=== PATIENT | female | born 2000 | race Caucasian/White ===

== ENCOUNTER 2022-12-12 04:23 | Emergency (ER) | payer OTHER, SELFPAY ==
[2022-12-12] VITALS (8 sets, daily range): BP systolic 111–114; BP diastolic 66–76; PULSE 74–77; RESP 16; TEMP 36.8; O2SAT 98–100
--- NOTE | ~2022-12-12 | CT_ITS ---
EXAMINATION: CT abdomen pelvis w con DATE: 12/12/2022 05:55 INDICATION: Epigastric pain, nausea and vomiting TECHNIQUE: Computed tomography (CT) of the abdomen and pelvis was performed with 100 mL Omnipaque-350 intravenous contrast. Automated exposure control and iterative reconstruction technique were employe d. The dose-length product was 624.41 mGy-cm. COMPARISON: None FINDINGS: Minimal dependent atelectasis in the lower lungs. Heart size is normal. No pericardial or pleural eff usion. Small sliding-type hiatal hernia versus mild wall thickening in the distal esophagus. Liver, g allbladder, spleen, pancreas, bilateral adrenal glands and kidneys are normal. Indistinct peripheral margin to the otherwise normal-appearing bladder which could be seen with cystitis. Anteverted uterus and right adnexa are normal. 2.0 cm left ovarian cyst/follicle. Small amount of either physiologic o r reactive free fluid in the cul-de-sac. Bowels including the appendix are normal. No pathologically enlarged abdominal or pelvic lymphadenopathy. Schmorl's node along the superior endplate of L5. IMPRESSION: 1. Possible cystitis. Correlate with urinalysis. 2. Small sliding-type hiatal hernia versus mild wall thickening at the distal esophagus, the latter w hich could be seen with reflux. Reviewed, dictated and finalized at location A. IMPRESSION: 1. Possible cystitis. Correlate with urinalysis. 2. Small sliding-type hiatal hernia versus mild wall thickening at the distal e sophagus, the latter which could be seen with reflux.
[2022-12-12] MEDS: FAMOTIDINE 20 MG/2 ML VIAL IV PUSH (05:11)
[2022-12-12] MEDS: METOCLOPRAMIDE HCL INJ 10 MG/2 ML VIAL IV PUSH (05:12)
[2022-12-12] MEDS: MORPHINE SULFATE (*CRX) 4 MG/ML INJ IV PUSH (05:12)
[2022-12-12] MEDS: PANTOPRAZOLE SODIUM IV 40 MG VIAL IV PUSH (05:12)
[2022-12-12] MEDS: SODIUM CHLORIDE 0.9% IV 1,000 ML 999 ML IV CONT (05:13)
[2022-12-12 05:14] LABS: Basophils Absolute Auto 0.1 K/mm3 (0.0-0.1); Basophils Percent Auto 0.7 % (0.2-1.2); Hematocrit 40.9 % (37.0-47.0); Hemoglobin 13.6 g/dL (12.0-15.0); Immature Granulocyte Absolute 0.02 K/mm3 (0.00-0.031); Immature Granulocyte Percent A 0.2 % (0-0.5); Lymphocytes Absolute Auto 1.62 K/mm3 (0.9-3.2); Lymphocytes Percent Auto 17.7 % (18.3-44.2); Mean Corpuscular HGB Conc 33.3 g/dl (32-36); Mean Corpuscular Hemoglobin 29.6 pg (26-34); Mean Corpuscular Volume 89.1 fl (80-100); Mean Platelet Volume 11.4 fl (7.4-10.4); Monocytes Absolute Auto 0.7 K/mm3 (0.1-0.6); Monocytes Percent Auto 7.3 % (2.6-8.5); Neutrophils Absolute Auto 6.8 K/mm3 (1.3-6.7); Neutrophils Percent Auto 74.1 % (45.5-73.1); Platelet Count Result 257 k/mm3 (150-375); Red Blood Count 4.59 M/mm3 (4.2-5.4); Red Cell Distribution Width 13.4 % (11.5-14.5); White Blood Count 9.2 K/mm3 (4.5-10.0)
--- NOTE | 2022-12-12 05:19 | ED.GENADULT ---
HPI - General Adult General Chief complaint: Abdominal Pain Stated complaint: n/v, abd pain Time Seen by Provider: 12/12/22 04:50 History of Present Illness HPI narrative: Patient with 2-year-old female who presents the emergency department with chief complaint of abdominal pain. Patient reports that she has been seen at [facility] several times for abdominal pain epigastric pain and nausea and vomiting. Patient reports that she continues to have symptoms and decided to come to our emergency department for further evaluation. Patient reports that the symptoms are worsened with eating and drinking and reports that she has pain in the epigastric region. Related Data Allergies Allergy/AdvReac Type Severity Reaction Status Date / Time Penicillins Allergy Itching Verified 12/12/22 05:31 Review of Systems Review of Systems: A 10 system review of systems was completed on the patient and is negative except for what is stated in the HPI. Nursing and ancillary documentation was reviewed. [facility] Family History Family History Father Family history of diabetes mellitus in first degree relative Mother Family history of diabetes mellitus in first degree relative Social History Social History Smoking status: Never smoker Second hand tobacco smoke exposure: No Alcohol intake: never Exam Narrative: GENERAL: Well-appearing, well-nourished, and in no acute distress. HEAD: Normocephalic, atraumatic. EYES: PERRLA and EOMI. ENT: Nares clear, no rhinorrhea or epistaxis. Mucous membranes moist. NECK: Supple. CHEST: Clear to auscultation. No respiratory distress. HEART: Regular rate and rhythm. No murmur heard. Normal peripheral pulses. ABDOMEN: Soft, tenderness to palpation in the epigastric region, nondistended, normal active bowel sounds. EXTREMITIES: Normal range of motion. No edema. SKIN: Warm, dry, no rash. NEURO: No focal deficits. Alert and oriented x3. PSYCH: Normal mood and affect. Course Vital Signs Vital signs: Vital Signs Temperature 36.8 C 12/12/22 04:25 Pulse Rate 77 12/12/22 04:25 Respiratory Rate 16 12/12/22 04:25 Blood Pressure 114/66 12/12/22 04:25 Pulse Oximetry 98 12/12/22 04:25 Oxygen Delivery Room Air 12/12/22 04:25 Temperature 36.8 C 12/12/22 04:25 Pulse Rate 74 12/12/22 05:24 Respiratory Rate 16 12/12/22 05:24 Blood Pressure 111/68 12/12/22 05:31 Pulse Oximetry 100 12/12/22 06:15 Oxygen Delivery Room Air 12/12/22 04:25 Medical Decision Making MDM Narrative Medical decision making narrative: Differential diagnosis includes small bowel obstruction, gastritis, gastroparesis, UTI, pyelonephritis Laboratory studies were obtained which showed a white count of 9.2 hemoglobin was 13.6 electrolytes showed a BUN of 10 creatinine is 0.5 glucose was 94 liver enzymes are within normal limits lipase was [address] scan was ordered of the abdomen pelvis as well as the patient receiving IV fluids antiemetics and pain control. CT scan showed evidence of a sliding hiatal hernia, gastritis and probable cystitis. Patient is currently on Keflex for UTI that was started at [facility]. The patient will be started on an antiemetic Zofran and also started on Protonix Vital Signs Vital Signs: Vital Signs Temperature 36.8 C 12/12/22 04:25 Pulse Rate 77 12/12/22 04:25 Respiratory Rate 16 12/12/22 04:25 Blood Pressure 114/66 12/12/22 04:25 Pulse Oximetry 98 12/12/22 04:25 Oxygen Delivery Room Air 12/12/22 04:25 Temperature 36.8 C 12/12/22 04:25 Pulse Rate 74 12/12/22 05:24 Respiratory Rate 16 12/12/22 05:24 Blood Pressure 111/68 12/12/22 05:31 Pulse Oximetry 100 12/12/22 06:15 Oxygen Delivery Room Air 12/12/22 04:25 Lab Data 12/12/22 05:10 12/12/22 05:10 Labs: Lab Results 04
[2022-12-12 05:26] LABS: Alanine Aminotransferase 18 U/L (6-35); Albumin Level 4.2 g/dL (3.5-5.1); Alkaline Phosphatase 77 U/L (38-126); Anion Gap 7 mmol/L (8-16); Aspartate Amino Transferase 23 U/L (14-36); Bilirubin,Total 0.6 mg/dL (0.2-1.3); Blood Urea Nitrogen 10 mg/dL (7-17); Calcium 8.7 mg/dL (8.4-10.2); Carbon Dioxide 30 mmol/L (22-30); Chloride 99 mmol/L (98-107); Estimated CRCL calculation 131 ml/min; Estimated Glomerular Filt Rate > 60; Glucose 94 mg/dL (65-110); Lipase 20 U/L (23-300); Magnesium 2.1 mg/dL (1.6-2.3); Potassium 3.6 mmol/L (3.4-5.0); Sodium 136 mmol/L (137-145)
[2022-12-12 06:06] LABS: Appearance Urine Turbid (Clear); Bacteria Urine None Seen /hpf; Bilirubin Urine 2+ (Negative); Blood Urine Negative (Negative); Color Urine Dark Yellow (Yellow); Glucose Urine UA Negative (Negative); Ketones Urine 4+ mg/dL (Negative); Leukocyte Esterase Ur Negative LEU/UL (Negative); Mucus Urine Present /lpf; Nitrate Urine Negative (Negative); Non Pathogenic Casts 0-2; Protein Urine 1+ mg/dL (Negative); RBC Urine 0-2 /hpf (0-2); Squamous Epithelial Cell Urine Few /hpf (Few)
[2022-12-12 06:07] LABS: Specific Grav Ur 1.042 (1.001-1.035)
[2022-12-12 06:08] LABS: Add Urine Microscopic? YES
== END 2022-12-12 06:55 | disposition home or self-care (01) ==
PROVIDERS: Emergency Provider Emergency Medicine
DX: K29.70 Gastritis, unspecified, without bleeding (principal); K44.9 Diaphragmatic hernia without obstruction or gangrene; N39.0 Urinary tract infection, site not specified; E11.9 Type 2 diabetes mellitus without complications
CPT/HCPCS: 36415; 74177; 80053; 81001; 81025; 83690; 83735; 85025; 87086; 87636; 96361; 96374; 96375; 99284; A9270; C9113; J2270; J2405; J2765; J7030; J7120; Q9967

== ENCOUNTER 2022-12-12 21:15 | Emergency (ER) | payer OTHER, SELFPAY ==
[2022-12-12 21:38] VITALS: BP 149/77; PULSE 83; RESP 18; TEMP 36.9; O2SAT 100
[2022-12-13] VITALS (9 sets, daily range): BP systolic 126–163; BP diastolic 82–99; PULSE 70–79; RESP 15–16; TEMP 37.2; O2SAT 100
[2022-12-13] MEDS: LACTATED RINGERS 1,000 ML 999 ML IV CONT (07:34)
[2022-12-13] MEDS: PANTOPRAZOLE SODIUM IV 40 MG VIAL IV PUSH (07:34)
[2022-12-13] MEDS: ONDANSETRON INJ 4 MG/2 ML VIAL IV PUSH (07:34)
[2022-12-13 07:39] LABS: Basophils Absolute Auto 0.1 K/mm3 (0.0-0.1); Basophils Percent Auto 0.7 % (0.2-1.2); Eosinophils Percent Auto 0.4 % (0-4.4); Hematocrit 39.8 % (37.0-47.0); Hemoglobin 12.9 g/dL (12.0-15.0); Immature Granulocyte Absolute 0.02 K/mm3 (0.00-0.031); Immature Granulocyte Percent A 0.3 % (0-0.5); Lymphocytes Absolute Auto 2.93 K/mm3 (0.9-3.2); Lymphocytes Percent Auto 38.6 % (18.3-44.2); Mean Corpuscular HGB Conc 32.4 g/dl (32-36); Mean Corpuscular Hemoglobin 29.3 pg (26-34); Mean Corpuscular Volume 90.2 fl (80-100); Monocytes Absolute Auto 0.8 K/mm3 (0.1-0.6); Monocytes Percent Auto 10.4 % (2.6-8.5); Neutrophils Absolute Auto 3.8 K/mm3 (1.3-6.7); Neutrophils Percent Auto 49.6 % (45.5-73.1); Platelet Count Result 247 k/mm3 (150-375); Red Blood Count 4.41 M/mm3 (4.2-5.4); Red Cell Distribution Width 13.2 % (11.5-14.5); White Blood Count 7.6 K/mm3 (4.5-10.0)
[2022-12-13 07:48] LABS: Potassium 3.3 mmol/L (3.4-5.0)
[2022-12-13 07:50] LABS: Alanine Aminotransferase 18 U/L (6-35); Albumin Level 4.1 g/dL (3.5-5.1); Alkaline Phosphatase 72 U/L (38-126); Anion Gap 8 mmol/L (8-16); Aspartate Amino Transferase 26 U/L (14-36); Bilirubin,Total 0.6 mg/dL (0.2-1.3); Blood Urea Nitrogen 8 mg/dL (7-17); Calcium 8.6 mg/dL (8.4-10.2); Carbon Dioxide 29 mmol/L (22-30); Chloride 100 mmol/L (98-107); Estimated CRCL calculation 155 ml/min; Estimated Glomerular Filt Rate > 60; Glucose 75 mg/dL (65-110); Lipase 30 U/L (23-300); Sodium 137 mmol/L (137-145)
[2022-12-13 08:21] LABS: Influenza A QL RT-PCR Negative (Negative); Influenza B QL RT-PCR Negative (Negative); SARS-CoV-2 RNA PCR Negative
[2022-12-13] MEDS: BELLADONNA ALK/PHENOB ELIX 10 ML, MAG HYDROX/ALUMINUM HYD/SIMETH 30 ML, LIDOCAINE HCL 2... PO (08:41)
--- NOTE | 2022-12-13 09:09 | PC.NURSE ---
Ambulated to bathroom without assistance. States she feels better, just weak
--- NOTE | 2022-12-13 09:38 | ED.ABDPAIN ---
HPI - Abdominal Pain General Chief Complaint: Abdominal Pain Stated Complaint: abd pain, N/V Time Seen by Provider: 12/13/22 07:01 Source: patient and RN notes reviewed Mode of arrival: ambulatory Limitations: no limitations History of Present Illness HPI narrative: This is a 22 year old female who presents for evaluation of nausea and vomiting. SHe reports having nausea and vomiting with epigastric pain for 4 days. She has been evaluated at [facility] and she was evaluated yesterday at [facility]. She had labs and CT abdomen and pelvis yesterday. Her CT showed hiatal hernia, and she was discharged on zofran and hiatal hernia. She reports when she got home she has worsening epigastric pain and nausea and vomiting. She denies fever, chills or diarrhea. She reports taking her zofran without relief. She does smoke marijuana daily. Related Data Allergies Allergy/AdvReac Type Severity Reaction Status Date / Time Penicillins Allergy Itching Verified 12/12/22 05:31 Review of Systems Constitutional: Constitutional: Denies weakness Cardiovascular: Cardiovascular: Denies syncope, Denies rapid heart rate, Denies irregular heart rhythm, Denies leg edema and Denies dyspnea Respiratory: Respiratory: Denies chest congestion, Denies hemoptysis, Denies excessive phlegm production and Denies dyspnea Gastrointestinal: Gastrointestinal: Reports abdominal pain, Denies hematochezia, Reports nausea and Reports vomiting Genitourinary: Genitourinary: Denies hematuria and Denies dysuria Musculoskeletal: Musculoskeletal: Denies joint swelling, Denies loss of height and Denies muscle weakness Neurologic: Denies syncope, Denies focal weakness and Denies weakness [facility] Family History Family History Father Family history of diabetes mellitus in first degree relative Mother Family history of diabetes mellitus in first degree relative Social History Social History (Updated 12/13/22 @ 10:21 by Ariadna Jones MD) Smoking status: Never smoker Second hand tobacco smoke exposure: No Alcohol intake: never Substance use: current Substance use type: marijuana Exam Narrative: GENERAL: Well-appearing, well-nourished, and in no acute distress. HEAD: Normocephalic, atraumatic EYES: PERRLA and EOMI, conjunctiva clear without discharge THROAT:Mucous membranes moist, Oropharynx normal without erythema, exudate, peritonsillar swelling or fluctuance NECK: Supple, without lymphadenopathy or mass RESPIRATORY: No respiratory distress, Airway patent, Respirations non-labored, Clear to auscultation without rales, rhonchi or wheeze HEART: Regular rate and rhythm. No murmur heard. Normal peripheral pulses. ABDOMEN: Soft, nontender, nondistended, normal active bowel sounds. No masses. No rebound or guarding, No organomegaly. EXTREMITIES: No edema, normal strength with full range of motion. SKIN: Warm, dry, normal color without rash NEURO: Alert and oriented x3. CN 2-12 grossly intact. No focal deficits. PSYCH: Normal mood and affect. Const: General: alert Neuro: Speech: No Abnormal speech present Course Reevaluation(s) Reevaluation #1: I reviewed CT and labs from yesterday. Labs unremarkable. CT shows normal appendix. Today labs are normal as well. No elevated wbc. Patient states she feels better and she is ready for discharge. Date: 12/13/22 Time: 10:16 Vital Signs Vital signs: Vital Signs Temperature 98.4 F 12/12/22 21:38 Pulse Rate 83 12/12/22 21:38 Respiratory Rate 18 12/12/22 21:38 Blood Pressure 149/77 H 12/12/22 21:38 Pulse Oximetry 100 12/12/22 21:38 Oxygen Delivery Room Air 12/12/22 21:38 Temperature 99 F 12/13/22 06:05 Pulse Rate 70 12/13/22 10:27 Respiratory Rate 16 12/13/22 10:27 Blood Pressure 126/83 12/13/22 10:27 Pulse Oximetry 100 12/13/22 09:01 Oxygen Delivery Room Air 12/12/22 21:38 MDM - Abdominal
== END 2022-12-13 10:27 | disposition home or self-care (01) ==
PROVIDERS: Emergency Provider General Practice
DX: R11.2 Nausea with vomiting, unspecified (principal); K21.9 Gastro-esophageal reflux disease without esophagitis
CPT/HCPCS: 36415; 80053; 83690; 85025; 87636; 96361; 96374; 96375; 99284; A9270; C9113; J2405; J7120

== ENCOUNTER 2023-01-25 22:25 | Emergency (ER) | payer OTHER, SELFPAY ==
--- NOTE | ~2023-01-25 | CT_ITS ---
CT of the Abdomen and Pelvis: Indication: Abdominal pain Technique: 2.5 mm axial scans were obtained through the abdomen and pelvis following intravenous adm inistration of 100 cc of Omnipaque 350. Dose reduction technique was used on this scan by utilizing a utomated exposure control and iterative reconstruction technique. The dose-length product (DLP) was 3 86.36 mGy-cm. COMPARISON: 12/12/2022 Findings: Scans through the lung bases are unremarkable. The liver, spleen, pancreas, gallbladder, adrenals and kidneys are within normal limits. No evidence of aortic aneurysm. No lymphadenopathy. No bowel obstruction or bowel wall thickening. There is no evidence to suggest acute appendicitis. Images through the pelvis were performed. Urinary bladder unremarkable. No adnexal mass seen. No asci iván. Impression: No significant abnormalities seen. Reviewed, dictated and finalized at [facility]. Impression: No significant abnormalities seen.
--- NOTE | ~2023-01-25 | XR_ITS ---
Portable chest x-ray Comparison: None Clinical History: Epigastric pain Findings: Lungs are clear, without focal consolidation or pleural effusion. Cardiomediastinal silho uette is unremarkable. Bones and soft tissues are unremarkable. Impression: Normal chest. Reviewed, dictated and finalized at location . Impression: Normal chest.
[2023-01-25 22:27] VITALS: BP 142/83; PULSE 100; RESP 14; TEMP 36.8; O2SAT 100
--- NOTE | 2023-01-25 22:46 | PC.NURSE ---
Patient states she tool 16mg Zofran roughly at 2215.
[2023-01-25 23:02] VITALS: BP 111/73; PULSE 89; RESP 20; TEMP 36.6; O2SAT 100
--- NOTE | 2023-01-25 23:02 | ECG_ITS ---
Measurements Intervals [place] Rate: 81 P: 40 NE: 104 QRS: 81 QRSD: 79 T: 58 QT: 394 QTc: 459 Interpretive Statements SINUS RHYTHM WITH SHORT NE INTERVAL RSR' IN V1 OR V2, PROBABLY NORMAL VARIANT BORDERLINE ECG NO PREVIOUS ECG AVAILABLE FOR COMPARISON Electronically Signed On 01-26-2023 6:23:19 CDT by Rafita Jarvis D.O.
--- NOTE | 2023-01-25 23:08 | ED.NAVMDI ---
HPI - Nausea/Vomiting/Diarrhea General Chief complaint: Nausea/Vomiting/Diarrhea <NÉSTOR Jenkins Last Filed: 01/26/23 03:21> Stated complaint: vomiting x24 hours <NÉSTOR Jenkins Last Filed: 01/26/23 03:21> Time Seen by Provider: 01/25/23 22:32 <NÉSTOR Jenkins Last Filed: 01/26/23 03:21> History of Present Illness HPI Narrative: 22-year-old female with a history of GERD reports for evaluation of epigastric pain, nausea and vomiting x24 hours. Patient reports she was taking Protonix that was prescribed at her ED visit on 12/13, however stopped taking it 2 weeks ago because she was feeling better . She states the abdominal pain is dull constantly with intermittent episodes of sharp pain that occur after she drinks water. She denies chest pain, shortness of breath, fever, bodyaches, chills, changes in bowel habit, hematemesis or melena, urinary complaints. Of note, patient is currently being treated outpatient by her PCP for a cat scratch/bite. Reports she was scratched or bitten by her cat to her right fourth digit 4 days ago and was started on 2 antibiotics but she does not know the name. States she went to her PCP today for evaluation of the abdominal pain, nausea, and vomiting. States her PCP told her that it may be due to the antibiotics, therefore switched her antibiotics to Levaquin. She was also sent home with Zofran. Patient reports improvement her cat scratch since starting the antibiotics. Denies difficulty with range of motion of her finger, finger edema. She does report having intermittent purulent drainage from the site. She has a follow up appointment with her PCP tomorrow. The triage note mentions that the patient has SI, but denies plan. She is denying SI and HI to me, and denies plan. She reports her PCP is aware of her depression as well as her therapist. <Petra Angulo PA-C - Last Filed: 01/26/23 03:21> Related Data Allergies/Adverse reactions: Allergies Allergy/AdvReac Type Severity Reaction Status Date / Time Penicillins Allergy Itching Verified 12/12/22 05:31 <NÉSTOR Jenkins Filed: 01/26/23 03:21> Review of Systems Review of Systems: CONSTITUTIONAL: Denies fever, chills EYES: Denies visual changes, redness, or discharge. ENT: Denies rhinorrhea, congestion, sore throat, or otalgia. CARDIOVASCULAR: Denies chest pain, palpitations, or edema. RESPIRATORY: Denies cough or dyspnea. GASTROINTESTINAL: See HPI GENITOURINARY: Denies dysuria or hematuria. SKIN: Denies rash or itching. MUSCULOSKELETAL: Denies back pain, joint pain, or myalgia. NEUROLOGIC: Denies headache, numbness, dizziness, or weakness. PSYCHIATRIC: Denies anxiety or depression. <Petra Angulo PA-C - Last Filed: 01/26/23 03:21> [facility] Family History Family History: Family History Father Family history of diabetes mellitus in first degree relative Mother Family history of diabetes mellitus in first degree relative <Petra Angulo PA-C - Last Filed: 01/26/23 03:21> Social History Social History: Social History Smoking status: Never smoker Second hand tobacco smoke exposure: No Alcohol intake: never Substance use: current Substance use type: marijuana <Petra Angulo PA-C - Last Filed: 01/26/23 03:21> Exam Narrative: GENERAL: Well-appearing, in no acute distress. HEAD: Normocephalic EYES: PERRLA ENT: Nares clear. Mucous membranes moist. Oropharynx without tonsillar hypertrophy exudate or other lesions. NECK: Supple. CHEST: No respiratory distress. Clear to auscultation, no adventitious breath sounds. HEART: Regular rate and rhythm. No murmur heard. Normal peripheral pulses. ABDOMEN: Soft normal active bowel sounds. Generalized abdominal tenderness, worse over the epigastrium. No rebound, guarding or rig
[2023-01-25 23:13] LABS: Basophils Percent Auto 0.2 % (0.2-1.2); Hematocrit 38.9 % (37.0-47.0); Hemoglobin 12.8 g/dL (12.0-15.0); Immature Granulocyte Absolute 0.07 K/mm3 (0.00-0.031); Immature Granulocyte Percent A 0.5 % (0-0.5); Lymphocytes Percent Auto 9.3 % (18.3-44.2); Mean Corpuscular HGB Conc 32.9 g/dl (32-36); Mean Corpuscular Hemoglobin 29.4 pg (26-34); Mean Corpuscular Volume 89.4 fl (80-100); Mean Platelet Volume 11.8 fl (7.4-10.4); Monocytes Absolute Auto 1.3 K/mm3 (0.1-0.6); Monocytes Percent Auto 8.7 % (2.6-8.5); Neutrophils Absolute Auto 12.2 K/mm3 (1.3-6.7); Neutrophils Percent Auto 81.3 % (45.5-73.1); Platelet Count Result 302 k/mm3 (150-375); Red Blood Count 4.35 M/mm3 (4.2-5.4); Red Cell Distribution Width 13.7 % (11.5-14.5)
[2023-01-25] MEDS: METOCLOPRAMIDE HCL INJ 10 MG/2 ML VIAL IV PUSH (23:23)
[2023-01-25] MEDS: SODIUM CHLORIDE 0.9% IV 1,000 ML 999 ML IV CONT (23:23)
[2023-01-25] MEDS: FAMOTIDINE 20 MG/2 ML VIAL IV PUSH (23:23)
[2023-01-25 23:24] LABS: Appearance Urine Cloudy (Clear); Bacteria Urine None Seen /hpf; Bilirubin Urine Negative (Negative); Blood Urine Negative (Negative); Color Urine Yellow (Yellow); Glucose Urine UA Trace mg/dL (Negative); Ketones Urine 4+ mg/dL (Negative); Leukocyte Esterase Ur Negative LEU/UL (Negative); Nitrate Urine Negative (Negative); Protein Urine 1+ mg/dL (Negative); Specific Grav Ur 1.026 (1.001-1.035); Squamous Epithelial Cell Urine Occasional /hpf (Few); WBC Urine 0-5 /hpf; pH Urine 5.5 (5.0-9.0)
[2023-01-25 23:28] LABS: Add Urine Microscopic? YES
[2023-01-25 23:43] VITALS: BP 121/72; PULSE 80
[2023-01-25 23:46] VITALS: BP 129/73; PULSE 92
[2023-01-25 23:48] VITALS: BP 120/65; PULSE 99
[2023-01-26] VITALS (9 sets, daily range): BP systolic 97–134; BP diastolic 43–107; PULSE 75–99; RESP 14–16; TEMP 37; O2SAT 98–100
[2023-01-26 00:33] LABS: Lactic Acid Reflex 1.1 mmol/L (0.7-2.0)
[2023-01-26 00:44] LABS: Troponin I < 0.012 ng/mL (0.000-0.034)
[2023-01-26] MEDS: ACETAMINOPHEN 500 MG TABLET 1000 MG PO (01:09)
[2023-01-26] MEDS: MORPHINE SULFATE (*CRX) 4 MG/ML INJ IV PUSH (01:10)
[2023-01-26 01:26] LABS: Anion Gap 22 mmol/L (8-16); Carbon Dioxide 10 mmol/L (22-30); Chloride 107 mmol/L (98-107); Potassium 4.4 mmol/L (3.4-5.0); Sodium 139 mmol/L (137-145)
[2023-01-26 01:27] LABS: Alanine Aminotransferase 25 U/L (6-35); Aspartate Amino Transferase 60 U/L (14-36); Bilirubin,Total 0.8 mg/dL (0.2-1.3); Blood Urea Nitrogen 10 mg/dL (7-17); Calcium 9.2 mg/dL (8.4-10.2); Estimated CRCL calculation 113 ml/min; Estimated Glomerular Filt Rate > 60; Glucose 137 mg/dL (65-110); Total Protein 7.9 g/dL (6.3-8.2)
[2023-01-26 01:28] LABS: Albumin Level 4.9 g/dL (3.5-5.1); Alkaline Phosphatase 92 U/L (38-126); Lipase 26 U/L (23-300)
--- NOTE | 2023-01-26 01:52 | PC.NURSE ---
Patient's blood pressure dropped to 90/63. Notified Petra GTZ
[2023-01-26] MEDS: SODIUM CHLORIDE 0.9% IV 1,000 ML 999 ML IV CONT (01:58)
[2023-01-26] MEDS: SODIUM CHLORIDE 0.9% IV 1,000 ML 500 ML IV CONT (03:05)
--- NOTE | 2023-01-26 03:17 | PC.NURSE ---
Patients blood pressure was down to 84/49. Notified Petra EDPA. Per Petra EDPA increase rate of fluids to go over one hour. Patient's blood pressure cuff was also readjusted. A repeat blood pressure was obtained of 101/52.
[2023-01-26 05:52] LABS: Anion Gap 11 mmol/L (8-16); Blood Urea Nitrogen 8 mg/dL (7-17); Calcium 8.2 mg/dL (8.4-10.2); Carbon Dioxide 15 mmol/L (22-30); Chloride 111 mmol/L (98-107); Estimated CRCL calculation 113 ml/min; Estimated Glomerular Filt Rate > 60; Glucose 143 mg/dL (65-110); Potassium 4.5 mmol/L (3.4-5.0); Sodium 137 mmol/L (137-145)
== END 2023-01-26 06:25 | disposition home or self-care (01) ==
PROVIDERS: Emergency Medicine; Emergency Provider Physician Assistant
DX: R10.13 Epigastric pain (principal); E86.0 Dehydration; L03.011 Cellulitis of right finger; R11.2 Nausea with vomiting, unspecified
CPT/HCPCS: 36415; 71045; 74177; 80048; 80053; 81001; 81025; 83605; 83690; 84484; 85025; 93005; 96361; 96374; 96375; 99284; A9270; J2270; J2765; J7030; Q9967

== ENCOUNTER 2023-01-26 12:44 | Inpatient (IN) | payer OTHER, SELFPAY ==
[2023-01-26 12:46] VITALS: BP 144/76; PULSE 87; RESP 18; TEMP 36.7; O2SAT 100
--- NOTE | 2023-01-26 13:49 | ED.GENADULT ---
HPI - General Adult General Chief complaint: Wound/Laceration Stated complaint: right ring finger wound Time Seen by Provider: 01/26/23 12:52 History of Present Illness HPI narrative: Patient is a 22-year-old female type I diabetic presenting with nausea and vomiting. Patient states that she has been unable to keep anything down for the last couple of days. States that her PCP is currently treating her for a finger infection related to a cat scratch. Patient was here last night and had labs and was able to go home. Patient then went to see her doctor this morning and told them that she was still vomiting so they sent her in for evaluation. Patient states that she was never able to fill her Zofran prescription because she was planning on going after her doctor's appointment. Her nausea has remained unchanged. The wound on her finger has not worsened. Denies further complaints or other systemic symptoms. Related Data Home Medications Medication Instructions Recorded Confirmed blood-glucose sensor (Dexcom G6 01/26/23 01/26/23 Sensor device) cyanocobalamin (vitamin B-12) 1,000 mcg PO DAILY 01/26/23 01/26/23 1,000 mcg tablet ergocalciferol (vitamin D2) 1,250 1,250 mcg PO WEEKLY 01/26/23 01/26/23 mcg (50,000 unit) capsule fluoxetine 20 mg capsule 20 mg PO DAILY 01/26/23 01/26/23 insulin glargine 100 unit/mL (3 22 unit subcut HS 01/27/23 01/27/23 mL) subcutaneous pen (Basaglar KwikPen U-100 Insulin) insulin lispro 100 unit/mL 25 unit subcut TID 01/27/23 01/27/23 subcutaneous pen Allergies Allergy/AdvReac Type Severity Reaction Status Date / Time Penicillins Allergy Itching Verified 02/03/23 14:19 Review of Systems Review of Systems: All systems reviewed & are unremarkable except as noted in HPI and below PMFSH Past Medical History Medical History (Updated 02/05/23 @ 19:10 by Karen Fowler MD) Cyclic vomiting syndrome Depression Family History Family History (Updated 01/28/23 @ 17:25 by Regla Martinez RN) Father Family history of diabetes mellitus in first degree relative Mother Family history of diabetes mellitus in first degree relative Grandparent Crohn disease Celiac disease Social History Social History Smoking status: Current every day smoker Tobacco type: e-cigarettes/vaping Second hand tobacco smoke exposure: No Alcohol intake: never Substance use: current Substance use type: marijuana Lack of Transportation: No Lack of Food: Sometimes True Current Housing: I Have Housing Concerned About Future Housing: No Difficulty Paying Gas/Electric Bills: No Difficulty Paying for Meds: No Currently Unemployed: No Education: High School Diploma/GED Difficulty w/ Childcare or Family Care: No Spiritual care concerns: No Exam Narrative: GENERAL: nontoxic, laying in bed in no acute distress, pleasant and cooperative HEAD: Normocephalic, atraumatic. EYES: PERRLA and EOMI. ENT: Nares clear, no rhinorrhea or epistaxis. Mucous membranes moist. NECK: Supple. CHEST: Clear to auscultation. No respiratory distress. HEART: Regular rate and rhythm. No murmur heard. Normal peripheral pulses. ABDOMEN: Soft, nontender, nondistended EXTREMITIES: Normal range of motion. No edema. R ring finger with erythema and two small scabs, no induration or fluctuance, ROM intact, no edema, no tenderness of flexor tendon, brisk cap refill than 2, sensation intact. Radial pulse 2+. SKIN: Warm, dry, see above NEURO: No focal deficits. Alert and oriented x3. PSYCH: Normal mood and affect. Course Vital Signs Vital signs: Vital Signs Temperature 98.1 F 01/26/23 12:46 Pulse Rate 87 01/26/23 12:46 Respiratory Rate 18 01/26/23 12:46 Blood Pressure 144/76 H 01/26/23 12:46 Pulse Oximetry 100 01/26/23 12:46 Oxygen Delivery Room Air 01/26/23 12:46 Temperature 98.3 F 01/31/23 14:00 Pu
[2023-01-26] MEDS: ONDANSETRON HCL ODT 4 MG TABLET 8 MG PO (14:16)
[2023-01-26 14:30] VITALS: BP 110/68; PULSE 80; RESP 16; O2SAT 98
[2023-01-26] MEDS: SODIUM CHLORIDE 0.9% IV 1,000 ML 999 ML IV CONT (17:09)
[2023-01-26] MEDS: METOCLOPRAMIDE HCL INJ 10 MG/2 ML VIAL IV PUSH (17:14)
[2023-01-26] MEDS: PANTOPRAZOLE SODIUM IV 40 MG VIAL IV PUSH (17:16)
[2023-01-26] MEDS: metroNIDAZOLE 500 MG/ISO 100ML 500 MG/100 ML BAG 100 MG IVPB (17:20)
[2023-01-26 18:20] VITALS: BP 99/57; PULSE 94; RESP 16; O2SAT 97
[2023-01-26] MEDS: MORPHINE SULFATE (*CRX) 4 MG/ML INJ IV PUSH (18:20)
--- NOTE | 2023-01-26 19:57 | ECG_ITS ---
Measurements Intervals [place] Rate: 88 P: 19 CA: 100 QRS: 70 QRSD: 82 T: 28 QT: 378 QTc: 458 Interpretive Statements SINUS RHYTHM WITH SHORT CA INTERVAL BORDERLINE ECG COMPARED TO ECG 01/25/2023 23:41:35 NO SIGNIFICANT CHANGES Electronically Signed On 01-26-2023 21:32:50 CDT by Rafita Jarvis D.O.
[2023-01-26] MEDS: MORPHINE SULFATE (*CRX) 2 MG/ML INJ IV PUSH (20:02)
[2023-01-26] MEDS: METOCLOPRAMIDE HCL INJ 10 MG/2 ML VIAL 5 MG IV PUSH (20:02)
[2023-01-26 20:08] VITALS: BP 124/95; PULSE 101; RESP 14; O2SAT 100
[2023-01-26 20:10] LABS: Glucose Point of Care 114 mg/dl (65-105)
--- NOTE | 2023-01-26 20:33 | PM.IMHP ---
H&P: HPI History of Present Illness Date/Time: 01/26/23 20:33 Chief Complaint: nausea vomiting Narrative: 22-year-old female with past medical history significant for type 1 diabetes mellitus, on insulin pump, presents to the emergency room due to intractable nausea and vomiting x2 days after restarting antibiotic treatment for cat bite her own. patient has been unable to keep anything down for the last couple of days came to the emergency room the day prior and was able to go home however it is today after has been unable to keep anything down. Patient denies any fevers, rigors, chills. Has tenderness and swelling and redness of the 4th of right finger. A CT of abdomen and pelvis was reported as: CT of the Abdomen and Pelvis: Indication: Abdominal pain Technique:? 2.5 mm axial scans were obtained through the abdomen and pelvis following intravenous administration of 100 cc of Omnipaque 350. Dose reduction technique was used on this scan by utilizing automated exposure control and iterative reconstruction technique. The dose-length product (DLP) was 386.36 mGy-cm. COMPARISON: 12/12/2022 Findings:? Scans through the lung bases are unremarkable. The liver, spleen, pancreas, gallbladder, adrenals and kidneys are within normal limits.? No evidence of aortic aneurysm.? No lymphadenopathy. No bowel obstruction or bowel wall thickening. There is no evidence to suggest acute appendicitis. Images through the pelvis were performed. Urinary bladder unremarkable. No adnexal mass seen. No ascites. Impression: No significant abnormalities seen. a chest x-ray was reported as: Portable chest x-ray Comparison: None Clinical History: Epigastric pain Findings:? Lungs are clear, without focal consolidation or pleural effusion.? Cardiomediastinal silhouette is unremarkable. Bones and soft tissues are unremarkable. ? Impression: ? Normal chest. Review of Systems Review of Systems: nausea, vomiting, right 4th finger pain, swelling, tenderness, redness, cap by Constitutional: Constitutional: Denies chills, Denies fever(s), Denies malaise, Denies night sweats and Denies poor appetite Eyes: Eyes: Denies change in vision ENT: Denies dysphagia and Denies odynophagia Cardiovascular: Cardiovascular: Denies chest pain, Denies leg edema, Denies radiating jaw, neck or arm pain and Denies palpitations Respiratory: Respiratory: Denies chest congestion, Denies cough, Denies excessive phlegm production and Denies dyspnea Gastrointestinal: Gastrointestinal: Reports abdominal pain, Denies dyspepsia, Denies heartburn, Denies diarrhea, Reports nausea and Reports vomiting Genitourinary: Genitourinary: Denies dysuria and Denies flank pain Musculoskeletal: Musculoskeletal: Denies back pain and Denies myalgias Integumentary/Breasts: Skin/Breast: Reports erythema, Denies rash, Reports skin swelling and Reports wounds ( left 4th finger cat bite) Neurologic: Denies focal weakness and Denies Sensory deficit (Neuro) Psychiatric: Psychiatric: Reports no additional psychiatric complaints and Reports as per HPI Endocrine: Endocrine: Denies cold intolerance, Denies fatigue, Denies flushing, Denies heat intolerance, Denies polyphagia, Denies polydipsia and Denies palpitations Hematologic/Lymphatic: Hematologic/Lymphatic: Reports no additional hematologic/lymphatic complaints and Reports as per HPI Allergic/Immunologic: Allergic/Immunologic: Reports no additional allergic/immunologic complaints and Reports as per HPI PMFSH Family History Family History Father Family history of diabetes mellitus in first degree relative Mother Family history of diabetes mellitus in first degree relative Social History Social History Smoking status: Current every day smoker Tobacco type: e-cigarettes/vaping Second hand tobacco smoke exposure
[2023-01-26 22:00] VITALS: BP 128/69; PULSE 102; RESP 20; TEMP 36.6; O2SAT 100; BMI 28.0
--- NOTE | 2023-01-26 22:26 | PC.NURSE ---
Patient arrived on 3 Med-Surg at 21:12
[2023-01-26 22:30] VITALS: BMI 28.4
[2023-01-26 23:17] LABS: Glucose Point of Care 94 mg/dl (65-105)
[2023-01-27] MEDS: ONDANSETRON INJ 4 MG/2 ML VIAL IV PUSH ×2 (02:59→08:26)
[2023-01-27] MEDS: DOXYCYCLINE 100 MG/NS 100 ML 100 MG/100 ML BAG IVPB ×2 (04:03→15:14)
[2023-01-27] MEDS: HYDROmorphone HCL INJ (*CRX) 1 MG/ML SYR IV PUSH (04:03)
[2023-01-27 06:00] VITALS: BP 106/54; PULSE 94; RESP 20; TEMP 36.4; O2SAT 99
[2023-01-27 06:37] LABS: Hematocrit 32.3 % (37.0-47.0); Hemoglobin 10.5 g/dL (12.0-15.0); Mean Corpuscular HGB Conc 32.5 g/dl (32-36); Mean Corpuscular Hemoglobin 29.7 pg (26-34); Mean Corpuscular Volume 91.5 fl (80-100); Mean Platelet Volume 11.2 fl (7.4-10.4); Platelet Count Result 251 k/mm3 (150-375); Red Blood Count 3.53 M/mm3 (4.2-5.4); Red Cell Distribution Width 14.3 % (11.5-14.5); White Blood Count 10.2 K/mm3 (4.5-10.0)
[2023-01-27 06:48] LABS: Anion Gap 11 mmol/L (8-16); Blood Urea Nitrogen 5 mg/dL (7-17); Calcium 8.6 mg/dL (8.4-10.2); Carbon Dioxide 18 mmol/L (22-30); Chloride 110 mmol/L (98-107); Estimated CRCL calculation 156 ml/min; Estimated Glomerular Filt Rate > 60; Glucose 135 mg/dL (65-110); Potassium 3.7 mmol/L (3.4-5.0); Sodium 139 mmol/L (137-145)
--- NOTE | 2023-01-27 07:51 | PM.IMPN ---
Progress Note: A&P Assessment and Plan (1) Cat bite of finger: Code(s): S61.259A - Open bite of unspecified finger without damage to nail, initial encounter; W55.01XA - Bitten by cat, initial encounter Status: Acute Assessment and Plan: started on doxycycline 01/26 for pasteurella coverage, flagyl added 01/27 for anaerobic coverage continue to monitor, leuk improving supportive care (2) Insulin dependent diabetes mellitus: Status: Acute Assessment and Plan: continue insulin pump NPO except for ice chips (3) Intractable nausea and vomiting: Code(s): R11.2 - Nausea with vomiting, unspecified Status: Acute Assessment and Plan: NPO except for ice chips advanced diet as tolerated CT abdomen and pelvis reviewed, no acute abnormalities supportive care, continue to monitor suspect cyclic vomiting syndrome Plan Depression: cont prozac Allergic rhinitus: cont flonase Vit D def: cont ergocalciferol, f/u outpatient DVT prophylaxis with SCDs GI prophylaxis not indicated, started on PPI Code status full code Subjective Date/time seen: 01/27/23 07:51 Interval history: No overnight events noted. No chest pain or shortness of breath. No diarrhea. No fevers or chills. Patient c/o severe abdominal pain. She admits to getting frequent bouts of nausea and emesis every few months. worsened with stress. Review of Systems Review of Systems: 12 point review of systems was assessed and was negative except as noted in the HPI Exam Narrative: General: No acute distress, alert and oriented per baseline HEENT: Atraumatic, normocephalic, mucous membranes moist CV: Regular rate and rhythm, S1, S2 Lungs: Clear to auscultation bilaterally, no rales or crackles noted, no wheezes, good air entry Abdomen: Soft, nontender, nondistended Extremities: Normal to inspection Skin: No rashes noted, no lesions or wounds seen Psych: Euthymic, normal affect Objective Data Vital Signs Vital Signs: Vital Signs - 24 hr 01/26/23 12:46 01/26/23 18:20 01/26/23 14:30 Temperature 98.1 F Pulse Rate 87 94 80 Respiratory Rate 18 16 16 Blood Pressure 144/76 H 99/57 L 110/68 Pulse Oximetry 100 97 98 Oxygen Delivery Room Air 01/26/23 20:08 01/26/23 22:00 01/27/23 01:46 Temperature 97.8 F Pulse Rate 101 H 102 H Respiratory Rate 14 20 Blood Pressure 124/95 H 128/69 Pulse Oximetry 100 100 Oxygen Delivery Room Air 01/27/23 06:00 Temperature 97.6 F Pulse Rate 94 Respiratory Rate 20 Blood Pressure 106/54 L Pulse Oximetry 99 Oxygen Delivery Intake/Output Intake/Output: Intake & Output 01/24/23 01/25/23 01/26/23 01/27/23 23:59 23:59 23:59 23:59 Intake Total 1150 25 Balance 1150 25 Meds/Results Medications: Active Medications Generic Name Dose Route Start Last Admin Trade Name Freq PRN Reason Stop Dose Admin Acetaminophen 1,000 mg 01/27/23 02:30 Acetaminophen 500 Mg Tablet PO Q6H PRN Mild Pain (1-3) or Fever Cyanocobalamin 1,000 mcg 01/27/23 09:00 Cyanocobalamin 1,000 Mcg Tablet PO DAILY [facility] Enoxaparin Sodium 40 mg 01/27/23 09:00 Enoxaparin 40 Mg/0.4 Ml Syringe SUB-Q DAILY [facility] Ergocalciferol 50,000 units 01/30/23 09:00 Ergocalciferol 50,000 Units Capsule PO Mo@0900 [facility] Fluoxetine HCl 20 mg 01/27/23 09:00 Fluoxetine Hcl 20 Mg Capsule PO DAILY [facility] Doxycycline Hyclate 100 mg in 100 mls @ 100 mls/hr 01/27/23 03:00 01/27/23 04:03 Vibramycin 100 Mg/Ns 100 Ml IVPB 100 mls/hr Q12H [facility] Administration Acetaminophen 1,000 mg in 100 mls @ 400 mls/hr 01/27/23 03:14 01/27/23 03:23 Ofirmev 1,000 Mg Ivpb IVPB 01/28/23 03:13 400 mls/hr Q6H PRN Administration Pain Rated 4-6 Insulin Aspart 25 units 01/27/23 08:00 Insulin Aspart (*Bkc) 100 Units/Ml SUB-Q TIDWM [facility] Insulin Glargine 22 units 01/27/23 21:00 Insulin Glargine (*Bkc)
[2023-01-27 08:00] VITALS: PULSE 94; RESP 20; O2SAT 99
[2023-01-27] MEDS: CYANOCOBALAMIN 1,000 MCG TABLET 1000 MCG PO (08:24)
[2023-01-27] MEDS: FLUoxetine HCL 20 MG CAPSULE PO (08:24)
[2023-01-27] MEDS: PANTOPRAZOLE 40 MG TABLET PO (08:24)
[2023-01-27] MEDS: KETOROLAC 30 MG/ML VIAL (*BKC) IV PUSH (08:25)
[2023-01-27 09:48] VITALS: BMI 28.4
[2023-01-27] MEDS: PROMETHAZINE HCL 25 MG/ML AMPUL 12.5 MG IV PUSH ×2 (12:16→20:37)
[2023-01-27 14:00] VITALS: BP 110/68; PULSE 88; RESP 18; TEMP 36.9; O2SAT 100
[2023-01-27 14:58] VITALS: BMI 28.4
[2023-01-27] MEDS: metroNIDAZOLE 500 MG/ISO 100ML 500 MG/100 ML BAG 100 MG IVPB ×2 (15:14→20:57)
[2023-01-27] MEDS: BELLADONNA ALK/PHENOB ELIX 10 ML, MAG HYDROX/ALUMINUM HYD/SIMETH 30 ML, LIDOCAINE HCL 2... PO (17:27)
[2023-01-27 22:00] VITALS: BP 140/80; PULSE 108; RESP 20; TEMP 36.6; O2SAT 100
[2023-01-27] MEDS: DICYCLOMINE HCL INJ 20 MG/2 ML VIAL IM (22:21)
[2023-01-28] MEDS: PROMETHAZINE HCL 25 MG/ML AMPUL 12.5 MG IV PUSH ×4 (03:30→20:09)
[2023-01-28] MEDS: LORazepam INJ (*CRX) 2 MG/ML VIAL 0.5 MG IV PUSH ×3 (03:31→20:09)
[2023-01-28] MEDS: DOXYCYCLINE 100 MG/NS 100 ML 100 MG/100 ML BAG IVPB ×2 (03:33→15:34)
[2023-01-28 06:00] VITALS: BP 137/75; PULSE 88; RESP 20; TEMP 36.6; O2SAT 100
[2023-01-28] MEDS: metroNIDAZOLE 500 MG/ISO 100ML 500 MG/100 ML BAG 100 MG IVPB ×3 (06:00→20:13)
--- NOTE | 2023-01-28 08:15 | PM.IMPN ---
Progress Note: A&P Assessment and Plan (1) Cat bite of finger: Code(s): S61.259A - Open bite of unspecified finger without damage to nail, initial encounter; W55.01XA - Bitten by cat, initial encounter Status: Acute Assessment and Plan: started on doxycycline 01/26 for pasteurella coverage, flagyl added 01/27 for anaerobic coverage continue to monitor, leuk improving supportive care (2) Insulin dependent diabetes mellitus: Status: Acute Assessment and Plan: continue insulin pump NPO except for ice chips (3) Intractable nausea and vomiting: Code(s): R11.2 - Nausea with vomiting, unspecified Status: Acute Assessment and Plan: NPO except for ice chips advanced diet as tolerated CT abdomen and pelvis reviewed, no acute abnormalities supportive care, continue to monitor suspect cyclic vomiting syndrome, trial bentyl + ativan Plan Depression: cont prozac Allergic rhinitus: cont flonase Vit D def: cont ergocalciferol, f/u outpatient DVT prophylaxis with SCDs GI prophylaxis not indicated, started on PPI Code status full code Subjective Date/time seen: 01/28/23 08:15 Interval history: 22-year-old female with history of type 1 diabetes on insulin pump as well as multiple episodes of nausea and vomiting is presenting with another episode of nausea and vomiting, concerning for cyclic vomiting syndrome as well as an incidental finding of a cat bite on her 4th right finger that is being treated with antibiotics. No overnight events noted. No chest pain or shortness of breath. No fevers or chills. Still with intractable nausea and emesis. Review of Systems Review of Systems: 12 point review of systems was assessed and was negative except as noted in the HPI Exam Narrative: General: No acute distress, alert and oriented per baseline HEENT: Atraumatic, normocephalic, mucous membranes moist CV: Regular rate and rhythm, S1, S2 Lungs: Clear to auscultation bilaterally, no rales or crackles noted, no wheezes, good air entry Abdomen: Soft, nontender, nondistended Extremities: Normal to inspection Skin: No rashes noted, no lesions or wounds seen Psych: Euthymic, flattened affect Objective Data Vital Signs Vital Signs: Vital Signs - 24 hr 01/27/23 14:00 01/27/23 22:00 01/27/23 20:00 Temperature 98.4 F 97.9 F Pulse Rate 88 108 H Respiratory Rate 18 20 Blood Pressure 110/68 140/80 Pulse Oximetry 100 100 Oxygen Delivery Room Air 01/28/23 06:00 Temperature 98 F Pulse Rate 88 Respiratory Rate 20 Blood Pressure 137/75 Pulse Oximetry 100 Oxygen Delivery Intake/Output Intake/Output: Intake & Output 01/25/23 01/26/23 01/27/23 01/28/23 23:59 23:59 23:59 23:59 Intake Total 1150 425 0 Balance 1150 425 0 Meds/Results Medications: Active Medications Generic Name Dose Route Start Last Admin Trade Name Freq PRN Reason Stop Dose Admin Cyanocobalamin 1,000 mcg 01/27/23 09:00 01/27/23 08:24 Cyanocobalamin 1,000 Mcg Tablet PO 1,000 mcg DAILY [facility] Administration Dextrose 12.5 gm 01/27/23 11:15 Dextrose 50% 25 Gm/50 Ml Syringe IV PUSH PRN PRN Hypoglycemia Protocol Dicyclomine HCl 20 mg 01/27/23 16:20 01/27/23 22:21 Dicyclomine Hcl Inj 20 Mg/2 Ml Vial IM 20 mg QID PRN Administration Cramping Diphenhydramine HCl 50 mg 01/27/23 16:18 Diphenhydramine Hcl Inj 50 Mg/Ml Vial IV PUSH Q4H PRN Itching Ergocalciferol 50,000 units 01/30/23 09:00 Ergocalciferol 50,000 Units Capsule PO Mo@0900 [facility] Fentanyl Citrate 25 mcg 01/27/23 16:19 Fentanyl Citrate Inj (*Crx) 100 Mcg/2 Ml Vial IV PUSH Q4H PRN Pain Rated 7-10 Fluoxetine HCl 20 mg 01/27/23 09:00 01/27/23 08:24 Fluoxetine Hcl 20 Mg Capsule PO 20 mg DAILY [facility] Administration Glucagon 1 mg 01/27/23 11:15 Glucagon For Inj 1 Mg Vial IM PRN PRN Hypoglyce
[2023-01-28 09:54] LABS: Basophils Percent Auto 0.3 % (0.2-1.2); Hematocrit 37.1 % (37.0-47.0); Hemoglobin 11.9 g/dL (12.0-15.0); Immature Granulocyte Absolute 0.04 K/mm3 (0.00-0.031); Immature Granulocyte Percent A 0.5 % (0-0.5); Immature Platelet Fraction Pct 11.3 % (0.9-11.2); Lymphocytes Absolute Auto 1.26 K/mm3 (0.9-3.2); Lymphocytes Percent Auto 14.5 % (18.3-44.2); Mean Corpuscular HGB Conc 32.1 g/dl (32-36); Mean Corpuscular Hemoglobin 29.6 pg (26-34); Mean Corpuscular Volume 92.3 fl (80-100); Mean Platelet Volume 12.4 fl (7.4-10.4); Monocytes Absolute Auto 0.7 K/mm3 (0.1-0.6); Monocytes Percent Auto 8.2 % (2.6-8.5); Neutrophils Absolute Auto 6.6 K/mm3 (1.3-6.7); Neutrophils Percent Auto 76.5 % (45.5-73.1); Platelet Count Result 187 k/mm3 (150-375); Red Blood Count 4.02 M/mm3 (4.2-5.4); Red Cell Distribution Width 14.3 % (11.5-14.5); White Blood Count 8.7 K/mm3 (4.5-10.0)
[2023-01-28 09:59] LABS: Alanine Aminotransferase 31 U/L (6-35); Albumin Level 4.6 g/dL (3.5-5.1); Alkaline Phosphatase 76 U/L (38-126); Anion Gap 20 mmol/L (8-16); Aspartate Amino Transferase 54 U/L (14-36); Bilirubin,Total 0.8 mg/dL (0.2-1.3); Blood Urea Nitrogen 6 mg/dL (7-17); Calcium 9.1 mg/dL (8.4-10.2); Carbon Dioxide 12 mmol/L (22-30); Chloride 108 mmol/L (98-107); Estimated CRCL calculation 156 ml/min; Estimated Glomerular Filt Rate > 60; Glucose 130 mg/dL (65-110); Potassium 3.4 mmol/L (3.4-5.0); Sodium 140 mmol/L (137-145)
[2023-01-28] MEDS: diphenhydrAMINE HCl INJ 50 MG/ML VIAL IV PUSH (12:05)
[2023-01-28 12:57] LABS: Glucose Point of Care 146 mg/dl (65-105)
[2023-01-28 14:00] VITALS: BP 144/73; PULSE 89; RESP 10; TEMP 36.7; O2SAT 99
[2023-01-28 16:24] LABS: Glucose Point of Care 129 mg/dl (65-105)
[2023-01-28] MEDS: DICYCLOMINE HCL INJ 20 MG/2 ML VIAL IM (20:12)
[2023-01-28 22:00] VITALS: BP 137/80; PULSE 94; RESP 20; TEMP 36.4; O2SAT 100
[2023-01-29] MEDS: fentaNYL CITRATE INJ (*CRX) 100 MCG/2 ML VIAL 25 MCG IV PUSH (00:53)
[2023-01-29] MEDS: diphenhydrAMINE HCl INJ 50 MG/ML VIAL IV PUSH ×2 (03:24→13:28)
[2023-01-29] MEDS: PROMETHAZINE HCL 25 MG/ML AMPUL 12.5 MG IV PUSH ×3 (03:24→20:41)
[2023-01-29] MEDS: DOXYCYCLINE 100 MG/NS 100 ML 100 MG/100 ML BAG IVPB ×2 (03:26→14:42)
[2023-01-29] MEDS: metroNIDAZOLE 500 MG/ISO 100ML 500 MG/100 ML BAG 100 MG IVPB ×3 (05:44→20:37)
[2023-01-29] MEDS: DICYCLOMINE HCL INJ 20 MG/2 ML VIAL IM (05:57)
[2023-01-29 06:00] VITALS: BP 152/85; PULSE 83; RESP 20; TEMP 36.8; O2SAT 100
[2023-01-29 06:14] LABS: Basophils Percent Auto 0.3 % (0.2-1.2); Hematocrit 39.2 % (37.0-47.0); Hemoglobin 13.4 g/dL (12.0-15.0); Immature Granulocyte Absolute 0.05 K/mm3 (0.00-0.031); Immature Granulocyte Percent A 0.4 % (0-0.5); Lymphocytes Absolute Auto 1.26 K/mm3 (0.9-3.2); Lymphocytes Percent Auto 10.3 % (18.3-44.2); Mean Corpuscular HGB Conc 34.2 g/dl (32-36); Mean Corpuscular Volume 87.9 fl (80-100); Mean Platelet Volume 11.4 fl (7.4-10.4); Monocytes Absolute Auto 0.9 K/mm3 (0.1-0.6); Monocytes Percent Auto 6.9 % (2.6-8.5); Neutrophils Absolute Auto 10.1 K/mm3 (1.3-6.7); Neutrophils Percent Auto 82.1 % (45.5-73.1); Platelet Count Result 316 k/mm3 (150-375); Red Blood Count 4.46 M/mm3 (4.2-5.4); Red Cell Distribution Width 13.9 % (11.5-14.5); White Blood Count 12.3 K/mm3 (4.5-10.0)
[2023-01-29 06:31] LABS: Alanine Aminotransferase 30 U/L (6-35); Albumin Level 4.6 g/dL (3.5-5.1); Alkaline Phosphatase 67 U/L (38-126); Anion Gap 14 mmol/L (8-16); Aspartate Amino Transferase 46 U/L (14-36); Bilirubin,Total 0.8 mg/dL (0.2-1.3); Blood Urea Nitrogen 8 mg/dL (7-17); Calcium 9.1 mg/dL (8.4-10.2); Carbon Dioxide 24 mmol/L (22-30); Chloride 105 mmol/L (98-107); Estimated CRCL calculation 156 ml/min; Estimated Glomerular Filt Rate > 60; Glucose 111 mg/dL (65-110); Potassium 3.3 mmol/L (3.4-5.0); Sodium 143 mmol/L (137-145)
[2023-01-29 07:26] LABS: Glucose Point of Care 124 mg/dl (65-105)
[2023-01-29 10:01] VITALS: O2SAT 100
[2023-01-29 11:19] LABS: Glucose Point of Care 125 mg/dl (65-105)
[2023-01-29 14:00] VITALS: BP 150/86; PULSE 97; RESP 14; TEMP 37.1; O2SAT 100
[2023-01-29] MEDS: LORazepam INJ (*CRX) 2 MG/ML VIAL 0.5 MG IV PUSH (14:51)
--- NOTE | 2023-01-29 15:31 | PM.IMPN ---
Progress Note: A&P Assessment and Plan (1) Cat bite of finger: Code(s): S61.259A - Open bite of unspecified finger without damage to nail, initial encounter; W55.01XA - Bitten by cat, initial encounter Status: Acute Assessment and Plan: started on doxycycline 01/26 for pasteurella coverage, flagyl added 01/27 for anaerobic coverage continue to monitor, sx improving, leuk inc 01/29, suspect reactive, recheck tomorrow (2) Insulin dependent diabetes mellitus: Status: Acute Assessment and Plan: continue insulin pump ADAT (3) Intractable nausea and vomiting: Code(s): R11.2 - Nausea with vomiting, unspecified Status: Acute Assessment and Plan: advanced diet as tolerated, improving CT abdomen and pelvis reviewed, no acute abnormalities supportive care, continue to monitor suspect cyclic vomiting syndrome, trial bentyl + ativan (4) Hypokalemia: Code(s): E87.6 - Hypokalemia Status: Acute Assessment and Plan: replete and recheck (5) Depression: Code(s): F32.A - Depression, unspecified Status: Acute Assessment and Plan: cont prozac, f/u outpatient Plan Allergic rhinitus: cont flonase Vit D def: cont ergocalciferol, f/u outpatient DVT prophylaxis with SCDs GI prophylaxis not indicated, started on PPI Code status full code Subjective Date/time seen: 01/29/23 15:31 Interval history: 22-year-old female with history of type 1 diabetes on insulin pump as well as multiple episodes of nausea and vomiting is presenting with another episode of nausea and vomiting, concerning for cyclic vomiting syndrome as well as an incidental finding of a cat bite on her 4th right finger that is being treated with antibiotics. No overnight events noted. No chest pain or shortness of breath. No fevers or chills. Less nausea and emesis today. Review of Systems Review of Systems: 12 point review of systems was assessed and was negative except as noted in the HPI Exam Narrative: General: No acute distress, alert and oriented per baseline HEENT: Atraumatic, normocephalic, mucous membranes moist CV: Regular rate and rhythm, S1, S2 Lungs: Clear to auscultation bilaterally, no rales or crackles noted, no wheezes, good air entry Abdomen: Soft, nontender, nondistended Extremities: Normal to inspection Skin: No rashes noted, no lesions or wounds seen Psych: Euthymic, flattened affect Objective Data Vital Signs Vital Signs: Vital Signs - 24 hr 01/28/23 22:00 01/28/23 20:00 01/29/23 06:00 Temperature 97.6 F 98.2 F Pulse Rate 94 83 Respiratory Rate 20 20 Blood Pressure 137/80 152/85 H Pulse Oximetry 100 100 Oxygen Delivery Room Air 01/29/23 10:01 01/29/23 07:40 Temperature Pulse Rate Respiratory Rate Blood Pressure Pulse Oximetry 100 Oxygen Delivery Room Air Room Air Intake/Output Intake/Output: Intake & Output 01/26/23 01/27/23 01/28/23 01/29/23 23:59 23:59 23:59 23:59 Intake Total 1150 425 500 275 Balance 1150 425 500 275 Meds/Results Medications: Active Medications Generic Name Dose Route Start Last Admin Trade Name Freq PRN Reason Stop Dose Admin Cyanocobalamin 1,000 mcg 01/27/23 09:00 01/29/23 11:12 Cyanocobalamin 1,000 Mcg Tablet PO Not Given DAILY [facility] Dextrose 12.5 gm 01/27/23 11:15 Dextrose 50% 25 Gm/50 Ml Syringe IV PUSH PRN PRN Hypoglycemia Protocol Dicyclomine HCl 20 mg 01/27/23 16:20 01/29/23 05:57 Dicyclomine Hcl Inj 20 Mg/2 Ml Vial IM 20 mg QID PRN Administration Cramping Diphenhydramine HCl 50 mg 01/27/23 16:18 01/29/23 13:28 Diphenhydramine Hcl Inj 50 Mg/Ml Vial IV PUSH 50 mg Q4H PRN Administration Itching Ergocalciferol 50,000 units 01/30/23 09:00 Ergocalciferol 50,000 Units Capsule PO Mo@0900 [facility] Fentanyl Citrate 25 mcg 01/27/23 16:19 01/29/23 00:53 F
[2023-01-29] MEDS: POTASSIUM CHLORIDE INJ 40 MEQ in SODIUM CHLORIDE 0.9% IV 500 ML 130 MEQ IVPB (16:01)
[2023-01-29 16:30] LABS: Glucose Point of Care 117 mg/dl (65-105)
[2023-01-29 17:47] LABS: CRP 0.7 mg/dL (<1.0)
[2023-01-29 18:00] LABS: Procalcitonin < 0.0 ng/mL
[2023-01-29 20:00] VITALS: PULSE 97; RESP 14; O2SAT 100
[2023-01-29 20:39] LABS: Glucose Point of Care 106 mg/dl (65-105)
[2023-01-29 21:37] VITALS: BP 137/77; PULSE 89; RESP 14; TEMP 36.6; O2SAT 100
[2023-01-30] MEDS: DICYCLOMINE HCL INJ 20 MG/2 ML VIAL IM (00:28)
[2023-01-30] MEDS: DOXYCYCLINE 100 MG/NS 100 ML 100 MG/100 ML BAG IVPB ×2 (02:28→15:08)
[2023-01-30 06:00] VITALS: BP 138/77; PULSE 88; RESP 16; TEMP 36.3; O2SAT 100
[2023-01-30 06:23] LABS: Basophils Percent Auto 0.4 % (0.2-1.2); Eosinophils Percent Auto 0.2 % (0-4.4); Hematocrit 37.3 % (37.0-47.0); Hemoglobin 12.7 g/dL (12.0-15.0); Immature Granulocyte Absolute 0.06 K/mm3 (0.00-0.031); Immature Granulocyte Percent A 0.6 % (0-0.5); Lymphocytes Percent Auto 14.7 % (18.3-44.2); Mean Corpuscular Hemoglobin 29.6 pg (26-34); Mean Corpuscular Volume 86.9 fl (80-100); Mean Platelet Volume 11.3 fl (7.4-10.4); Neutrophils Absolute Auto 8.2 K/mm3 (1.3-6.7); Neutrophils Percent Auto 75.1 % (45.5-73.1); Platelet Count Result 303 k/mm3 (150-375); Red Blood Count 4.29 M/mm3 (4.2-5.4); Red Cell Distribution Width 13.4 % (11.5-14.5); White Blood Count 10.9 K/mm3 (4.5-10.0)
[2023-01-30] MEDS: metroNIDAZOLE 500 MG/ISO 100ML 500 MG/100 ML BAG 100 MG IVPB ×3 (06:26→20:39)
[2023-01-30] MEDS: PROMETHAZINE HCL 25 MG/ML AMPUL 12.5 MG IV PUSH (06:34)
[2023-01-30 06:43] LABS: Alanine Aminotransferase 26 U/L (6-35); Albumin Level 3.9 g/dL (3.5-5.1); Alkaline Phosphatase 74 U/L (38-126); Anion Gap 10 mmol/L (8-16); Aspartate Amino Transferase 34 U/L (14-36); Bilirubin,Total 0.7 mg/dL (0.2-1.3); Blood Urea Nitrogen 7 mg/dL (7-17); Carbon Dioxide 27 mmol/L (22-30); Chloride 99 mmol/L (98-107); Estimated CRCL calculation 156 ml/min; Estimated Glomerular Filt Rate > 60; Glucose 130 mg/dL (65-110); Potassium 3.1 mmol/L (3.4-5.0); Sodium 136 mmol/L (137-145)
[2023-01-30 07:57] LABS: Glucose Point of Care 142 mg/dl (65-105)
--- NOTE | 2023-01-30 08:43 | PM.IMPN ---
Progress Note: A&P Assessment and Plan (1) Cat bite of finger: Code(s): S61.259A - Open bite of unspecified finger without damage to nail, initial encounter; W55.01XA - Bitten by cat, initial encounter Status: Acute Assessment and Plan: started on doxycycline 01/26 for pasteurella coverage, flagyl added 01/27 for anaerobic coverage continue to monitor, sx improving, leuk inc 01/29, suspect reactive, recheck tomorrow 01/30: leuk down to 10 (2) Insulin dependent diabetes mellitus: Status: Acute Assessment and Plan: continue insulin pump ADAT (3) Intractable nausea and vomiting: Code(s): R11.2 - Nausea with vomiting, unspecified Status: Acute Assessment and Plan: advanced diet as tolerated, improving CT abdomen and pelvis reviewed, no acute abnormalities supportive care, continue to monitor suspect cyclic vomiting syndrome, trial bentyl + ativan, benadryl prn, zofran ODT (4) Hypokalemia: Code(s): E87.6 - Hypokalemia Status: Acute Assessment and Plan: replete and recheck (5) Depression: Code(s): F32.A - Depression, unspecified Status: Acute Assessment and Plan: cont prozac, f/u outpatient Plan Allergic rhinitus: cont flonase Vit D def: cont ergocalciferol, f/u outpatient DVT prophylaxis with SCDs GI prophylaxis not indicated, started on PPI Code status full code Subjective Date/time seen: 01/30/23 08:43 Interval history: 22-year-old female with history of type 1 diabetes on insulin pump as well as multiple episodes of nausea and vomiting is presenting with another episode of nausea and vomiting, concerning for cyclic vomiting syndrome as well as an incidental finding of a cat bite on her 4th right finger that is being treated with antibiotics. No overnight events noted. No chest pain or shortness of breath. No fevers or chills. Feels even better today, still nauseated. Review of Systems Review of Systems: 12 point review of systems was assessed and was negative except as noted in the HPI Exam Narrative: General: No acute distress, alert and oriented per baseline HEENT: Atraumatic, normocephalic, mucous membranes moist CV: Regular rate and rhythm, S1, S2 Lungs: Clear to auscultation bilaterally, no rales or crackles noted, no wheezes, good air entry Abdomen: Soft, nontender, nondistended Extremities: Normal to inspection Skin: No rashes noted, no lesions or wounds seen Psych: Euthymic, appropriate affect Objective Data Vital Signs Vital Signs: Vital Signs - 24 hr 01/29/23 10:01 01/29/23 14:00 01/29/23 20:00 Temperature 98.8 F Pulse Rate 97 97 Respiratory Rate 14 14 Blood Pressure 150/86 H Pulse Oximetry 100 100 100 Oxygen Delivery Room Air Room Air 01/29/23 21:37 01/30/23 06:00 Temperature 98 F 97.4 F L Pulse Rate 89 88 Respiratory Rate 14 16 Blood Pressure 137/77 138/77 Pulse Oximetry 100 100 Oxygen Delivery Intake/Output Intake/Output: Intake & Output 01/27/23 01/28/23 01/29/23 01/30/23 23:59 23:59 23:59 23:59 Intake Total 546 674 4848 Balance 648 102 3989 Meds/Results Medications: Active Medications Generic Name Dose Route Start Last Admin Trade Name Freq PRN Reason Stop Dose Admin Cyanocobalamin 1,000 mcg 01/27/23 09:00 01/29/23 11:12 Cyanocobalamin 1,000 Mcg Tablet PO Not Given DAILY [facility] Dextrose 12.5 gm 01/27/23 11:15 Dextrose 50% 25 Gm/50 Ml Syringe IV PUSH PRN PRN Hypoglycemia Protocol Dicyclomine HCl 20 mg 01/27/23 16:20 01/30/23 00:28 Dicyclomine Hcl Inj 20 Mg/2 Ml Vial IM 20 mg QID PRN Administration Cramping Diphenhydramine HCl 50 mg 01/27/23 16:18 01/29/23 13:28 Diphenhydramine Hcl Inj 50 Mg/Ml Vial IV PUSH 50 mg Q4H PRN Administration Itching Ergocalciferol 50,000 units 01/30/23 09:00 Ergocalciferol 50,000 Units Capsule PO
--- NOTE | 2023-01-30 09:07 | PCNFU ---
Nutrition Follow-Up Complete: Inadequate oral intake related to nausea and vomiting 3 days, as evidenced by patient report, NPO status Adequate PO intake after diet advancement Goal: Pt current nutrition is Clear liquids. Just advanced, no intakes yet. Nutrition recommendation: Continue with clear liquids diet, including Ensure Clear until diet is advanced. Last recorded weight is 80 kg. Bowel Motility: +1 BM 01/28/23 Labs Reviewed: Na 136, K+ 3.1, Cre 0.5, Glu 130 Meds Noted:doxycyline, flagyl, protonix, bentyl Skin: WNL, cat bite to finger Additional Notes: Nausea improving today. Diet was advanced today. Monitoring for diet advancement, PO intake, labs, plan of care Follow up in 3 days
[2023-01-30] MEDS: PANTOPRAZOLE 40 MG TABLET PO (09:18)
[2023-01-30] MEDS: ERGOCALCIFEROL 50,000 UNITS CAPSULE 50000 UNITS PO (09:18)
[2023-01-30] MEDS: CYANOCOBALAMIN 1,000 MCG TABLET 1000 MCG PO (09:18)
[2023-01-30] MEDS: FLUoxetine HCL 20 MG CAPSULE PO (09:18)
[2023-01-30] MEDS: POTASSIUM CHLORIDE INJ 40 MEQ in SODIUM CHLORIDE 0.9% IV 500 ML 130 MEQ IVPB (09:29)
[2023-01-30 11:31] LABS: Glucose Point of Care 117 mg/dl (65-105)
[2023-01-30] MEDS: diphenhydrAMINE HCl INJ 50 MG/ML VIAL IV PUSH ×2 (11:50→20:43)
[2023-01-30] MEDS: DICYCLOMINE HCL 10 MG CAPSULE 20 MG PO (14:28)
[2023-01-30 14:35] VITALS: BP 135/82; PULSE 88; RESP 20; TEMP 36.6; O2SAT 100
[2023-01-30] MEDS: LORazepam INJ (*CRX) 2 MG/ML VIAL 0.5 MG IV PUSH ×2 (14:56→20:42)
[2023-01-30 17:06] LABS: Glucose Point of Care 94 mg/dl (65-105)
[2023-01-30 21:39] VITALS: BP 132/82; PULSE 90; RESP 16; TEMP 36.3; O2SAT 100
[2023-01-30 22:11] LABS: Glucose Point of Care 140 mg/dl (65-105)
[2023-01-31] MEDS: DOXYCYCLINE 100 MG/NS 100 ML 100 MG/100 ML BAG IVPB ×2 (02:56→15:56)
[2023-01-31] MEDS: LORazepam INJ (*CRX) 2 MG/ML VIAL 0.5 MG IV PUSH (03:06)
[2023-01-31] MEDS: metroNIDAZOLE 500 MG/ISO 100ML 500 MG/100 ML BAG 100 MG IVPB ×2 (05:30→14:37)
[2023-01-31 05:54] VITALS: BP 141/90; PULSE 91; RESP 14; TEMP 36.1; O2SAT 100
[2023-01-31 06:30] LABS: Basophils Absolute Auto 0.1 K/mm3 (0.0-0.1); Basophils Percent Auto 0.4 % (0.2-1.2); Eosinophils Absolute Auto 0.1 K/mm3 (0-0.3); Eosinophils Percent Auto 0.9 % (0-4.4); Hematocrit 39.5 % (37.0-47.0); Hemoglobin 13.3 g/dL (12.0-15.0); Immature Granulocyte Absolute 0.06 K/mm3 (0.00-0.031); Immature Granulocyte Percent A 0.5 % (0-0.5); Lymphocytes Absolute Auto 1.37 K/mm3 (0.9-3.2); Lymphocytes Percent Auto 11.6 % (18.3-44.2); Mean Corpuscular HGB Conc 33.7 g/dl (32-36); Mean Corpuscular Hemoglobin 29.4 pg (26-34); Mean Corpuscular Volume 87.4 fl (80-100); Mean Platelet Volume 11.2 fl (7.4-10.4); Monocytes Absolute Auto 0.9 K/mm3 (0.1-0.6); Monocytes Percent Auto 7.6 % (2.6-8.5); Neutrophils Absolute Auto 9.3 K/mm3 (1.3-6.7); Platelet Count Result 309 k/mm3 (150-375); Red Blood Count 4.52 M/mm3 (4.2-5.4); Red Cell Distribution Width 13.5 % (11.5-14.5); White Blood Count 11.8 K/mm3 (4.5-10.0)
[2023-01-31 06:44] LABS: Alanine Aminotransferase 25 U/L (6-35); Albumin Level 3.9 g/dL (3.5-5.1); Alkaline Phosphatase 73 U/L (38-126); Anion Gap 10 mmol/L (8-16); Aspartate Amino Transferase 29 U/L (14-36); Bilirubin,Total 0.7 mg/dL (0.2-1.3); Blood Urea Nitrogen 7 mg/dL (7-17); Calcium 8.4 mg/dL (8.4-10.2); Carbon Dioxide 28 mmol/L (22-30); Chloride 97 mmol/L (98-107); Estimated CRCL calculation 156 ml/min; Estimated Glomerular Filt Rate > 60; Glucose 137 mg/dL (65-110); Potassium 3.1 mmol/L (3.4-5.0); Sodium 135 mmol/L (137-145)
[2023-01-31 07:36] LABS: Glucose Point of Care 126 mg/dl (65-105)
[2023-01-31] MEDS: ONDANSETRON HCL ODT 4 MG TABLET PO ×2 (09:17→13:05)
[2023-01-31] MEDS: CYANOCOBALAMIN 1,000 MCG TABLET 1000 MCG PO (09:17)
[2023-01-31] MEDS: PANTOPRAZOLE 40 MG TABLET PO (09:17)
[2023-01-31] MEDS: FLUoxetine HCL 20 MG CAPSULE PO (09:17)
[2023-01-31 11:24] LABS: Glucose Point of Care 173 mg/dl (65-105)
[2023-01-31] MEDS: POTASSIUM CHLORIDE INJ 40 MEQ in SODIUM CHLORIDE 0.9% IV 500 ML 130 MEQ IVPB (11:41)
[2023-01-31 14:00] VITALS: BP 127/92; PULSE 97; RESP 18; TEMP 36.8; O2SAT 100
[2023-01-31 14:24] VITALS: O2SAT 99
[2023-01-31 16:36] LABS: Glucose Point of Care 110 mg/dl (65-105)
--- NOTE | 2023-02-08 08:48 | PM.DS ---
DS: Admitting Diagnosis Discharge Date 01/31/23 Admitting Diagnosis Nausea with vomiting DS: Discharge Diagnosis Discharge Diagnosis (1) Cat bite of finger: Code(s): S61.259A - Open bite of unspecified finger without damage to nail, initial encounter; W55.01XA - Bitten by cat, initial encounter Status: Acute Assessment and Plan: started on doxycycline 01/26 for pasteurella coverage, flagyl added 01/27 for anaerobic coverage continue to monitor, sx improving, leuk inc 01/29, suspect reactive, recheck tomorrow 01/30: leuk down to 10 (2) Insulin dependent diabetes mellitus: Status: Acute Assessment and Plan: continue insulin pump ADAT (3) Intractable nausea and vomiting: Code(s): R11.2 - Nausea with vomiting, unspecified Status: Acute Assessment and Plan: advanced diet as tolerated, improving CT abdomen and pelvis reviewed, no acute abnormalities supportive care, continue to monitor suspect cyclic vomiting syndrome, trial bentyl + ativan, benadryl prn, zofran ODT (4) Hypokalemia: Code(s): E87.6 - Hypokalemia Status: Acute Assessment and Plan: replete and recheck (5) Depression: Code(s): F32.A - Depression, unspecified Status: Acute Assessment and Plan: cont prozac, f/u outpatient Plan Allergic rhinitus: cont flonase Vit D def: cont ergocalciferol, f/u outpatient DVT prophylaxis with SCDs GI prophylaxis not indicated, started on PPI Code status full code DS: Summary Hospital Course Hospital Course: 22-year-old female with history of type 1 diabetes on insulin pump as well as depression with anxiety is presenting with intractable nausea and vomiting. She was also noted to have a cat bite on her finger and started on IV antibiotics for this. Patient reports a long history of intermittent nausea and vomiting episodes the last about 5-7 days and seemed to be correlated with stress. She was thought to have adequate vomiting syndrome and treated with IV fluids, advancing diet as tolerated starting with clear liquids, antiemetics and anxiolytics. All symptoms resolved. Cellulitis on finger significantly improved and she was discharged antibiotics. Please see above and med rec for details. Time Spent with Patient Time attestation: Total time spent providing and/or coordinating discharge services: Exam Narrative: General: No acute distress, alert and oriented per baseline HEENT: Atraumatic, normocephalic, mucous membranes moist CV: Regular rate and rhythm, S1, S2 Lungs: Clear to auscultation bilaterally, no rales or crackles noted, no wheezes, good air entry Abdomen: Soft, nontender, nondistended Extremities: Normal to inspection Skin: No rashes noted, no lesions or wounds seen Psych: Euthymic, appropriate affect Discharge Plan Discharge Attending physician on discharge: Irene Lindsay Consulting providers: Rafita Jarvis Discharging Clinician: Irene Lindsay Patient Disposition: Home, Self-Care Activity: as tolerated Diet: as tolerated Discharge Instructions: Take a hot bath for your nausea/vomiting and discuss your concerns with your psychiatrist and family doctor. Take the ativan only as needed and wean off over the next few days. If you get any pain or worsening of swelling or redness to your finger, immediately come back to the ER. Take your antibiotics as prescribed. Patient Instructions: Antibiotic Form, How to Stop Smoking (DC), Electronic Cigarettes and Your Health (ED), Electronic Cigarettes and Your Health (GEN), Suicide Prevention (DC) Stand Alone Forms: General Discharge Information Follow-up/Referrals: Sophie,Cyn Bain MD [Primary Care Provider] - Discharge Medications: New lorazepam [Ativan] 0.5 mg tablet 0.5 mg PO BID PRN (Reason: nausea and vomiting) Qty: 10 0RF doxycycline monohydrate 100 mg capsule 100 mg PO BID 7
== END 2023-01-31 18:00 | disposition home or self-care (01) | DRG 384 ==
LOC: ANHED 14:00 → ANH3MEDSUR 20:51
PROVIDERS: Admitting Provider Internal Medicine; Emergency Provider Emergency Medicine; PCP Emergency Medicine; Visit Provider Student in an Organized Health Care Education/Training Program
DX: S61.254A Open bite of right ring finger without damage to nail, initial encounter (principal); E10.9 Type 1 diabetes mellitus without complications; W55.01XA Bitten by cat, initial encounter; R11.15 Cyclical vomiting syndrome unrelated to migraine; F17.290 Nicotine dependence, other tobacco product, uncomplicated; E87.6 Hypokalemia; J30.9 Allergic rhinitis, unspecified; E55.9 Vitamin D deficiency, unspecified; F41.8 Other specified anxiety disorders
CPT/HCPCS: 36415; 71045; 74177; 80048; 80053; 81001; 81025; 82948; 83605; 83690; 84145; 84484; 85025; 85027; 85055; 86140; 87040; 93005; 96365; 96366; 96367; 96375; 96376; 99285; A9270; C9113; G0378; G0379; J0131; J0500; J0696; J1170; J1200; J1885; J2060; J2270; J2405; J2550; J2765; J3010; J3480; J7030; J7040; Q9967

== ENCOUNTER 2023-02-03 13:11 | Emergency (ER) | payer OTHER, SELFPAY ==
[2023-02-03 13:22] VITALS: BP 126/73; PULSE 88; RESP 18; TEMP 36.4; O2SAT 100
[2023-02-03 14:24] LABS: Basophils Absolute Auto 0.1 K/mm3 (0.0-0.1); Basophils Percent Auto 0.9 % (0.2-1.2); Eosinophils Absolute Auto 0.1 K/mm3 (0-0.3); Eosinophils Percent Auto 0.7 % (0-4.4); Hematocrit 41.4 % (37.0-47.0); Hemoglobin 13.8 g/dL (12.0-15.0); Immature Granulocyte Absolute 0.05 K/mm3 (0.00-0.031); Immature Granulocyte Percent A 0.7 % (0-0.5); Lymphocytes Absolute Auto 1.01 K/mm3 (0.9-3.2); Lymphocytes Percent Auto 14.6 % (18.3-44.2); Mean Corpuscular HGB Conc 33.3 g/dl (32-36); Mean Corpuscular Hemoglobin 29.5 pg (26-34); Mean Corpuscular Volume 88.5 fl (80-100); Mean Platelet Volume 12.1 fl (7.4-10.4); Monocytes Absolute Auto 0.5 K/mm3 (0.1-0.6); Monocytes Percent Auto 7.2 % (2.6-8.5); Neutrophils Absolute Auto 5.3 K/mm3 (1.3-6.7); Neutrophils Percent Auto 75.9 % (45.5-73.1); Platelet Count Result 367 k/mm3 (150-375); Red Blood Count 4.68 M/mm3 (4.2-5.4); Red Cell Distribution Width 13.9 % (11.5-14.5); White Blood Count 6.9 K/mm3 (4.5-10.0)
[2023-02-03 14:43] LABS: Appearance Urine Clear (Clear); Bacteria Urine None Seen /hpf; Bilirubin Urine Negative (Negative); Color Urine Dark Yellow (Yellow); Glucose Urine UA Negative (Negative); Ketones Urine 4+ mg/dL (Negative); Leukocyte Esterase Ur Trace LEU/UL (Negative); Mucus Urine Present /lpf; Nitrate Urine Negative (Negative); Protein Urine 1+ mg/dL (Negative); Specific Grav Ur 1.018 (1.001-1.035); Squamous Epithelial Cell Urine Few /hpf (Few)
[2023-02-03 14:51] LABS: Add Urine Microscopic? YES
[2023-02-03 14:52] LABS: Barbiturate Screen Urine Positive (Negative); Benzodiazepines Screen Urine Negative (Negative)
[2023-02-03 15:39] LABS: Alanine Aminotransferase 31 U/L (6-35); Albumin Level 4.6 g/dL (3.5-5.1); Alkaline Phosphatase 88 U/L (38-126); Anion Gap 12 mmol/L (8-16); Aspartate Amino Transferase 37 U/L (14-36); Bilirubin,Total 0.6 mg/dL (0.2-1.3); Blood Urea Nitrogen 4 mg/dL (7-17); Calcium 9.3 mg/dL (8.4-10.2); Carbon Dioxide 27 mmol/L (22-30); Chloride 99 mmol/L (98-107); Estimated Glomerular Filt Rate > 60; Glucose 134 mg/dL (65-110); Potassium 3.3 mmol/L (3.4-5.0); Sodium 138 mmol/L (137-145)
[2023-02-03 15:41] LABS: Amphetamine Screen Urine Negative (Negative); Cocaine Screen Urine Negative (Negative); Methadone Screen Urine Negative (Negative); Opiate Screen Urine Negative (Negative); Phencyclidine Screen Urine Negative (Negative)
[2023-02-03] MEDS: SODIUM CHLORIDE 0.9% IV 1,000 ML 999 ML IV CONT (15:45)
[2023-02-03 15:46] VITALS: BP 140/75; PULSE 83; RESP 18; O2SAT 100
[2023-02-03] MEDS: METOCLOPRAMIDE HCL INJ 10 MG/2 ML VIAL IV PUSH (15:46)
[2023-02-03 15:55] LABS: Cannabinoid Screen Urine Positive (Negative)
--- NOTE | 2023-02-03 17:24 | ED.GENADULT ---
HPI - General Adult General Chief complaint: Nausea/Vomiting/Diarrhea Stated complaint: vomiting Time Seen by Provider: 02/03/23 13:36 History of Present Illness HPI narrative: 22-year-old female with history of cyclic vomiting and THC use presents to the emergency department for the evaluation of cyclic vomiting. Patient did have a recent hospital admission for cyclic vomiting. Patient states that she had been doing well but then had Ramen noodles last night. Related Data Home Medications Medication Instructions Recorded Confirmed blood-glucose sensor (Dexcom G6 01/26/23 01/26/23 Sensor device) cyanocobalamin (vitamin B-12) 1,000 mcg PO DAILY 01/26/23 01/26/23 1,000 mcg tablet ergocalciferol (vitamin D2) 1,250 1,250 mcg PO WEEKLY 01/26/23 01/26/23 mcg (50,000 unit) capsule fluoxetine 20 mg capsule 20 mg PO DAILY 01/26/23 01/26/23 insulin glargine 100 unit/mL (3 22 unit subcut HS 01/27/23 01/27/23 mL) subcutaneous pen (Basaglar KwikPen U-100 Insulin) insulin lispro 100 unit/mL 25 unit subcut TID 01/27/23 01/27/23 subcutaneous pen Allergies Allergy/AdvReac Type Severity Reaction Status Date / Time Penicillins Allergy Itching Verified 02/03/23 14:19 Review of Systems Review of Systems: All systems reviewed & are unremarkable except as noted in HPI and below PMFSH Past Medical History Medical History (Updated 02/03/23 @ 17:27 by Bc Cerda MD) Cyclic vomiting syndrome Depression Family History Family History (Updated 01/28/23 @ 17:25 by Regla Martinez RN) Father Family history of diabetes mellitus in first degree relative Mother Family history of diabetes mellitus in first degree relative Grandparent Crohn disease Celiac disease Social History Social History Smoking status: Current every day smoker Tobacco type: e-cigarettes/vaping Second hand tobacco smoke exposure: No Alcohol intake: never Substance use: current Substance use type: marijuana Lack of Transportation: No Lack of Food: Sometimes True Current Housing: I Have Housing Concerned About Future Housing: No Difficulty Paying Gas/Electric Bills: No Difficulty Paying for Meds: No Currently Unemployed: No Education: High School Diploma/GED Difficulty w/ Childcare or Family Care: No Spiritual care concerns: No Exam Narrative: APPEARANCE: Well appearing, no pain, no distress, well-nourished. HEAD: normocephalic, atraumatic. EYES: PERRLA/EOMI, conjunctivae clear. NOSE: Normal no drainage NECK: Supple. No adenopathy, no masses. RESPIRATORY: Airway patent, respirations nonlabored. Clear to auscultation bilaterally, no rales, rhonchi, wheezing. CARDIOVASCULAR: Regular rate and rhythm without murmurs rubs or gallops. ABDOMINAL: Soft, nontender, nondistended, normal bowel sounds MUSCULOSKELETAL: Moves all extremities. Strength/ROM intact, No edema, No calf tenderness. NEURO: Alert. Cranial nerves II through XII intact. Intact SKIN: Warm, dry. Normal Color Course Course Emergency Course: 22-year-old female presenting to the ED for evaluation of recurrence of her cyclic vomiting. Patient was treated with IV fluids and IV Reglan. Patient did feel improved with treatment. Patient was afebrile with no leukocytosis patient's hemoglobin is stable. Patient had no significant electrolyte abnormalities. UA did have some leukoesterase some reds and whites but patient has no complaints of a urinary tract infection. Patient did test positive for cannabinoids. Patient was educated on cannabinoid hyperemesis syndrome. Patient family were comfortable with the plan for discharge and close follow-up. Patient was also encouraged close follow-up with a GI physician Vital Signs Vital signs: Vital Signs Temperature 97.5 F L 02/03/23 13:22 Pulse Rate 88 02/03/23 13:22 Respiratory Rate 18 02/03/23 13:22 Blood Pressure 126/73
[2023-02-03] MEDS: BELLADONNA ALK/PHENOB ELIX 10 ML, MAG HYDROX/ALUMINUM HYD/SIMETH 30 ML, LIDOCAINE HCL 2... PO (17:27)
[2023-02-03 17:42] VITALS: BP 130/77; PULSE 88; RESP 16; O2SAT 100
== END 2023-02-03 17:38 | disposition home or self-care (01) ==
PROVIDERS: Emergency Provider Emergency Medicine; PCP Emergency Medicine
DX: R11.15 Cyclical vomiting syndrome unrelated to migraine (principal); F12.90 Cannabis use, unspecified, uncomplicated; E10.8 Type 1 diabetes mellitus with unspecified complications; F32.A Depression, unspecified; F17.290 Nicotine dependence, other tobacco product, uncomplicated; Z96.41 Presence of insulin pump (external) (internal); Z79.4 Long term (current) use of insulin
CPT/HCPCS: 36415; 80053; 80307; 81001; 81025; 85025; 87086; 96361; 96374; 99284; A9270; J2765; J7030

== ENCOUNTER 2023-03-13 01:30 | Day surgery (SDC) | payer OTHER, SELFPAY ==
[2023-02-23 10:21] VITALS: BMI 26.6
[2023-03-13 09:14] VITALS: BP 105/68; PULSE 80; RESP 18; TEMP 36.4; O2SAT 99
--- NOTE | 2023-03-13 09:19 | SUR.PREOP ---
blood glucose 198 via dexcom.
--- NOTE | 2023-03-13 09:27 | WPDANESEPPF ---
Anes - Initial Pre Proc Eval Procedure: Operation Date: 03/13/23 10:15 Proposed Procedures p Esophagogastroduodenoscopy - Richard Cortes MD Date/Time: 03/13/23 09:27 Surgeon: Richard Cortes MD Pre Op Diagnosis: nausea, vomiting Patient Data Age: 22 Gender: F Height: 1.68 m Weight: 76.8 kg Last Vital Signs Temp 97.5 F L 03/13/23 09:14 Pulse 80 03/13/23 09:14 Resp 18 03/13/23 09:14 BP 105/68 03/13/23 09:14 Pulse Ox 99 03/13/23 09:14 O2 Del Method Room Air 03/13/23 09:14 Allergies Allergy/AdvReac Type Severity Reaction Status Date / Time Penicillins Allergy Itching Verified 03/13/23 09:13 Home Medications Medication Instructions Recorded Confirmed Type blood-glucose sensor (Dexcom G6 01/26/23 01/26/23 History Sensor device) cyanocobalamin (vitamin B-12) 1,000 mcg PO DAILY 01/26/23 02/23/23 History 1,000 mcg tablet ergocalciferol (vitamin D2) 1,250 1,250 mcg PO WEEKLY 01/26/23 03/13/23 History mcg (50,000 unit) capsule fluoxetine 20 mg capsule 20 mg PO DAILY 01/26/23 02/23/23 History pantoprazole 40 mg tablet,delayed 40 mg PO DAILY #30 tabs 01/26/23 02/23/23 Rx release (Protonix) insulin glargine 100 unit/mL (3 22 unit subcut DIRECTED 01/27/23 02/23/23 History mL) subcutaneous pen (Basaglar KwikPen U-100 Insulin) insulin lispro 100 unit/mL 25 unit subcut DIRECTED 01/27/23 02/23/23 History subcutaneous pen lorazepam 0.5 mg tablet (Ativan) 0.5 mg PO BID PRN nausea and 01/31/23 02/23/23 Rx vomiting #10 tabs ondansetron 4 mg disintegrating 4 mg PO Q6H PRN nausea and 01/31/23 02/23/23 Rx tablet vomiting #10 tabs metoclopramide HCl 10 mg tablet 10 mg PO Q6H PRN nausea and 02/03/23 02/23/23 Rx (Reglan) vomiting #14 tabs Patient hx anesthesia problems: none Family hx anesthesia problems: none Results Review: All pre-operative results and documents have been reviewed as part of the pre-operative evaluation. [facility] Past Medical History Medical History Cyclic vomiting syndrome Depression Family History Family History (Updated 01/28/23 @ 17:25 by Regla Martinez RN) Father Family history of diabetes mellitus in first degree relative Mother Family history of diabetes mellitus in first degree relative Grandparent Crohn disease Celiac disease Social History Social History Smoking status: Current every day smoker Tobacco type: e-cigarettes/vaping Second hand tobacco smoke exposure: No Alcohol intake: never Substance use: former Substance use type: marijuana Lack of Transportation: No Lack of Food: Sometimes True Current Housing: I Have Housing Concerned About Future Housing: No Difficulty Paying Gas/Electric Bills: No Difficulty Paying for Meds: No Currently Unemployed: No Education: High School Diploma/GED Difficulty w/ Childcare or Family Care: No Living arrangements: with family Spiritual care concerns: No Anes - Eval Final PreProcedure Day of Procedure 03/13/23 09:27 Patient weight: normal Heart: regular rate and rhythm Lungs: clear to auscultation Airway: Mallampati scale class II Neurological: alert and oriented Last oral intake: >/= 8 hours ASA classification: II Emergent: no Anesthetic plan: proceed Anesthesia type and monitoring: general GIVS and standard monitoring Results Review: All pre-operative results and documents have been reviewed as part of the pre-operative evaluation. Informed Consent: The patient's anesthetic plan and its attendant risks and benefits were discussed with the patient/family/POA. Questions were solicited and answers provided to the satisfaction of the patient/family/POA.
[2023-03-13] MEDS: LACTATED RINGERS 1,000 ML 150 ML IV CONT (09:29)
--- NOTE | 2023-03-13 09:42 | WPDHPUPDATE1 ---
History and Physical Update Update Date/Time: 03/13/23 09:42 History and Physical has been reviewed, including an updated exam of the patient. There are NO changes in the patient's condition. Risks, benefits, and alternatives have been discussed and questions answered. Patient agrees to proceed with procedure.
[2023-03-13 09:51] VITALS: BP 90/50; PULSE 67; RESP 20; O2SAT 98
[2023-03-13 10:01] VITALS: BP 88/47; PULSE 63; RESP 20; O2SAT 98
[2023-03-13 10:11] VITALS: BP 98/65; PULSE 69; RESP 20; O2SAT 100
[2023-03-13 10:19] LABS: Glucose Point of Care 105 mg/dl (65-105)
== END 2023-03-13 10:37 | disposition home or self-care (01) ==
PROVIDERS: PCP Emergency Medicine; Visit Provider Internal Medicine Gastroenterology
PROC: 0DJ08ZZ Inspection of Upper Intestinal Tract, Via Natural or Artificial Opening Endoscopic (ICD-10-PCS; CPT 43235; principal; 2023-03-13 10:15)
DX: K31.84 Gastroparesis (principal); K29.50 Unspecified chronic gastritis without bleeding; Z79.4 Long term (current) use of insulin; F32.A Depression, unspecified; F17.290 Nicotine dependence, other tobacco product, uncomplicated
CPT/HCPCS: 43239; 82948; 88305; J2704; J7120

== ENCOUNTER 2023-03-29 08:10 | Outpatient (CLI) | payer OTHER, SELFPAY ==
--- NOTE | ~2023-03-29 | NM_ITS ---
EXAM: NM gastric emptying study DATE: 03/29/2023 15:53 INDICATION: Nausea and vomiting, unspecified. TECHNIQUE: A gastric emptying study was performed using the methodology of Torsten DONAHUE, et al. J Nucl Med 2007; 48:568-572. The patient was given a meal consisting of 2 scrambled eggs labeled with 0.923 mCi Tc-99m sulfur colloid, 2 slices of toast, two packages of jam, and approximately 120 mL of water . Simultaneous anterior and posterior 1-min images of the abdomen were obtained with the patient supi ne at multiple time points over a total period of 4 hours. The geometric mean of anterior and posteri or views was determined, and the percentage retention was calculated for each time point. COMPARISON: CT abdomen and pelvis 01/25/2023 FINDINGS: Gastric retention of the radiotracer-labeled meal was 67%, 58%, and 27% at the 1-hour, 2-h our, and 4-hour time points, respectively. With this technique, apparent rapid gastric emptying is love ggested by <30% gastric retention at 1 hour. Delayed gastric emptying is defined by gastric retention of >90% at 1 hour, >60% retention at 2 hours, or >10% retention at 4 hours. IMPRESSION: 1. Delayed gastric emptying. Reviewed, dictated and finalized at location A.
== END 2023-03-29 08:11 | disposition home or self-care (01) ==
PROVIDERS: PCP Emergency Medicine; Visit Provider Internal Medicine Gastroenterology
DX: R11.2 Nausea with vomiting, unspecified (principal); K30 Functional dyspepsia
CPT/HCPCS: 78264; A9541

== ENCOUNTER 2023-05-14 07:24 | Emergency (ER) | payer OTHER, SELFPAY ==
[2023-05-14] VITALS (7 sets, daily range): BP systolic 106–143; BP diastolic 58–83; PULSE 75–93; RESP 16; TEMP 36.7–36.8; O2SAT 98–100
[2023-05-14 07:48] LABS: Appearance Urine Clear (Clear); Bilirubin Urine Negative (Negative); Blood Urine Negative (Negative); Color Urine Yellow (Yellow); Glucose Urine UA 3+ mg/dL (Negative); Ketones Urine 3+ mg/dL (Negative); Leukocyte Esterase Ur Negative LEU/UL (Negative); Nitrate Urine Negative (Negative); Protein Urine Negative (Negative); Specific Grav Ur 1.029 (1.001-1.035)
[2023-05-14] MEDS: ONDANSETRON INJ 4 MG/2 ML VIAL (07:50)
--- NOTE | 2023-05-14 07:50 | PC.NURSE ---
pt actively vomiting. V.O/R.B zofran 4mg IVP once,Dr. Jaramillo
[2023-05-14 07:53] LABS: Add Urine Microscopic? NO
[2023-05-14 08:03] LABS: Basophils Percent Auto 0.4 % (0.2-1.2); Hematocrit 37.5 % (37.0-47.0); Hemoglobin 12.5 g/dL (12.0-15.0); Immature Granulocyte Absolute 0.03 K/mm3 (0.00-0.031); Immature Granulocyte Percent A 0.3 % (0-0.5); Lymphocytes Absolute Auto 0.64 K/mm3 (0.9-3.2); Mean Corpuscular HGB Conc 33.3 g/dl (32-36); Mean Corpuscular Hemoglobin 29.6 pg (26-34); Mean Corpuscular Volume 88.7 fl (80-100); Mean Platelet Volume 11.7 fl (7.4-10.4); Monocytes Absolute Auto 0.3 K/mm3 (0.1-0.6); Neutrophils Absolute Auto 8.1 K/mm3 (1.3-6.7); Neutrophils Percent Auto 89.3 % (45.5-73.1); Platelet Count Result 275 k/mm3 (150-375); Red Blood Count 4.23 M/mm3 (4.2-5.4); Red Cell Distribution Width 13.1 % (11.5-14.5); White Blood Count 9.1 K/mm3 (4.5-10.0)
[2023-05-14 08:14] LABS: Alanine Aminotransferase 22 U/L (6-35); Albumin Level 4.7 g/dL (3.5-5.1); Alkaline Phosphatase 82 U/L (38-126); Anion Gap 19 mmol/L (8-16); Aspartate Amino Transferase 29 U/L (14-36); Bilirubin,Total 0.8 mg/dL (0.2-1.3); Blood Urea Nitrogen 10 mg/dL (7-17); Calcium 9.3 mg/dL (8.4-10.2); Carbon Dioxide 19 mmol/L (22-30); Chloride 100 mmol/L (98-107); Estimated CRCL calculation 155 ml/min; Estimated Glomerular Filt Rate > 60; Glucose 317 mg/dL (65-110); Lipase 27 U/L (23-300); Sodium 138 mmol/L (137-145)
--- NOTE | 2023-05-14 08:36 | ED.GENADULT ---
HPI - General Adult General Chief complaint: Nausea/Vomiting/Diarrhea Stated complaint: Can't stop puking Time Seen by Provider: 05/14/23 07:45 History of Present Illness HPI narrative: Patient is a 22-year-old female who presents ER with nausea and vomiting. Patient reports she went out last night to celebrate friend's birthday and had many alcoholic beverages. She then went to her friend's house and started vomiting. Patient also reports that she has history of cyclic vomiting as well as diabetes. She reports she did smoke marijuana and took a hit off of a marijuana pen. She has no antiemetics at this time. No chest pain or chest pressure. He has mild discomfort from vomiting in her abdomen. Related Data Home Medications Medication Instructions Recorded Confirmed blood-glucose sensor (Dexcom G6 01/26/23 01/26/23 Sensor device) cyanocobalamin (vitamin B-12) 1,000 mcg PO DAILY 01/26/23 02/23/23 1,000 mcg tablet ergocalciferol (vitamin D2) 1,250 1,250 mcg PO WEEKLY 01/26/23 03/13/23 mcg (50,000 unit) capsule fluoxetine 20 mg capsule 20 mg PO DAILY 01/26/23 02/23/23 insulin glargine 100 unit/mL (3 22 unit subcut DIRECTED 01/27/23 02/23/23 mL) subcutaneous pen (Basaglar KwikPen U-100 Insulin) insulin lispro 100 unit/mL 25 unit subcut DIRECTED 01/27/23 02/23/23 subcutaneous pen Allergies Allergy/AdvReac Type Severity Reaction Status Date / Time Penicillins Allergy Itching Verified 03/13/23 09:13 Review of Systems Review of Systems: All systems reviewed & are unremarkable except as noted in HPI and below Constitutional: Constitutional: Denies chills, Reports fatigue and Denies fever(s) ENT: Denies nasal congestion and Denies sore throat Cardiovascular: Cardiovascular: Reports no additional cardiovascular complaints Respiratory: Respiratory: Reports no additional respiratory complaints Gastrointestinal: Gastrointestinal: Reports abdominal pain, Denies diarrhea, Reports nausea and Reports vomiting Genitourinary: Genitourinary: Reports no additional female genitourinary complaints [facility] Past Medical History Medical History (Updated 05/14/23 @ 13:20 by Houston Jaramillo MD) Cyclic vomiting syndrome Depression Insulin dependent diabetes mellitus Surgical History Surgical History (Updated 05/14/23 @ 08:38 by Houston Jaramillo MD) No pertinent past surgical history Family History Family History (Updated 01/28/23 @ 17:25 by Regla Martinez RN) Father Family history of diabetes mellitus in first degree relative Mother Family history of diabetes mellitus in first degree relative Grandparent Crohn disease Celiac disease Social History Social History Smoking status: Current every day smoker Tobacco type: e-cigarettes/vaping Second hand tobacco smoke exposure: No Alcohol intake: never Substance use: former Substance use type: marijuana Lack of Transportation: No Lack of Food: Sometimes True Current Housing: I Have Housing Concerned About Future Housing: No Difficulty Paying Gas/Electric Bills: No Difficulty Paying for Meds: No Currently Unemployed: No Education: High School Diploma/GED Difficulty w/ Childcare or Family Care: No Living arrangements: with family Spiritual care concerns: No Exam Narrative: GENERAL: Fatigued-appearing, well-nourished, and in no acute distress. HEAD: Normocephalic, atraumatic. EYES: PERRL and EOMI. ENT: Mucous membranes moist. NECK: Supple. CHEST: Clear to auscultation. No respiratory distress. HEART: Regular rate and rhythm. Normal peripheral pulses. ABDOMEN: Soft, mild diffuse discomfort without guarding or rebound, nondistended. EXTREMITIES: Normal range of motion. No edema. SKIN: Warm, dry, no rash. NEURO: Alert and oriented x3. PSYCH: Normal mood and affect. Course Vital Signs Vital signs: Vital Signs Temperature 98.
[2023-05-14] MEDS: PROMETHAZINE HCL 25 MG/ML AMPUL 12.5 MG IV PUSH (10:36)
[2023-05-14] MEDS: SODIUM CHLORIDE 0.9% IV 50 ML 150 ML (10:37)
--- NOTE | 2023-05-14 10:38 | PC.NURSE ---
phenergan diluted in 50ml bag and infused over 15minutes
[2023-05-14] MEDS: PANTOPRAZOLE SODIUM IV 40 MG VIAL IV PUSH (12:01)
[2023-05-14] MEDS: ONDANSETRON INJ 4 MG/2 ML VIAL IV PUSH (12:01)
--- NOTE | 2023-05-14 12:01 | PC.NURSE ---
in room to assess pt and she began to vomit again. ERP notified, new meds ordered and given
--- NOTE | 2023-05-14 13:22 | PC.NURSE ---
glucose checked at this time, it was 301
[2023-05-14 13:25] LABS: Glucose Point of Care 301 mg/dl (65-105)
[2023-05-14 13:43] LABS: Alveolar/Arterial O2 Gradient 14.7 mmHg; Base Excess ABG -1.5 mEq/l (+/-2.0); Carboxyhemoglobin 0.6 % THb (0-2.0); Fractional Inspired Oxygen 21 %; HCO3 ABG 22.1 mEq/l (22.0-26.0); Oxygen Content ABG 16.7 %vol (16.0-22.0); Oxygen Saturation ABG 97.5 % (95.0-100.0); Oxyhemoglobin 95.9 % THb (90.0-100.0); PCO2 ABG 33.8 mmHg (35.0-45.0); PO2 ABG 94.6 mmHg (80.0-100.0); Reduced Hemoglobin 3.5 %THb (0-5.0); Total Hemoglobin 12.3 g/dL (12.0-18.0); pH ABG 7.434 (7.350-7.450)
[2023-05-14 13:45] LABS: Device ROOM AIR; Modified Allen's Test Pass; Site Drawn RIGHT RADIAL
--- NOTE | 2023-05-14 13:51 | PC.NURSE ---
Everytime pt wakes she vomits. ERP woke pt to inform her of DC plan and she began to vomit again. ABGs ordered
== END 2023-05-14 14:05 | disposition home or self-care (01) ==
PROVIDERS: Emergency Provider Emergency Medicine; PCP Emergency Medicine
DX: R11.2 Nausea with vomiting, unspecified (principal); E11.9 Type 2 diabetes mellitus without complications; Z79.4 Long term (current) use of insulin; F17.290 Nicotine dependence, other tobacco product, uncomplicated
CPT/HCPCS: 36415; 36600; 80053; 81003; 81025; 82375; 82805; 82948; 83050; 83690; 85025; 96361; 96374; 96375; 96376; 99284; C9113; J2405; J2550

== ENCOUNTER 2023-05-15 06:26 | Inpatient (IN) | payer OTHER, SELFPAY ==
[2023-05-15] VITALS (10 sets, daily range): BP systolic 106–157; BP diastolic 62–81; PULSE 64–102; RESP 15–28; TEMP 36.1–36.3; O2SAT 98–100; BMI 28.2
--- NOTE | ~2023-05-15 | XR_ITS ---
EXAM: XR abdomen/kub 1V DATE: 05/17/2023 14:05 HISTORY: n/v . COMPARISON: None available. FINDINGS: Clear lung bases. Normal bowel gas pattern. No organomegaly. No abnormal abdominal calcifi cation. Regional bones and soft tissues normal for age. IMPRESSION: Normal abdominal radiograph findings. Reviewed, dictated and finalized at location K.
--- NOTE | ~2023-05-15 | CT_ITS ---
EXAMINATION: CT abdomen pelvis w con INDICATION: Vomiting TECHNIQUE: Computed tomographic images of the abdomen and pelvis were obtained after the administrati on of 100 cc of Omnipaque 350 intravenous contrast. The dose-length product (DLP) was 413.76 mGy-cm. Automated exposure control and iterative reconstruction technique were employed. COMPARISON: 01/25/2023 FINDINGS: The lung bases are clear. The heart size is normal. The liver, spleen, pancreas, gallbladde r, and adrenal glands are normal. The right kidney is unremarkable. There is a 2 mm cyst of the left kidney. No pathologically enlarged abdominal or pelvic lymph nodes are identified. No free intraperit ferrera gas or evidence of bowel obstruction. The appendix is normal. There is moderate distention of t he urinary bladder. IMPRESSION: 1. No CT correlate for the patient's symptoms. 2. Distended urinary bladder. Reviewed, dictated and finalized at location A.
[2023-05-15] MEDS: SODIUM CHLORIDE 0.9% IV 1,000 ML 999 ML IV CONT (09:30)
[2023-05-15] MEDS: PROMETHAZINE HCL 25 MG/ML AMPUL 12.5 MG IV PUSH (09:32)
[2023-05-15 09:38] LABS: Basophils Percent Auto 0.3 % (0.2-1.2); Hematocrit 39.7 % (37.0-47.0); Hemoglobin 12.9 g/dL (12.0-15.0); Immature Granulocyte Absolute 0.07 K/mm3 (0.00-0.031); Immature Granulocyte Percent A 0.5 % (0-0.5); Lymphocytes Absolute Auto 0.87 K/mm3 (0.9-3.2); Lymphocytes Percent Auto 6.7 % (18.3-44.2); Mean Corpuscular HGB Conc 32.5 g/dl (32-36); Mean Corpuscular Hemoglobin 29.4 pg (26-34); Mean Corpuscular Volume 90.4 fl (80-100); Mean Platelet Volume 11.5 fl (7.4-10.4); Monocytes Absolute Auto 0.6 K/mm3 (0.1-0.6); Monocytes Percent Auto 4.4 % (2.6-8.5); Neutrophils Absolute Auto 11.5 K/mm3 (1.3-6.7); Neutrophils Percent Auto 88.1 % (45.5-73.1); Platelet Count Result 275 k/mm3 (150-375); Red Blood Count 4.39 M/mm3 (4.2-5.4); Red Cell Distribution Width 13.5 % (11.5-14.5)
--- NOTE | 2023-05-15 09:51 | ED.GENADULT ---
HPI - General Adult General Chief complaint: Nausea/Vomiting/Diarrhea Stated complaint: n/v Time Seen by Provider: 05/15/23 08:57 History of Present Illness HPI narrative: Patient is a 22-year-old female who presents ER with nausea and vomiting. Patient has history of cyclic vomiting. She had been seen in the ER yesterday. Discharged home. Last night around 1130 she began vomiting again. No diarrhea. No abdominal discomfort. She tried some Zofran at home without improvement. Denies fevers or chills or sweats. She has not used any additional marijuana or drink any additional alcohol. Reports her blood sugars continue to run low but higher at home. Related Data Home Medications Medication Instructions Recorded Confirmed blood-glucose sensor (Dexcom G6 01/26/23 01/26/23 Sensor device) cyanocobalamin (vitamin B-12) 1,000 mcg PO DAILY 01/26/23 02/23/23 1,000 mcg tablet ergocalciferol (vitamin D2) 1,250 1,250 mcg PO WEEKLY 01/26/23 03/13/23 mcg (50,000 unit) capsule fluoxetine 20 mg capsule 20 mg PO DAILY 01/26/23 02/23/23 insulin glargine 100 unit/mL (3 22 unit subcut DIRECTED 01/27/23 02/23/23 mL) subcutaneous pen (Basaglar KwikPen U-100 Insulin) insulin lispro 100 unit/mL 25 unit subcut DIRECTED 01/27/23 02/23/23 subcutaneous pen Allergies Allergy/AdvReac Type Severity Reaction Status Date / Time Penicillins Allergy Itching Verified 05/15/23 09:07 Review of Systems Review of Systems: All systems reviewed & are unremarkable except as noted in HPI and below Constitutional: Constitutional: Denies chills, Denies fatigue and Denies fever(s) ENT: Denies nasal congestion and Denies sore throat Cardiovascular: Cardiovascular: Denies chest pain, Denies rapid heart rate and Denies radiating jaw, neck or arm pain Respiratory: Respiratory: Denies cough and Denies dyspnea Gastrointestinal: Gastrointestinal: Denies abdominal pain, Denies diarrhea, Reports nausea and Reports vomiting Musculoskeletal: Musculoskeletal: Reports no additional musculoskeletal complaints PMFSH Past Medical History Medical History (Updated 05/15/23 @ 14:38 by Houston Jaramillo MD) Cyclic vomiting syndrome Depression Insulin dependent diabetes mellitus Surgical History Surgical History (Updated 05/14/23 @ 08:38 by Houston Jaramillo MD) No pertinent past surgical history Family History Family History (Updated 01/28/23 @ 17:25 by Regla Martinez RN) Father Family history of diabetes mellitus in first degree relative Mother Family history of diabetes mellitus in first degree relative Grandparent Crohn disease Celiac disease Social History Social History Smoking status: Current every day smoker Tobacco type: e-cigarettes/vaping Second hand tobacco smoke exposure: No Alcohol intake: never Substance use: former Substance use type: marijuana Lack of Transportation: No Lack of Food: Sometimes True Current Housing: I Have Housing Concerned About Future Housing: No Difficulty Paying Gas/Electric Bills: No Difficulty Paying for Meds: No Currently Unemployed: No Education: High School Diploma/GED Difficulty w/ Childcare or Family Care: No Living arrangements: with family Spiritual care concerns: No Exam Narrative: GENERAL: Well-appearing, well-nourished, and in no acute distress. HEAD: Normocephalic, atraumatic. ENT: Mucous membranes moist. CHEST: Clear to auscultation. No respiratory distress. HEART: Regular rate and rhythm. Normal peripheral pulses. ABDOMEN: Soft, nontender, nondistended. EXTREMITIES: Normal range of motion. No edema. SKIN: Warm, dry, no rash. NEURO: Alert and oriented x3. PSYCH: Normal mood and affect. Course Course Emergency Course: Patient still having vomiting. Given representation to the ER elevated white count patient be admitted for observation. Vital Signs Linda
[2023-05-15 09:55] LABS: Alanine Aminotransferase 19 U/L (6-35); Albumin Level 4.1 g/dL (3.5-5.1); Alkaline Phosphatase 73 U/L (38-126); Anion Gap 8 mmol/L (8-16); Aspartate Amino Transferase 26 U/L (14-36); Bilirubin,Total 0.7 mg/dL (0.2-1.3); Blood Urea Nitrogen 16 mg/dL (7-17); Calcium 8.7 mg/dL (8.4-10.2); Carbon Dioxide 27 mmol/L (22-30); Chloride 103 mmol/L (98-107); Estimated CRCL calculation 132 ml/min; Estimated Glomerular Filt Rate > 60; Glucose 172 mg/dL (65-110); Potassium 3.7 mmol/L (3.4-5.0); Sodium 138 mmol/L (137-145)
[2023-05-15] MEDS: DICYCLOMINE HCL INJ 20 MG/2 ML VIAL IM (12:19)
[2023-05-15] MEDS: ONDANSETRON INJ 4 MG/2 ML VIAL IV PUSH (13:42)
--- NOTE | 2023-05-15 15:18 | PM.IMHP ---
H&P: HPI History of Present Illness Date/Time: 05/15/23 14:45 Chief Complaint: Nausea, vomiting, abdominal pain. Narrative: This is a 22-year-old female with type 1 diabetes mellitus on an insulin pump and history of cyclic vomiting who presented to the emergency department via private vehicle from home for evaluation of nausea, vomiting, and abdominal pain. She does vape and smokes marijuana. The patient provides the following history. Nights ago she when out to celebrate her friend's birthday and had too much to drink. The following day she felt rough with intractable nausea and vomiting and she was seen emergency department yesterday morning. She was hydrated and treated with antiemetics and PPI with improvement in her symptoms and she was discharged home. Unfortunately it did not last long and her nausea and vomiting returned. She now complains of diffuse abdominal pain which she thinks is due to the retching. She has not been able to hold anything down, and reports that she has only been able to hold water down for a few seconds before comes back up. She denies fever, chills, sweats, diarrhea, and dysuria. Reports prior history of gastritis, no known history of peptic ulcers or pancreatitis. She was afebrile on arrival to the emergency department with stable vital signs. Labs were really unremarkable aside from a WBC count of 13.0. Glucose was 172; she reports that his it has been running a bit higher than usual the last couple of days. CT of the abdomen pelvis showed a distended urinary bladder but no other findings. Despite receiving fluids and antiemetics in the ED, her symptoms have persisted and she is being admitted in this setting. Review of Systems Review of Systems: Twelve systems were reviewed and are negative except for as per HPI. [facility] Past Medical History Medical History (Updated 05/15/23 @ 20:04 by Trista Alexander PA-C) Cyclic vomiting syndrome Depression Type 1 diabetes mellitus Surgical History Surgical History No pertinent past surgical history Family History Family History Father Family history of diabetes mellitus in first degree relative Mother Family history of diabetes mellitus in first degree relative Grandparent Crohn disease Celiac disease Social History Social History (Updated 05/15/23 @ 15:27 by Trista Alexander PA-C) Social History: Surrogate medical decision maker: Iliana Villeda, mother. Code status: Full code. Smoking status: Current every day smoker Tobacco type: e-cigarettes/vaping Second hand tobacco smoke exposure: No Alcohol intake: never Substance use: current Substance use type: marijuana Lack of Transportation: No Lack of Food: Sometimes True Current Housing: I Have Housing Concerned About Future Housing: No Difficulty Paying Gas/Electric Bills: No Difficulty Paying for Meds: No Currently Unemployed: No Education: High School Diploma/GED Difficulty w/ Childcare or Family Care: No Living arrangements: with family Occupation/Education: occupation Additional occupation/education comments: [employer]. Spiritual care concerns: No Meds Home Medications and Allergies Home Medications Medication Instructions Recorded Confirmed Type blood-glucose sensor (Dexcom G6 01/26/23 05/15/23 History Sensor device) cyanocobalamin (vitamin B-12) 1,000 mcg PO DAILY 01/26/23 05/15/23 History 1,000 mcg tablet ergocalciferol (vitamin D2) 1,250 See Rx Instructions .Route .COMPLEX 01/26/23 05/15/23 History mcg (50,000 unit) capsule fluoxetine 20 mg capsule 20 mg PO DAILY 01/26/23 05/15/23 History insulin glargine 100 unit/mL (3 See Rx Instructions .Route .COMPLEX 01/27/23 05/15/23 History mL) subcutaneous pen (Basaglar KwikPen U-100 Insulin) insulin lispro 100 unit/mL 25 unit subcut DIRECTED 01/09
--- NOTE | 2023-05-15 15:53 | PC.NURSE ---
This patient, Ekta Rivero, was admitted to Medical Room 341-01. Patient/family oriented to hospital policies and general routines including ID bracelet, bed and alarms, visiting hours, pain management, procedures, bathroom and other care routines, personal items, smoking policy, room service/diet, and visiting hours. Information on how to activate the Rapid Response Team has been discussed. Patient/Family are encouraged to report perceived risks to care and to ask questions if they do not understand what they are told or what they should do.
[2023-05-15] MEDS: SODIUM CHLORIDE 0.9% IV 1,000 ML 125 ML IV CONT ×2 (15:56→22:24)
[2023-05-15 16:07] LABS: Appearance Urine Clear (Clear); Bilirubin Urine Negative (Negative); Blood Urine Negative (Negative); Color Urine Yellow (Yellow); Glucose Urine UA 1+ mg/dL (Negative); Ketones Urine 2+ mg/dL (Negative); Leukocyte Esterase Ur Negative LEU/UL (Negative); Nitrate Urine Negative (Negative); Protein Urine Negative (Negative); Specific Grav Ur 1.035 (1.001-1.035); pH Urine 7.5 (5.0-9.0)
[2023-05-15 16:12] LABS: Add Urine Microscopic? NO
--- NOTE | 2023-05-15 16:14 | PC.NURSE ---
Plumber Helper called [employer] and left voicemail in regards to consult.
[2023-05-15 17:02] LABS: Glucose Point of Care 175 mg/dl (65-105)
[2023-05-15] MEDS: METOCLOPRAMIDE HCL INJ 10 MG/2 ML VIAL 5 MG IV PUSH ×2 (17:16→23:22)
[2023-05-15 18:40] LABS: Hemoglobin A1C 6.9 % (<5.7)
[2023-05-15 20:47] LABS: Glucose Point of Care 150 mg/dl (65-105)
[2023-05-15] MEDS: MORPHINE SULFATE (*CRX) 2 MG/ML INJ IV PUSH (22:23)
[2023-05-16] MEDS: METOCLOPRAMIDE HCL INJ 10 MG/2 ML VIAL 5 MG IV PUSH ×4 (05:20→23:06)
[2023-05-16 05:43] LABS: Hematocrit 34.5 % (37.0-47.0); Hemoglobin 11.1 g/dL (12.0-15.0); Mean Corpuscular HGB Conc 32.2 g/dl (32-36); Mean Corpuscular Hemoglobin 29.8 pg (26-34); Mean Corpuscular Volume 92.5 fl (80-100); Mean Platelet Volume 11.5 fl (7.4-10.4); Platelet Count Result 225 k/mm3 (150-375); Red Blood Count 3.73 M/mm3 (4.2-5.4); Red Cell Distribution Width 13.5 % (11.5-14.5); White Blood Count 9.1 K/mm3 (4.5-10.0)
[2023-05-16 05:48] VITALS: BP 146/79; PULSE 89; RESP 18; TEMP 36; O2SAT 100
[2023-05-16 05:58] LABS: Alanine Aminotransferase 17 U/L (6-35); Albumin Level 3.5 g/dL (3.5-5.1); Alkaline Phosphatase 60 U/L (38-126); Anion Gap 8 mmol/L (8-16); Aspartate Amino Transferase 25 U/L (14-36); Bilirubin,Total 0.5 mg/dL (0.2-1.3); Blood Urea Nitrogen 10 mg/dL (7-17); Calcium 7.9 mg/dL (8.4-10.2); Carbon Dioxide 24 mmol/L (22-30); Chloride 106 mmol/L (98-107); Estimated CRCL calculation 154 ml/min; Estimated Glomerular Filt Rate > 60; Glucose 125 mg/dL (65-110); Magnesium 2.2 mg/dL (1.6-2.3); Potassium 3.2 mmol/L (3.4-5.0); Sodium 138 mmol/L (137-145)
[2023-05-16] MEDS: SODIUM CHLORIDE 0.9% IV 1,000 ML 125 ML IV CONT ×2 (07:02→18:09)
[2023-05-16 08:27] LABS: Glucose Point of Care 154 mg/dl (65-105)
[2023-05-16] MEDS: POTASSIUM CHLORIDE INJ 40 MEQ in SODIUM CHLORIDE 0.9% IV 500 ML 130 MEQ IVPB (08:47)
[2023-05-16] MEDS: PANTOPRAZOLE SODIUM IV 40 MG VIAL IV PUSH (08:47)
[2023-05-16] MEDS: KETOROLAC 30 MG/ML VIAL (*BKC) IV PUSH (08:48)
[2023-05-16 09:50] VITALS: BMI 27.8
[2023-05-16 11:12] VITALS: BMI 27.8
--- NOTE | 2023-05-16 11:28 | PM.IMPN ---
Progress Note: A&P Assessment and Plan (1) Intractable cyclical vomiting: Code(s): R11.15 - Cyclical vomiting syndrome unrelated to migraine Status: Acute Assessment and Plan: The patient presented to the emergency department for evaluation of ongoing nausea, vomiting, and abdominal discomfort IV fluid rehydration. Antiemetics and analgesics P.r.n. CT abdomen pelvis with no acute findings explain the patient's symptoms Likely due to patient's alcohol use and marijuana smoking. Patient also has history of diabetic gastroparesis that could be contributing to her symptoms. test ordered (2) Mild dehydration: Code(s): E86.0 - Dehydration Status: Acute Assessment and Plan: Receiving IV fluid hydration. (3) Distended bladder: Code(s): N32.89 - Other specified disorders of bladder Status: Acute Assessment and Plan: patient was straight cathed and urine with no evidence of infection. (4) Marijuana smoker: Code(s): F12.90 - Cannabis use, unspecified, uncomplicated Status: Acute Assessment and Plan: Advised smoking cessation. Likely cause of pt's symptoms. (5) Type 1 diabetes mellitus: Code(s): E10.9 - Type 1 diabetes mellitus without complications Status: Acute Assessment and Plan: Continue home insulin pump Accu-checks qAc and HS Initiate hypoglycemic precautions Subjective Date/time seen: 05/16/23 11:28 Interval history: Patient continues to have nausea vomiting. No fevers, body aches or chills present. She has no urinary symptoms at this time. According to the nurse patient has not vomited but is only dry heaving. Will continue fluid hydration. Patient could likely discharge tomorrow. Exam Narrative: GENERAL: Comfortable, no acute distress HENMT: moist mucous membranes EYES: EOM intact b/l NECK: no lymphadenopathy RESPIRATORY: clear to auscultation CARDIO: RRR GI: soft, Tenderness palpation, bowel sounds present SKIN: no rashes EXTREMITIES: no edema, redness or tenderness Objective Data Vital Signs Vital Signs: Vital Signs - 24 hr 05/15/23 12:01 05/15/23 12:45 05/15/23 15:32 Temperature Pulse Rate 102 H 94 64 Respiratory Rate 28 H 18 16 Blood Pressure 143/81 H 135/77 119/70 Pulse Oximetry 100 100 100 Oxygen Delivery 05/15/23 14:31 05/15/23 15:01 05/15/23 15:54 Temperature 97.3 F L Pulse Rate 70 67 85 Respiratory Rate 15 19 18 Blood Pressure 115/64 111/62 157/81 H Pulse Oximetry 100 98 100 Oxygen Delivery 05/15/23 22:00 05/16/23 05:48 05/16/23 08:47 Temperature 96.9 F L 96.8 F L Pulse Rate 86 89 Respiratory Rate 18 18 Blood Pressure 114/62 146/79 H Pulse Oximetry 99 100 Oxygen Delivery Room Air Intake/Output Intake/Output: Intake & Output 05/13/23 05/14/23 05/15/23 05/16/23 23:59 23:59 23:59 23:59 Intake Total 1999 1250 Balance 1999 1250 Meds/Results Medications: Active Medications Generic Name Dose Route Start Last Admin Trade Name Freq PRN Reason Stop Dose Admin Dextrose 12.5 gm 05/15/23 15:45 Dextrose 50% 25 Gm/50 Ml Syringe IV PUSH PRN PRN Hypoglycemia Protocol Glucagon 1 mg 05/15/23 15:45 Glucagon For Inj 1 Mg Vial IM PRN PRN Hypoglycemia Protocol Glucose 15 gm 05/15/23 15:45 Glucose Oral Gel 15 Gm Of Glucse In 37.5 Gm Tube PO PRN PRN Hypoglycemia Protocol Sodium Chloride 1,000 mls @ 125 mls/hr 05/15/23 13:50 05/16/23 07:02 Normal Saline Iv IV CONT 125 mls/hr .Q8H SANDRITA Administration Dextrose 1,000 mls @ 100 mls/hr 05/15/23 15:45 Dextrose 5% 1,000 Ml IVPB PRN PRN Hypoglycemia Protocol Lorazepam 0.5 mg 05/16/23 06:31 Lorazepam (*Crx) 0.5 Mg Tablet PO BID PRN nausea and vomiting Metoclopramide HCl 5 mg 05/15/23 18:00 05/16/23 05:20 Metoclopramide Hcl Inj 10
[2023-05-16] MEDS: ACETAMINOPHEN 325 MG TABLET 650 MG PO (12:17)
[2023-05-16 12:19] LABS: Glucose Point of Care 129 mg/dl (65-105)
[2023-05-16 13:16] LABS: Beta HCG Quantitative < 2.39 mIU/ML
[2023-05-16 14:00] VITALS: BP 138/67; PULSE 66; RESP 18; TEMP 36.4; O2SAT 99
[2023-05-16] MEDS: KETOROLAC 15 MG/ML VIAL (*BKC) IV PUSH (16:16)
[2023-05-16 18:07] LABS: Glucose Point of Care 178 mg/dl (65-105)
[2023-05-16 20:00] VITALS: PULSE 85; RESP 16; O2SAT 100
--- NOTE | 2023-05-16 20:00 | PC.NURSE ---
PM glucose 119 per patient's continuous glucose monitor. Bedside sheet filled out.
[2023-05-16 21:31] VITALS: BP 132/69; PULSE 85; RESP 16; TEMP 35.9; O2SAT 100
[2023-05-17] MEDS: SODIUM CHLORIDE 0.9% IV 1,000 ML 125 ML IV CONT (02:13)
[2023-05-17] MEDS: METOCLOPRAMIDE HCL INJ 10 MG/2 ML VIAL 5 MG IV PUSH ×4 (05:33→23:50)
[2023-05-17 05:43] LABS: Hemoglobin 10.7 g/dL (12.0-15.0); Mean Corpuscular HGB Conc 32.4 g/dl (32-36); Mean Corpuscular Hemoglobin 29.9 pg (26-34); Mean Corpuscular Volume 92.2 fl (80-100); Mean Platelet Volume 11.4 fl (7.4-10.4); Platelet Count Result 215 k/mm3 (150-375); Red Blood Count 3.58 M/mm3 (4.2-5.4); Red Cell Distribution Width 13.3 % (11.5-14.5); White Blood Count 9.3 K/mm3 (4.5-10.0)
[2023-05-17 05:46] VITALS: BP 120/67; PULSE 78; RESP 18; TEMP 35.8; O2SAT 99
[2023-05-17] MEDS: KETOROLAC 15 MG/ML VIAL (*BKC) IV PUSH (05:51)
[2023-05-17 06:08] LABS: Alanine Aminotransferase 17 U/L (6-35); Albumin Level 3.2 g/dL (3.5-5.1); Alkaline Phosphatase 56 U/L (38-126); Anion Gap 10 mmol/L (8-16); Aspartate Amino Transferase 22 U/L (14-36); Bilirubin,Total 0.7 mg/dL (0.2-1.3); Blood Urea Nitrogen 5 mg/dL (7-17); Calcium 7.6 mg/dL (8.4-10.2); Carbon Dioxide 21 mmol/L (22-30); Chloride 107 mmol/L (98-107); Estimated CRCL calculation 157 ml/min; Estimated Glomerular Filt Rate > 60; Glucose 108 mg/dL (65-110); Potassium 3.1 mmol/L (3.4-5.0); Sodium 138 mmol/L (137-145)
[2023-05-17] MEDS: LORazepam INJ (*CRX) 2 MG/ML VIAL 0.5 MG IV PUSH ×3 (07:55→22:08)
[2023-05-17] MEDS: PANTOPRAZOLE SODIUM IV 40 MG VIAL IV PUSH (08:00)
--- NOTE | 2023-05-17 08:49 | PM.IMPN ---
Progress Note: A&P Assessment and Plan (1) Intractable cyclical vomiting: Code(s): R11.15 - Cyclical vomiting syndrome unrelated to migraine Status: Acute Assessment and Plan: The patient presented to the emergency department for evaluation of ongoing nausea, vomiting, and abdominal discomfort IV fluid rehydration. Antiemetics and analgesics P.r.n. CT abdomen pelvis with no acute findings explain the patient's symptoms Likely due to patient's alcohol use and marijuana smoking. Patient also has history of diabetic gastroparesis that could be contributing to her symptoms. test ordered KUB negative for concerns of bowel obstruction (2) Mild dehydration: Code(s): E86.0 - Dehydration Status: Acute Assessment and Plan: Receiving IV fluid hydration. (3) Distended bladder: Code(s): N32.89 - Other specified disorders of bladder Status: Acute Assessment and Plan: patient was straight cathed and urine with no evidence of infection. Voiding without difficult (4) Marijuana smoker: Code(s): F12.90 - Cannabis use, unspecified, uncomplicated Status: Acute Assessment and Plan: Advised smoking cessation. Likely cause of pt's symptoms. (5) Type 1 diabetes mellitus: Code(s): E10.9 - Type 1 diabetes mellitus without complications Status: Acute Assessment and Plan: Continue home insulin pump Accu-checks qAc and HS Initiate hypoglycemic precautions Plan NPO, continue with IV fluids, and p.r.n. antiemetics. Subjective Date/time seen: 05/17/23 08:49 Interval history: HPI obtained from chart, This is a 22-year-old female with type 1 diabetes mellitus on an insulin pump and history of cyclic vomiting who presented to the emergency department via private vehicle from home for evaluation of nausea, vomiting, and abdominal pain. She does vape and smokes marijuana. The patient provides the following history. Nights ago she when out to celebrate her friend's birthday and had too much to drink. The following day she felt rough with intractable nausea and vomiting and she was seen emergency department yesterday morning. She was hydrated and treated with antiemetics and PPI with improvement in her symptoms and she was discharged home. Unfortunately it did not last long and her nausea and vomiting returned. She now complains of diffuse abdominal pain which she thinks is due to the retching. She has not been able to hold anything down, and reports that she has only been able to hold water down for a few seconds before comes back up. She denies fever, chills, sweats, diarrhea, and dysuria. Reports prior history of gastritis, no known history of peptic ulcers or pancreatitis. She was afebrile on arrival to the emergency department with stable vital signs. Labs were really unremarkable aside from a WBC count of 13.0.? Glucose was 172; she reports that his it has been running a bit higher than usual the last couple of days. CT of the abdomen pelvis showed a distended urinary bladder but no other findings. Despite receiving fluids and antiemetics in the ED, her symptoms have persisted and she is being admitted in this setting. 05/17: Patient is seen today resting in bed. She does not appear to be feeling well. She says that yesterday she was doing better and it started to tolerate a diet but this morning and overnight she was having increased nausea and vomiting. She also has continued abdominal pain. She does not think she is passing flatness in her bowel sounds are hypoactive. KUB was ordered and no concern for bowel obstruction at this time. I adjusted her antiemetics and will continue with IV fluids for hydration as well as make her NPO. Her diet can be advanced when she is feeling less nauseous. Besides her nausea, vomiting, and abdominal pain she has no other complaints at this time. Review of Systems Review of Sy
[2023-05-17] MEDS: POTASSIUM CHLORIDE INJ 40 MEQ in SODIUM CHLORIDE 0.9% IV 500 ML 130 MEQ IVPB (09:37)
[2023-05-17] MEDS: DEXTROSE 5%/0.9% SOD CHL 1,000 ML 125 ML IV CONT (09:37)
[2023-05-17 10:15] VITALS: BMI 29.0
[2023-05-17 11:02] VITALS: O2SAT 99
[2023-05-17 12:10] LABS: Glucose Point of Care 129 mg/dl (65-105)
[2023-05-17] MEDS: diphenhydrAMINE HCl INJ 50 MG/ML VIAL 25 MG IV PUSH ×2 (13:14→20:56)
[2023-05-17 14:00] VITALS: BP 157/77; PULSE 74; RESP 16; TEMP 36.7; O2SAT 100
[2023-05-17 17:11] LABS: Glucose Point of Care 118 mg/dl (65-105)
[2023-05-17 19:38] LABS: Lipase 35 U/L (23-300)
[2023-05-17 20:00] VITALS: PULSE 74; RESP 16; O2SAT 100
[2023-05-17 20:23] LABS: Glucose Point of Care 144 mg/dl (65-105)
[2023-05-17 21:33] VITALS: BP 142/88; PULSE 86; RESP 16; TEMP 37.4; O2SAT 99
[2023-05-17 23:51] LABS: Glucose Point of Care 159 mg/dl (65-105)
[2023-05-18] MEDS: diphenhydrAMINE HCl INJ 50 MG/ML VIAL 25 MG IV PUSH ×4 (02:33→23:51)
[2023-05-18] MEDS: DEXTROSE 5%/0.9% SOD CHL 1,000 ML 125 ML IV CONT ×3 (02:34→20:00)
[2023-05-18 03:49] LABS: Glucose Point of Care 181 mg/dl (65-105)
[2023-05-18] MEDS: METOCLOPRAMIDE HCL INJ 10 MG/2 ML VIAL 5 MG IV PUSH ×2 (05:22→11:18)
[2023-05-18 05:25] LABS: Basophils Absolute Auto 0.1 K/mm3 (0.0-0.1); Basophils Percent Auto 0.6 % (0.2-1.2); Eosinophils Percent Auto 0.2 % (0-4.4); Hematocrit 36.1 % (37.0-47.0); Hemoglobin 11.3 g/dL (12.0-15.0); Immature Granulocyte Absolute 0.03 K/mm3 (0.00-0.031); Immature Granulocyte Percent A 0.4 % (0-0.5); Lymphocytes Percent Auto 14.9 % (18.3-44.2); Mean Corpuscular HGB Conc 31.3 g/dl (32-36); Mean Corpuscular Hemoglobin 29.8 pg (26-34); Mean Corpuscular Volume 95.3 fl (80-100); Mean Platelet Volume 11.5 fl (7.4-10.4); Monocytes Absolute Auto 0.7 K/mm3 (0.1-0.6); Monocytes Percent Auto 9.1 % (2.6-8.5); Neutrophils Percent Auto 74.8 % (45.5-73.1); Platelet Count Result 213 k/mm3 (150-375); Red Blood Count 3.79 M/mm3 (4.2-5.4); Red Cell Distribution Width 13.1 % (11.5-14.5); White Blood Count 8.1 K/mm3 (4.5-10.0)
[2023-05-18 05:33] VITALS: BP 142/82; PULSE 75; RESP 17; TEMP 37.5; O2SAT 98
[2023-05-18 05:51] LABS: Alanine Aminotransferase 18 U/L (6-35); Albumin Level 3.5 g/dL (3.5-5.1); Alkaline Phosphatase 63 U/L (38-126); Anion Gap 6 mmol/L (8-16); Aspartate Amino Transferase 24 U/L (14-36); Bilirubin,Total 0.7 mg/dL (0.2-1.3); Blood Urea Nitrogen 4 mg/dL (7-17); Calcium 8.2 mg/dL (8.4-10.2); Carbon Dioxide 24 mmol/L (22-30); Chloride 102 mmol/L (98-107); Estimated CRCL calculation 188 ml/min; Estimated Glomerular Filt Rate > 60; Glucose 148 mg/dL (65-110); Magnesium 1.7 mg/dL (1.6-2.3); Potassium 3.2 mmol/L (3.4-5.0); Sodium 132 mmol/L (137-145)
--- NOTE | 2023-05-18 06:24 | PC.NURSE ---
Per patient, basal rate for insulin pump is 0.9 from 4am-8pm and and 0.85 from 8pm-4am
[2023-05-18 08:15] LABS: Glucose Point of Care 177 mg/dl (65-105)
[2023-05-18 08:48] VITALS: O2SAT 98
--- NOTE | 2023-05-18 09:52 | PM.IMPN ---
Progress Note: A&P Assessment and Plan (1) Intractable cyclical vomiting: Code(s): R11.15 - Cyclical vomiting syndrome unrelated to migraine Status: Acute Assessment and Plan: The patient presented to the emergency department for evaluation of ongoing nausea, vomiting, and abdominal discomfort IV fluid rehydration. Lipase was normal on admission Antiemetics and analgesics P.r.n. Increased Reglan dose 05/18 CT abdomen pelvis with no acute findings explain the patient's symptoms Likely due to patient's alcohol use and marijuana smoking. Patient also has history of diabetic gastroparesis that could be contributing to her symptoms. test ordered KUB negative for concerns of bowel obstruction (2) Mild dehydration: Code(s): E86.0 - Dehydration Status: Acute Assessment and Plan: Receiving IV fluid hydration. (3) Distended bladder: Code(s): N32.89 - Other specified disorders of bladder Status: Acute Assessment and Plan: patient was straight cathed and urine with no evidence of infection. Voiding without difficult (4) Marijuana smoker: Code(s): F12.90 - Cannabis use, unspecified, uncomplicated Status: Acute Assessment and Plan: Advised smoking cessation. Likely cause of pt's symptoms. (5) Type 1 diabetes mellitus: Code(s): E10.9 - Type 1 diabetes mellitus without complications Status: Acute Assessment and Plan: Continue home insulin pump Accu-checks qAc and HS Initiate hypoglycemic precautions Plan NPO, continue with IV fluids, and p.r.n. antiemetics. Increase reglan dose Subjective Date/time seen: 05/18/23 09:52 Interval history: HPI obtained from chart, This is a 22-year-old female with type 1 diabetes mellitus on an insulin pump and history of cyclic vomiting who presented to the emergency department via private vehicle from home for evaluation of nausea, vomiting, and abdominal pain. She does vape and smokes marijuana. The patient provides the following history. Nights ago she when out to celebrate her friend's birthday and had too much to drink. The following day she felt rough with intractable nausea and vomiting and she was seen emergency department yesterday morning. She was hydrated and treated with antiemetics and PPI with improvement in her symptoms and she was discharged home. Unfortunately it did not last long and her nausea and vomiting returned. She now complains of diffuse abdominal pain which she thinks is due to the retching. She has not been able to hold anything down, and reports that she has only been able to hold water down for a few seconds before comes back up. She denies fever, chills, sweats, diarrhea, and dysuria. Reports prior history of gastritis, no known history of peptic ulcers or pancreatitis. She was afebrile on arrival to the emergency department with stable vital signs. Labs were really unremarkable aside from a WBC count of 13.0.? Glucose was 172; she reports that his it has been running a bit higher than usual the last couple of days. CT of the abdomen pelvis showed a distended urinary bladder but no other findings. Despite receiving fluids and antiemetics in the ED, her symptoms have persisted and she is being admitted in this setting. 05/17: Patient is seen today resting in bed. She does not appear to be feeling well. She says that yesterday she was doing better and it started to tolerate a diet but this morning and overnight she was having increased nausea and vomiting. She also has continued abdominal pain. She does not think she is passing flatness in her bowel sounds are hypoactive. KUB was ordered and no concern for bowel obstruction at this time. I adjusted her antiemetics and will continue with IV fluids for hydration as well as make her NPO. Her diet can be advanced when she is feeling less nauseous. Besides her nausea, vomiting, and abdomi
[2023-05-18] MEDS: PANTOPRAZOLE SODIUM IV 40 MG VIAL IV PUSH (10:59)
[2023-05-18 12:22] LABS: Glucose Point of Care 125 mg/dl (65-105)
[2023-05-18] MEDS: LORazepam INJ (*CRX) 2 MG/ML VIAL 0.5 MG IV PUSH ×2 (12:31→20:00)
[2023-05-18 14:00] VITALS: BP 139/74; PULSE 83; RESP 18; TEMP 37.1; O2SAT 100
[2023-05-18 17:19] LABS: Glucose Point of Care 153 mg/dl (65-105)
[2023-05-18] MEDS: METOCLOPRAMIDE HCL INJ 10 MG/2 ML VIAL IV PUSH ×2 (17:27→23:51)
[2023-05-18 19:33] VITALS: BP 162/90; PULSE 74; RESP 18; TEMP 37.5; O2SAT 100
[2023-05-18 20:00] VITALS: PULSE 74; RESP 18; O2SAT 100
[2023-05-18 21:22] VITALS: O2SAT 100
[2023-05-18 21:37] LABS: Glucose Point of Care 169 mg/dl (65-105)
[2023-05-18 23:55] LABS: Glucose Point of Care 167 mg/dl (65-105)
[2023-05-19] VITALS (7 sets, daily range): BP systolic 118–143; BP diastolic 73–82; PULSE 68–82; RESP 14–20; TEMP 36.8–37.4; O2SAT 98–100
[2023-05-19 05:03] LABS: Glucose Point of Care 134 mg/dl (65-105)
[2023-05-19] MEDS: DEXTROSE 5%/0.9% SOD CHL 1,000 ML 125 ML IV CONT (05:40)
[2023-05-19 05:46] LABS: Basophils Percent Auto 0.6 % (0.2-1.2); Eosinophils Absolute Auto 0.1 K/mm3 (0-0.3); Eosinophils Percent Auto 1.5 % (0-4.4); Hematocrit 35.1 % (37.0-47.0); Hemoglobin 11.7 g/dL (12.0-15.0); Immature Granulocyte Absolute 0.02 K/mm3 (0.00-0.031); Immature Granulocyte Percent A 0.3 % (0-0.5); Lymphocytes Absolute Auto 2.37 K/mm3 (0.9-3.2); Lymphocytes Percent Auto 33.2 % (18.3-44.2); Mean Corpuscular HGB Conc 33.3 g/dl (32-36); Mean Corpuscular Hemoglobin 29.4 pg (26-34); Mean Corpuscular Volume 88.2 fl (80-100); Mean Platelet Volume 11.7 fl (7.4-10.4); Monocytes Absolute Auto 0.6 K/mm3 (0.1-0.6); Neutrophils Percent Auto 55.4 % (45.5-73.1); Platelet Count Result 251 k/mm3 (150-375); Red Blood Count 3.98 M/mm3 (4.2-5.4); Red Cell Distribution Width 12.5 % (11.5-14.5); White Blood Count 7.1 K/mm3 (4.5-10.0)
[2023-05-19 06:08] LABS: Anion Gap 8 mmol/L (8-16); Blood Urea Nitrogen 2 mg/dL (7-17); Calcium 7.8 mg/dL (8.4-10.2); Carbon Dioxide 27 mmol/L (22-30); Chloride 103 mmol/L (98-107); Estimated CRCL calculation 155 ml/min; Estimated Glomerular Filt Rate > 60; Glucose 150 mg/dL (65-110); Magnesium 1.9 mg/dL (1.6-2.3); Potassium 2.5 mmol/L (3.4-5.0); Sodium 138 mmol/L (137-145)
[2023-05-19] MEDS: TRIMETHOBENZAMIDE HCL 200 MG/2 ML VIAL IM (06:44)
[2023-05-19] MEDS: POTASSIUM CHLORIDE INJ 40 MEQ in SODIUM CHLORIDE 0.9% IV 500 ML 130 MEQ IVPB (07:19)
--- NOTE | 2023-05-19 07:27 | PM.IMPN ---
Progress Note: A&P Assessment and Plan (1) Intractable cyclical vomiting: Code(s): R11.15 - Cyclical vomiting syndrome unrelated to migraine Status: Acute Assessment and Plan: The patient presented to the emergency department for evaluation of ongoing nausea, vomiting, and abdominal discomfort IV fluid rehydration. Lipase was normal on admission and repeat on 05/17 was also WNL Antiemetics and analgesics P.r.n. Increased Reglan dose 05/18 CT abdomen pelvis with no acute findings explain the patient's symptoms Likely due to patient's alcohol use and marijuana smoking. Patient also has history of diabetic gastroparesis that could be contributing to her symptoms. test ordered KUB negative for concerns of bowel obstruction (2) Mild dehydration: Code(s): E86.0 - Dehydration Status: Acute Assessment and Plan: Receiving IV fluid hydration. Replace electrolytes as needed. K+ 2.5 today. IV K+ 40 meq x 2 doses (3) Distended bladder: Code(s): N32.89 - Other specified disorders of bladder Status: Acute Assessment and Plan: patient was straight cathed and urine with no evidence of infection. Voiding without difficult (4) Marijuana smoker: Code(s): F12.90 - Cannabis use, unspecified, uncomplicated Status: Acute Assessment and Plan: Advised smoking cessation. Likely cause of pt's symptoms. (5) Type 1 diabetes mellitus: Code(s): E10.9 - Type 1 diabetes mellitus without complications Status: Acute Assessment and Plan: Continue home insulin pump Accu-checks qAc and HS Initiate hypoglycemic precautions Plan NPO, continue with IV fluids, and p.r.n. antiemetics. Increase reglan dose consult nutrition for possible PPN consult GI for further assistance in care, rec's appreciated Subjective Date/time seen: 05/19/23 07:27 Interval history: HPI obtained from chart, This is a 22-year-old female with type 1 diabetes mellitus on an insulin pump and history of cyclic vomiting who presented to the emergency department via private vehicle from home for evaluation of nausea, vomiting, and abdominal pain. She does vape and smokes marijuana. The patient provides the following history. Nights ago she when out to celebrate her friend's birthday and had too much to drink. The following day she felt rough with intractable nausea and vomiting and she was seen emergency department yesterday morning. She was hydrated and treated with antiemetics and PPI with improvement in her symptoms and she was discharged home. Unfortunately it did not last long and her nausea and vomiting returned. She now complains of diffuse abdominal pain which she thinks is due to the retching. She has not been able to hold anything down, and reports that she has only been able to hold water down for a few seconds before comes back up. She denies fever, chills, sweats, diarrhea, and dysuria. Reports prior history of gastritis, no known history of peptic ulcers or pancreatitis. She was afebrile on arrival to the emergency department with stable vital signs. Labs were really unremarkable aside from a WBC count of 13.0.? Glucose was 172; she reports that his it has been running a bit higher than usual the last couple of days. CT of the abdomen pelvis showed a distended urinary bladder but no other findings. Despite receiving fluids and antiemetics in the ED, her symptoms have persisted and she is being admitted in this setting. 05/17: Patient is seen today resting in bed. She does not appear to be feeling well. She says that yesterday she was doing better and it started to tolerate a diet but this morning and overnight she was having increased nausea and vomiting. She also has continued abdominal pain. She does not think she is passing flatness in her bowel sounds are hypoactive. KUB was ordered and no concern for bowel obstruction at this time. I
[2023-05-19 07:58] LABS: Glucose Point of Care 148 mg/dl (65-105)
[2023-05-19] MEDS: diphenhydrAMINE HCl INJ 50 MG/ML VIAL 25 MG IV PUSH ×2 (08:09→20:30)
[2023-05-19] MEDS: METOCLOPRAMIDE HCL INJ 10 MG/2 ML VIAL IV PUSH ×3 (08:09→17:33)
[2023-05-19] MEDS: PANTOPRAZOLE SODIUM IV 40 MG VIAL IV PUSH (08:15)
[2023-05-19] MEDS: BISACODYL 10 MG SUPPOSITORY RECTAL (08:45)
[2023-05-19] MEDS: LORazepam INJ (*CRX) 2 MG/ML VIAL 0.5 MG IV PUSH ×2 (10:49→20:30)
--- NOTE | 2023-05-19 10:58 | PCNFU ---
Nutrition Follow-Up Complete: RD consult for PPN. Patient with Mg trending down, low K+. Potassium being replaced today. Patient a refeeding risk. Will add recommendations for PPN 2/2 cyclic vomiting, prolonged NPO order with no intake x [address] of abdomen and pelvic showed no acute findings. Dextrose/NaCl not given today. Cyclic vomiting likely due to marijuana and alcohol use per latest progress note. Per patient she is not feeling well this a.m. She states she just had a small BM s/p suppository and emesis. C/o nausea. Patient reports her last intake was on 05/13/23. Pt current nutrition is NPO. Last recorded weight is 79 kg. Weight stable x 4 days. Bowel Motility: GI: abdomen is soft with hypoactive bowel sounds. Continuous nausea noted per nursing. BM: 05/19 (per patient) Labs Reviewed: K+ 2.5, Mg 1.7, glucose 150 Meds Noted: Protonix, Reglan, Ativan, Toradol, Dextrose, IV K+ 40 meq x 2 doses Skin: no open areas documented per EHR Additional Notes: Right hand peripheral line noted. Nutrition focused physical exam: Patient appears well nourished with no signs of muscle or fat wasting. Nutrition diagnosis: Inadequate oral intake related to cyclic vomiting (nausea) as evidenced by inadequate intake x 6 days. (Continue) Nutrition recommendation: 1. Before initiating PPN, recommend to check a baseline potassium, Mg and Phos level. Replace if low. With replacement of electrolytes, recommend initiating PPN with Clinimix E 4.25/5 and 250mL 20% lipids at 40 mL/hr (1/2 goal rate) due to refeeding risk. 2. Recommend thiamine 100mg x 10 days due to refeeding risk. 3. Check triglyceride level every 3 days. 4. Monitor BMP, Mg and Phos daily x 7 days. 5. Monitor blood glucose levels every 4-6 hours. Adjust insulin as needed. PPN Prescription: Clinimix 4.25/5 and 250mL of 20% lipids provides 826 kcal/day (meeting 50% of estimated kcal needs), 41g protein (meeting 71% of estimated protein needs), 48g CHO and 500 kcal of lipid daily. Goals: 1. PPN to be initiated and tolerated upon follow-up. Goals (05/16/23): Adequate intake at least 75% of meals/supplements (Not met, discontinue) RD will monitor weight, refeeding, labs, skin status. Follow-up day 3: 05/22
[2023-05-19] MEDS: MAGNESIUM SULF 2 GM/WATER 50ML 2 GM/50 ML BAG IVPB (12:46)
[2023-05-19] MEDS: AMINO ACIDS 4.25%/D5W/LYTES/CA 2,000 ML 40 ML IV CONT (14:09)
[2023-05-19 14:32] LABS: Glucose Point of Care 143 mg/dl (65-105)
[2023-05-19] MEDS: FAT EMULSIONS IV 20% 250 ML 20.83 ML IVPB (16:08)
--- NOTE | 2023-05-19 17:24 | WPDGICN ---
Assessment and Plan Assessment and plan (1) Intractable cyclical vomiting: Code(s): R11.15 - Cyclical vomiting syndrome unrelated to migraine Status: Acute Assessment and Plan: Patient has cyclical vomiting with recurrent episodes of nausea vomiting likely related to marijuana use. Patient currently receiving IV hydration. Has not yet been able to tolerate regular diet. Plan for supportive care in the interim. She patient voices a commitment to discontinue marijuana use. I would agree with this. It is also possible a portion of this may be related to her underlying diabetes mellitus. Gastric emptying scan suggested delayed gastric emptying as did her EGD. Supportive care with IV rehydration as well as a trial of IV Reglan will be given. (2) Type 1 diabetes mellitus: Code(s): E10.9 - Type 1 diabetes mellitus without complications Status: Acute Assessment and Plan: Delayed gastric emptying on gastric emptying scan suggest she may have a component of gastroparesis related to her diabetes will give her a trial of IV Reglan. If symptoms persist follow-up with GI office electively is suggested. (3) Marijuana smoker: Code(s): F12.90 - Cannabis use, unspecified, uncomplicated Status: Acute Assessment and Plan: Long discussion with patient's how marijuana is associated with cyclical vomiting. Patient voices an understanding wishes to discontinue marijuana use. GI Consult Note Consult date/time: 05/19/23 17:24 Reason for consult: Cyclical vomiting. HPI: Ekta Rivero is a 22 year old female I am asked to see because of patient's history of cyclical vomiting and diabetes. Patient currently followed by Dr. Richard Cortes and Marianela Thompson in GI clinic. Patient has frequent admissions the hospital with apparent cyclical vomiting. She has continued to smoke marijuana which is known to be associated with this. Patient also has an underlying history of diabetes mellitus. As an outpatient she had gastric emptying scan on what appeared to be a good day and it did show delayed gastric emptying. Patient had an EGD that showed retained gastric contents. Patient currently being IV rehydrated. She has been unable to tolerate too much over last several days of admission. She states her intention to discontinue marijuana use. I am somewhat uncertain whether Reglan has been utilized yet. Family history is noncontributory. Review of Systems Review of Systems: Review of systems noncontributory. [facility] Past Medical History Medical History (Updated 05/15/23 @ 20:04 by Trista Alexander PA-C) Cyclic vomiting syndrome Depression Type 1 diabetes mellitus Surgical History Surgical History No pertinent past surgical history Family History Family History Father Family history of diabetes mellitus in first degree relative Mother Family history of diabetes mellitus in first degree relative Grandparent Crohn disease Celiac disease Social History Social History (Updated 05/15/23 @ 15:27 by Trista Alexander PA-C) Social History: Surrogate medical decision maker: Iliana Villeda, mother. Code status: Full code. Smoking status: Current every day smoker Second hand tobacco smoke exposure: No Alcohol intake: never Substance use: current Substance use type: marijuana Lack of Transportation: No Lack of Food: Sometimes True Current Housing: I Have Housing Concerned About Future Housing: No Difficulty Paying Gas/Electric Bills: No Difficulty Paying for Meds: No Currently Unemployed: No Education: High School Diploma/GED Difficulty w/ Childcare or Family Care: No Living arrangements: with family Occupation/Education: occupation Additional occupation/education comments: [employer]. Spiritual care concerns:
[2023-05-19 18:06] LABS: Glucose Point of Care 125 mg/dl (65-105)
[2023-05-19 19:22] LABS: Alanine Aminotransferase 17 U/L (6-35); Albumin Level 3.4 g/dL (3.5-5.1); Alkaline Phosphatase 63 U/L (38-126); Anion Gap 11 mmol/L (8-16); Aspartate Amino Transferase 27 U/L (14-36); Bilirubin,Total 0.6 mg/dL (0.2-1.3); Calcium 7.9 mg/dL (8.4-10.2); Carbon Dioxide 22 mmol/L (22-30); Chloride 102 mmol/L (98-107); Estimated CRCL calculation 131 ml/min; Estimated Glomerular Filt Rate > 60; Glucose 123 mg/dL (65-110); Magnesium 2.8 mg/dL (1.6-2.3); Sodium 135 mmol/L (137-145)
[2023-05-19 20:26] LABS: Blood Urea Nitrogen < 2 mg/dL (7-17)
[2023-05-19 22:29] LABS: Basophils Percent Auto 0.4 % (0.2-1.2); Eosinophils Absolute Auto 0.1 K/mm3 (0-0.3); Eosinophils Percent Auto 1.3 % (0-4.4); Hematocrit 37.2 % (37.0-47.0); Hemoglobin 12.6 g/dL (12.0-15.0); Immature Granulocyte Absolute 0.03 K/mm3 (0.00-0.031); Immature Granulocyte Percent A 0.4 % (0-0.5); Lymphocytes Percent Auto 38.1 % (18.3-44.2); Mean Corpuscular HGB Conc 33.9 g/dl (32-36); Mean Corpuscular Hemoglobin 29.4 pg (26-34); Mean Corpuscular Volume 86.9 fl (80-100); Mean Platelet Volume 11.4 fl (7.4-10.4); Monocytes Absolute Auto 0.6 K/mm3 (0.1-0.6); Monocytes Percent Auto 8.4 % (2.6-8.5); Neutrophils Absolute Auto 3.9 K/mm3 (1.3-6.7); Neutrophils Percent Auto 51.4 % (45.5-73.1); Platelet Count Result 274 k/mm3 (150-375); Red Blood Count 4.28 M/mm3 (4.2-5.4); White Blood Count 7.6 K/mm3 (4.5-10.0)
[2023-05-19 22:46] LABS: Partial Thromboplastin Time 24.6 SECONDS (22.3-36.8)
[2023-05-20] VITALS (8 sets, daily range): BP systolic 134–137; BP diastolic 72–78; PULSE 62–86; RESP 16–19; TEMP 36.6–36.8; O2SAT 99–100
[2023-05-20] MEDS: METOCLOPRAMIDE HCL INJ 10 MG/2 ML VIAL IV PUSH ×4 (00:53→17:42)
[2023-05-20 00:55] LABS: Glucose Point of Care 157 mg/dl (65-105)
[2023-05-20] MEDS: diphenhydrAMINE HCl INJ 50 MG/ML VIAL 25 MG IV PUSH ×2 (04:11→20:16)
[2023-05-20 05:07] LABS: Glucose Point of Care 190 mg/dl (65-105)
[2023-05-20 05:50] LABS: Partial Thromboplastin Time 24.7 SECONDS (22.3-36.8)
[2023-05-20 07:44] LABS: Magnesium 2.1 mg/dL (1.6-2.3); Phosphorus 4.3 mg/dL (2.5-4.5)
[2023-05-20 07:51] LABS: Transferrin 174 mg/dL (206-381)
[2023-05-20] MEDS: PANTOPRAZOLE SODIUM IV 40 MG VIAL IV PUSH (08:55)
[2023-05-20] MEDS: THIAMINE HCL 200 MG/2 ML VIAL 100 MG IV PUSH (08:55)
--- NOTE | 2023-05-20 09:18 | PM.IMPN ---
Progress Note: A&P Assessment and Plan (1) Intractable cyclical vomiting: Code(s): R11.15 - Cyclical vomiting syndrome unrelated to migraine Status: Acute Assessment and Plan: The patient presented to the emergency department for evaluation of ongoing nausea, vomiting, and abdominal discomfort IV fluid rehydration and + PPN with lipids on 05/19 Lipase was normal on admission and repeat on 05/17 was also WNL Antiemetics and analgesics P.r.n. Increased Reglan dose 05/18 CT abdomen pelvis with no acute findings explain the patient's symptoms Likely due to patient's alcohol use and marijuana smoking. Patient also has history of diabetic gastroparesis that could be contributing to her symptoms. test ordered KUB negative for concerns of bowel obstruction GI consult appreciated. Continue with supportive care. Continue with IV Reglan. Surgical Oncologist on discontinuing marijuana use. Advance diet from clears to regular as tolerated. Can stop IV hydration once tolerating diet. (2) Mild dehydration: Code(s): E86.0 - Dehydration Status: Acute Assessment and Plan: Receiving IV fluid hydration. Replace electrolytes as needed. K+ 2.5 today. IV K+ 40 meq x 2 doses (3) Distended bladder: Code(s): N32.89 - Other specified disorders of bladder Status: Acute Assessment and Plan: patient was straight cathed and urine with no evidence of infection. Voiding without difficult (4) Marijuana smoker: Code(s): F12.90 - Cannabis use, unspecified, uncomplicated Status: Acute Assessment and Plan: Advised smoking cessation. Likely cause of pt's symptoms. (5) Type 1 diabetes mellitus: Code(s): E10.9 - Type 1 diabetes mellitus without complications Status: Acute Assessment and Plan: Continue home insulin pump Accu-checks qAc and HS Initiate hypoglycemic precautions Plan NPO, continue with IV fluids, and p.r.n. antiemetics. Increase reglan dose consult nutrition for possible PPN consult GI for further assistance in care, rec's appreciated Feeding: NPO x 6 days. PPN with lipids. Advance as tolerated Analgesia: Thromboembolic prophylaxis: SCD Ulcer prophylaxis: PPI Glycemic control: Using insulin pump Bowel regimen: Suppository 05/19. Lines: PIV x 2 Antibiotics:N/A Subjective Date/time seen: 05/20/23 09:18 Interval history: HPI obtained from chart, This is a 22-year-old female with type 1 diabetes mellitus on an insulin pump and history of cyclic vomiting who presented to the emergency department via private vehicle from home for evaluation of nausea, vomiting, and abdominal pain. She does vape and smokes marijuana. The patient provides the following history. Nights ago she when out to celebrate her friend's birthday and had too much to drink. The following day she felt rough with intractable nausea and vomiting and she was seen emergency department yesterday morning. She was hydrated and treated with antiemetics and PPI with improvement in her symptoms and she was discharged home. Unfortunately it did not last long and her nausea and vomiting returned. She now complains of diffuse abdominal pain which she thinks is due to the retching. She has not been able to hold anything down, and reports that she has only been able to hold water down for a few seconds before comes back up. She denies fever, chills, sweats, diarrhea, and dysuria. Reports prior history of gastritis, no known history of peptic ulcers or pancreatitis. She was afebrile on arrival to the emergency department with stable vital signs. Labs were really unremarkable aside from a WBC count of 13.0.? Glucose was 172; she reports that his it has been running a bit higher than usual the last couple of days. CT of the abdomen pelvis showed a distended urinary bladder but no other findings. Despite receiving fluids and antiemetics in the ED, her symptoms have pe
[2023-05-20] MEDS: POTASSIUM CHLORIDE INJ 40 MEQ in SODIUM CHLORIDE 0.9% IV 500 ML 130 MEQ IVPB (09:45)
--- NOTE | 2023-05-20 09:50 | WPDGIPROGNO ---
Progress Note: A&P Assessment and Plan (1) Cyclic vomiting syndrome: Code(s): R11.15 - Cyclical vomiting syndrome unrelated to migraine Status: Acute Assessment and Plan: Patient with recurrent episodes of nausea vomiting. Typically they last for 4-5 days. Plan to continue IV hydration. Advance diet. Given patient has concomitant diabetes. She had an outpatient gastric emptying scan with delayed emptying she may have a component of gastroparesis. Plan for IV Reglan. May change to oral medicines if diet tolerated. Continue IV PPI therapy such as Protonix for now. Continue supportive care. IV rehydration may be discontinued when diet tolerated. Patient has been followed in the GI office and anticipate she will continue to follow up there after discharge. (2) Type 1 diabetes mellitus: Code(s): E10.9 - Type 1 diabetes mellitus without complications Status: Acute Assessment and Plan: Concern for underlying diabetic gastroparesis. Continue supportive care she is currently trial of Reglan. (3) Marijuana smoker: Code(s): F12.90 - Cannabis use, unspecified, uncomplicated Status: Acute Assessment and Plan: Marijuana use strongly associated with recurrent cyclical vomiting. Patient voices a desire to discontinue marijuana use. I would advise she stop smoking marijuana. Subjective Date/time seen: 05/20/23 09:50 Interval history: Patient alert comfortable this morning. Denies any specific complaints. No recent emesis. Denies abdominal pain. Willing to start trying a diet again. Currently remains on PPI therapy as well as IV Reglan. Review of Systems Review of Systems: Review of systems noncontributory. Exam Narrative: Physical exam reveals patient to be alert. Vital signs stable. HEENT exam is unremarkable. Patient anicteric. Lungs are clear to auscultation. Heart without murmur. Abdomen soft flat bowel sounds present nontender no organomegaly. Objective Data Vital Signs Vital Signs: Vital Signs - 24 hr 05/19/23 14:10 05/19/23 12:00 05/19/23 16:00 Temperature 99.3 F Pulse Rate 75 72 69 Respiratory Rate 20 Blood Pressure 118/73 Pulse Oximetry 98 Oxygen Delivery 05/19/23 20:26 05/19/23 20:00 05/19/23 20:00 Temperature 98.7 F Pulse Rate 80 82 70 Respiratory Rate 18 19 Blood Pressure 123/73 Pulse Oximetry 100 99 Oxygen Delivery Room Air 05/20/23 04:37 05/20/23 00:00 05/20/23 04:00 Temperature 98.2 F Pulse Rate 86 71 68 Respiratory Rate 16 Blood Pressure 137/78 Pulse Oximetry 100 Oxygen Delivery Intake/Output Intake/Output: Intake & Output 05/17/23 05/18/23 05/19/23 05/20/23 23:59 23:59 23:59 23:59 Intake Total 4060 2000 2120 Output Total 50 1000 Balance 4060 1950 1120 Meds/Results Medications: Active Medications Generic Name Dose Route Start Last Admin Trade Name Freq PRN Reason Stop Dose Admin Acetaminophen 650 mg 05/16/23 11:34 05/16/23 12:17 Acetaminophen 325 Mg Tablet PO 650 mg Q4H PRN Administration Mild Pain (1-3) or Fever Dextrose 12.5 gm 05/15/23 15:45 Dextrose 50% 25 Gm/50 Ml Syringe IV PUSH PRN PRN Hypoglycemia Protocol Diphenhydramine HCl 25 mg 05/17/23 09:02 05/20/23 04:11 Diphenhydramine Hcl Inj 50 Mg/Ml Vial IV PUSH 25 mg Q6HR PRN Administration Nausea And Vomiting Glucagon 1 mg 05/15/23 15:45 Glucagon For Inj 1 Mg Vial IM PRN PRN Hypoglycemia Protocol Glucose 15 gm 05/15/23 15:45 Glucose Oral Gel 15 Gm Of Glucse In 37.5 Gm Tube PO PRN PRN Hypoglycemia Protocol Dextrose 1,000 mls @ 100 mls/hr 05/15/23 15:45 Dextrose 5% 1,000 Ml IVPB PRN PRN Hypoglycemia Protocol Dextrose 1,000 mls @ 50 mls/hr 05/19/23 12:24 Dextrose 10% IV CONT .Q20H PRN if PN is interrupted Amino Acids/Electrolytes/Dextrose 2,000 mls @ 40 ml
[2023-05-20 11:06] LABS: Triglycerides 61 mg/dL (<150)
[2023-05-20 11:07] LABS: Alanine Aminotransferase 19 U/L (6-35); Albumin Level 3.5 g/dL (3.5-5.1); Alkaline Phosphatase 58 U/L (38-126); Anion Gap 8 mmol/L (8-16); Aspartate Amino Transferase 26 U/L (14-36); Bilirubin,Total 0.4 mg/dL (0.2-1.3); Blood Urea Nitrogen 5 mg/dL (7-17); Calcium 8.3 mg/dL (8.4-10.2); Carbon Dioxide 27 mmol/L (22-30); Chloride 101 mmol/L (98-107); Estimated CRCL calculation 154 ml/min; Estimated Glomerular Filt Rate > 60; Glucose 151 mg/dL (65-110); Magnesium 2.2 mg/dL (1.6-2.3); Potassium 3.2 mmol/L (3.4-5.0); Sodium 136 mmol/L (137-145)
[2023-05-20 11:09] LABS: Basophils Percent Auto 0.7 % (0.2-1.2); Eosinophils Absolute Auto 0.1 K/mm3 (0-0.3); Eosinophils Percent Auto 2.1 % (0-4.4); Hematocrit 36.9 % (37.0-47.0); Hemoglobin 12.3 g/dL (12.0-15.0); Immature Granulocyte Absolute 0.02 K/mm3 (0.00-0.031); Immature Granulocyte Percent A 0.3 % (0-0.5); Lymphocytes Absolute Auto 1.76 K/mm3 (0.9-3.2); Lymphocytes Percent Auto 28.9 % (18.3-44.2); Mean Corpuscular HGB Conc 33.3 g/dl (32-36); Mean Corpuscular Hemoglobin 29.4 pg (26-34); Mean Corpuscular Volume 88.3 fl (80-100); Mean Platelet Volume 12.3 fl (7.4-10.4); Monocytes Absolute Auto 0.5 K/mm3 (0.1-0.6); Monocytes Percent Auto 8.5 % (2.6-8.5); Neutrophils Absolute Auto 3.6 K/mm3 (1.3-6.7); Neutrophils Percent Auto 59.5 % (45.5-73.1); Platelet Count Result 246 k/mm3 (150-375); Red Blood Count 4.18 M/mm3 (4.2-5.4); Red Cell Distribution Width 13.1 % (11.5-14.5); White Blood Count 6.1 K/mm3 (4.5-10.0)
[2023-05-20 12:17] LABS: Glucose Point of Care 138 mg/dl (65-105)
--- NOTE | 2023-05-20 16:32 | PC.NURSE ---
Patient is ambulating in hallway once an hour and does not want to wear SCDs.
[2023-05-20 17:50] LABS: Glucose Point of Care 100 mg/dl (65-105)
[2023-05-20] MEDS: LORazepam INJ (*CRX) 2 MG/ML VIAL 0.5 MG IV PUSH (20:17)
[2023-05-20 21:13] LABS: Glucose Point of Care 138 mg/dl (65-105)
[2023-05-21] VITALS: PULSE 62
[2023-05-21 04:00] VITALS: PULSE 62
[2023-05-21 05:32] LABS: Phosphorus 4.5 mg/dL (2.5-4.5)
[2023-05-21 05:38] VITALS: BP 137/79; PULSE 88; RESP 16; TEMP 36.6; O2SAT 100
[2023-05-21 09:00] LABS: Glucose Point of Care 192 mg/dl (65-105)
[2023-05-21] MEDS: THIAMINE HCL 200 MG/2 ML VIAL 100 MG IV PUSH (09:04)
[2023-05-21] MEDS: PANTOPRAZOLE SODIUM IV 40 MG VIAL IV PUSH (09:04)
[2023-05-21 09:28] LABS: Alanine Aminotransferase 17 U/L (6-35); Albumin Level 3.4 g/dL (3.5-5.1); Alkaline Phosphatase 50 U/L (38-126); Anion Gap 10 mmol/L (8-16); Aspartate Amino Transferase 36 U/L (14-36); Bilirubin,Total 0.6 mg/dL (0.2-1.3); Blood Urea Nitrogen 6 mg/dL (7-17); Calcium 8.4 mg/dL (8.4-10.2); Carbon Dioxide 23 mmol/L (22-30); Chloride 102 mmol/L (98-107); Estimated CRCL calculation 132 ml/min; Estimated Glomerular Filt Rate > 60; Glucose 151 mg/dL (65-110); Magnesium 2.3 mg/dL (1.6-2.3); Potassium 3.8 mmol/L (3.4-5.0); Sodium 135 mmol/L (137-145)
--- NOTE | 2023-05-21 10:09 | WPDGIPROGNO ---
Progress Note: A&P Assessment and Plan (1) Cyclic vomiting syndrome: Code(s): R11.15 - Cyclical vomiting syndrome unrelated to migraine Status: Acute Assessment and Plan: Patient with cyclical vomiting syndrome. Vomiting appears to have abated. Plan to continue regular diet. Discharge home with PPI acid suppression and also a 1 month trial of Reglan before meals. Patient may have a component of gastroparesis secondary to her diabetes. Recent gastric emptying scan was showing delayed gastric emptying. Patient followed by nurse practitioner , And Dr. Cho,in GI office she can follow up with our office in addition to primary care if symptoms persist. (2) Marijuana smoker: Code(s): F12.90 - Cannabis use, unspecified, uncomplicated Status: Acute Assessment and Plan: avoiding marijuana will help her symptoms she is advised of this plans to stop. (3) Type 1 diabetes mellitus: Code(s): E10.9 - Type 1 diabetes mellitus without complications Status: Acute Assessment and Plan: Strict control of blood sugar will help her symptoms. Subjective Date/time seen: 05/21/23 10:09 Interval history: Patient alert comfortable this morning. Tolerated diet yesterday. Denies ongoing abdominal pain. No fevers. No bleeding. Review of Systems Review of Systems: Review of systems noncontributory. Exam Narrative: Physical exam reveals patient to be alert. Vital signs stable. HEENT exam reveals no icterus. Lungs are clear. Heart without murmur. Abdomen is soft nontender with no organomegaly. Objective Data Vital Signs Vital Signs: Vital Signs - 24 hr 05/20/23 12:00 05/20/23 16:00 05/20/23 20:23 Temperature 97.8 F Pulse Rate 72 62 77 Respiratory Rate 18 Blood Pressure 134/72 Pulse Oximetry 100 Oxygen Delivery 05/20/23 20:00 05/20/23 20:00 05/21/23 00:00 Temperature Pulse Rate 73 71 62 Respiratory Rate 19 Blood Pressure Pulse Oximetry 99 Oxygen Delivery Room Air 05/21/23 04:00 05/21/23 05:38 Temperature 97.8 F Pulse Rate 62 88 Respiratory Rate 16 Blood Pressure 137/79 Pulse Oximetry 100 Oxygen Delivery Intake/Output Intake/Output: Intake & Output 05/18/23 05/19/23 05/20/23 05/21/23 23:59 23:59 23:59 23:59 Intake Total 2000 2120 480 350 Output Total 50 1000 Balance 1950 1120 480 350 Meds/Results Medications: Active Medications Generic Name Dose Route Start Last Admin Trade Name Freq PRN Reason Stop Dose Admin Acetaminophen 650 mg 05/16/23 11:34 05/16/23 12:17 Acetaminophen 325 Mg Tablet PO 650 mg Q4H PRN Administration Mild Pain (1-3) or Fever Dextrose 12.5 gm 05/15/23 15:45 Dextrose 50% 25 Gm/50 Ml Syringe IV PUSH PRN PRN Hypoglycemia Protocol Diphenhydramine HCl 25 mg 05/17/23 09:02 05/20/23 20:16 Diphenhydramine Hcl Inj 50 Mg/Ml Vial IV PUSH 25 mg Q6HR PRN Administration Nausea And Vomiting Glucagon 1 mg 05/15/23 15:45 Glucagon For Inj 1 Mg Vial IM PRN PRN Hypoglycemia Protocol Glucose 15 gm 05/15/23 15:45 Glucose Oral Gel 15 Gm Of Glucse In 37.5 Gm Tube PO PRN PRN Hypoglycemia Protocol Dextrose 1,000 mls @ 100 mls/hr 05/15/23 15:45 Dextrose 5% 1,000 Ml IVPB PRN PRN Hypoglycemia Protocol Dextrose 1,000 mls @ 50 mls/hr 05/19/23 12:24 Dextrose 10% IV CONT .Q20H PRN if PN is interrupted Amino Acids/Electrolytes/Dextrose 2,000 mls @ 40 mls/hr 05/19/23 14:00 05/20/23 15:20 Clinimix E 4.25%/5% Solution IV CONT Not Given .Q24H SANDRITA Protocol Fat Emulsion Intravenous 250 mls @ 20.833 mls/hr 05/19/23 14:00 05/20/23 15:20 Lipids 20% IVPB Not Given Q24H SANDRITA Ketorolac Tromethamine 15 mg 05/16/23 12:34 05/17/23 05:51 Ketorolac 15 Mg/Ml Vial (*Bkc) IV PUSH 15 mg Q6H PRN Administration Pain Rated 4-6 Lorazepa
[2023-05-21 10:20] LABS: Basophils Absolute Auto 0.1 K/mm3 (0.0-0.1); Basophils Percent Auto 0.7 % (0.2-1.2); Eosinophils Absolute Auto 0.2 K/mm3 (0-0.3); Eosinophils Percent Auto 2.8 % (0-4.4); Hematocrit 41.1 % (37.0-47.0); Hemoglobin 13.5 g/dL (12.0-15.0); Immature Granulocyte Absolute 0.03 K/mm3 (0.00-0.031); Immature Granulocyte Percent A 0.4 % (0-0.5); Lymphocytes Absolute Auto 1.74 K/mm3 (0.9-3.2); Lymphocytes Percent Auto 24.2 % (18.3-44.2); Mean Corpuscular HGB Conc 32.8 g/dl (32-36); Mean Corpuscular Hemoglobin 29.3 pg (26-34); Mean Corpuscular Volume 89.3 fl (80-100); Mean Platelet Volume 11.6 fl (7.4-10.4); Monocytes Absolute Auto 0.6 K/mm3 (0.1-0.6); Monocytes Percent Auto 7.6 % (2.6-8.5); Neutrophils Absolute Auto 4.6 K/mm3 (1.3-6.7); Neutrophils Percent Auto 64.3 % (45.5-73.1); Platelet Count Result 281 k/mm3 (150-375); Red Cell Distribution Width 13.3 % (11.5-14.5); White Blood Count 7.2 K/mm3 (4.5-10.0)
[2023-05-21 10:33] LABS: Partial Thromboplastin Time 24.4 SECONDS (22.3-36.8); Prothrombin Time 13.5 Seconds (11.1-14.7)
--- NOTE | 2023-05-21 12:47 | PM.DS ---
DS: Admitting Diagnosis Discharge Date MondayMay 21 Admitting Diagnosis Nausea, vomiting, abdominal pain. Suspected cyclic vomiting syndrome. DS: Discharge Diagnosis Discharge Diagnosis (1) Intractable cyclical vomiting: Code(s): R11.15 - Cyclical vomiting syndrome unrelated to migraine Status: Acute Assessment and Plan: The patient presented to the emergency department for evaluation of ongoing nausea, vomiting, and abdominal discomfort IV fluid rehydration and + PPN with lipids on 05/19 Lipase was normal on admission and repeat on 05/17 was also WNL Antiemetics and analgesics P.r.n. Increased Reglan dose 05/18 CT abdomen pelvis with no acute findings explain the patient's symptoms Likely due to patient's alcohol use and marijuana smoking. Patient also has history of diabetic gastroparesis that could be contributing to her symptoms. test ordered KUB negative for concerns of bowel obstruction GI consult appreciated. Continue with supportive care. Continue with IV Reglan. Neuropsychology Director on discontinuing marijuana use. Advance diet from clears to regular as tolerated. Can stop IV hydration once tolerating diet. (2) Mild dehydration: Code(s): E86.0 - Dehydration Status: Acute Assessment and Plan: Receiving IV fluid hydration. Replace electrolytes as needed. K+ 2.5 today. IV K+ 40 meq x 2 doses (3) Distended bladder: Code(s): N32.89 - Other specified disorders of bladder Status: Acute Assessment and Plan: patient was straight cathed and urine with no evidence of infection. Voiding without difficult (4) Marijuana smoker: Code(s): F12.90 - Cannabis use, unspecified, uncomplicated Status: Acute Assessment and Plan: Advised smoking cessation. Likely cause of pt's symptoms. (5) Type 1 diabetes mellitus: Code(s): E10.9 - Type 1 diabetes mellitus without complications Status: Acute Assessment and Plan: Continue home insulin pump Accu-checks qAc and HS Initiate hypoglycemic precautions Plan NPO, continue with IV fluids, and p.r.n. antiemetics. Increase reglan dose consult nutrition for possible PPN consult GI for further assistance in care, rec's appreciated Feeding: NPO x 6 days. PPN with lipids. Advance as tolerated Analgesia: Thromboembolic prophylaxis: SCD Ulcer prophylaxis: PPI Glycemic control: Using insulin pump Bowel regimen: Suppository 05/19. Lines: PIV x 2 Antibiotics:N/A DS: Summary Hospital Course Hospital Course: HPI obtained from chart, This is a 22-year-old female with type 1 diabetes mellitus on an insulin pump and history of cyclic vomiting who presented to the emergency department via private vehicle from home for evaluation of nausea, vomiting, and abdominal pain. She does vape and smokes marijuana. The patient provides the following history. Nights ago she when out to celebrate her friend's birthday and had too much to drink. The following day she felt rough with intractable nausea and vomiting and she was seen emergency department yesterday morning. She was hydrated and treated with antiemetics and PPI with improvement in her symptoms and she was discharged home. Unfortunately it did not last long and her nausea and vomiting returned. She now complains of diffuse abdominal pain which she thinks is due to the retching. She has not been able to hold anything down, and reports that she has only been able to hold water down for a few seconds before comes back up. She denies fever, chills, sweats, diarrhea, and dysuria. Reports prior history of gastritis, no known history of peptic ulcers or pancreatitis. She was afebrile on arrival to the emergency department with stable vital signs. Labs were really unremarkable aside from a WBC count of 13.0.? Glucose was 172; she reports that his it has been running a bit higher than usual the last couple of days. CT of the abdo
== END 2023-05-21 13:15 | disposition home or self-care (01) | DRG 249 ==
LOC: ANHED 14:38 → ANH3MEDSUR 14:55 → ANH3MED 15:49
PROVIDERS: Internal Medicine Critical Care Medicine; Physician Assistant; Admitting Provider Hospitalist; Emergency Provider Emergency Medicine; PCP Emergency Medicine; Visit Provider Nurse Practitioner Acute Care
DX: R11.15 Cyclical vomiting syndrome unrelated to migraine (principal); E10.43 Type 1 diabetes mellitus with diabetic autonomic (poly)neuropathy; K31.84 Gastroparesis; E86.0 Dehydration; F12.90 Cannabis use, unspecified, uncomplicated; F32.A Depression, unspecified; F17.290 Nicotine dependence, other tobacco product, uncomplicated; Z96.41 Presence of insulin pump (external) (internal); Z79.4 Long term (current) use of insulin
CPT/HCPCS: 36415; 74018; 74177; 80048; 80053; 81003; 82948; 83036; 83690; 83735; 84100; 84466; 84478; 84702; 85025; 85027; 85610; 85730; 96361; 96365; 96366; 96372; 96374; 96375; 99285; A9270; C9113; G0378; G0379; J0500; J1200; J1885; J2060; J2270; J2405; J2550; J2765; J3250; J3411; J3475; J3480; J7030; J7040; J7042; Q9967

== ENCOUNTER 2023-11-01 09:30 | Observation (INO) | payer OTHER, SELFPAY ==
[2023-11-01] VITALS (12 sets, daily range): BP systolic 124–151; BP diastolic 63–85; PULSE 76–96; RESP 12–20; TEMP 36.4–38.1; O2SAT 97–100; BMI 26.1
--- NOTE | ~2023-11-01 | XR_ITS ---
EXAMINATION: XR chest 2V DATE: 11/02/2023 10:36 INDICATION: Fever TECHNIQUE: PA and lateral views of the chest are obtained. COMPARISON: 01/26/2023 FINDINGS: The lungs are free of acute opacities. No pleural effusion or pneumothorax. The cardiomedia stinal silhouette is normal. The visualized bones and soft tissues are unremarkable. IMPRESSION: 1. No acute cardiopulmonary abnormality. Reviewed, dictated and finalized at location L. T[facility] MOUNTER
--- NOTE | ~2023-11-01 | CT_ITS ---
EXAMINATION: CT abdomen pelvis w con INDICATION: Cyclic vomiting syndrome, abdominal pain TECHNIQUE: Computed tomographic images of the abdomen and pelvis were obtained after the administrati on of 100 cc of Omnipaque 350 intravenous contrast. The dose-length product (DLP) was 353.66 mGy-cm. Automated exposure control and iterative reconstruction technique were employed. COMPARISON: 05/15/2023 FINDINGS: The lung bases are clear. The heart size is normal. The liver, spleen, pancreas, gallbladde r, and adrenal glands are normal. The right kidney is unremarkable. A 2 mm hypoattenuating lesion of the left kidney is too small to characterize but likely represents a cyst. No pathologically enlarged abdominal or pelvic lymph nodes are identified. No free intraperitoneal gas or evidence of bowel obs truction. There is a small volume of pelvic ascites. There is mild edema of the small bowel mesentery of unclear significance. The appendix is normal. IMPRESSION: 1. Small volume of ascites and mild edema of the small bowel mesentery of unclear etiology or signifi cance. Reviewed, dictated and finalized at location B. ER CREELER IMPRESSION: 1. Small volume of ascites and mild edema of the small bowel mesentery of uncle ar etiology or significance.
--- NOTE | 2023-11-01 11:11 | ED.NAVMDI ---
HPI - Nausea/Vomiting/Diarrhea General Chief complaint: Nausea/Vomiting/Diarrhea <Divya Clemente PA-C - Last Filed: 11/01/23 17:02> Stated complaint: N/V <Divya Clemente PA-C - Last Filed: 11/01/23 17:02> Time Seen by Provider: 11/01/23 11:11 <Divya Clemente PA-C - Last Filed: 11/01/23 17:02> Focused HPI: This is a 22-year-old female that presents to the emergency department for nausea and vomiting. Ongoing since yesterday. Reports history of cyclic vomiting. She has been taking her Reglan and Zofran with little relief. She follows with our gastroenterologists at [place]. She has not been able to keep anything down. Reports history of DM and gastroparesis. GENERAL: Well-appearing, well-nourished, and in no acute distress. HEAD: Normocephalic, atraumatic. CHEST: Clear to auscultation. ?No respiratory distress. HEART: Regular rate and rhythm.? GASTROINTESTINAL: Tender to palpation in the epigastrium, without guarding NEURO: ?Alert and oriented x3. Patient screened in triage and initial orders placed.? ?Additional care and disposition to be based upon?diagnostic testing and treatment. <Divya Clemente PA-C - Last Filed: 11/01/23 17:02> Related Data Home medications: Home Medications Medication Instructions Recorded Confirmed blood-glucose sensor (Dexcom G6 01/26/23 06/01/23 Sensor device) cyanocobalamin (vitamin B-12) 1,000 mcg PO DAILY 01/26/23 11/01/23 1,000 mcg tablet ergocalciferol (vitamin D2) 1,250 See Rx Instructions .Route .COMPLEX 01/26/23 11/01/23 mcg (50,000 unit) capsule fluoxetine 20 mg capsule 20 mg PO DAILY 01/26/23 11/01/23 insulin glargine 100 unit/mL (3 See Rx Instructions .Route .COMPLEX 01/27/23 11/01/23 mL) subcutaneous pen (Basaglar KwikPen U-100 Insulin) insulin lispro 100 unit/mL 25 unit subcut DIRECTED 01/27/23 11/01/23 subcutaneous pen metoclopramide HCl 10 mg tablet 10 mg PO Q6H PRN Nausea 06/01/23 11/01/23 (Reglan) <Divya Clemente PA-C - Last Filed: 11/01/23 17:02> Allergies/Adverse reactions: Allergies Allergy/AdvReac Type Severity Reaction Status Date / Time Penicillins Allergy Itching Verified 06/01/23 14:27 <Divya Clemente PA-C - Last Filed: 11/01/23 17:02> Review of Systems Review of Systems: CONSTITUTIONAL: Denies fever GASTROINTESTINAL: Reports abdominal pain, nausea, vomiting <Divya Clemente PA-C - Last Filed: 11/01/23 17:02> All systems reviewed & are unremarkable except as noted in HPI and below <Divya Clemente PA-C - Last Filed: 11/01/23 17:02> [facility], [facility] Past Medical History Medical History: Medical History Cyclic vomiting syndrome Depression Gastroparesis Type 1 diabetes mellitus <Divya Clemente PA-C - Last Filed: 11/01/23 17:02> Surgical History Surgical History: Surgical History No pertinent past surgical history <Divya Clemente PA-C - Last Filed: 11/01/23 17:02> Family History Family History: Family History Father Family history of diabetes mellitus in first degree relative Mother Family history of diabetes mellitus in first degree relative Grandparent Crohn disease Celiac disease <Divya Clemente PA-C - Last Filed: 11/01/23 17:02> Social History Social History: Social History Social History: Surrogate medical decision maker: Iliana Villeda, mother. Code status: Full code. Smoking status: Current every day smoker Tobacco type: e-cigarettes/vaping Second hand tobacco smoke exposure: No Alcohol intake: current Drinks per week: 1 Substance use: current Substance use type: marijuana Do You Feel Safe in your Home?: Yes Lack of Transportation: YES Lack of Food: Never True Current Housing: I Have Hous
[2023-11-01 11:26] LABS: Basophils Absolute Auto 0.1 K/mm3 (0.0-0.1); Basophils Percent Auto 0.4 % (0.2-1.2); Eosinophils Percent Auto 0.2 % (0-4.4); Hematocrit 40.3 % (37.0-47.0); Hemoglobin 12.9 g/dL (12.0-15.0); Immature Granulocyte Absolute 0.03 K/mm3 (0.00-0.031); Immature Granulocyte Percent A 0.2 % (0-0.5); Lymphocytes Absolute Auto 1.04 K/mm3 (0.9-3.2); Lymphocytes Percent Auto 8.4 % (18.3-44.2); Mean Corpuscular Hemoglobin 29.1 pg (26-34); Mean Platelet Volume 11.4 fl (7.4-10.4); Monocytes Absolute Auto 0.5 K/mm3 (0.1-0.6); Monocytes Percent Auto 4.4 % (2.6-8.5); Neutrophils Absolute Auto 10.7 K/mm3 (1.3-6.7); Neutrophils Percent Auto 86.4 % (45.5-73.1); Platelet Count Result 268 k/mm3 (150-375); Red Blood Count 4.43 M/mm3 (4.2-5.4); Red Cell Distribution Width 14.5 % (11.5-14.5); White Blood Count 12.4 K/mm3 (4.5-10.0)
[2023-11-01 11:27] LABS: Appearance Urine Clear (Clear); Bilirubin Urine Negative (Negative); Blood Urine Negative (Negative); Color Urine Yellow (Yellow); Glucose Urine UA Negative (Negative); Ketones Urine 3+ mg/dL (Negative); Leukocyte Esterase Ur Negative LEU/UL (Negative); Nitrate Urine Negative (Negative); Protein Urine Negative (Negative); Specific Grav Ur 1.017 (1.001-1.035); pH Urine 5.5 (5.0-9.0)
[2023-11-01 11:29] LABS: Add Urine Microscopic? NO
[2023-11-01 11:35] LABS: Alanine Aminotransferase 23 U/L (6-35); Albumin Level 4.7 g/dL (3.5-5.1); Alkaline Phosphatase 110 U/L (38-126); Anion Gap 14 mmol/L (8-16); Aspartate Amino Transferase 37 U/L (14-36); Blood Urea Nitrogen 10 mg/dL (7-17); Calcium 9.5 mg/dL (8.4-10.2); Carbon Dioxide 22 mmol/L (22-30); Chloride 102 mmol/L (98-107); Estimated CRCL calculation 116 ml/min; Estimated Glomerular Filt Rate > 60; Glucose 263 mg/dL (65-110); Lipase 49 U/L (23-300); Potassium 3.4 mmol/L (3.4-5.0); Sodium 138 mmol/L (137-145)
[2023-11-01] MEDS: METOCLOPRAMIDE HCL INJ 10 MG/2 ML VIAL IV PUSH ×2 (12:30→22:05)
[2023-11-01] MEDS: SODIUM CHLORIDE 0.9% IV 1,000 ML 999 ML IV CONT ×2 (12:31→14:22)
[2023-11-01] MEDS: diphenhydrAMINE HCl INJ 50 MG/ML VIAL 25 MG IV PUSH (12:31)
[2023-11-01] MEDS: ONDANSETRON INJ 4 MG/2 ML VIAL IV PUSH (14:22)
[2023-11-01] MEDS: PANTOPRAZOLE SODIUM IV 40 MG VIAL IV PUSH (14:22)
[2023-11-01] MEDS: MORPHINE SULFATE (*CRX) 4 MG/ML INJ IV PUSH (14:23)
--- NOTE | 2023-11-01 15:37 | PC.NURSE ---
Pt threw up water during PO challenge. STEPHANIE Stokes, notified.
[2023-11-01] MEDS: LORazepam INJ (*CRX) 2 MG/ML VIAL 1 MG IV PUSH (15:58)
--- NOTE | 2023-11-01 16:46 | PM.IMHP ---
H&P: HPI History of Present Illness Date/Time: 11/01/23 18:45 Chief Complaint: Nausea and vomiting. Narrative: This is a 22-year-old female with type 1 diabetes mellitus on an insulin pump, gastroparesis, and cyclic vomiting who presented to the emergency department via private vehicle from home for evaluation of nausea and vomiting. The patient provides the following history. She has not been feeling well for nearly 2 days with intractable nausea and vomiting as well as generalized abdominal pain which she has difficulties describing. She cannot really localize the pain. It does not radiate and she has not noticed any significant alleviating factors. She has been taking Reglan and Zofran at home which has not helped. She denies fever, sweats, hematemesis, melena, hematochezia, diarrhea, and dysuria. She also denies sick contacts. No recent stressors. Glucose has been stable. In the ED: She was afebrile on arrival. Blood pressures have been stable. Labs were significant for WBC count of 12.4, sodium 138, potassium 3.4, chloride 102, carbon dioxide 22, anion gap 14, BUN 10, creatinine 0.60, glucose 263, AST 37, ALT 23, alkaline phosphatase 110, lipase 49. Urine was positive for 3+ ketones. CT scan showed small volume ascites and mild edema of the small bowel mesentery of unclear etiology or significance. She received IV fluids, Zofran, morphine, Reglan, and others in the emergency department without much benefit she is being admitted in this setting for further treatment and evaluation. Review of Systems Review of Systems: Twelve systems were reviewed and are negative except for as per HPI. [facility] Past Medical History Medical History Cyclic vomiting syndrome Depression Gastroparesis Type 1 diabetes mellitus Surgical History Surgical History No pertinent past surgical history Family History Family History Father Family history of diabetes mellitus in first degree relative Mother Family history of diabetes mellitus in first degree relative Grandparent Crohn disease Celiac disease Social History Social History Social History: Surrogate medical decision maker: Iliana Villeda, mother. Code status: Full code. Smoking status: Current every day smoker Tobacco type: e-cigarettes/vaping Second hand tobacco smoke exposure: No Alcohol intake: current Drinks per week: 1 Substance use: current Substance use type: marijuana Do You Feel Safe in your Home?: Yes Lack of Transportation: YES Lack of Food: Never True Current Housing: I Have Housing Concerned About Future Housing: No Difficulty Paying Gas/Electric Bills: No Difficulty Paying for Meds: No Currently Unemployed: No Education: High School Diploma/GED Difficulty w/ Childcare or Family Care: No Living arrangements: with family Occupation/Education: occupation Additional occupation/education comments: [employer]. Spiritual care concerns: No Meds Home Medications and Allergies Home Medications Medication Instructions Recorded Confirmed Type blood-glucose sensor (Dexcom G6 01/26/23 06/01/23 History Sensor device) cyanocobalamin (vitamin B-12) 1,000 mcg PO DAILY 01/26/23 11/01/23 History 1,000 mcg tablet ergocalciferol (vitamin D2) 1,250 See Rx Instructions .Route .COMPLEX 01/26/23 11/01/23 History mcg (50,000 unit) capsule fluoxetine 20 mg capsule 20 mg PO DAILY 01/26/23 11/01/23 History insulin glargine 100 unit/mL (3 See Rx Instructions .Route .COMPLEX 01/27/23 11/01/23 History mL) subcutaneous pen (Basaglar KwikPen U-100 Insulin) insulin lispro 100 unit/mL 25 unit subcut DIRECTED 01/27/23 11/01/23 History subcutaneous pen lorazepam 0.5 mg tablet (Ativan) 0.5 mg
--- NOTE | 2023-11-01 16:56 | PC.NURSE ---
Pts capillary glucose 248. Her insulin pump delivered her a bolus of 4.9 units insulin.
[2023-11-01 16:58] LABS: Glucose Point of Care 248 mg/dl (65-105)
--- NOTE | 2023-11-01 17:15 | ADMGEN ---
This patient, Ekta Rivero, was admitted to Virtual Bed 3rd Floor-2. Patient/family oriented to hospital policies and general routines including ID bracelet, bed and alarms, visiting hours, pain management, procedures, bathroom and other care routines, personal items, smoking policy, room service/diet, and visiting hours. Information on how to activate the Rapid Response Team has been discussed. Patient/Family are encouraged to report perceived risks to care and to ask questions if they do not understand what they are told or what they should do.
[2023-11-01] MEDS: SODIUM CHLORIDE 0.9% IV 1,000 ML 125 ML IV CONT (17:51)
[2023-11-01 21:21] LABS: Glucose Point of Care 196 mg/dl (65-105)
[2023-11-01] MEDS: MORPHINE SULFATE (*CRX) 2 MG/ML INJ IV PUSH (22:05)
[2023-11-01 23:08] LABS: Influenza A QL RT-PCR Negative (Negative); Influenza B QL RT-PCR Negative (Negative); RSV RNA, RT-PCR Negative (Negative); SARS-CoV-2 RNA PCR Negative (Negative)
[2023-11-02] MEDS: SODIUM CHLORIDE 0.9% IV 1,000 ML 125 ML IV CONT ×3 (01:10→16:57)
[2023-11-02] MEDS: MORPHINE SULFATE (*CRX) 2 MG/ML INJ IV PUSH ×4 (01:11→12:21)
[2023-11-02] MEDS: ONDANSETRON INJ 4 MG/2 ML VIAL IV PUSH ×6 (01:15→21:20)
[2023-11-02 04:55] VITALS: BP 127/84; PULSE 91; RESP 18; TEMP 36.3; O2SAT 100
[2023-11-02 06:04] LABS: Hematocrit 37.4 % (37.0-47.0); Mean Corpuscular HGB Conc 32.1 g/dl (32-36); Mean Corpuscular Hemoglobin 29.1 pg (26-34); Mean Corpuscular Volume 90.8 fl (80-100); Mean Platelet Volume 11.6 fl (7.4-10.4); Platelet Count Result 279 k/mm3 (150-375); Red Blood Count 4.12 M/mm3 (4.2-5.4); Red Cell Distribution Width 14.7 % (11.5-14.5); White Blood Count 13.4 K/mm3 (4.5-10.0)
[2023-11-02 06:16] LABS: Alanine Aminotransferase 21 U/L (6-35); Albumin Level 4.1 g/dL (3.5-5.1); Alkaline Phosphatase 103 U/L (38-126); Anion Gap 13 mmol/L (8-16); Aspartate Amino Transferase 32 U/L (14-36); Bilirubin,Total 0.7 mg/dL (0.2-1.3); Blood Urea Nitrogen 8 mg/dL (7-17); Calcium 8.6 mg/dL (8.4-10.2); Carbon Dioxide 21 mmol/L (22-30); Chloride 103 mmol/L (98-107); Estimated CRCL calculation 116 ml/min; Estimated Glomerular Filt Rate > 60; Glucose 209 mg/dL (65-110); Magnesium 1.9 mg/dL (1.6-2.3); Potassium 3.6 mmol/L (3.4-5.0); Sodium 137 mmol/L (137-145)
[2023-11-02] MEDS: PANTOPRAZOLE SODIUM IV 40 MG VIAL IV PUSH ×2 (07:50→21:20)
[2023-11-02 07:59] LABS: Glucose Point of Care 231 mg/dl (65-105)
[2023-11-02 08:00] VITALS: O2SAT 100
--- NOTE | 2023-11-02 08:45 | PM.IMPN ---
Progress Note: A&P Assessment and Plan (1) Intractable nausea and vomiting: Code(s): R11.2 - Nausea with vomiting, unspecified Status: Acute (2) Dehydration: Code(s): E86.0 - Dehydration Status: Acute (3) Abnormal abdominal CT scan: Code(s): R93.5 - Abnormal findings on diagnostic imaging of other abdominal regions, including retroperitoneum Status: Acute (4) Type 1 diabetes mellitus: Code(s): E10.9 - Type 1 diabetes mellitus without complications Status: Acute (5) Gastroparesis: Code(s): K31.84 - Gastroparesis Status: Acute (6) Cyclic vomiting syndrome: Code(s): R11.15 - Cyclical vomiting syndrome unrelated to migraine Status: Acute Plan Intractable nausea vomiting abdomen pain The patient presented to the emergency department for evaluation of intractable nausea, vomiting, and abdominal pain as detailed in HPI. Labs, imaging, EKG, and all reports were personally reviewed. Differential diagnosis includes gastroenteritis, gastritis, possible peptic ulcer, cyclic vomiting, gastroparesis, versus other. She looks dry on labs and by exam and will be hydrated overnight. Analgesics and antiemetics are available as needed. Continue Protonix [address] for now CT scan of the abdomen and pelvis shows a small volume of ascites and mild edema of the small bowel mesentery of unclear etiology or significance. Consult GI consultation. She is aware that her daily marijuana use can sometimes cause flares of cyclic vomiting. sepsis vs sirs Patient had a fever 100.5 over the night, also has tachycardia, tachypnea, leukocytosis 13,400 Urine yesterday did not show pyuria Follow-up chest x-ray Blood culture, lactic acid level Continue fluid resuscitation Type 1 diabetes She has 3+ ketones in her urine however anion gap is normal and this is likely due to her dehydration as there are no other findings to suggest DKA though she will need to be monitored closely. Continue basal insulin rate per insulin pump which she may use while hospitalized. Initiate sliding scale insulin, Accu-Cheks, and hypoglycemic protocol. Subjective Date/time seen: 11/02/23 08:45 Interval history: I saw exam patient today, patient feels pain is tolerable, still has diffuse abdomen pain, patient denies diarrhea. Patient has a cough with scant phlegm denies shortness breath, chest pain. Patient still feeling nauseous, denies vomiting. Patient has a fever over the night, Labs reviewed, patient's leukocytosis 13,400. Exam Narrative: GENERAL: Pleasant, in no acute distress. Well-nourished. - EYES: EOMI. Anicteric. - HENT: Moist mucous membranes. - LUNGS: Clear to auscultation bilaterally, no wheezing, rhonchi, or rales. - CARDIOVASCULAR: Regular rate and rhythm. No murmur. No JVD. - ABDOMEN: Soft, mild diffuse tender and non-distended. No palpable masses. - EXTREMITIES: No edema. Peripheral pulses 2+. Non-tender. - NEUROLOGIC: No focal neurological deficits. CN II-XII grossly intact. - PSYCHIATRIC: Awake, Alert and oriented x 3. Appropriate mood and affect. - SKIN: No rashes or lesions. Warm. - LYMPH: No cervical lymphadenopathy. Objective Data Vital Signs Vital Signs: Vital Signs - 24 hr 11/01/23 09:31 11/01/23 12:52 11/01/23 14:01 Temperature 98.4 F 97.5 F L Pulse Rate 80 93 80 Respiratory Rate 20 12 15 Blood Pressure 151/75 H 124/70 148/85 H Pulse Oximetry 99 100 99 Oxygen Delivery 11/01/23 14:16 11/01/23 14:31 11/01/23 14:46 Temperature Pulse Rate 91 87 88 Respiratory Rate 14 16 19 Blood Pressure 138/75 128/63 124/73 Pulse Oximetry 100 97 Oxygen Delivery 11/01/23 15:16 11/01/23 16:01 11/01/23 17:01 Temperature Pulse Rate 86 80 90 Respiratory Rate 19 15 19 Blood Pressure 141/76 H 148/85 H 134/80 Pulse Oximetry 100 100 100 Oxygen Delivery 11/01/23 17:48 11/01/23 18:31 11/01/23 20:30 Temperature 99.5 F 100.5 F H Pul
[2023-11-02] MEDS: diphenhydrAMINE HCl INJ 50 MG/ML VIAL 25 MG IV PUSH ×3 (09:20→21:20)
[2023-11-02 09:43] LABS: Lactic Acid Reflex 0.8 mmol/L (0.7-2.0)
[2023-11-02 09:46] LABS: CRP < 0.5 mg/dL (<1.0)
[2023-11-02] MEDS: METOCLOPRAMIDE HCL INJ 10 MG/2 ML VIAL IV PUSH ×2 (12:03→17:26)
[2023-11-02 12:10] LABS: Glucose Point of Care 236 mg/dl (65-105)
[2023-11-02 14:00] VITALS: BP 118/66; PULSE 76; RESP 18; TEMP 36.3; O2SAT 98
[2023-11-02 16:20] LABS: Glucose Point of Care 199 mg/dl (65-105)
[2023-11-02] MEDS: MORPHINE SULFATE (*CRX) 4 MG/ML INJ IV PUSH ×2 (16:56→21:21)
--- NOTE | 2023-11-02 17:27 | WPDGICN ---
Assessment and Plan Assessment and plan (1) Cyclic vomiting syndrome: Code(s): R11.15 - Cyclical vomiting syndrome unrelated to migraine Status: Acute Assessment and Plan: this is 1 of several admissions over the past year to for this issue. She was hospitalized in May for couple of days. IV fluids generally seem to help. After the last hospitalization she was seen in our office by Marianela. She reported than that she thought her May it episode had been triggered by using alcohol celebrating a birthday. (2) Gastroparesis: Code(s): K31.84 - Gastroparesis Status: Acute Assessment and Plan: Gastric emptying scan showed gastric retention with residual of 67% 58% and 27% at the 1 2 and 4 hour time points. (3) Type 1 diabetes mellitus: Code(s): E10.9 - Type 1 diabetes mellitus without complications Status: Acute Assessment and Plan: she has been insulin dependent for about 12 years. She is aware that this is probably a factor in her gastroparesis. (4) Marijuana smoker: Code(s): F12.90 - Cannabis use, unspecified, uncomplicated Status: Acute Assessment and Plan: I discussed this with her and she has had this discussion in the past that cyclic vomiting is very frequently associated with cannabis use. Patients with typical diabetic gastroparesis do not have these acute episodes that she has. She states that she is going to try to stop using marijuana. Plan She has a clear liquid diet ordered. She states that she tried some at lunch and vomited almost immediately she is not interested in trying liquids again tonight. I told her that she will let us know when she is ready have her diet advanced. For now continue IV fluids and symptomatic relief GI Consult Note Consult date/time: 11/02/23 17:27 HPI: Ekta Rivero is a 22 year old female who suffers from cyclic vomiting and also is known to have gastroparesis admitted now with a recurrence of persistent vomiting. This began on Monday. She can always feel it coming on and generally takes a dose of Reglan to try to castrejon it off. This time it did not help. likewise Zofran had no effect. She has had previous gastric emptying scans do show gastroparesis. She is known to use marijuana and admits that she is trying to stop using it having been told in the past that it is probably a factor in her cyclic vomiting. Review of Systems Review of Systems: All systems reviewed & are unremarkable except as noted in HPI and below PMFSH Past Medical History Medical History Cyclic vomiting syndrome Depression Gastroparesis Type 1 diabetes mellitus Surgical History Surgical History No pertinent past surgical history Family History Family History Father Family history of diabetes mellitus in first degree relative Mother Family history of diabetes mellitus in first degree relative Grandparent Crohn disease Celiac disease Social History Social History Social History: Surrogate medical decision maker: Iliana Villeda, mother. Code status: Full code. Smoking status: Current every day smoker Tobacco type: e-cigarettes/vaping Second hand tobacco smoke exposure: No Alcohol intake: current Drinks per week: 1 Substance use: current Substance use type: marijuana Do You Feel Safe in your Home?: Yes Lack of Transportation: YES Lack of Food: Never True Current Housing: I Have Housing Concerned About Future Housing: No Difficulty Paying Gas/Electric Bills: No Difficulty Paying for Meds: No Currently Unemployed: No Education: High School Diploma/GED Difficulty w/ Childcare or Family Care: No Living arrangements: with family Occupation/Education: oc
[2023-11-02 20:55] VITALS: BP 127/75; PULSE 83; RESP 16; TEMP 36; O2SAT 100
[2023-11-03] MEDS: SODIUM CHLORIDE 0.9% IV 1,000 ML 125 ML IV CONT ×2 (00:32→08:13)
[2023-11-03] MEDS: METOCLOPRAMIDE HCL INJ 10 MG/2 ML VIAL IV PUSH ×3 (00:32→11:05)
[2023-11-03] MEDS: MORPHINE SULFATE (*CRX) 4 MG/ML INJ IV PUSH ×2 (01:51→08:17)
[2023-11-03 01:52] LABS: Glucose Point of Care 84 mg/dl (65-105)
[2023-11-03] MEDS: DEXTROSE 50% 25 GM/50 ML SYRINGE IV PUSH (01:58)
[2023-11-03 05:30] VITALS: BP 138/81; PULSE 80; RESP 18; TEMP 36.4; O2SAT 98
[2023-11-03 07:19] LABS: Glucose Point of Care 130 mg/dl (65-105)
[2023-11-03] MEDS: PANTOPRAZOLE SODIUM IV 40 MG VIAL IV PUSH (08:13)
--- NOTE | 2023-11-03 08:33 | PM.IMPN ---
Progress Note: A&P Assessment and Plan (1) Intractable nausea and vomiting: Code(s): R11.2 - Nausea with vomiting, unspecified Status: Acute (2) Dehydration: Code(s): E86.0 - Dehydration Status: Acute (3) Abnormal abdominal CT scan: Code(s): R93.5 - Abnormal findings on diagnostic imaging of other abdominal regions, including retroperitoneum Status: Acute (4) Type 1 diabetes mellitus: Code(s): E10.9 - Type 1 diabetes mellitus without complications Status: Acute (5) Gastroparesis: Code(s): K31.84 - Gastroparesis Status: Acute (6) Cyclic vomiting syndrome: Code(s): R11.15 - Cyclical vomiting syndrome unrelated to migraine Status: Acute Plan Intractable nausea vomiting abdomen pain The patient presented to the emergency department for evaluation of intractable nausea, vomiting, and abdominal pain as detailed in HPI. Labs, imaging, EKG, and all reports were personally reviewed. Differential diagnosis includes gastroenteritis, gastritis, possible peptic ulcer, cyclic vomiting, gastroparesis, versus other. She looks dry on labs and by exam and will be hydrated overnight. Analgesics and antiemetics are available as needed. Continue Protonix [address] now CT scan of the abdomen and pelvis shows a small volume of ascites and mild edema of the small bowel mesentery of unclear etiology or significance. Consult GI consultation. She is aware that her daily marijuana use can sometimes cause flares of cyclic vomiting. Appreciate GI consultation, patient has diabetic gastroparesis, cyclic vomiting related to marijuana use, advised patient to stop marijuana use now patient tolerated regular diet well, denies abdomen pain, nausea vomiting diarrhea sepsis vs sirs Patient had a fever 100.5 over the night, also has tachycardia, tachypnea, leukocytosis 13,400 Urine yesterday did not show pyuria Follow-up chest x-ray 11/03 Blood culture pending, lactic acid level 0.8, CRP <0.5, procalcitonin 0. No need of antibiotics, likely SIRS due to cyclic vomiting and marijuana abuse Type 1 diabetes She has 3+ ketones in her urine however anion gap is normal and this is likely due to her dehydration as there are no other findings to suggest DKA though she will need to be monitored closely. Continue basal insulin rate per insulin pump Initiate sliding scale insulin, Accu-Cheks, and hypoglycemic protocol. Glucose is controlled in the target Subjective Date/time seen: 11/03/23 08:33 Interval history: I saw exam patient today, patient tolerated regular diet. Denies abdomen pain, nausea vomiting. Patient is afebrile over the night blood pressure stable, blood culture negative Exam Narrative: GENERAL: Pleasant, in no acute distress. Well-nourished. - EYES: EOMI. Anicteric. - HENT: Moist mucous membranes. - LUNGS: Clear to auscultation bilaterally, no wheezing, rhonchi, or rales. - CARDIOVASCULAR: Regular rate and rhythm. No murmur. No JVD. - ABDOMEN: Soft, non-tender and non-distended. No palpable masses. - EXTREMITIES: No edema. Peripheral pulses 2+. Non-tender. - NEUROLOGIC: No focal neurological deficits. CN II-XII grossly intact. - PSYCHIATRIC: Awake, Alert and oriented x 3. Appropriate mood and affect. - SKIN: No rashes or lesions. Warm. - LYMPH: No cervical lymphadenopathy. Objective Data Vital Signs Vital Signs: Vital Signs - 24 hr 11/02/23 14:00 11/02/23 20:55 11/03/23 05:30 Temperature 97.4 F L 96.8 F L 97.5 F L Pulse Rate 76 83 80 Respiratory Rate 18 16 18 Blood Pressure 118/66 127/75 138/81 Pulse Oximetry 98 100 98 Intake/Output Intake/Output: Intake & Output 10/31/23 11/01/23 11/02/23 11/03/23 23:59 23:59 23:59 23:59 Intake Total 1999 3300 2436 Balance 1999 3300 2436 Meds/Results Medications: Active Medications Generic Name Dose Route Start Last Admin Trade Name Freq PRN Reason Stop Dose Admin Dextrose 12.
[2023-11-03 10:10] LABS: Basophils Percent Auto 0.5 % (0.2-1.2); Eosinophils Percent Auto 0.5 % (0-4.4); Hemoglobin 10.7 g/dL (12.0-15.0); Immature Granulocyte Absolute 0.02 K/mm3 (0.00-0.031); Immature Granulocyte Percent A 0.3 % (0-0.5); Lymphocytes Absolute Auto 2.74 K/mm3 (0.9-3.2); Lymphocytes Percent Auto 37.3 % (18.3-44.2); Mean Corpuscular HGB Conc 32.4 g/dl (32-36); Mean Corpuscular Volume 89.4 fl (80-100); Mean Platelet Volume 10.9 fl (7.4-10.4); Monocytes Absolute Auto 0.7 K/mm3 (0.1-0.6); Monocytes Percent Auto 8.8 % (2.6-8.5); Neutrophils Absolute Auto 3.9 K/mm3 (1.3-6.7); Neutrophils Percent Auto 52.6 % (45.5-73.1); Platelet Count Result 206 k/mm3 (150-375); Red Blood Count 3.69 M/mm3 (4.2-5.4); Red Cell Distribution Width 14.3 % (11.5-14.5); White Blood Count 7.4 K/mm3 (4.5-10.0)
[2023-11-03 10:21] LABS: Alanine Aminotransferase 18 U/L (6-35); Alkaline Phosphatase 67 U/L (38-126); Anion Gap 1 mmol/L (8-16); Aspartate Amino Transferase 22 U/L (14-36); Bilirubin,Total 0.4 mg/dL (0.2-1.3); Blood Urea Nitrogen 4 mg/dL (7-17); Calcium 7.9 mg/dL (8.4-10.2); Carbon Dioxide 29 mmol/L (22-30); Chloride 105 mmol/L (98-107); Estimated CRCL calculation 130 ml/min; Estimated Glomerular Filt Rate > 60; Glucose 111 mg/dL (65-110); Sodium 135 mmol/L (137-145)
[2023-11-03 11:13] LABS: Glucose Point of Care 110 mg/dl (65-105)
[2023-11-03 13:15] VITALS: BMI 27.6
[2023-11-03 13:34] VITALS: BP 133/98; PULSE 78; RESP 18; TEMP 36.6; O2SAT 100
--- NOTE | 2023-11-03 14:28 | PM.DS ---
DS: Admitting Diagnosis Discharge Date November 03 Admitting Diagnosis (1) Intractable nausea and vomiting: ?Code(s): R11.2 - Nausea with vomiting, unspecified ?Status:?Acute (2) Dehydration: ?Code(s): E86.0 - Dehydration ?Status:?Acute (3) Abnormal abdominal CT scan: ?Code(s): R93.5 - Abnormal findings on diagnostic imaging of other abdominal regions, including retroperitoneum ?Status:?Acute (4) Type 1 diabetes mellitus: ?Code(s): E10.9 - Type 1 diabetes mellitus without complications ?Status:?Acute (5) Gastroparesis: ?Code(s): K31.84 - Gastroparesis ?Status:?Acute (6) Cyclic vomiting syndrome: ?Code(s): R11.15 - Cyclical vomiting syndrome unrelated to migraine ?Status:?Acute DS: Discharge Diagnosis Discharge Diagnosis (1) Intractable nausea and vomiting: Code(s): R11.2 - Nausea with vomiting, unspecified Status: Acute (2) Dehydration: Code(s): E86.0 - Dehydration Status: Acute (3) Abnormal abdominal CT scan: Code(s): R93.5 - Abnormal findings on diagnostic imaging of other abdominal regions, including retroperitoneum Status: Acute (4) Type 1 diabetes mellitus: Code(s): E10.9 - Type 1 diabetes mellitus without complications Status: Acute (5) Gastroparesis: Code(s): K31.84 - Gastroparesis Status: Acute (6) Cyclic vomiting syndrome: Code(s): R11.15 - Cyclical vomiting syndrome unrelated to migraine Status: Acute DS: Summary Hospital Course Hospital Course: Per H&P, this is a 22-year-old female with type 1 diabetes mellitus on an insulin pump, gastroparesis, and cyclic vomiting who presented to the emergency department via private vehicle from home for evaluation of nausea and vomiting. The patient provides the following history. She has not been feeling well for nearly 2 days with intractable nausea and vomiting as well as generalized abdominal pain which she has difficulties describing. She cannot really localize the pain. It does not radiate and she has not noticed any significant alleviating factors. She has been taking Reglan and Zofran at home which has not helped. She denies fever, sweats, hematemesis, melena, hematochezia, diarrhea, and dysuria. She also denies sick contacts. No recent stressors. Glucose has been stable. In the ED: She was afebrile on arrival. Blood pressures have been stable. Labs were significant for WBC count of 12.4, sodium 138, potassium 3.4, chloride 102, carbon dioxide 22, anion gap 14, BUN 10, creatinine 0.60, glucose 263, AST 37, ALT 23, alkaline phosphatase 110, lipase 49. Urine was positive for 3+ ketones. CT scan showed small volume ascites and mild edema of the small bowel mesentery of unclear etiology or significance. She received IV fluids, Zofran, morphine, Reglan, and others in the emergency department without much benefit she is being admitted in this setting for further treatment and evaluation. The following med issues have been addressed during hospitalization Intractable nausea vomiting abdomen pain The patient presented to the emergency department for evaluation of intractable nausea, vomiting, and abdominal pain as detailed in HPI. Labs, imaging, EKG, and all reports were personally reviewed. Differential diagnosis includes gastroenteritis, gastritis, possible peptic ulcer, cyclic vomiting, gastroparesis, versus other. She looks dry on labs and by exam and will be hydrated overnight. Analgesics and antiemetics are available as needed. Continue Protonix [address] for now CT scan of the abdomen and pelvis shows a small volume of ascites and mild edema of the small bowel mesentery of unclear etiology or significance. Consult GI consultation. She is aware that her daily marijuana use can sometimes cause flares of cyclic vomiting. Appreciate GI consultation, patient has diabetic gastroparesis, cyclic vomiting related to marijuana use, advised pat
--- NOTE | 2023-11-03 15:40 | PCCCNOTE ---
On 11/03/23, the student, [Keila De La Torre], provided care and completed [facility] documentation on this patient. I have reviewed the student's documentation and agree with the findings.
== END 2023-11-03 16:15 | disposition home or self-care (01) ==
LOC: ANHED 12:14 → ANH3MEDSUR 17:02
PROVIDERS: Physician Assistant; Admitting Provider General Practice; Emergency Provider Physician Assistant; PCP Emergency Medicine; Visit Provider Hospitalist
DX: R11.15 Cyclical vomiting syndrome unrelated to migraine (principal); E86.0 Dehydration; E10.43 Type 1 diabetes mellitus with diabetic autonomic (poly)neuropathy; K31.84 Gastroparesis; R93.5 Abnormal findings on diagnostic imaging of other abdominal regions, including retroperitoneum; Z96.41 Presence of insulin pump (external) (internal); F32.A Depression, unspecified; Z20.822 Contact with and (suspected) exposure to COVID-19; F17.290 Nicotine dependence, other tobacco product, uncomplicated; F12.90 Cannabis use, unspecified, uncomplicated; Z79.4 Long term (current) use of insulin; Z79.899 Other long term (current) drug therapy; Z83.3 Family history of diabetes mellitus
CPT/HCPCS: 36415; 71046; 74177; 80053; 81003; 81025; 82948; 83605; 83690; 83735; 85025; 85027; 86140; 87040; 87637; 96361; 96374; 96375; 96376; 99285; C9113; G0378; G0379; J1200; J2060; J2270; J2405; J2765; J7030; Q9967

== ENCOUNTER 2023-11-04 21:08 | Emergency (ER) | payer OTHER, SELFPAY ==
[2023-11-04 21:28] VITALS: BP 137/81; PULSE 84; RESP 16; TEMP 37.1; O2SAT 100
[2023-11-04 22:36] LABS: Basophils Percent Auto 0.5 % (0.2-1.2); Eosinophils Percent Auto 0.1 % (0-4.4); Hematocrit 33.8 % (37.0-47.0); Hemoglobin 11.3 g/dL (12.0-15.0); Immature Granulocyte Absolute 0.02 K/mm3 (0.00-0.031); Immature Granulocyte Percent A 0.2 % (0-0.5); Lymphocytes Absolute Auto 1.12 K/mm3 (0.9-3.2); Lymphocytes Percent Auto 12.9 % (18.3-44.2); Mean Corpuscular HGB Conc 33.4 g/dl (32-36); Mean Corpuscular Hemoglobin 29.4 pg (26-34); Monocytes Absolute Auto 0.7 K/mm3 (0.1-0.6); Monocytes Percent Auto 8.4 % (2.6-8.5); Neutrophils Absolute Auto 6.7 K/mm3 (1.3-6.7); Neutrophils Percent Auto 77.9 % (45.5-73.1); Platelet Count Result 214 k/mm3 (150-375); Red Blood Count 3.84 M/mm3 (4.2-5.4); Red Cell Distribution Width 14.2 % (11.5-14.5); White Blood Count 8.7 K/mm3 (4.5-10.0)
[2023-11-04 22:52] LABS: Appearance Urine Clear (Clear); Bacteria Urine None Seen /hpf; Bilirubin Urine Negative (Negative); Blood Urine Negative (Negative); Color Urine Yellow (Yellow); Glucose Urine UA Negative (Negative); Ketones Urine 3+ mg/dL (Negative); Leukocyte Esterase Ur Negative LEU/UL (Negative); Mucus Urine Present /lpf; Need Manual Microscopic Reviewed; Nitrate Urine Negative (Negative); Protein Urine Trace mg/dL (Negative); RBC Urine 0-2 /hpf (0-2); Specific Grav Ur 1.013 (1.001-1.035); Squamous Epithelial Cell Urine Occasional /hpf (Few); pH Urine 7.5 (5.0-9.0)
[2023-11-04 22:54] LABS: Add Urine Microscopic? YES
[2023-11-04 23:04] LABS: Alanine Aminotransferase 19 U/L (6-35); Albumin Level 3.6 g/dL (3.5-5.1); Alkaline Phosphatase 51 U/L (38-126); Anion Gap 7 mmol/L (8-16); Aspartate Amino Transferase 31 U/L (14-36); Bilirubin,Total 0.9 mg/dL (0.2-1.3); Blood Urea Nitrogen 3 mg/dL (7-17); Calcium 8.3 mg/dL (8.4-10.2); Carbon Dioxide 28 mmol/L (22-30); Chloride 97 mmol/L (98-107); Estimated CRCL calculation 137 ml/min; Estimated Glomerular Filt Rate > 60; Glucose 168 mg/dL (65-110); Lipase 35 U/L (23-300); Potassium 3.6 mmol/L (3.4-5.0); Sodium 132 mmol/L (137-145)
[2023-11-05] VITALS (7 sets, daily range): BP systolic 97–121; BP diastolic 54–76; PULSE 68–75; RESP 14–16; O2SAT 96–100
--- NOTE | 2023-11-05 01:11 | ED.GENADULT ---
HPI - General Adult General Chief complaint: Nausea/Vomiting/Diarrhea Stated complaint: VOMITING Time Seen by Provider: 11/05/23 00:35 History of Present Illness HPI narrative: 22-year-old female history of cyclic vomiting presenting with nausea vomiting. This started yesterday. Patient is still using marijuana. Denies fever chills chest pain difficulty breathing abdominal pain or urinary symptoms. Patient was recently admitted for similar symptoms. Related Data Home Medications Medication Instructions Recorded Confirmed blood-glucose sensor (Dexcom G6 01/26/23 11/02/23 Sensor device) cyanocobalamin (vitamin B-12) 1,000 mcg PO DAILY 01/26/23 11/01/23 1,000 mcg tablet ergocalciferol (vitamin D2) 1,250 See Rx Instructions .Route .COMPLEX 01/26/23 11/01/23 mcg (50,000 unit) capsule fluoxetine 20 mg capsule 20 mg PO DAILY 01/26/23 11/01/23 insulin glargine 100 unit/mL (3 See Rx Instructions .Route .COMPLEX 01/27/23 11/01/23 mL) subcutaneous pen (Basaglar KwikPen U-100 Insulin) insulin lispro 100 unit/mL 25 unit subcut DIRECTED 01/27/23 11/01/23 subcutaneous pen Allergies Allergy/AdvReac Type Severity Reaction Status Date / Time Penicillins Allergy Itching Verified 06/01/23 14:27 [facility] Past Medical History Medical History Cyclic vomiting syndrome Depression Gastroparesis Type 1 diabetes mellitus Surgical History Surgical History No pertinent past surgical history Family History Family History Father Family history of diabetes mellitus in first degree relative Mother Family history of diabetes mellitus in first degree relative Grandparent Crohn disease Celiac disease Social History Social History Social History: Surrogate medical decision maker: Iliana Villeda, mother. Code status: Full code. Smoking status: Current every day smoker Tobacco type: e-cigarettes/vaping Second hand tobacco smoke exposure: No Alcohol intake: current Drinks per week: 1 Substance use: current Substance use type: marijuana Do You Feel Safe in your Home?: Yes Lack of Transportation: YES Lack of Food: Never True Current Housing: I Have Housing Concerned About Future Housing: No Difficulty Paying Gas/Electric Bills: No Difficulty Paying for Meds: No Currently Unemployed: No Education: High School Diploma/GED Difficulty w/ Childcare or Family Care: No Living arrangements: with family Occupation/Education: occupation 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 Spiritual care concerns: No Exam Narrative: APPEARANCE: No apparent distress. Head: atraumatic. EYES: EOMI, NOSE: Atraumatic NECK: Trachea midline RESPIRATORY: No increased rate of breathing CARDIOVASCULAR: RRR, ABDOMINAL: Non-distended Soft nontender no guarding or rebound MUSCULOSKELETAl: No obvious deformities NEURO: Alert. Moving 4/4 extremities SKIN:: Warm, dry. Normal color PSYCHIATRIC: Normal affect Course Vital Signs Vital signs: Vital Signs Temperature 98.7 F 11/04/23 21:28 Pulse Rate 84 11/04/23 21:28 Respiratory Rate 16 11/04/23 21:28 Blood Pressure 137/81 11/04/23 21:28 Pulse Oximetry 100 11/04/23 21:28 Oxygen Delivery Room Air 11/04/23 21:28 Temperature 98.7 F 11/04/23 21:28 Pulse Rate 84 11/04/23 21:28 Respiratory Rate 16 11/04/23 21:28 Blood Pressure 137/81 11/04/23 21:28 Pulse Oximetry 100 11/04/23 21:28 Oxygen Delivery Room Air 11/04/23 21:28 Procedures EJ/Peripheral Line Arm R: EJ/Peripheral Line Date: 11/05/23 Time Out Performed: Yes Skin Cleansed in Sterile Fashion: Yes Ultrasound Guided: Yes Size (gauge): 20 IV Secured and Dressing Applie
[2023-11-05] MEDS: SODIUM CHLORIDE 0.9% IV 2,000 ML 999 ML IV CONT (01:22)
[2023-11-05] MEDS: FAMOTIDINE 20 MG/2 ML VIAL IV PUSH (01:24)
[2023-11-05] MEDS: ONDANSETRON INJ 4 MG/2 ML VIAL IV PUSH (01:24)
[2023-11-05] MEDS: HALOPERIDOL LACTATE 5 MG/ML VIAL IM (01:26)
[2023-11-05 02:03] LABS: Amphetamine Screen Urine Negative (Negative); Barbiturate Screen Urine Negative (Negative); Benzodiazepines Screen Urine Negative (Negative); Cannabinoid Screen Urine Positive (Negative); Cocaine Screen Urine Negative (Negative); Methadone Screen Urine Negative (Negative); Opiate Screen Urine Positive (Negative); Phencyclidine Screen Urine Negative (Negative)
== END 2023-11-05 03:29 | disposition home or self-care (01) ==
PROVIDERS: Emergency Provider Emergency Medicine; PCP Emergency Medicine
DX: R11.10 Vomiting, unspecified (principal); F12.90 Cannabis use, unspecified, uncomplicated; E10.43 Type 1 diabetes mellitus with diabetic autonomic (poly)neuropathy; K31.84 Gastroparesis; Z79.4 Long term (current) use of insulin; F32.A Depression, unspecified; F17.290 Nicotine dependence, other tobacco product, uncomplicated
CPT/HCPCS: 36415; 80053; 80307; 81001; 81025; 83690; 85025; 87086; 96361; 96372; 96374; 96375; 99284; J1630; J2405; J7030

== ENCOUNTER 2023-11-05 18:26 | Observation (INO) | payer OTHER, SELFPAY ==
[2023-11-05] VITALS (7 sets, daily range): BP systolic 117–154; BP diastolic 68–83; PULSE 68–92; RESP 14–16; TEMP 36.8; O2SAT 98–100
--- NOTE | 2023-11-05 21:28 | ED.GENADULT ---
HPI - General Adult General Chief complaint: Abdominal Pain Stated complaint: n/v, cyclic vomiting Time Seen by Provider: 11/05/23 22:04 History of Present Illness HPI narrative: This is a 22-year-old female history of type 1 diabetes and cyclic vomiting presenting for nausea vomiting. She has been seen multiple times over the last 3 4 days at this hospital and a [place]. He was seen last night by myself and was treated for cyclic vomiting with improvement. She was tolerating p.o. discharge then went home and has been laying in bed all day and unable to drink water. Patient denies fever chills chest pain difficulty breathing. She notes diffuse abdominal pain. no other symptoms. Related Data Home Medications Medication Instructions Recorded Confirmed blood-glucose sensor (Dexcom G6 01/26/23 11/02/23 Sensor device) cyanocobalamin (vitamin B-12) 1,000 mcg PO DAILY 01/26/23 11/01/23 1,000 mcg tablet ergocalciferol (vitamin D2) 1,250 See Rx Instructions .Route .COMPLEX 01/26/23 11/01/23 mcg (50,000 unit) capsule fluoxetine 20 mg capsule 20 mg PO DAILY 01/26/23 11/01/23 insulin glargine 100 unit/mL (3 See Rx Instructions .Route .COMPLEX 01/27/23 11/01/23 mL) subcutaneous pen (Basaglar KwikPen U-100 Insulin) insulin lispro 100 unit/mL 25 unit subcut DIRECTED 01/27/23 11/01/23 subcutaneous pen Allergies Allergy/AdvReac Type Severity Reaction Status Date / Time Penicillins Allergy Itching Verified 06/01/23 14:27 [facility] Past Medical History Medical History Cyclic vomiting syndrome Depression Gastroparesis Type 1 diabetes mellitus Surgical History Surgical History No pertinent past surgical history Family History Family History Father Family history of diabetes mellitus in first degree relative Mother Family history of diabetes mellitus in first degree relative Grandparent Crohn disease Celiac disease Social History Social History Social History: Surrogate medical decision maker: Iliana Villeda, mother. Code status: Full code. Smoking status: Current every day smoker Tobacco type: e-cigarettes/vaping Second hand tobacco smoke exposure: No Alcohol intake: current Drinks per week: 1 Substance use: current Substance use type: marijuana Do You Feel Safe in your Home?: Yes Lack of Transportation: YES Lack of Food: Never True Current Housing: I Have Housing Concerned About Future Housing: No Difficulty Paying Gas/Electric Bills: No Difficulty Paying for Meds: No Currently Unemployed: No Education: High School Diploma/GED Difficulty w/ Childcare or Family Care: No Living arrangements: with family Occupation/Education: occupation 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 Spiritual care concerns: No Exam Narrative: APPEARANCE: No apparent distress. Well-appearing Head: atraumatic. EYES: EOMI, NOSE: Atraumatic NECK: Trachea midline RESPIRATORY: No increased rate of breathing CTAB CARDIOVASCULAR: RRR, ABDOMINAL: Soft, nontender no guarding or rebound MUSCULOSKELETAl: No obvious deformities NEURO: Alert. Moving 4/4 extremities SKIN:: Warm, dry. Normal color PSYCHIATRIC: Normal affect Course Vital Signs Vital signs: Vital Signs Temperature 98.2 F 11/05/23 18:28 Pulse Rate 92 11/05/23 18:28 Respiratory Rate 16 11/05/23 18:28 Blood Pressure 154/83 H 11/05/23 18:28 Pulse Oximetry 100 11/05/23 18:28 Temperature 98.2 F 11/05/23 18:28 Pulse Rate 77 11/05/23 23:46 Respiratory Rate 15 11/05/23 23:46 Blood Pressure 117/69 11/05/23 23:46 Pulse Oximetry 98 11/05/23 23:46 Medical Decision Making [facility] Narrative Medical decision making narrative: -Course: 22-year-o
[2023-11-05 21:45] LABS: Basophils Absolute Auto 0.1 K/mm3 (0.0-0.1); Basophils Percent Auto 0.7 % (0.2-1.2); Eosinophils Percent Auto 0.3 % (0-4.4); Hematocrit 38.3 % (37.0-47.0); Hemoglobin 12.6 g/dL (12.0-15.0); Immature Granulocyte Absolute 0.02 K/mm3 (0.00-0.031); Immature Granulocyte Percent A 0.3 % (0-0.5); Lymphocytes Absolute Auto 1.63 K/mm3 (0.9-3.2); Lymphocytes Percent Auto 23.8 % (18.3-44.2); Mean Corpuscular HGB Conc 32.9 g/dl (32-36); Mean Platelet Volume 11.3 fl (7.4-10.4); Monocytes Absolute Auto 0.6 K/mm3 (0.1-0.6); Monocytes Percent Auto 8.3 % (2.6-8.5); Neutrophils Absolute Auto 4.6 K/mm3 (1.3-6.7); Neutrophils Percent Auto 66.6 % (45.5-73.1); Platelet Count Result 262 k/mm3 (150-375); Red Blood Count 4.35 M/mm3 (4.2-5.4); Red Cell Distribution Width 14.4 % (11.5-14.5); White Blood Count 6.8 K/mm3 (4.5-10.0)
[2023-11-05 21:54] LABS: Alanine Aminotransferase 23 U/L (6-35); Albumin Level 4.3 g/dL (3.5-5.1); Alkaline Phosphatase 96 U/L (38-126); Anion Gap 10 mmol/L (8-16); Aspartate Amino Transferase 46 U/L (14-36); Bilirubin,Total 0.8 mg/dL (0.2-1.3); Blood Urea Nitrogen 3 mg/dL (7-17); Calcium 9.2 mg/dL (8.4-10.2); Carbon Dioxide 28 mmol/L (22-30); Chloride 98 mmol/L (98-107); Estimated CRCL calculation 116 ml/min; Estimated Glomerular Filt Rate > 60; Glucose 87 mg/dL (65-110); Lipase 36 U/L (23-300); Potassium 2.9 mmol/L (3.4-5.0); Sodium 136 mmol/L (137-145)
[2023-11-05] MEDS: SODIUM CHLORIDE 0.9% IV 2,000 ML 999 ML IV CONT (22:17)
[2023-11-05] MEDS: ONDANSETRON INJ 4 MG/2 ML VIAL IV PUSH (22:18)
[2023-11-05] MEDS: FAMOTIDINE 20 MG/2 ML VIAL IV PUSH (22:19)
[2023-11-05 22:21] LABS: Influenza A QL RT-PCR Negative (Negative); Influenza B QL RT-PCR Negative (Negative); RSV RNA, RT-PCR Negative (Negative); SARS-CoV-2 RNA PCR Negative (Negative)
[2023-11-05] MEDS: HALOPERIDOL LACTATE 5 MG/ML VIAL IM (22:21)
[2023-11-05] MEDS: diphenhydrAMINE HCl INJ 50 MG/ML VIAL 25 MG IV PUSH (23:00)
[2023-11-05] MEDS: PROCHLORPERAZINE EDISYLATE 10 MG/2 ML VIAL IV PUSH (23:00)
--- NOTE | 2023-11-05 23:43 | PC.NURSE ---
PO challenge started.
[2023-11-05] MEDS: POTASSIUM CHLORIDE 20 MEQ ER TABLET 40 MEQ PO (23:59)
[2023-11-06] VITALS (15 sets, daily range): BP systolic 110–143; BP diastolic 64–81; PULSE 68–76; RESP 14–18; TEMP 37–37.2; O2SAT 97–100; BMI 25.9
--- NOTE | 2023-11-06 00:20 | PC.NURSE ---
Pt reports she vomited after the second potassium tablet. Approx 1/2 cup of apple juice and water appears to have been vomited up into her cup. Reports that her stomach is hurting again. Dr Rasheed notified.
[2023-11-06] MEDS: HALOPERIDOL LACTATE 5 MG/ML VIAL IV PUSH (01:08)
[2023-11-06 03:01] LABS: Glucose Point of Care 144 mg/dl (65-105)
--- NOTE | 2023-11-06 03:15 | PM.IMHP ---
H&P: HPI History of Present Illness Date/Time: 11/06/23 03:15 Chief Complaint: Nausea vomiting. This is a 22-year-old female patient with a history of type 1 diabetes mellitus on insulin pump and cyclic vomiting presented to emergency room with nausea and vomiting. She has been seen multiple times over the past 3-4 days at this hospital in and at [place]. Patient said that she did marijuana and after that she started having vomiting. Patient is awake alert not in any acute distress. Patient denies any fever chills dizziness lightheadedness no blurred vision the chest pains no shortness of breath no cough complains of nausea vomiting denies any diarrhea denies any dysuria increased urinary frequency no muscle and joint pains. Vital signs in emergency room was stable. Cbc was mainly in range. CMP showed sodium of 136 potassium 2.9 chloride 90 in carbon dioxide 28 BUN 3 creatinine 0.60. Glucose 87. COVID influenza RSV negative. Patient given IV fluids IV antiemetics and oral potassium supplement in the emergency room Review of Systems Review of Systems: Twelve point review of system is done and is only positive what is dictated in the history of present illness. [facility] Past Medical History Medical History Cyclic vomiting syndrome Depression Gastroparesis Type 1 diabetes mellitus Surgical History Surgical History No pertinent past surgical history Family History Family History Father Family history of diabetes mellitus in first degree relative Mother Family history of diabetes mellitus in first degree relative Grandparent Crohn disease Celiac disease Social History Social History Social History: Surrogate medical decision maker: Iliana Villeda, mother. Code status: Full code. Smoking status: Current every day smoker Tobacco type: e-cigarettes/vaping Second hand tobacco smoke exposure: No Alcohol intake: current Drinks per week: 1 Substance use: current Substance use type: marijuana Do You Feel Safe in your Home?: Yes Lack of Transportation: YES Lack of Food: Never True Current Housing: I Have Housing Concerned About Future Housing: No Difficulty Paying Gas/Electric Bills: No Difficulty Paying for Meds: No Currently Unemployed: No Education: High School Diploma/GED Difficulty w/ Childcare or Family Care: No Living arrangements: with family Occupation/Education: occupation Additional occupation/education comments: [employer]. Spiritual care concerns: No Meds Home Medications and Allergies Home Medications Medication Instructions Recorded Confirmed Type blood-glucose sensor (Dexcom G6 01/26/23 11/02/23 History Sensor device) cyanocobalamin (vitamin B-12) 1,000 mcg PO DAILY 01/26/23 11/01/23 History 1,000 mcg tablet ergocalciferol (vitamin D2) 1,250 See Rx Instructions .Route .COMPLEX 01/26/23 11/01/23 History mcg (50,000 unit) capsule fluoxetine 20 mg capsule 20 mg PO DAILY 01/26/23 11/01/23 History insulin glargine 100 unit/mL (3 See Rx Instructions .Route .COMPLEX 01/27/23 11/01/23 History mL) subcutaneous pen (Basaglar KwikPen U-100 Insulin) insulin lispro 100 unit/mL 25 unit subcut DIRECTED 01/27/23 11/01/23 History subcutaneous pen lorazepam 0.5 mg tablet (Ativan) 0.5 mg PO BID PRN nausea and 01/31/23 11/01/23 Rx vomiting #10 tabs ondansetron 4 mg disintegrating 4 mg PO Q6H PRN nausea and 06/01/23 11/01/23 Rx tablet vomiting #20 tabs metoclopramide HCl 10 mg tablet 10 mg PO Q6H PRN Nausea #30 tabs 11/03/23 11/01/23 Rx (Reglan) pantoprazole 40 mg granules 40 mg PO DAILY #30 ea 11/03/23 Rx delayed-release for susp in packet (Protonix) Allergies Allergy/AdvReac Type Severity Reaction
[2023-11-06] MEDS: LACTATED RINGERS 1,000 ML 125 ML IV CONT ×3 (03:17→20:14)
--- NOTE | 2023-11-06 06:00 | ADMIMU ---
This patient, Ekta Rivero, was admitted to IMU status, and placed in Intensive Care Unit-8. Patient/family oriented to hospital policies and general routines including ID bracelet, bed and alarms, visiting hours, pain management, procedures, bathroom and other care routines, personal items, smoking policy, room service/diet, and visiting hours. Valuables list has been completed. Information on how to activate the Rapid Response Team has been discussed. Patient/Family are encouraged to report perceived risks to care and to ask questions if they do not understand what they are told or what they should do.
[2023-11-06] MEDS: PROMETHAZINE HCL 25 MG/ML AMPUL 12.5 MG IV PUSH (06:45)
[2023-11-06 07:44] LABS: Glucose Point of Care 130 mg/dl (65-105)
[2023-11-06] MEDS: FAMOTIDINE 20 MG/2 ML VIAL IV PUSH ×2 (08:27→20:16)
[2023-11-06] MEDS: ERGOCALCIFEROL 50,000 UNITS CAPSULE 50000 UNITS PO (08:31)
[2023-11-06] MEDS: CYANOCOBALAMIN 1,000 MCG TABLET 1000 MCG PO (08:31)
[2023-11-06] MEDS: FLUoxetine HCL 20 MG CAPSULE PO (08:31)
[2023-11-06 09:46] LABS: Alanine Aminotransferase 19 U/L (6-35); Albumin Level 3.1 g/dL (3.5-5.1); Alkaline Phosphatase 68 U/L (38-126); Anion Gap 3 mmol/L (8-16); Aspartate Amino Transferase 34 U/L (14-36); Bilirubin,Total 0.6 mg/dL (0.2-1.3); Blood Urea Nitrogen 2 mg/dL (7-17); Calcium 8.1 mg/dL (8.4-10.2); Carbon Dioxide 29 mmol/L (22-30); Chloride 106 mmol/L (98-107); Estimated CRCL calculation 137 ml/min; Estimated Glomerular Filt Rate > 60; Glucose 98 mg/dL (65-110); Sodium 138 mmol/L (137-145)
[2023-11-06 10:22] LABS: Creatine Kinase 493 U/L (30-135)
[2023-11-06 10:32] LABS: Basophils Percent Auto 0.7 % (0.2-1.2); Eosinophils Percent Auto 0.7 % (0-4.4); Hematocrit 32.6 % (37.0-47.0); Hemoglobin 10.6 g/dL (12.0-15.0); Immature Granulocyte Absolute 0.01 K/mm3 (0.00-0.031); Immature Granulocyte Percent A 0.2 % (0-0.5); Lymphocytes Absolute Auto 2.07 K/mm3 (0.9-3.2); Lymphocytes Percent Auto 35.1 % (18.3-44.2); Mean Corpuscular HGB Conc 32.5 g/dl (32-36); Mean Corpuscular Volume 89.1 fl (80-100); Mean Platelet Volume 11.6 fl (7.4-10.4); Monocytes Absolute Auto 0.7 K/mm3 (0.1-0.6); Monocytes Percent Auto 12.4 % (2.6-8.5); Neutrophils Percent Auto 50.9 % (45.5-73.1); Platelet Count Result 201 k/mm3 (150-375); Red Blood Count 3.66 M/mm3 (4.2-5.4); Red Cell Distribution Width 14.6 % (11.5-14.5); White Blood Count 5.9 K/mm3 (4.5-10.0)
[2023-11-06 11:32] LABS: Glucose Point of Care 67 mg/dl (65-105)
[2023-11-06] MEDS: diphenhydrAMINE HCl INJ 50 MG/ML VIAL 25 MG IV PUSH ×2 (11:40→18:43)
[2023-11-06] MEDS: POTASSIUM CHLORIDE INJ 40 MEQ in SODIUM CHLORIDE 0.9% IV 500 ML 130 MEQ IVPB (11:43)
[2023-11-06] MEDS: ONDANSETRON INJ 4 MG/2 ML VIAL IV PUSH (12:05)
[2023-11-06 12:13] LABS: Glucose Point of Care 107 mg/dl (65-105)
--- NOTE | 2023-11-06 13:13 | PM.IMPN ---
Progress Note: A&P Assessment and Plan (1) Intractable cyclical vomiting with nausea: Code(s): R11.15 - Cyclical vomiting syndrome unrelated to migraine Status: Acute Assessment and Plan: 72-year-old female with history of cyclic vomiting syndrome presented with recurrence of her symptoms. She was recently discharged on 11/03/2023. She continued to use very 1 a. No shortness of breath chest pain fever chills. She has type 1 diabetes along with gastroparesis she is on insulin pump which she continue to use. Labs with mild hyponatremia mild anemia UA with few WBC with negative nitrate and leukocyte esterase. Positive for cannabinoids. Continues to have nausea vomiting intolerance to oral diet. Continue IV fluid as ordered. COVID RSV influenza negative. Antiemetic as ordered. GI is consulted last admission her previous gastric emptying scan showed gastric retention with residual of 67% 50% and 27% at 1 2 in 4 hour point. Follows GI as an outpatient. Will start clear liquid diet as tolerated labs in a.m. Subjective Date/time seen: 11/06/23 13:13 Interval history: 72-year-old female with history of cyclic vomiting syndrome presented with recurrence of her symptoms. She was recently discharged on 11/03/2023. She continued to use very 1 a. No shortness of breath chest pain fever chills. She has type 1 diabetes along with gastroparesis she is on insulin pump which she continue to use. Labs with mild hyponatremia mild anemia UA with few WBC with negative nitrate and leukocyte esterase. Positive for cannabinoids. Continues to have nausea vomiting intolerance to oral diet. Continue IV fluid as ordered. COVID RSV influenza negative. Antiemetic as ordered. GI is consulted last admission her previous gastric emptying scan showed gastric retention with residual of 67% 50% and 27% at 1 2 in 4 hour point. Follows GI as an outpatient. Will start clear liquid diet as tolerated labs in a.m. Review of Systems Review of Systems: All systems reviewed & are unremarkable except as noted in HPI and below Exam Narrative: APPEARANCE: No apparent distress.? Well-appearing Head: atraumatic. EYES:? EOMI, NOSE: Atraumatic NECK: Trachea midline RESPIRATORY: No increased rate of breathing CTAB CARDIOVASCULAR: RRR, ABDOMINAL:? Soft, nontender no guarding or rebound MUSCULOSKELETAl: No obvious deformities NEURO: Alert. Moving 4/4 extremities SKIN:: Warm, dry. Normal color PSYCHIATRIC: Normal affect Objective Data Vital Signs Vital Signs: Vital Signs - 24 hr 11/05/23 18:28 11/05/23 22:16 11/05/23 22:31 Temperature 98.2 F Pulse Rate 92 85 78 Respiratory Rate 16 14 Blood Pressure 154/83 H 131/73 135/72 Pulse Oximetry 100 100 100 Oxygen Delivery 11/05/23 22:46 11/05/23 23:16 11/05/23 23:31 Temperature Pulse Rate 72 77 68 Respiratory Rate 16 15 14 Blood Pressure 126/69 124/70 120/68 Pulse Oximetry 99 99 98 Oxygen Delivery 11/05/23 23:46 11/06/23 00:16 11/06/23 04:16 Temperature Pulse Rate 77 68 71 Respiratory Rate 15 14 16 Blood Pressure 117/69 143/79 H 110/64 Pulse Oximetry 98 100 100 Oxygen Delivery 11/06/23 04:31 11/06/23 05:07 11/06/23 05:16 Temperature Pulse Rate 70 69 68 Respiratory Rate 15 17 16 Blood Pressure 115/68 113/74 Pulse Oximetry 98 98 98 Oxygen Delivery 11/06/23 05:31 11/06/23 05:46 11/06/23 06:00 Temperature Pulse Rate 69 68 76 Respiratory Rate 16 16 Blood Pressure 110/74 125/75 Pulse Oximetry 98 99 Oxygen Delivery 11/06/23 06:26 11/06/23 06:26 11/06/23 06:00 Temperature 98.6 F Pulse Rate 74 71 Respiratory Rate 16 Blood Pressure 129/72 Pulse Oximetry 97 Oxygen Delivery Room Air 11/06/23 07:56 11/06/23 08:00 11/06/23 08:00 Temperature 98.9 F Pulse Rate 70 69 Respiratory Rate 14 Blood Pressure 129/72 Pulse Oximetry 97 Oxygen Delivery Room Air 11/06/23 08:40 11/06/23 10:00 Temperature Pu
[2023-11-06] MEDS: METOCLOPRAMIDE HCL INJ 10 MG/2 ML VIAL 5 MG IV PUSH (13:53)
[2023-11-06] MEDS: MORPHINE SULFATE (*CRX) 2 MG/ML INJ IV PUSH ×2 (15:01→20:26)
[2023-11-06 16:32] LABS: Glucose Point of Care 129 mg/dl (65-105)
--- NOTE | 2023-11-06 17:20 | PC.NURSE ---
This patient, Ekta Rivero, was transferred to [facility] on 11/06/23 at 1512. Personal belongings sent with patient. Report given to PEPITO Braden. Appropriate documentation sent with patient.
[2023-11-06 20:07] LABS: Glucose Point of Care 100 mg/dl (65-105)
[2023-11-07] MEDS: METOCLOPRAMIDE HCL INJ 10 MG/2 ML VIAL 5 MG IV PUSH ×2 (01:43→08:10)
[2023-11-07] MEDS: MORPHINE SULFATE (*CRX) 2 MG/ML INJ IV PUSH (01:44)
[2023-11-07] MEDS: LACTATED RINGERS 1,000 ML 125 ML IV CONT ×2 (04:10→17:06)
[2023-11-07 06:00] VITALS: BP 132/80; PULSE 73; RESP 18; TEMP 36.4; O2SAT 100
[2023-11-07 06:53] LABS: Basophils Absolute Auto 0.1 K/mm3 (0.0-0.1); Basophils Percent Auto 0.7 % (0.2-1.2); Eosinophils Absolute Auto 0.1 K/mm3 (0-0.3); Eosinophils Percent Auto 1.5 % (0-4.4); Hemoglobin 10.8 g/dL (12.0-15.0); Immature Granulocyte Absolute 0.02 K/mm3 (0.00-0.031); Immature Granulocyte Percent A 0.3 % (0-0.5); Lymphocytes Percent Auto 39.4 % (18.3-44.2); Mean Corpuscular HGB Conc 31.8 g/dl (32-36); Mean Corpuscular Hemoglobin 28.8 pg (26-34); Mean Corpuscular Volume 90.7 fl (80-100); Mean Platelet Volume 12.4 fl (7.4-10.4); Monocytes Absolute Auto 0.7 K/mm3 (0.1-0.6); Monocytes Percent Auto 9.2 % (2.6-8.5); Neutrophils Absolute Auto 3.5 K/mm3 (1.3-6.7); Neutrophils Percent Auto 48.9 % (45.5-73.1); Platelet Count Result 201 k/mm3 (150-375); Red Blood Count 3.75 M/mm3 (4.2-5.4); Red Cell Distribution Width 14.6 % (11.5-14.5); White Blood Count 7.1 K/mm3 (4.5-10.0)
[2023-11-07 07:05] LABS: Alanine Aminotransferase 18 U/L (6-35); Albumin Level 3.1 g/dL (3.5-5.1); Alkaline Phosphatase 69 U/L (38-126); Anion Gap 4 mmol/L (8-16); Aspartate Amino Transferase 29 U/L (14-36); Bilirubin,Total 0.6 mg/dL (0.2-1.3); Calcium 8.2 mg/dL (8.4-10.2); Carbon Dioxide 29 mmol/L (22-30); Chloride 104 mmol/L (98-107); Estimated CRCL calculation 137 ml/min; Estimated Glomerular Filt Rate > 60; Glucose 109 mg/dL (65-110); Magnesium 2.1 mg/dL (1.6-2.3); Potassium 3.1 mmol/L (3.4-5.0); Sodium 137 mmol/L (137-145)
[2023-11-07 07:06] LABS: Blood Urea Nitrogen < 2 mg/dL (7-17)
[2023-11-07 07:56] LABS: Glucose Point of Care 86 mg/dl (65-105)
[2023-11-07] MEDS: FLUoxetine HCL 20 MG CAPSULE PO (08:07)
[2023-11-07] MEDS: CYANOCOBALAMIN 1,000 MCG TABLET 1000 MCG PO (08:07)
[2023-11-07] MEDS: FAMOTIDINE 20 MG/2 ML VIAL IV PUSH ×2 (08:07→21:29)
[2023-11-07] MEDS: diphenhydrAMINE HCl INJ 50 MG/ML VIAL 25 MG IV PUSH (08:08)
[2023-11-07] MEDS: POTASSIUM CHLORIDE INJ 40 MEQ in SODIUM CHLORIDE 0.9% IV 500 ML 130 MEQ IVPB (08:18)
[2023-11-07 11:47] LABS: Glucose Point of Care 143 mg/dl (65-105)
[2023-11-07] MEDS: ONDANSETRON HCL ODT 4 MG TABLET PO (11:49)
--- NOTE | 2023-11-07 13:47 | PM.IMPN ---
Progress Note: A&P Assessment and Plan (1) Intractable cyclical vomiting with nausea: Code(s): R11.15 - Cyclical vomiting syndrome unrelated to migraine Status: Acute Assessment and Plan: 72-year-old female with history of cyclic vomiting syndrome presented with recurrence of her symptoms. She was recently discharged on 11/03/2023. She continued to use very 1 a. No shortness of breath chest pain fever chills. She has type 1 diabetes along with gastroparesis she is on insulin pump which she continue to use. Labs with mild hyponatremia mild anemia UA with few WBC with negative nitrate and leukocyte esterase. Positive for cannabinoids. Continues to have nausea vomiting intolerance to oral diet. Continue IV fluid as ordered. COVID RSV influenza negative. Antiemetic as ordered. GI is consulted last admission her previous gastric emptying scan showed gastric retention with residual of 67% 50% and 27% at 1 2 in 4 hour point. Follows GI as an outpatient. On metoclopramide Zofran p.r.n. Started on clear liquid which tolerated. Will advance as tolerated to consistent carb diet Subjective Date/time seen: 11/07/23 13:47 Interval history: 72-year-old female with history of cyclic vomiting syndrome presented with recurrence of her symptoms. She was recently discharged on 11/03/2023. She continued to use very 1 a. No shortness of breath chest pain fever chills. She has type 1 diabetes along with gastroparesis she is on insulin pump which she continue to use. Labs with mild hyponatremia mild anemia UA with few WBC with negative nitrate and leukocyte esterase. Positive for cannabinoids. Continues to have nausea vomiting intolerance to oral diet. Continue IV fluid as ordered. COVID RSV influenza negative. Antiemetic as ordered. GI is consulted last admission her previous gastric emptying scan showed gastric retention with residual of 67% 50% and 27% at 1 2 in 4 hour point. Follows GI as an outpatient. Will start clear liquid diet as tolerated labs in a.m. 11/07/2023: Nausea vomiting improving able to tolerate clear liquid diet last night. Abdominal pain is improved as well. Labs reviewed. Discussed with the patient. Blood sugar monitor reviewed Review of Systems Review of Systems: All systems reviewed & are unremarkable except as noted in HPI and below Exam Narrative: APPEARANCE: No apparent distress.? Well-appearing Head: atraumatic. EYES:? EOMI, NOSE: Atraumatic NECK: Trachea midline RESPIRATORY: No increased rate of breathing CTAB CARDIOVASCULAR: RRR, ABDOMINAL:? Soft, nontender no guarding or rebound MUSCULOSKELETAl: No obvious deformities NEURO: Alert. Moving 4/4 extremities SKIN:: Warm, dry. Normal color PSYCHIATRIC: Normal affect Objective Data Vital Signs Vital Signs: Vital Signs - 24 hr 11/06/23 19:00 11/06/23 20:10 11/07/23 06:00 Temperature 98.8 F 97.5 F L Pulse Rate 74 74 73 Respiratory Rate 18 18 18 Blood Pressure 133/81 132/80 Pulse Oximetry 97 97 100 Oxygen Delivery Room Air Intake/Output Intake/Output: Intake & Output 11/04/23 11/05/23 11/06/23 11/07/23 23:59 23:59 23:59 23:59 Intake Total 4360 1000 Output Total 80 Balance 4280 1000 Meds/Results Medications: Active Medications Generic Name Dose Route Start Last Admin Trade Name Freq PRN Reason Stop Dose Admin Cyanocobalamin 1,000 mcg 11/06/23 09:00 11/07/23 08:07 Cyanocobalamin 1,000 Mcg Tablet PO 1,000 mcg DAILY SANDRITA Administration Dextrose 12.5 gm 11/07/23 08:00 Dextrose 50% 25 Gm/50 Ml Syringe IV PUSH PRN PRN Hypoglycemia Protocol Diphenhydramine HCl 25 mg 11/06/23 10:59 11/07/23 08:08 Diphenhydramine Hcl Inj 50 Mg/Ml Vial IV PUSH 25 mg Q6H PRN Administration Nausea Ergocalciferol 50,000 units 11/06/23 09:00 11/06/23 08:31 Ergocalciferol 50,000 Units Capsule PO 50,000 units Mo@0900 SANDRITA Administration Famotidine 20 mg
[2023-11-07 14:00] VITALS: BP 142/85; PULSE 63; RESP 16; TEMP 36.2; O2SAT 100
[2023-11-07 17:09] LABS: Glucose Point of Care 105 mg/dl (65-105)
[2023-11-07 20:35] VITALS: BP 154/76; PULSE 70; RESP 16; TEMP 36.2; O2SAT 100
[2023-11-07 23:09] LABS: Glucose Point of Care 124 mg/dl (65-105)
[2023-11-08] MEDS: LACTATED RINGERS 1,000 ML 125 ML IV CONT (01:15)
[2023-11-08] MEDS: diphenhydrAMINE HCl INJ 50 MG/ML VIAL 25 MG IV PUSH (01:19)
--- NOTE | 2023-11-08 02:23 | PC.NURSE ---
Fluids paused at this time per patient request. Patient states she is drinking and eating now and IV fluids keeping her awake going to the restroom frequently.
[2023-11-08 04:56] VITALS: BP 146/82; PULSE 63; RESP 16; TEMP 36.3; O2SAT 100
[2023-11-08 06:45] LABS: Basophils Absolute Auto 0.1 K/mm3 (0.0-0.1); Eosinophils Absolute Auto 0.3 K/mm3 (0-0.3); Eosinophils Percent Auto 4.3 % (0-4.4); Hematocrit 38.3 % (37.0-47.0); Hemoglobin 12.2 g/dL (12.0-15.0); Immature Granulocyte Absolute 0.01 K/mm3 (0.00-0.031); Immature Granulocyte Percent A 0.2 % (0-0.5); Lymphocytes Absolute Auto 2.26 K/mm3 (0.9-3.2); Lymphocytes Percent Auto 38.8 % (18.3-44.2); Mean Corpuscular HGB Conc 31.9 g/dl (32-36); Mean Corpuscular Hemoglobin 28.6 pg (26-34); Mean Corpuscular Volume 89.9 fl (80-100); Mean Platelet Volume 11.1 fl (7.4-10.4); Monocytes Absolute Auto 0.7 K/mm3 (0.1-0.6); Monocytes Percent Auto 11.7 % (2.6-8.5); Neutrophils Absolute Auto 2.6 K/mm3 (1.3-6.7); Platelet Count Result 240 k/mm3 (150-375); Red Blood Count 4.26 M/mm3 (4.2-5.4); Red Cell Distribution Width 14.7 % (11.5-14.5); White Blood Count 5.8 K/mm3 (4.5-10.0)
[2023-11-08 07:00] LABS: Alanine Aminotransferase 19 U/L (6-35); Albumin Level 3.6 g/dL (3.5-5.1); Alkaline Phosphatase 75 U/L (38-126); Anion Gap 1 mmol/L (8-16); Aspartate Amino Transferase 27 U/L (14-36); Bilirubin,Total 0.7 mg/dL (0.2-1.3); Carbon Dioxide 35 mmol/L (22-30); Chloride 101 mmol/L (98-107); Estimated CRCL calculation 116 ml/min; Estimated Glomerular Filt Rate > 60; Glucose 107 mg/dL (65-110); Potassium 3.9 mmol/L (3.4-5.0); Sodium 137 mmol/L (137-145)
[2023-11-08 07:16] LABS: Blood Urea Nitrogen < 2 mg/dL (7-17)
[2023-11-08 08:06] LABS: Glucose Point of Care 82 mg/dl (65-105)
[2023-11-08] MEDS: FLUoxetine HCL 20 MG CAPSULE PO (09:02)
[2023-11-08] MEDS: CYANOCOBALAMIN 1,000 MCG TABLET 1000 MCG PO (09:02)
--- NOTE | 2023-11-08 10:38 | PM.DS ---
DS: Admitting Diagnosis Discharge Date 11/08/23 Admitting Diagnosis Nausea and vomiting DS: Discharge Diagnosis Discharge Diagnosis (1) Intractable cyclical vomiting with nausea: Code(s): R11.15 - Cyclical vomiting syndrome unrelated to migraine Status: Acute (2) Gastroparesis: Code(s): K31.84 - Gastroparesis Status: Acute (3) Type 1 diabetes mellitus: Code(s): E10.9 - Type 1 diabetes mellitus without complications Status: Acute (4) Cyclic vomiting syndrome: Code(s): R11.15 - Cyclical vomiting syndrome unrelated to migraine Status: Acute (5) Dehydration: Code(s): E86.0 - Dehydration Status: Acute (6) Hypokalemia: Code(s): E87.6 - Hypokalemia Status: Acute (7) Marijuana smoker: Code(s): F12.90 - Cannabis use, unspecified, uncomplicated Status: Acute DS: Summary Hospital Course Reason for hospitalization: 22yo female with diabetes here for nausea and vomiting. Plesae see H&P for detials. Hospital Course: Patient was recently discharged on 11/03/2023 for similar symptoms. Labs showing mild hyponatremia felt related to dehydration and normalized. Also with mild anemia that improved. Potassium low as well and this was replaced. LFT and lipase normal. UA with 3+ ketones and a few WBC with negative nitrate and leukocyte esterase. UDS positive for opiates and cannabinoids at recent ED visit but had just been released from the hospital. Influenza, COVID and RSV PCR negative. No imaging. She was started on IV fluids. Antiemetic were ordered. GI was consulted last admission and her previous gastric emptying scan showed gastric retention with residual of 67%, 50% and 27% at 1, 2 and 4 hour point. She had improvement. Able to start clear liquids. Diet advanced and patietn able to tolerate oral intake. She has type 1 diabetes along with gastroparesis; she is on insulin pump which she continue to use here. She follows with GI as an outpatient. She did well. She is requesting discharge. She overall did well and was able to be discharged home on 11/08/23 Status at Discharge Cognitive/behavioral status at discharge: stable Time Spent with Patient Time attestation: Total time spent providing and/or coordinating discharge services: 32 minutes Time spent: Greater than 30 minutes Exam Narrative: AF 97.4 146/82 63 16 100% ra Gen - NARD Chest - CTA bilaterally, nml RR CV - RRR S1/S2 Abd - Soft, NT/ND, Positive BS Ext - No pedal edema Psych - Nml mood and affect Skin - Warm and dry. No open areas on her feet. DS: Data Data Completed and Pending Labs on day of discharge: Labs from last 24 hours 11/08/23 11/08/23 11/07/23 07:32 06:36 23:05 WBC 5.8 RBC 4.26 Hgb 12.2 Hct 38.3 MCV 89.9 MCH 28.6 MCHC 31.9 L RDW 14.7 H Plt Count 240 MPV 11.1 H Immature Gran % (Auto) 0.2 Neut % (Auto) 44.0 L Lymph % (Auto) 38.8 [place] % (Auto) 11.7 H Eos % (Auto) 4.3 Baso % (Auto) 1.0 Lymph # (Auto) 2.26 [place] # (Auto) 0.7 H Eos # (Auto) 0.3 Baso # (Auto) 0.1 Abs Immat Gran (auto) 0.01 Absolute Neuts (auto) 2.6 Absolute Nucleated RBC 0.0 Nucleated RBC % 0.0 Sodium 137 Potassium 3.9 Chloride 101 Carbon Dioxide 35 H Anion Gap 1 L BUN < 2 L Creatinine 0.60 L Estim Creat Clear Calc 116 Estimated GFR > 60 Glucose 107 POC Capillary Glucose 82 124 H Calcium 9.0 Magnesium 2.0 Total Bilirubin 0.7 AST 27 ALT 19 Alkaline Phosphatase 75 Total Protein 6.0 L Albumin 3.6 11/07/23 11/07/23 16:32 11:38 WBC RBC Hgb Hct MCV MCH MCHC RDW Plt Count MPV Immature Gran % (Auto) Neut % (Auto) Lymph % (Auto) [place] % (Auto) Eos % (Auto) Baso % (Auto) Lymph # (Auto) [place] # (Auto) Eos # (Auto) Baso # (Auto) Abs Immat Gran (auto) Absolute Neuts (auto)
[2023-11-08 11:41] LABS: Glucose Point of Care 168 mg/dl (65-105)
== END 2023-11-08 12:00 | disposition home or self-care (01) ==
LOC: ANHED 11-06 02:31 → ANHICU 11-06 06:05 → ANH3MEDSUR 11-08 10:42 → ANHICU 11-09 08:53
PROVIDERS: Internal Medicine; Admitting Provider Internal Medicine Infectious Disease; Emergency Provider Emergency Medicine; PCP Emergency Medicine; Visit Provider Internal Medicine
DX: R11.15 Cyclical vomiting syndrome unrelated to migraine (principal); E10.43 Type 1 diabetes mellitus with diabetic autonomic (poly)neuropathy; K31.84 Gastroparesis; Z96.41 Presence of insulin pump (external) (internal); E86.0 Dehydration; E87.6 Hypokalemia; D64.9 Anemia, unspecified; Z20.822 Contact with and (suspected) exposure to COVID-19; F32.A Depression, unspecified; F17.290 Nicotine dependence, other tobacco product, uncomplicated; F10.90 Alcohol use, unspecified, uncomplicated; F12.90 Cannabis use, unspecified, uncomplicated; Z79.4 Long term (current) use of insulin; Z79.899 Other long term (current) drug therapy; Z83.3 Family history of diabetes mellitus
CPT/HCPCS: 36415; 80053; 82550; 82948; 83690; 83735; 85025; 87637; 96361; 96365; 96366; 96372; 96374; 96375; 96376; 99285; A9270; G0378; G0379; J0780; J1200; J1630; J2270; J2405; J2550; J2765; J3480; J7030; J7040; J7120

== ENCOUNTER 2025-03-05 11:24 | Emergency (ER) | payer OTHER, SELFPAY ==
[2025-03-05] VITALS (11 sets, daily range): BP systolic 114–135; BP diastolic 72–85; PULSE 74–85; RESP 12–23; TEMP 36.4; O2SAT 99–100
--- NOTE | ~2025-03-05 | XR_ITS ---
XR chest 1V portable Ordering provider: Zaynab Martinez MD History: 24 years Female with . resp alkaliosis . Comparison: November 02, 2023 FINDINGS: MEDIASTINUM: The cardiac silhouette is not enlarged. LUNGS: No infiltrates, effusions or pneumothorax. OTHER: No free air under the diaphragm. Healing fracture is seen in the left seventh rib. IMPRESSION: No acute cardiopulmonary pathology. Reviewed, dictated and finalized at location A.
[2025-03-05 11:54] LABS: BEDSIDEPREGUCG Negative (Negative)
[2025-03-05 11:58] LABS: Glucose Point of Care 321 mg/dl (65-105)
[2025-03-05] MEDS: SODIUM CHLORIDE 0.9% IV 1,000 ML 999 ML IV CONT ×2 (12:03)
--- NOTE | 2025-03-05 12:04 | ED.NAVMDI ---
HPI - Nausea/Vomiting/Diarrhea General Chief complaint: Nausea/Vomiting/Diarrhea Stated complaint: Abdominal pain with N/V since this am Time Seen by Provider: 03/05/25 12:02 Source: patient Mode of arrival: ambulatory Limitations: no limitations History of Present Illness HPI Narrative: Patient presents with generalized abdominal pain as well as nausea and vomiting starting this morning. She has type 1 diabetes mellitus on insulin therapy. She takes Lantus as her long-acting 25 units each morning and she did take this this morning. She is on the list pro as her short-acting intake 7 units (1 unit per 7 g carb) and she also took this this morning given her blood sugars have been elevated. She believes her blood sugars have been elevated the be the past several days. Her last menstrual period was 02/24/2025. No fevers but she has been having chills. History of DKA. Last bowel movement was this morning and she reports that being regular without bleeding, diarrhea, or constipation. No prior abdominal surgeries. She does use marijuana nearly daily. Rates her pain 6/10 severity. Related Data Home Medications ?Medication ?Instructions ?Recorded ?Confirmed ?Last Taken ?Type cyanocobalamin (vitamin B-12) 1,000 mcg PO DAILY 01/26/23 11/24/23 05/13/23 History 1,000 mcg tablet ergocalciferol (vitamin D2) 1,250 See Rx Instructions .Route .COMPLEX 01/26/23 11/24/23 10/30/23 History mcg (50,000 unit) capsule fluoxetine 20 mg capsule 20 mg PO DAILY 01/26/23 11/24/23 10/29/23 History insulin glargine 100 unit/mL (3 See Rx Instructions .Route .COMPLEX 01/27/23 11/24/23 03/12/23 History mL) subcutaneous pen (Basaglar KwikPen U-100 Insulin) insulin lispro 100 unit/mL See Rx Instructions .Route .COMPLEX 11/06/23 11/24/23 Unknown History subcutaneous solution Allergies Allergy/AdvReac Type Severity Reaction Status Date / Time Penicillins Allergy Itching Verified 11/23/23 14:11 [facility] Past Medical History Medical History Gastroparesis Type 1 diabetes mellitus Cyclic vomiting syndrome Depression Surgical History Surgical History No pertinent past surgical history Family History Family History Father Family history of diabetes mellitus in first degree relative Pulmonary embolism Mother Family history of diabetes mellitus in first degree relative Grandparent Crohn disease Celiac disease Social History Social History Social History: Surrogate medical decision maker: Iliana Villeda, mother. Code status: Full code. Years smoked: 4 Smoking status: Current every day smoker Tobacco type: e-cigarettes/vaping Second hand tobacco smoke exposure: No Alcohol intake: never Drinks per week: 1 Substance use: current Substance use type: marijuana Other substance usage details: Daily/near daily Do You Feel Safe in your Home?: Yes Lack of Transportation: No Lack of Food: Never True Current Housing: I Have Housing Concerned About Future Housing: No Difficulty Paying Gas/Electric Bills: No Difficulty Paying for Meds: YES Currently Unemployed: No Education: High School Diploma/GED Difficulty w/ Childcare or Family Care: No Living arrangements: with family Occupation/Education: occupation 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 Spiritual care concerns: No Exam Narrative: GENERAL: Acutely ill-appearing, well-nourished, in mild acute distress. HEAD: Normocephalic, atraumatic. EYES: Non injected, non icteric ENT: Nares clear, no rhinorrhea or epistaxis. Gross auditory acuity intact. Tacky mucous membranes NECK: Supple. No meningismus. CHEST: Speaking in full sentences. No respiratory distress. HEART: Regular rate and rhythm. . ABDOMEN: Generalized discomfort but Soft, nondistended. No tenderness to palpation throughout. No rigidity or guarding. Not peritoneal. EXTREMITIES: Normal range of motion. No lower extremity edema. SKIN: Warm, dry, no rash. NEURO: No focal deficits. Alert and oriented. Answering questions. Following commands. Normal speech without aphasia or dysarthria. PSYCH: Normal mood and affect. Course Vital Signs Vital signs: Vital Signs Pulse Rate 85 03/05/25 11:54 Respiratory Rate 12 03/05/25 11:54 Pulse Oximetry 100 03/05/25 11:54 Temperature 97.6 F 03/05/25 12:15 Pulse Rate 80 03/05/25 15:00 Respiratory Rate 16 03/05/25 15:00 Blood Pressure 116/72 03/05/25 15:00 Pulse Oximetry 99 03/05/25 15:00 MDM - Nausea/Vomiting/Diarrhea MDM Narrative Medical decision making narrative: This is a 24-year-old female with type 1 diabetes mellitus who presents with generalized abdominal pain as well as nausea and vomiting starting this morning. In the emergency department she is afebrile with vital signs notable for mild tachypnea. Point of care glucose greater than 300. 2 L IV fluid with ondansetron initially ordered. Morphine added. Abdominal exam otherwise benign and will defer imaging at this time. test negative. Urinalysis with concern for urinary tract infection. There also 2+ ketones. Previous to 3 urine cultures are reviewed which showed no growth today. Will give ceftriaxone. Beta hydroxybutyrate slightly elevated. Hyperglycemia with an anion gap but no marie acidosis on chemistry. Mild hypokalemia. Oral repletion ordered initially. She also has a leukocytosis. Magnesium normal. Not frankly acidotic on gas either. I suspect a degree of hyperventilation as the etiology. Hypophosphatemia. Repletion as part of PhosNaK. Lipase normal. Patient reassessed about 1:15 p.m.. She reports she is still feeling nauseated and has been vomiting. She believes this might be more related to her cyclic vomiting. Given her daily marijuana usage, will trial Haldol diphenhydramine. Reassessed at approximately 3:10 p.m. she states she is feeling better. She has a ride able to provide transportation. Stable for discharge. Provided prescription for Zofran. Urged rest and hydration and continuing taking her medications. Was given a dose of famotidine before discharge. Differential Diagnosis Differential diagnosis: Likely food poisoning, gastroenteritis, drug-induced nausea and vomiting, dehydration and other (DKA/HHS/hyperglycemia, gastroparesis, cannabinoid hyperemesis syndrome, gastritis, GERD, ulcer disease; pancreatitis; biliary pathology) Lab Data Attestation: I reviewed the patient's lab results. 03/05/25 11:53 03/05/25 11:53 Labs: Lab Results 03/05/25 03/05/25 03/05/25 Range/Units 11:44 11:52 11:53 WBC 14.6 H (4.5-10.0) K/mm3 RBC 4.57 (4.2-5.4) M/mm3 Hgb 13.8 (12.0-15.0) g/dL Hct 41.4 (37.0-47.0) % MCV 90.6 (80-100) fl MCH 30.2 (26-34) pg MCHC 33.3 (32-36) g/dl RDW 14.1 (11.5-14.5) % Plt Count 346 (150-375) k/mm3 MPV 10.9 H (7.4-10.4) fl Immature Gran % (Auto) 0.3 (0-0.5) % Neut % (Auto) 92.2 H (45.5-73.1) % Lymph % (Auto) 4.2 L (18.3-44.2) % [place] % (Auto) 3.1 (2.6-8.5) % Eos % (Auto) 0.0 (0-4.4) % Baso % (Auto) 0.2 (0.2-1.2) % Lymph # (Auto) 0.62 L (0.9-3.2) K/mm3 [place] # (Auto) 0.5 (0.1-0.6) K/mm3 Eos # (Auto) 0.0 (0-0.3) K/mm3 Baso # (Auto) 0.0 (0.0-0.1) K/mm3 Abs Immat Gran (auto) 0.05 H (0.00-0.031) K/mm3 Absolute Neuts (auto) 13.4 H (1.3-6.7) K/mm3 Absolute Nucleated RBC 0.000 (0.0-0.012) K/mm3 Nucleated RBC % 0.0 (0.0-0.2) % Methemoglobin (0-1.5) %THb Sodium 139 (137-145) mmol/L Potassium 3.3 L (3.4-5.0) mmol/L Chloride 101 (98-107) mmol/L Carbon Dioxide 22 (22-30) mmol/L Anion Gap 16 H (4-12) mmol/L BUN 9 D (7-17) mg/dL Creatinine 0.54 L (0.7-1.0) mg/dL Estim Creat Clear Calc 125 ml/min Estimated GFR > 60 (59 - ) Glucose 306 H (65-110) mg/dL POC Capillary Glucose 321 H (65-105) mg/dl Calcium 10.0 (8.4-10.2) mg/dL Phosphorus 1.0 L (2.5-4.5) mg/dL Magnesium 1.9 (1.6-2.3) mg/dL Total Bilirubin 1.0 (0.2-1.3) mg/dL AST 30 (14-36) U/L ALT 32 (6-35) U/L Alkaline Phosphatase 95 (38-126) U/L Total Protein 8.3 H (6.3-8.2) g/dL Albumin 4.8 (3.5-5.1) g/dL Lipase 75 (23-300) U/L Beta-Hydroxybutyrate/Acetoacetate 0.79 H (0.02-0.27) mmol/L Urine Color Yellow (Yellow) Urine Appearance Cloudy H (Clear) Urine pH >=9.0 H (5.0-9.0) Ur Specific [place] 1.031 (1.001-1.035) Urine Protein 1+ H (Negative) mg/dL Urine Glucose (UA) 2+ H (Negative) mg/dL Urine Ketones 2+ H (Negative) mg/dL Ur Blood (Man) Non-hemolyzed trace H (Negative) Urine Nitrate Negative (Negative) Urine Bilirubin Negative (Negative) Urine Urobilinogen 0.2 (<2.0) mg/dL Leukocyte Esterase Rfl 2+ H (Negative) BRYANNA/UL Urine RBC 6-10 H (0-2) /hpf Urine WBC >100 H (0-3) /hpf Ur Squamous Epith Cells None seen (Few) /hpf Urine Bacteria 3+ H /hpf Urine Casts 0-2 POC Urine HCG, Qual Negative (Negative) 03/05/ Range/Units 12:09 WBC (4.5-10.0) K/mm3 RBC (4.2-5.4) M/mm3 Hgb (12.0-15.0) g/dL Hct (37.0-47.0) % MCV (80-100) fl MCH (26-34) pg MCHC (32-36) g/dl RDW (11.5-14.5) % Plt Count (150-375) k/mm3 MPV (7.4-10.4) fl Immature Gran % (Auto) (0-0.5) % Neut % (Auto) (45.5-73.1) % Lymph % (Auto) (18.3-44.2) % [place] % (Auto) (2.6-8.5) % Eos % (Auto) (0-4.4) % Baso % (Auto) (0.2-1.2) % Lymph # (Auto) (0.9-3.2) K/mm3 [place] # (Auto) (0.1-0.6) K/mm3 Eos # (Auto) (0-0.3) K/mm3 Baso # (Auto) (0.0-0.1) K/mm3 Abs Immat Gran (auto) (0.00-0.031) K/mm3 Absolute Neuts (auto) (1.3-6.7) K/mm3 Absolute Nucleated RBC (0.0-0.012) K/mm3 Nucleated RBC % (0.0-0.2) % Methemoglobin 0.3 (0-1.5) %THb Sodium (137-145) mmol/L Potassium (3.4-5.0) mmol/L Chloride (98-107) mmol/L Carbon Dioxide (22-30) mmol/L Anion Gap (4-12) mmol/L BUN (7-17) mg/dL Creatinine (0.7-1.0) mg/dL Estim Creat Clear Calc ml/min Estimated GFR (59 - ) Glucose (65-110) mg/dL POC Capillary Glucose (65-105) mg/dl Calcium (8.4-10.2) mg/dL Phosphorus (2.5-4.5) mg/dL Magnesium (1.6-2.3) mg/dL Total Bilirubin (0.2-1.3) mg/dL AST (14-36) U/L ALT (6-35) U/L Alkaline Phosphatase (38-126) U/L Total Protein (6.3-8.2) g/dL Albumin (3.5-5.1) g/dL Lipase (23-300) U/L Beta-Hydroxybutyrate/Acetoacetate (0.02-0.27) mmol/L Urine Color (Yellow) Urine Appearance (Clear) Urine pH (5.0-9.0) Ur Specific [place] (1.001-1.035) Urine Protein (Negative) mg/dL Urine Glucose (UA) (Negative) mg/dL Urine Ketones (Negative) mg/dL Ur Blood (Man) (Negative) Urine Nitrate (Negative) Urine Bilirubin (Negative) Urine Urobilinogen (<2.0) mg/dL Leukocyte Esterase Rfl (Negative) BRYANNA/UL Urine RBC (0-2) /hpf Urine WBC (0-3) /hpf Ur Squamous Epith Cells (Few) /hpf Urine Bacteria /hpf Urine Casts POC Urine HCG, Qual (Negative) ABG Data ABG results: 03/05/25 12:09 Puncture Site Left radial ABG pH 7.699 H* ABG pCO2 17.5 L* ABG pO2 146.8 H ABG PO2/FiO2 Ratio 6.99 ABG HCO3 21.1 L ABG O2 Saturation 99.4 ABG O2 Content 18.5 ABG Base Excess 3.5 A-a Gradient < 0.0 Oxyhemoglobin 98.4 Carboxyhemoglobin 0.3 Reduced Hemoglobin 1.0 Total Hemoglobin 13.2 O2 Delivery Device Room air O2 Liters/Min Not Reportable FiO2 21 Imaging Data Radiologist's impression: Impressions Chest X-Ray 03/05/25 12:54 IMPRESSION: No acute cardiopulmonary pathology. Discharge Plan Discharge Clinical Impression: UTI (urinary tract infection), Hypokalemia, Hypophosphatemia, Acute respiratory alkalosis, Abdominal pain, Nausea & vomiting, Marijuana use Patient Disposition: Home Condition: Stable Instructions: Antibiotic Form, Urinary Tract Infection in Women (DC), Hypokalemia (ED), Acute Nausea and Vomiting (ED), Cannabis Use Disorder (ED), Abdominal Pain (ED), Hypophosphatemia (ED) Additional Instructions: Resting maintain your hydration. You can use the oral disintegrating tablets of Zofran/ondansetron you have recurrence of your nausea/vomiting. I encourage you to read about cannabinoid hyperemesis syndrome and trial stopping using marijuana to see if that helps. Follow-up with primary care physician. Continue taking your medications as prescribed. Return to the emergency department any new, worsening, or unmanaged symptoms. Patient Language: Togolese Prescriptions: New ondansetron 4 mg tablet,disintegrating 4 mg PO Q8H PRN (Reason: nausea and vomiting) Qty: 7 0RF No Action ondansetron 4 mg tablet,disintegrating 4 mg PO Q6H PRN (Reason: nausea and vomiting) Qty: 20 0RF metoclopramide HCl [Reglan] 10 mg tablet 10 mg PO DAILY Qty: 30 1RF cyanocobalamin (vitamin B-12) 1,000 mcg tablet 1,000 mcg PO DAILY ergocalciferol (vitamin D2) 1,250 mcg (50,000 unit) capsule See Rx Instructions .ROUTE .COMPLEX Rx Instructions: Patient takes this on fluoxetine 20 mg capsule 20 mg PO DAILY insulin glargine [Basaglar KwikPen U-100 Insulin] 100 unit/mL (3 mL) Insulin Pen See Rx Instructions .ROUTE .COMPLEX Rx Instructions: 22 units subq NEEDED if insulin pump is no longer working lorazepam [Ativan] 0.5 mg tablet 0.5 mg PO BID PRN (Reason: nausea and vomiting) Qty: 10 0RF insulin lispro 100 unit/mL solution See Rx Instructions .ROUTE .COMPLEX Rx Instructions: See Taper subcutaneously ;basal .85u/hr 6am to 3 am, .9 u/hr 0300 to 0600 Follow-up/Referrals: Sophie,Cyn Bain MD [Primary Care Provider] - Stand Alone Forms: Work/School Release IP Time of Disposition: 15:14
[2025-03-05 12:05] LABS: Basophils Percent Auto 0.2 % (0.2-1.2); Hematocrit 41.4 % (37.0-47.0); Hemoglobin 13.8 g/dL (12.0-15.0); Immature Granulocyte Absolute 0.05 K/mm3 (0.00-0.031); Immature Granulocyte Percent A 0.3 % (0-0.5); Lymphocytes Absolute Auto 0.62 K/mm3 (0.9-3.2); Lymphocytes Percent Auto 4.2 % (18.3-44.2); Mean Corpuscular HGB Conc 33.3 g/dl (32-36); Mean Corpuscular Hemoglobin 30.2 pg (26-34); Mean Corpuscular Volume 90.6 fl (80-100); Mean Platelet Volume 10.9 fl (7.4-10.4); Monocytes Absolute Auto 0.5 K/mm3 (0.1-0.6); Monocytes Percent Auto 3.1 % (2.6-8.5); Neutrophils Absolute Auto 13.4 K/mm3 (1.3-6.7); Neutrophils Percent Auto 92.2 % (45.5-73.1); Platelet Count Result 346 k/mm3 (150-375); Red Blood Count 4.57 M/mm3 (4.2-5.4); Red Cell Distribution Width 14.1 % (11.5-14.5); White Blood Count 14.6 K/mm3 (4.5-10.0)
[2025-03-05] MEDS: ONDANSETRON INJ 4 MG/2 ML VIAL IV PUSH (12:07)
[2025-03-05 12:09] LABS: Add Urine Microscopic? YES; Appearance Urine Cloudy (Clear); Bacteria Urine 3+ /hpf; Bilirubin Urine Negative (Negative); Blood Urine Non-Hemolyzed Trace (Negative); Color Urine Yellow (Yellow); Glucose Urine UA 2+ mg/dL (Negative); Ketones Urine 2+ mg/dL (Negative); Leukocyte Esterase Ur 2+ LEU/UL (Negative); Nitrate Urine Negative (Negative); Non Pathogenic Casts 0-2; Protein Urine 1+ mg/dL (Negative); Specific Grav Ur 1.031 (1.001-1.035); Squamous Epithelial Cell Urine None Seen /hpf (Few); Urobilinogen Urine 0.2 mg/dL (<2.0); WBC Urine >100 /hpf (0-3); pH Urine >=9.0 (5.0-9.0)
[2025-03-05 12:21] LABS: Alveolar/Arterial O2 Gradient < 0.0 mmHg; Base Excess ABG 3.5 mEq/l (+/-2.0); Carboxyhemoglobin 0.3 % THb (0-2.0); Fractional Inspired Oxygen 21 %; HCO3 ABG 21.1 mEq/l (22.0-26.0); Methemoglobin ABG 0.3 %THb (0-1.5); Oxygen Content ABG 18.5 %vol (16.0-22.0); Oxygen Saturation ABG 99.4 % (95.0-100.0); Oxyhemoglobin 98.4 % THb (90.0-100.0); PO2 ABG 146.8 mmHg (80.0-100.0); PO2 FiO2 Ratio Arterial Blood 6.99 %; Total Hemoglobin 13.2 g/dL (12.0-18.0)
[2025-03-05 12:24] LABS: pH ABG 7.699 (7.350-7.450)
[2025-03-05 12:24] LABS: Beta-Hydroxybutyrate/Acetoacetate 0.79 mmol/L (0.02-0.27)
[2025-03-05 12:25] LABS: Device ROOM AIR; Modified Allen's Test Pass; PCO2 ABG 17.5 mmHg (35.0-45.0); Site Drawn LEFT RADIAL
[2025-03-05 12:25] LABS: Alanine Aminotransferase 32 U/L (6-35); Albumin Level 4.8 g/dL (3.5-5.1); Alkaline Phosphatase 95 U/L (38-126); Anion Gap 16 mmol/L (4-12); Aspartate Amino Transferase 30 U/L (14-36); Blood Urea Nitrogen 9 mg/dL (7-17); Carbon Dioxide 22 mmol/L (22-30); Chloride 101 mmol/L (98-107); Estimated CRCL calculation 125 ml/min; Estimated Glomerular Filt Rate > 60; Glucose 306 mg/dL (65-110); Magnesium 1.9 mg/dL (1.6-2.3); Potassium 3.3 mmol/L (3.4-5.0); Sodium 139 mmol/L (137-145); Total Protein 8.3 g/dL (6.3-8.2)
[2025-03-05 12:34] LABS: Lipase 75 U/L (23-300)
[2025-03-05] MEDS: MORPHINE SULFATE (*CRX) 2 MG/ML INJ IV PUSH (12:51)
[2025-03-05] MEDS: diphenhydrAMINE HCl INJ 50 MG/ML VIAL 25 MG IV PUSH (14:08)
[2025-03-05] MEDS: HALOPERIDOL LACTATE 5 MG/ML VIAL 2.5 MG IV PUSH (14:08)
[2025-03-05] MEDS: FAMOTIDINE 20 MG/2 ML VIAL IV PUSH (15:34)
== END 2025-03-05 16:59 | disposition home or self-care (01) ==
PROVIDERS: Emergency Medicine; Physician Assistant; Emergency Provider Student in an Organized Health Care Education/Training Program; PCP Emergency Medicine
DX: N39.0 Urinary tract infection, site not specified (principal); E87.6 Hypokalemia; E83.39 Other disorders of phosphorus metabolism; E87.3 Alkalosis; F12.90 Cannabis use, unspecified, uncomplicated; E10.9 Type 1 diabetes mellitus without complications; Z79.4 Long term (current) use of insulin; F32.A Depression, unspecified; F17.290 Nicotine dependence, other tobacco product, uncomplicated
CPT/HCPCS: 36415; 36600; 71045; 80053; 81001; 81025; 82010; 82375; 82805; 82948; 83050; 83690; 83735; 84100; 85018; 85025; 87077; 87086; 87186; 96365; 96375; 99284; J0696; J1200; J1630; J2270; J2405; J7030

== ENCOUNTER 2025-03-06 01:50 | Inpatient (IN) | payer OTHER, SELFPAY ==
[2025-03-06] VITALS (11 sets, daily range): BP systolic 96–150; BP diastolic 57–97; PULSE 74–93; RESP 16–20; TEMP 36.3–36.9; O2SAT 94–100; BMI 24.5
--- NOTE | ~2025-03-06 | CT_ITS ---
CLINICAL INDICATION: 24-year-old woman with type 1 diabetes and gastroparesis presents with persisten t nausea and vomiting. COMPARISON: 11/01/2023 TECHNIQUE: Multiple contiguous axial images of the abdomen and pelvis were performed following the ad ministration of with 100 mL Omnipaque-350 intravenous contrast The dose-length product (DLP) was 280.27 mGy-cm. Automated exposure control and iterative reconstruction technique were employed. FINDINGS/OBSERVATIONS: Visualized lower thorax: The bilateral lung bases are clear. The heart is of normal size, without pericardial effusion. Small hiatal hernia is present. Liver: The liver demonstrates homogeneous enhancement and is enlarged measuring 21 cm in longitudinal dimens ion. Gallbladder and biliary system: The gallbladder is only minimally distended, and otherwise unremarkable. Pancreas: The pancreas is atrophic, but otherwise enhances homogeneously without ductal dilatation. Spleen: The spleen enhances homogeneously and is not enlarged measuring 8 cm in longitudinal dimension. Kidneys: The bilateral kidneys enhance symmetrically without hydronephrosis or renal calculi. Adrenal glands: Unremarkable. Gastrointestinal tract: Significant distention of the stomach, with fluid and a small amount of air. No mural thickening or significant surrounding inflammatory change. Trace mural thickening within the rectum. Appendix: The air-filled appendix is of normal caliber (axial series, images 123 through 137) Vasculature: Unremarkable. Lymph nodes: No pathologically enlarged or morphologically suspicious lymph nodes within the retroperitoneum or at the root of the mesentery. Pelvic structures: The bladder is distended, with mural thickening and surrounding inflammatory change for which cystiti s is suspected. The uterus is anteverted and anteflexed. Free fluid is identified within the lower abdomen, extending into the pelvis. Free fluid is also identified within the rectouterine pouch. Body wall and musculoskeletal: No significant degenerative disease within the lower thoracic or lumbosacral spine. IMPRESSION: Gastric distention without mural thickening or surrounding inflammatory change, consistent with patie nt's history. Mural thickening within the bladder with surrounding inflammatory change for which cystitis affected. Free fluid within the lower abdomen extending into the pelvis more than normally expected for physiol ogic free fluid, possibly reactive to the bladder infection. Reviewed, dictated and finalized at location A. IMPRESSION: Gastric distention without mural thickening or surrounding inflammatory change, consistent with patient's history. Mural thickening within the bladder with surrounding inflammatory change for wh ich cystitis affected. Free fluid within the lower abdomen extending into the pelvis more than normall y expected for physiologic free fluid, possibly reactive to the bladder infecti on.
--- NOTE | 2025-03-06 02:04 | ED.GENADULT ---
HPI - General Adult General Chief complaint: Nausea/Vomiting/Diarrhea Stated complaint: vomiting Time Seen by Provider: 03/06/25 01:52 History of Present Illness HPI narrative: 24-year-old female history of type 1 diabetes presents to the emergency department for evaluation for persistent nausea and vomiting. Patient was evaluated in emergency department yesterday and was found to not be in DKA. Patient did improve with rehydration. Patient does have Reglan at home that she has been taking, patient was prescribed additional Zofran but patient has not had a chance to fill this medication. Patient returns to the emergency department with the evening complaining of worsening nausea and vomiting. Patient does admit to daily THC use. Related Data Home Medications ?Medication ?Instructions ?Recorded ?Confirmed ?Last Taken ?Type cyanocobalamin (vitamin B-12) 1,000 mcg PO DAILY 01/26/23 11/24/23 05/13/23 History 1,000 mcg tablet ergocalciferol (vitamin D2) 1,250 See Rx Instructions .Route .COMPLEX 01/26/23 11/24/23 10/30/23 History mcg (50,000 unit) capsule fluoxetine 20 mg capsule 20 mg PO DAILY 01/26/23 11/24/23 10/29/23 History insulin glargine 100 unit/mL (3 See Rx Instructions .Route .COMPLEX 01/27/23 11/24/23 03/12/23 History mL) subcutaneous pen (Basaglar KwikPen U-100 Insulin) insulin lispro 100 unit/mL See Rx Instructions .Route .COMPLEX 11/06/23 11/24/23 Unknown History subcutaneous solution Allergies Allergy/AdvReac Type Severity Reaction Status Date / Time Penicillins Allergy Itching Verified 03/06/25 02:03 Review of Systems Review of Systems: All systems reviewed & are unremarkable except as noted in HPI and below PMFSH Past Medical History Medical History Gastroparesis Type 1 diabetes mellitus Cyclic vomiting syndrome Depression Surgical History Surgical History No pertinent past surgical history Family History Family History Father Family history of diabetes mellitus in first degree relative Pulmonary embolism Mother Family history of diabetes mellitus in first degree relative Grandparent Crohn disease Celiac disease Social History Social History Social History: Surrogate medical decision maker: Iliana Villeda, mother. Code status: Full code. Years smoked: 4 Smoking status: Current every day smoker Tobacco type: e-cigarettes/vaping Second hand tobacco smoke exposure: No Alcohol intake: never Drinks per week: 1 Substance use: current Substance use type: marijuana Other substance usage details: Daily/near daily Do You Feel Safe in your Home?: Yes Lack of Transportation: No Lack of Food: Never True Current Housing: I Have Housing Concerned About Future Housing: No Difficulty Paying Gas/Electric Bills: No Difficulty Paying for Meds: YES Currently Unemployed: No Education: High School Diploma/GED Difficulty w/ Childcare or Family Care: No Living arrangements: with family Occupation/Education: occupation 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 Spiritual care concerns: No Exam Narrative: APPEARANCE: Ill-appearing HEAD: normocephalic, atraumatic. EYES: PERRLA/EOMI, conjunctivae clear. NOSE: Normal no drainage EARS:TMS clear with good light reflex. THROAT: Pharynx clear, no exudate. NECK: Supple. No adenopathy, no masses. RESPIRATORY: Airway patent, respirations nonlabored. Clear to auscultation bilaterally, no rales, rhonchi, wheezing. CARDIOVASCULAR: Regular rate and rhythm without murmurs rubs or gallops. ABDOMINAL: Soft, nontender, nondistended, normal bowel sounds MUSCULOSKELETAL: Moves all extremities. Strength/ROM intact, No edema, No calf tenderness. NEURO: Alert. Cranial nerves II through XII intact. Grossly intact SKIN: Warm, dry. Normal Color Course Vital Signs Vital signs: Vital Signs Pulse Rate 83 03/06/25 01:58 Respiratory Rate 16 03/06/25 01:58 Blood Pressure 150/97 H 03/06/25 01:58 Pulse Oximetry 100 03/06/25 01:58 Oxygen Delivery Room Air 03/06/25 01:58 Temperature 98.1 F 03/06/25 02:24 Pulse Rate 84 03/06/25 04:02 Respiratory Rate 16 03/06/25 04:02 Blood Pressure 96/57 L 03/06/25 04:02 Pulse Oximetry 100 03/06/25 04:02 Oxygen Delivery Room Air 03/06/25 02:24 Medical Decision Making MDM Narrative Medical decision making narrative: 24-year-old female presents emergency department for evaluation for worsening nausea and vomiting. Patient was treated with Haldol IM along with 2 L of lactated Ringer's and 20 mEq IV potassium. Patient was also treated with 6 units IV insulin. Patient's initial beta hydroxybutyrate was 2.85 this did improve to 1.82. Patient did have a gap of 14 that was not changed with insulin or rehydration. Patient's blood sugar did improve from approximately 280s down to 180s. Discussed case with the install and repair technician and he was okay with plan to treat the patient with an additional 6 units of fast acting along with 25 units Lantus as her normal morning dose. Case was discussed with hospitalist patient was admitted to the IMU. Patient was updated results of the workup planned for admission. Initially the dose of Haldol did help to control her vomiting but she did have worsening nausea and was treated with additional antiemetics including Zofran and Benadryl. Patient states that she does not feel comfortable going home and does also agree with the plan for admission. Differential Diagnosis Differential Diagnosis: Cyclic nausea and vomiting, cannabinoid hyperemesis syndrome, DKA, hyperglycemia, dehydration Vital Signs Vital Signs: Vital Signs Pulse Rate 83 03/06/25 01:58 Respiratory Rate 16 03/06/25 01:58 Blood Pressure 150/97 H 03/06/25 01:58 Pulse Oximetry 100 03/06/25 01:58 Oxygen Delivery Room Air 03/06/25 01:58 Temperature 98.1 F 03/06/25 02:24 Pulse Rate 84 03/06/25 04:02 Respiratory Rate 16 03/06/25 04:02 Blood Pressure 96/57 L 03/06/25 04:02 Pulse Oximetry 100 03/06/25 04:02 Oxygen Delivery Room Air 03/06/25 02:24 Lab Data 03/06/25 02:15 03/06/25 05:18 Labs: Lab Results 03/06/25 03/06/25 03/06/25 Range/Units 02:15 03:52 05:10 WBC 17.1 H (4.5-10.0) K/mm3 RBC 4.10 L (4.2-5.4) M/mm3 Hgb 12.3 (12.0-15.0) g/dL Hct 37.4 (37.0-47.0) % MCV 91.2 (80-100) fl MCH 30.0 (26-34) pg MCHC 32.9 (32-36) g/dl RDW 14.5 (11.5-14.5) % Plt Count 345 (150-375) k/mm3 MPV 10.8 H (7.4-10.4) fl Immature Gran % (Auto) 0.5 (0-0.5) % Neut % (Auto) 82.9 H (45.5-73.1) % Lymph % (Auto) 8.2 L (18.3-44.2) % [place] % (Auto) 8.2 (2.6-8.5) % Eos % (Auto) 0.0 (0-4.4) % Baso % (Auto) 0.2 (0.2-1.2) % Lymph # (Auto) 1.40 (0.9-3.2) K/mm3 [place] # (Auto) 1.4 H (0.1-0.6) K/mm3 Eos # (Auto) 0.0 (0-0.3) K/mm3 Baso # (Auto) 0.0 (0.0-0.1) K/mm3 Abs Immat Gran (auto) 0.09 H (0.00-0.031) K/mm3 Absolute Neuts (auto) 14.2 H (1.3-6.7) K/mm3 Absolute Nucleated RBC 0.000 (0.0-0.012) K/mm3 Nucleated RBC % 0.0 (0.0-0.2) % Sodium 139 (137-145) mmol/L Potassium 3.9 (3.4-5.0) mmol/L Chloride 106 (98-107) mmol/L Carbon Dioxide 19 L (22-30) mmol/L Anion Gap 14 H (4-12) mmol/L BUN 9 (7-17) mg/dL Creatinine 0.58 L (0.7-1.0) mg/dL Estim Creat Clear Calc Not Reportable Estimated GFR > 60 (59 - ) Glucose 281 H (65-110) mg/dL POC Capillary Glucose 215 H 188 H (65-105) mg/dl Lactic Acid 1.5 (0.7-2.0) mmol/L Calcium 9.5 (8.4-10.2) mg/dL Total Bilirubin 0.8 (0.2-1.3) mg/dL AST 22 (14-36) U/L ALT 22 (6-35) U/L Alkaline Phosphatase 78 (38-126) U/L Total Protein 6.5 (6.3-8.2) g/dL Albumin 3.9 (3.5-5.1) g/dL Beta-Hydroxybutyrate/Acetoacetate 2.85 H (0.02-0.27) mmol/L 03/06/25 03/06/25 Range/Units 05:18 05:19 WBC (4.5-10.0) K/mm3 RBC (4.2-5.4) M/mm3 Hgb (12.0-15.0) g/dL Hct (37.0-47.0) % MCV (80-100) fl MCH (26-34) pg MCHC (32-36) g/dl RDW (11.5-14.5) % Plt Count (150-375) k/mm3 MPV (7.4-10.4) fl Immature Gran % (Auto) (0-0.5) % Neut % (Auto) (45.5-73.1) % Lymph % (Auto) (18.3-44.2) % [place] % (Auto) (2.6-8.5) % Eos % (Auto) (0-4.4) % Baso % (Auto) (0.2-1.2) % Lymph # (Auto) (0.9-3.2) K/mm3 [place] # (Auto) (0.1-0.6) K/mm3 Eos # (Auto) (0-0.3) K/mm3 Baso # (Auto) (0.0-0.1) K/mm3 Abs Immat Gran (auto) (0.00-0.031) K/mm3 Absolute Neuts (auto) (1.3-6.7) K/mm3 Absolute Nucleated RBC (0.0-0.012) K/mm3 Nucleated RBC % (0.0-0.2) % Sodium 139 (137-145) mmol/L Potassium 3.6 (3.4-5.0) mmol/L Chloride 104 (98-107) mmol/L Carbon Dioxide 21 L (22-30) mmol/L Anion Gap 14 H (4-12) mmol/L BUN 7 (7-17) mg/dL Creatinine 0.49 L (0.7-1.0) mg/dL Estim Creat Clear Calc Not Reportable Estimated GFR > 60 (59 - ) Glucose 201 H (65-110) mg/dL POC Capillary Glucose (65-105) mg/dl Lactic Acid (0.7-2.0) mmol/L Calcium 9.3 (8.4-10.2) mg/dL Total Bilirubin (0.2-1.3) mg/dL AST (14-36) U/L ALT (6-35) U/L Alkaline Phosphatase (38-126) U/L Total Protein (6.3-8.2) g/dL Albumin (3.5-5.1) g/dL Beta-Hydroxybutyrate/Acetoacetate 1.82 H (0.02-0.27) mmol/L Critical Care Time Critical Care Time Critical Care Time: Yes Total Critical Care Time: 45 Discharge Plan Discharge Clinical Impression: Cannabinoid hyperemesis syndrome, DKA, type 1, Intractable nausea and vomiting Patient Disposition: Still a Patient Condition: Serious Patient Language: Vietnamese Prescriptions: No Action ondansetron 4 mg tablet,disintegrating 4 mg PO Q6H PRN (Reason: nausea and vomiting) Qty: 20 0RF metoclopramide HCl [Reglan] 10 mg tablet 10 mg PO DAILY Qty: 30 1RF cyanocobalamin (vitamin B-12) 1,000 mcg tablet 1,000 mcg PO DAILY ergocalciferol (vitamin D2) 1,250 mcg (50,000 unit) capsule See Rx Instructions .ROUTE .COMPLEX Rx Instructions: Patient takes this on Monday's fluoxetine 20 mg capsule 20 mg PO DAILY insulin glargine [Basaglar KwikPen U-100 Insulin] 100 unit/mL (3 mL) Insulin Pen See Rx Instructions .ROUTE .COMPLEX Rx Instructions: 22 units subq NEEDED if insulin pump is no longer working lorazepam [Ativan] 0.5 mg tablet 0.5 mg PO BID PRN (Reason: nausea and vomiting) Qty: 10 0RF insulin lispro 100 unit/mL solution See Rx Instructions .ROUTE .COMPLEX Rx Instructions: See Taper subcutaneously ;basal .85u/hr 6am to 3 am, .9 u/hr 0300 to 0600 ondansetron 4 mg tablet,disintegrating 4 mg PO Q8H PRN (Reason: nausea and vomiting) Qty: 7 0RF Follow-up/Referrals: Sophie,Cyn Bain MD [Primary Care Provider] -
[2025-03-06] MEDS: HALOPERIDOL LACTATE 5 MG/ML VIAL IM ×2 (02:12→18:31)
[2025-03-06] MEDS: LACTATED RINGERS 2,000 ML 999 ML IV CONT (02:13)
[2025-03-06 02:25] LABS: Hematocrit 37.4 % (37.0-47.0); Hemoglobin 12.3 g/dL (12.0-15.0); Immature Granulocyte Percent A 0.5 % (0-0.5); Lymphocytes Absolute Auto 1.40 K/mm3 (0.9-3.2); Mean Corpuscular HGB Conc 32.9 g/dl (32-36); Mean Corpuscular Hemoglobin 30.0 pg (26-34); Mean Corpuscular Volume 91.2 fl (80-100); Nucleated Red Blood Cells Absolute Auto 0.000 K/mm3 (0.0-0.012); Nucleated Red Blood Cells Perc 0.0 % (0.0-0.2); Platelet Count Result 345 k/mm3 (150-375); Red Blood Count 4.10 M/mm3 (4.2-5.4); White Blood Count 17.1 K/mm3 (4.5-10.0)
[2025-03-06 02:34] LABS: Alanine Aminotransferase 22 U/L (6-35); Albumin Level 3.9 g/dL (3.5-5.1); Alkaline Phosphatase 78 U/L (38-126); Anion Gap 14 mmol/L (4-12); Aspartate Amino Transferase 22 U/L (14-36); Bilirubin,Total 0.8 mg/dL (0.2-1.3); Blood Urea Nitrogen 9 mg/dL (7-17); Calcium 9.5 mg/dL (8.4-10.2); Carbon Dioxide 19 mmol/L (22-30); Chloride 106 mmol/L (98-107); Estimated Glomerular Filt Rate > 60; Glucose 281 mg/dL (65-110); Potassium 3.9 mmol/L (3.4-5.0); Sodium 139 mmol/L (137-145); Total Protein 6.5 g/dL (6.3-8.2)
[2025-03-06 02:44] LABS: Beta-Hydroxybutyrate/Acetoace. 2.85 mmol/L (0.02-0.27)
[2025-03-06] MEDS: INSULIN HUMAN REGULAR (*BKC) 100 UNITS/ML IV PUSH (03:55)
[2025-03-06] MEDS: ONDANSETRON INJ 4 MG/2 ML VIAL IV PUSH ×3 (04:59→16:14)
[2025-03-06 05:45] LABS: Anion Gap 14 mmol/L (4-12); Blood Urea Nitrogen 7 mg/dL (7-17); Calcium 9.3 mg/dL (8.4-10.2); Carbon Dioxide 21 mmol/L (22-30); Chloride 104 mmol/L (98-107); Estimated Glomerular Filt Rate > 60; Glucose 201 mg/dL (65-110); Potassium 3.6 mmol/L (3.4-5.0); Sodium 139 mmol/L (137-145)
[2025-03-06 05:49] LABS: Beta-Hydroxybutyrate/Acetoace. 1.82 mmol/L (0.02-0.27)
[2025-03-06] MEDS: INSULIN HUMAN REGULAR (*BKC) 100 UNITS/ML 6 UNITS IV PUSH (06:27)
[2025-03-06] MEDS: KCL 20 MEQ/SW 100 ML 100 ML 50 MEQ IVPB (06:28)
[2025-03-06] MEDS: INSULIN GLARGINE (*BKC) 100 UNITS/ML 25 UNITS SUB-Q (06:28)
--- NOTE | 2025-03-06 07:12 | ADMGEN ---
This patient, Ekta Rivero, was admitted to IMU Room 214-01. Patient/family oriented to hospital policies and general routines including ID bracelet, bed and alarms, visiting hours, pain management, procedures, bathroom and other care routines, personal items, smoking policy, room service/diet, and visiting hours. Information on how to activate the Rapid Response Team has been discussed. Patient/Family are encouraged to report perceived risks to care and to ask questions if they do not understand what they are told or what they should do.
[2025-03-06] MEDS: SODIUM CHLORIDE 0.9% IV 1,000 ML 100 ML IV CONT ×2 (09:33→18:31)
--- NOTE | 2025-03-06 10:44 | ECG_ITS ---
Test Date: 2025-03-06 11:52:10 Measurements Intervals [place] Rate: 75 P: 22 [place]: 120 QRS: 5 QRSD: 85 T: -1 QT: 412 QTc: 461 Interpretive Statements SINUS RHYTHM MISPLACED LEAD V6 CONSIDER INFERIOR INFARCT, AGE INDETERMINATE ABNORMAL ECG No previous ECG available for comparison Electronically Signed On 03-06-2025 12:04:19 CDT by Rafita Jarvis D.O.
--- NOTE | 2025-03-06 11:18 | P.PNIM_ITS ---
Progress Note: A&P Assessment and Plan (1) Cannabinoid hyperemesis syndrome: Code(s): R11.2 - Nausea with vomiting, unspecified; F12.90 - Cannabis use, unspecified, uncomplicated Status: Acute (2) Intractable cyclical vomiting with nausea: Code(s): R11.15 - Cyclical vomiting syndrome unrelated to migraine Status: Acute (3) Dehydration: Code(s): E86.0 - Dehydration Status: Acute (4) Gastroparesis: Code(s): K31.84 - Gastroparesis Status: Acute (5) Type 1 diabetes mellitus: Code(s): E10.9 - Type 1 diabetes mellitus without complications Status: Acute Plan N/V Cyclical vomiting syndrome secondary to marijuana abuse vs gastroparesis Will check HCG to R/O Will Check UDs continue reglan, IVF continue to monitor DM1 with possible DKa meet the criteria AG elevated and Bhydroxy positve Will check BMP Will monitor BS Lantus and lispro Leucocytosis Possible reactive Monitor off Abx marijuana abuse encourage cessation Subjective Date/time seen: 03/06/25 11:18 Interval history: patient is 24 years old female with history of daily marijuana abuse and recurrent N/V, DM1 presented with about 2 days N/V. denies any fever chills cough, abd pian, chest pain, diarrhea, urinary symptoms. Patient smoke marijuana 2 days ago. denies alcohol abuse. Presented in the Er yesterday for further management, received IVF and zofran and had some improvement. she was discharged home but continued to have N/V and presented back to the Er today. In the Er Vital sign stable. WBC 17.1, Anion Gap 14, potassium 3.6. received Iv potassium and insulin lantus and lispro . patient was admitted for further management. 03/06/25 Patient was seen and examined at bedside. she still feeling nauseated. will get EKG, BHCG and UDS. will continue IVF. monitor BS . and will repeat BMP. patient asking to get Reglan as it helped her before. will monitor for hypoglycemia as patient received Lantus and not able to eat. will follow CBC and WBC off of abx. no source of infection identified. possible reactive Vs dehydration. will start Abx if getting worse. , Review of Systems Review of Systems: All systems reviewed & are unremarkable except as noted in HPI and below Exam Narrative: APPEARANCE: Ill-appearing HEAD: normocephalic, atraumatic. EYES: PERRLA/EOMI, conjunctivae clear. NOSE: Normal no drainage EARS:TMS clear with good light reflex. THROAT: Pharynx clear, no exudate. NECK: Supple. No adenopathy, no masses. RESPIRATORY: Airway patent, respirations nonlabored. Clear to auscultation bilaterally, no rales, rhonchi, wheezing. CARDIOVASCULAR: Regular rate and rhythm without murmurs rubs or gallops. ABDOMINAL: Soft, nontender, nondistended, normal bowel sounds MUSCULOSKELETAL: Moves all extremities. Strength/ROM intact, No edema, No calf tenderness. NEURO: Alert. Cranial nerves II through XII intact. Grossly intact SKIN: Warm, dry. Normal Color Objective Data Vital Signs Vital Signs: Vital Signs - 24 hr 03/06/25 01:58 03/06/25 02:04 03/06/25 02:24 Temperature 98.1 F Pulse Rate 83 86 80 Respiratory Rate 16 16 20 Blood Pressure 150/97 H 150/97 H 135/81 Pulse Oximetry 100 97 100 Oxygen Delivery Room Air Room Air 03/06/25 04:02 03/06/25 06:42 03/06/25 08:00 Temperature 98.4 F Pulse Rate 84 93 83 Respiratory Rate 16 16 17 Blood Pressure 96/57 L 125/66 116/61 Pulse Oximetry 100 99 94 Oxygen Delivery 03/06/25 08:00 03/06/25 08:00 03/06/25 08:24 Temperature Pulse Rate 80 Respiratory Rate Blood Pressure Pulse Oximetry 95 Oxygen Delivery Room Air Room Air 03/06/25 10:00 Temperature Pulse Rate 79 Respiratory Rate Blood Pressure Pulse Oximetry Oxygen Delivery Intake/Output Intake/Output: Intake & Output 03/03/25 03/04/25 03/05/25 03/06/25 23:59 23:59 23:59 23:59 Intake Total 1999 Balance 1999 Meds/Results Medications: Active Medications Generic Name Dose Route Start Last Admin Trade Name Freq PRN Reason Stop Dose Admin Dextrose 12.5 gm 03/06/25 03:26 Dextrose 50% 25 Gm/50 Ml Syringe IV PUSH PRN PRN Hypoglycemia Protocol Dextrose 12.5 gm 03/06/25 11:13 Dextrose 50% 25 Gm/50 Ml Syringe IV PUSH PRN PRN Hypoglycemia Protocol Fluoxetine HCl 40 mg 03/07/25 09:00 Fluoxetine Hcl 20 Mg Capsule PO DAILY SANDRITA Glucagon 1 mg 03/06/25 03:26 Glucagon For Inj 1 Mg Vial IM PRN PRN Hypoglycemia Protocol Glucagon 1 mg 03/06/25 11:13 Glucagon For Inj 1 Mg Vial IM PRN PRN Hypoglycemia Protocol Glucose 15 gm 03/06/25 03:26 Glucose Oral Gel 15 Gm Of Glucse In 37.5 Gm Tube PO PRN PRN Hypoglycemia Protocol Glucose 15 gm 03/06/25 11:13 Glucose Oral Gel 15 Gm Of Glucse In 37.5 Gm Tube PO PRN PRN Hypoglycemia Protocol Dextrose 1,000 mls @ 100 mls/hr 03/06/25 03:26 Dextrose 5% 1,000 Ml IVPB PRN PRN Hypoglycemia Protocol Sodium Chloride 1,000 mls @ 100 mls/hr 03/06/25 08:25 03/06/25 09:33 Normal Saline Iv IV CONT 100 mls/hr .Q10H SANDRITA Administration Dextrose 1,000 mls @ 100 mls/hr 03/06/25 11:13 Dextrose 5% 1,000 Ml IVPB PRN PRN Hypoglycemia Protocol Sodium Chloride 250 mls @ 100 mls/hr 03/06/25 11:16 Normal Saline Iv IV CONT 03/06/25 13:45 .Q2H30M ONE Insulin Aspart 3 - 6 units 03/06/25 12:00 Insulin Aspart (*Bkc) 100 Units/Ml SUB-Q TIDWM [facility] Protocol Insulin Glargine 13 units 03/06/25 21:00 Insulin Glargine (*Bkc) 100 Units/Ml 0.2 units/kg (13 units) SUB-Q HS [facility] Metoclopramide HCl 10 mg 03/06/25 10:01 Metoclopramide Hcl Inj 10 Mg/2 Ml Vial IV PUSH Q6HR PRN nausea/vomiting Ondansetron HCl 4 mg 03/06/25 08:24 03/06/25 09:33 Ondansetron Inj 4 Mg/2 Ml Vial IV PUSH 4 mg Q4H PRN Administration Nausea And Vomiting Labs Labs: Laboratory Results - last 24 hr 03/06/25 03/06/25 03/06/25 02:15 03:52 05:10 WBC 17.1 H RBC 4.10 L Hgb 12.3 Hct 37.4 MCV 91.2 MCH 30.0 MCHC 32.9 RDW 14.5 Plt Count 345 MPV 10.8 H Immature Gran % (Auto) 0.5 Neut % (Auto) 82.9 H Lymph % (Auto) 8.2 L [place] % (Auto) 8.2 Eos % (Auto) 0.0 Baso % (Auto) 0.2 Lymph # (Auto) 1.40 [place] # (Auto) 1.4 H Eos # (Auto) 0.0 Baso # (Auto) 0.0 Abs Immat Gran (auto) 0.09 H Absolute Neuts (auto) 14.2 H Absolute Nucleated RBC 0.000 Nucleated RBC % 0.0 Sodium 139 Potassium 3.9 Chloride 106 Carbon Dioxide 19 L Anion Gap 14 H BUN 9 Creatinine 0.58 L Estim Creat Clear Calc Not Reportable Estimated GFR > 60 Glucose 281 H POC Capillary Glucose 215 H 188 H Lactic Acid 1.5 Calcium 9.5 Total Bilirubin 0.8 AST 22 ALT 22 Alkaline Phosphatase 78 Total Protein 6.5 Albumin 3.9 Beta-Hydroxybutyrate/Acetoacetate 2.85 H 03/06/25 03/06/25 03/06/25 05:18 05:19 07:41 WBC RBC Hgb Hct MCV MCH MCHC RDW Plt Count MPV Immature Gran % (Auto) Neut % (Auto) Lymph % (Auto) [place] % (Auto) Eos % (Auto) Baso % (Auto) Lymph # (Auto) [place] # (Auto) Eos # (Auto) Baso # (Auto) Abs Immat Gran (auto) Absolute Neuts (auto) Absolute Nucleated RBC Nucleated RBC % Sodium 139 Potassium 3.6 Chloride 104 Carbon Dioxide 21 L Anion Gap 14 H BUN 7 Creatinine 0.49 L Estim Creat Clear Calc Not Reportable Estimated GFR > 60 Glucose 201 H POC Capillary Glucose 191 H Lactic Acid Calcium 9.3 Total Bilirubin AST ALT Alkaline Phosphatase Total Protein Albumin Beta-Hydroxybutyrate/Acetoacetate 1.82 H
[2025-03-06 11:33] LABS: Hemoglobin A1C 10.5 % (<5.7)
--- NOTE | 2025-03-06 12:05 | PC.NURSE ---
QTc of [address] Stephens. Saji to give Reglan and Bindu.
[2025-03-06 12:15] LABS: Anion Gap 8 mmol/L (4-12); Blood Urea Nitrogen 8 mg/dL (7-17); Calcium 8.9 mg/dL (8.4-10.2); Carbon Dioxide 23 mmol/L (22-30); Chloride 106 mmol/L (98-107); Estimated Glomerular Filt Rate > 60; Glucose 191 mg/dL (65-110); Potassium 4.0 mmol/L (3.4-5.0); Sodium 137 mmol/L (137-145)
[2025-03-06] MEDS: METOCLOPRAMIDE HCL INJ 10 MG/2 ML VIAL IV PUSH ×2 (15:01→23:27)
[2025-03-06 16:42] LABS: Pregnancy On Board Control Positive
[2025-03-06 17:01] LABS: Cannabinoid Screen Urine Positive (Negative)
[2025-03-06] MEDS: INSULIN ASPART (*BKC) 100 UNITS/ML SUB-Q (18:45)
[2025-03-06] MEDS: INSULIN GLARGINE (*BKC) 100 UNITS/ML 13 UNITS SUB-Q (20:42)
[2025-03-06 20:55] LABS: Hematocrit 34.4 % (37.0-47.0); Hemoglobin 10.9 g/dL (12.0-15.0); Mean Corpuscular HGB Conc 31.7 g/dl (32-36); Mean Corpuscular Hemoglobin 29.9 pg (26-34); Mean Corpuscular Volume 94.2 fl (80-100); Platelet Count Result 286 k/mm3 (150-375); Red Blood Count 3.65 M/mm3 (4.2-5.4); White Blood Count 14.3 K/mm3 (4.5-10.0)
--- NOTE | 2025-03-06 23:32 | PC.NURSE ---
Pt moved from 214 to 327. SBar/Report given to PEPITO Cho. All charting completed and meds given at this time.
[2025-03-07] MEDS: ONDANSETRON INJ 4 MG/2 ML VIAL IV PUSH ×3 (00:36→16:38)
[2025-03-07] MEDS: SODIUM CHLORIDE 0.9% IV 1,000 ML 100 ML IV CONT ×2 (03:48→14:03)
[2025-03-07 05:50] VITALS: BP 113/75; PULSE 71; RESP 14; TEMP 36.1; O2SAT 99
[2025-03-07 08:22] LABS: Hematocrit 39.2 % (37.0-47.0); Hemoglobin 12.4 g/dL (12.0-15.0); Immature Granulocyte Percent A 0.5 % (0-0.5); Immature Platelet Fraction Pct 10.9 % (0.9-11.2); Lymphocytes Absolute Auto 1.47 K/mm3 (0.9-3.2); Mean Corpuscular HGB Conc 31.6 g/dl (32-36); Mean Corpuscular Hemoglobin 30.0 pg (26-34); Mean Corpuscular Volume 94.9 fl (80-100); Nucleated Red Blood Cells Absolute Auto 0.000 K/mm3 (0.0-0.012); Nucleated Red Blood Cells Perc 0.0 % (0.0-0.2); Platelet Count Result 233 k/mm3 (150-375); Red Blood Count 4.13 M/mm3 (4.2-5.4); White Blood Count 13.9 K/mm3 (4.5-10.0)
[2025-03-07 08:40] LABS: Anion Gap 10 mmol/L (4-12); Blood Urea Nitrogen 3 mg/dL (7-17); Calcium 8.9 mg/dL (8.4-10.2); Carbon Dioxide 24 mmol/L (22-30); Chloride 103 mmol/L (98-107); Estimated CRCL calculation 137 ml/min; Estimated Glomerular Filt Rate > 60; Glucose 192 mg/dL (65-110); Potassium 4.2 mmol/L (3.4-5.0); Sodium 137 mmol/L (137-145)
[2025-03-07] MEDS: METOCLOPRAMIDE HCL INJ 10 MG/2 ML VIAL IV PUSH ×2 (08:41→21:48)
[2025-03-07] MEDS: INSULIN ASPART (*BKC) 100 UNITS/ML SUB-Q ×2 (11:43→17:01)
[2025-03-07 14:00] VITALS: BP 109/56; PULSE 67; RESP 16; TEMP 36.1; O2SAT 98
--- NOTE | 2025-03-07 15:07 | PM.IMPN ---
Progress Note: A&P Assessment and Plan (1) Cannabinoid hyperemesis syndrome: Code(s): R11.2 - Nausea with vomiting, unspecified; F12.90 - Cannabis use, unspecified, uncomplicated Status: Acute (2) Intractable cyclical vomiting with nausea: Code(s): R11.15 - Cyclical vomiting syndrome unrelated to migraine Status: Acute (3) Dehydration: Code(s): E86.0 - Dehydration Status: Acute (4) Gastroparesis: Code(s): K31.84 - Gastroparesis Status: Acute (5) Type 1 diabetes mellitus: Code(s): E10.9 - Type 1 diabetes mellitus without complications Status: Acute Plan Patient is 24 years old female with history of daily marijuana abuse and recurrent N/V, DM1 presented with about 2 days N/V. denies any fever chills cough, abd pain, chest pain, diarrhea, urinary symptoms. Patient smoke marijuana 2 days ago. denies alcohol abuse. Presented in the Er for further management, received IVF and zofran and had some improvement. she was discharged home but continued to have N/V and presented back to the Er today. In the Er Vital sign stable. WBC 17.1, Anion Gap 14, potassium 3.6. received Iv potassium and insulin lantus and lispro . patient was admitted for further management. N/V will check CT abdomen Cyclical vomiting syndrome secondary to marijuana abuse vs gastroparesis Urine test negative UDS positive for cannabinoids continue reglan, IVF continue to monitor DM1 with possible DKa meet the criteria AG elevated and beta hydroxy positive Monitor blood sugar Lantus and lispro Leucocytosis Possible reactive UA positive for UTI. Will start ceftriaxone. Urine culture with E coli Slowly improving marijuana abuse encourage cessation Subjective Date/time seen: 03/07/25 15:07 Interval history: No overnight events. Still has some nausea also complains of abdominal discomfort. Feeling a little better. Labs reviewed. Review of Systems Review of Systems: All systems reviewed & are unremarkable except as noted in HPI and below Exam Narrative: APPEARANCE: Ill-appearing no acute distress HEAD: normocephalic, atraumatic. EYES: PERRLA/EOMI, conjunctivae clear. NOSE: Normal no drainage NECK: Supple. No adenopathy, no masses. RESPIRATORY: Airway patent, respirations nonlabored. Clear to auscultation bilaterally, no rales, rhonchi, wheezing. CARDIOVASCULAR: Regular rate and rhythm without murmurs rubs or gallops. ABDOMINAL: Soft, nontender, nondistended, normal bowel sounds MUSCULOSKELETAL: Moves all extremities. Strength/ROM intact, No edema, No calf tenderness. NEURO: Alert. Cranial nerves II through XII intact. Grossly intact SKIN: Warm, dry. Normal Color Objective Data Vital Signs Vital Signs: Vital Signs - 24 hr 03/06/25 15:52 03/06/25 20:00 03/06/25 23:57 Temperature 98.4 F 97.4 F L Pulse Rate 83 77 Respiratory Rate 16 16 Blood Pressure 150/83 H 137/84 Pulse Oximetry 100 100 Oxygen Delivery Room Air 03/07/25 00:13 03/07/25 05:50 03/07/25 08:41 Temperature 97.0 F L Pulse Rate 71 Respiratory Rate 14 Blood Pressure 113/75 Pulse Oximetry 99 Oxygen Delivery Room Air Room Air Intake/Output Intake/Output: Intake & Output 03/04/25 03/05/25 03/06/25 03/07/25 23:59 23:59 23:59 23:59 Intake Total 3186.7 3830.3 Output Total 1000 Balance 2186.7 3830.3 Meds/Results Medications: Active Medications Generic Name Dose Route Start Last Admin Trade Name Freq PRN Reason Stop Dose Admin Dextrose 12.5 gm 03/06/25 03:26 Dextrose 50% 25 Gm/50 Ml Syringe IV PUSH PRN PRN Hypoglycemia Protocol Fluoxetine HCl 40 mg 03/07/25 09:00 03/07/25 08:41 Fluoxetine Hcl 20 Mg Capsule PO 40 mg DAILY SANDRITA Administration Glucagon 1 mg 03/06/25 03:26 Glucagon For Inj 1 Mg Vial IM PRN PRN Hypoglycemia Protocol Glucose 15 gm 03/06/25 03:26 Glucose Oral Gel 15 Gm Of Glucse In 37.5 Gm Tube PO PRN PRN Hypoglycemia Protocol Dextrose 1,000 mls @ 100 mls/hr 03/06/25 03:26 Dextrose 5% 1,000 Ml IVPB PRN PRN Hypoglycemia Protocol Sodium Chloride 1,000 mls @ 100 mls/hr 03/06/25 08:25 03/07/25 14:03 Normal Saline Iv IV CONT 100 mls/hr .Q10H SANDRITA Administration Insulin Aspart 3 - 6 units 03/06/25 12:00 03/07/25 11:43 Insulin Aspart (*Bkc) 100 Units/Ml SUB-Q 5 units TIDWM [facility] Administration Protocol Insulin Glargine 13 units 03/06/25 21:00 03/06/25 20:42 Insulin Glargine (*Bkc) 100 Units/Ml 0.2 units/kg (13 units) 13 units SUB-Q Administration [facility] Metoclopramide HCl 10 mg 03/06/25 10:01 03/07/25 08:41 Metoclopramide Hcl Inj 10 Mg/2 Ml Vial IV PUSH 10 mg Q6HR PRN Administration nausea/vomiting Ondansetron HCl 4 mg 03/06/25 08:24 03/07/25 11:43 Ondansetron Inj 4 Mg/2 Ml Vial IV PUSH 4 mg Q4H PRN Administration Nausea And Vomiting Labs Labs: Laboratory Results - last 24 hr 03/06/25 03/06/25 03/06/25 16:24 18:38 20:40 WBC RBC Hgb Hct MCV MCH MCHC RDW Plt Count MPV Immature Gran % (Auto) Neut % (Auto) Lymph % (Auto) [place] % (Auto) Eos % (Auto) Baso % (Auto) Lymph # (Auto) [place] # (Auto) Eos # (Auto) Baso # (Auto) Abs Immat Gran (auto) Absolute Neuts (auto) Absolute Nucleated RBC Nucleated RBC % % Immature Plt Fraction Sodium Potassium Chloride Carbon Dioxide Anion Gap BUN Creatinine Estim Creat Clear Calc Estimated GFR Glucose POC Capillary Glucose 278 H 239 H Calcium Urine Test Negative Urine Opiates Screen Negative Urine Methadone Screen Negative Ur Barbiturates Screen Negative Ur Phencyclidine Scrn Negative Ur Amphetamine Screen Negative U Benzodiazepines Scrn Negative Urine Cocaine Screen Negative U Cannabinoids Screen Positive A 03/06/25 03/07/25 03/07/25 20:43 07:19 07:44 WBC 14.3 H 13.9 H RBC 3.65 L 4.13 L Hgb 10.9 L 12.4 Hct 34.4 L 39.2 MCV 94.2 94.9 MCH 29.9 30.0 MCHC 31.7 L 31.6 L RDW 14.5 14.2 Plt Count 286 233 MPV 10.6 H 12.6 H Immature Gran % (Auto) 0.5 Neut % (Auto) 78.8 H Lymph % (Auto) 10.6 L [place] % (Auto) 9.8 H Eos % (Auto) 0.1 Baso % (Auto) 0.2 Lymph # (Auto) 1.47 [place] # (Auto) 1.4 H Eos # (Auto) 0.0 Baso # (Auto) 0.0 Abs Immat Gran (auto) 0.07 H Absolute Neuts (auto) 11.0 H Absolute Nucleated RBC 0.000 Nucleated RBC % 0.0 % Immature Plt Fraction 10.9 Sodium 137 Potassium 4.2 Chloride 103 Carbon Dioxide 24 Anion Gap 10 BUN 3 L D Creatinine 0.49 L Estim Creat Clear Calc 137 Estimated GFR > 60 Glucose 192 H POC Capillary Glucose 171 H Calcium 8.9 Urine Test Urine Opiates Screen Urine Methadone Screen Ur Barbiturates Screen Ur Phencyclidine Scrn Ur Amphetamine Screen U Benzodiazepines Scrn Urine Cocaine Screen U Cannabinoids Screen 03/07/25 11:35 WBC RBC Hgb Hct MCV MCH MCHC RDW Plt Count MPV Immature Gran % (Auto) Neut % (Auto) Lymph % (Auto) [place] % (Auto) Eos % (Auto) Baso % (Auto) Lymph # (Auto) [place] # (Auto) Eos # (Auto) Baso # (Auto) Abs Immat Gran (auto) Absolute Neuts (auto) Absolute Nucleated RBC Nucleated RBC % % Immature Plt Fraction Sodium Potassium Chloride Carbon Dioxide Anion Gap BUN Creatinine Estim Creat Clear Calc Estimated GFR Glucose POC Capillary Glucose 331 H Calcium Urine Test Urine Opiates Screen Urine Methadone Screen Ur Barbiturates Screen Ur Phencyclidine Scrn Ur Amphetamine Screen U Benzodiazepines Scrn Urine Cocaine Screen U Cannabinoids Screen
[2025-03-07] MEDS: levoFLOXacin 750 MG/D5W 150 ML 750 MG/150 ML BAG 100 MG IVPB (15:48)
[2025-03-07 16:56] LABS: Serum Qual hCG Negative
[2025-03-07 16:57] LABS: SPREG INTERNAL CONTROL Positive
[2025-03-07 20:00] VITALS: PULSE 75; RESP 16; O2SAT 99
[2025-03-07 21:28] VITALS: BP 122/76; PULSE 75; RESP 16; TEMP 36.3; O2SAT 99
[2025-03-07] MEDS: INSULIN GLARGINE (*BKC) 100 UNITS/ML 13 UNITS SUB-Q (21:46)
[2025-03-08] MEDS: SODIUM CHLORIDE 0.9% IV 1,000 ML 100 ML IV CONT ×2 (04:20→14:50)
[2025-03-08] MEDS: METOCLOPRAMIDE HCL INJ 10 MG/2 ML VIAL IV PUSH ×3 (04:20→21:01)
[2025-03-08 06:00] VITALS: BP 155/93; PULSE 85; RESP 14; TEMP 36.2; O2SAT 100
[2025-03-08 06:56] LABS: Hematocrit 36.6 % (37.0-47.0); Hemoglobin 11.7 g/dL (12.0-15.0); Immature Granulocyte Percent A 0.9 % (0-0.5); Lymphocytes Absolute Auto 1.25 K/mm3 (0.9-3.2); Mean Corpuscular HGB Conc 32.0 g/dl (32-36); Mean Corpuscular Hemoglobin 30.1 pg (26-34); Mean Corpuscular Volume 94.1 fl (80-100); Nucleated Red Blood Cells Absolute Auto 0.000 K/mm3 (0.0-0.012); Nucleated Red Blood Cells Perc 0.0 % (0.0-0.2); Platelet Count Result 271 k/mm3 (150-375); Red Blood Count 3.89 M/mm3 (4.2-5.4); White Blood Count 11.1 K/mm3 (4.5-10.0)
[2025-03-08 07:20] LABS: Alanine Aminotransferase 21 U/L (6-35); Albumin Level 3.6 g/dL (3.5-5.1); Alkaline Phosphatase 71 U/L (38-126); Anion Gap 11 mmol/L (4-12); Aspartate Amino Transferase 26 U/L (14-36); Bilirubin,Total 0.4 mg/dL (0.2-1.3); Blood Urea Nitrogen 4 mg/dL (7-17); Calcium 8.8 mg/dL (8.4-10.2); Carbon Dioxide 24 mmol/L (22-30); Chloride 99 mmol/L (98-107); Estimated CRCL calculation 147 ml/min; Estimated Glomerular Filt Rate > 60; Glucose 273 mg/dL (65-110); Magnesium 1.9 mg/dL (1.6-2.3); Potassium 3.4 mmol/L (3.4-5.0); Sodium 134 mmol/L (137-145); Total Protein 6.5 g/dL (6.3-8.2)
[2025-03-08 08:00] VITALS: PULSE 85; RESP 14; O2SAT 100
[2025-03-08] MEDS: INSULIN ASPART (*BKC) 100 UNITS/ML SUB-Q ×3 (09:46→17:17)
[2025-03-08 14:00] VITALS: BP 137/73; PULSE 71; RESP 14; TEMP 36.3; O2SAT 100
[2025-03-08] MEDS: ACETAMINOPHEN 325 MG TABLET 650 MG PO ×2 (15:49→21:01)
--- NOTE | 2025-03-08 16:01 | PM.IMPN ---
Progress Note: A&P Assessment and Plan (1) Cannabinoid hyperemesis syndrome: Code(s): R11.2 - Nausea with vomiting, unspecified; F12.90 - Cannabis use, unspecified, uncomplicated Status: Acute (2) Intractable cyclical vomiting with nausea: Code(s): R11.15 - Cyclical vomiting syndrome unrelated to migraine Status: Acute (3) Dehydration: Code(s): E86.0 - Dehydration Status: Acute (4) Gastroparesis: Code(s): K31.84 - Gastroparesis Status: Acute (5) Type 1 diabetes mellitus: Code(s): E10.9 - Type 1 diabetes mellitus without complications Status: Acute Plan Patient is 24 years old female with history of daily marijuana abuse and recurrent N/V, DM1 presented with about 2 days N/V. denies any fever chills cough, abd pain, chest pain, diarrhea, urinary symptoms. Patient smoke marijuana 2 days ago. denies alcohol abuse. Presented in the Er for further management, received IVF and zofran and had some improvement. she was discharged home but continued to have N/V and presented back to the Er today. In the Er Vital sign stable. WBC 17.1, Anion Gap 14, potassium 3.6. received Iv potassium and insulin lantus and lispro . patient was admitted for further management. N/V. CT abdomen with gastric distension without mural thickening or surrounding inflammatory change consistent with patient history. Mural thickening within the bladder with surrounding inflammatory change for which cystitis. Free fluid within lower abdomen extending into the pelvis more than normal expected for physiologic free fluid possibly reactive to the bladder infection. Cyclical vomiting syndrome secondary to marijuana abuse vs gastroparesis Urine test negative UDS positive for cannabinoids continue reglan, IVF continue to monitor Slowly advance diet as tolerated DM1 with possible DKa meet the criteria AG elevated and beta hydroxy positive Monitor blood sugar Lantus and lispro Leucocytosis Possible reactive UA positive for UTI. Urine culture with E coli. Started on levofloxacin Slowly improving marijuana abuse encourage cessation Subjective Date/time seen: 03/08/25 16:01 Interval history: No overnight events. Still nauseous. Complains of abdominal pain. Tolerating clears. Asks me when she can go home. Review of Systems Review of Systems: All systems reviewed & are unremarkable except as noted in HPI and below Exam Narrative: APPEARANCE: Ill-appearing no acute distress HEAD: normocephalic, atraumatic. EYES: PERRLA/EOMI, conjunctivae clear. NOSE: Normal no drainage NECK: Supple. No adenopathy, no masses. RESPIRATORY: Airway patent, respirations nonlabored. Clear to auscultation bilaterally, no rales, rhonchi, wheezing. CARDIOVASCULAR: Regular rate and rhythm without murmurs rubs or gallops. ABDOMINAL: Soft, mild epigastric tenderness, nondistended, normal bowel sounds MUSCULOSKELETAL: Moves all extremities. Strength/ROM intact, No edema, No calf tenderness. NEURO: Alert. Cranial nerves II through XII intact. Grossly intact SKIN: Warm, dry. Normal Color Objective Data Vital Signs Vital Signs: Vital Signs - 24 hr 03/07/25 20:00 03/07/25 21:28 03/08/25 06:00 Temperature 97.3 F L 97.2 F L Pulse Rate 75 75 85 Respiratory Rate 16 16 14 Blood Pressure 122/76 155/93 H Pulse Oximetry 99 99 100 Oxygen Delivery Room Air 03/08/25 08:00 03/08/25 14:00 Temperature 97.4 F L Pulse Rate 85 71 Respiratory Rate 14 14 Blood Pressure 137/73 Pulse Oximetry 100 100 Oxygen Delivery Room Air Intake/Output Intake/Output: Intake & Output 03/05/25 03/06/25 03/07/25 03/08/25 23:59 23:59 23:59 23:59 Intake Total 3186.7 4680.3 2886 Output Total 1000 Balance 2186.7 4680.3 2886 Meds/Results Medications: Active Medications Generic Name Dose Route Start Last Admin Trade Name Freq PRN Reason Stop Dose Admin Acetaminophen 650 mg 03/08/25 00:26 03/08/25 15:49 Acetaminophen 325 Mg Tablet PO 650 mg Q4H PRN Administration Mild Pain (1-3) or Fever Dextrose 12.5 gm 03/06/25 03:26 Dextrose 50% 25 Gm/50 Ml Syringe IV PUSH PRN PRN Hypoglycemia Protocol Fluoxetine HCl 40 mg 03/07/25 09:00 03/08/25 09:46 Fluoxetine Hcl 20 Mg Capsule PO 40 mg DAILY SANDRITA Administration Glucagon 1 mg 03/06/25 03:26 Glucagon For Inj 1 Mg Vial IM PRN PRN Hypoglycemia Protocol Glucose 15 gm 03/06/25 03:26 Glucose Oral Gel 15 Gm Of Glucse In 37.5 Gm Tube PO PRN PRN Hypoglycemia Protocol Dextrose 1,000 mls @ 100 mls/hr 03/06/25 03:26 Dextrose 5% 1,000 Ml IVPB PRN PRN Hypoglycemia Protocol Sodium Chloride 1,000 mls @ 100 mls/hr 03/06/25 08:25 03/08/25 14:50 Normal Saline Iv IV CONT 100 mls/hr .Q10H SANDRITA Administration Levofloxacin/Dextrose 750 mg in 150 mls @ 100 mls/hr 03/07/25 16:00 03/07/25 17:18 Levaquin 750 Mg/D5w 150 Ml IVPB Infused Q24H SANDRITA Infusion Insulin Aspart 3 - 6 units 03/06/25 12:00 03/08/25 12:56 Insulin Aspart (*Bkc) 100 Units/Ml SUB-Q 6 units TIDWM SANDRITA Administration Protocol Insulin Glargine 25 units 03/08/25 21:00 Insulin Glargine (*Bkc) 100 Units/Ml SUB-Q HS SANDRITA Metoclopramide HCl 10 mg 03/06/25 10:01 03/08/25 14:53 Metoclopramide Hcl Inj 10 Mg/2 Ml Vial IV PUSH 10 mg Q6HR PRN Administration nausea/vomiting Ondansetron HCl 4 mg 03/06/25 08:24 03/07/25 16:38 Ondansetron Inj 4 Mg/2 Ml Vial IV PUSH 4 mg Q4H PRN Administration Nausea And Vomiting Radiology Results: ITS Impressions Abdomen/Pelvis CT 03/07/25 17:53 IMPRESSION: Gastric distention without mural thickening or surrounding inflammatory change, consistent with patient's history. Mural thickening within the bladder with surrounding inflammatory change for which cystitis affected. Free fluid within the lower abdomen extending into the pelvis more than normally expected for physiologic free fluid, possibly reactive to the bladder infection. Labs Labs: Laboratory Results - last 24 hr 03/07/25 03/07/25 03/07/25 07:44 16:42 19:42 WBC RBC Hgb Hct MCV MCH MCHC RDW Plt Count MPV Immature Gran % (Auto) Neut % (Auto) Lymph % (Auto) [place] % (Auto) Eos % (Auto) Baso % (Auto) Lymph # (Auto) [place] # (Auto) Eos # (Auto) Baso # (Auto) Abs Immat Gran (auto) Absolute Neuts (auto) Absolute Nucleated RBC Nucleated RBC % Sodium Potassium Chloride Carbon Dioxide Anion Gap BUN Creatinine Estim Creat Clear Calc Estimated GFR Glucose POC Capillary Glucose 291 H 328 H Calcium Magnesium Total Bilirubin AST ALT Alkaline Phosphatase Total Protein Albumin Serum HCG, Qual Negative 03/08/25 03/08/25 03/08/25 06:20 08:13 11:17 WBC 11.1 H RBC 3.89 L Hgb 11.7 L Hct 36.6 L MCV 94.1 MCH 30.1 MCHC 32.0 RDW 13.6 Plt Count 271 MPV 10.9 H Immature Gran % (Auto) 0.9 H Neut % (Auto) 79.3 H Lymph % (Auto) 11.3 L [place] % (Auto) 8.0 Eos % (Auto) 0.1 Baso % (Auto) 0.4 Lymph # (Auto) 1.25 [place] # (Auto) 0.9 H Eos # (Auto) 0.0 Baso # (Auto) 0.0 Abs Immat Gran (auto) 0.10 H Absolute Neuts (auto) 8.8 H Absolute Nucleated RBC 0.000 Nucleated RBC % 0.0 Sodium 134 L Potassium 3.4 Chloride 99 Carbon Dioxide 24 Anion Gap 11 BUN 4 L Creatinine 0.45 L Estim Creat Clear Calc 147 Estimated GFR > 60 Glucose 273 H POC Capillary Glucose 249 H 366 H Calcium 8.8 Magnesium 1.9 Total Bilirubin 0.4 AST 26 ALT 21 Alkaline Phosphatase 71 Total Protein 6.5 Albumin 3.6 Serum HCG, Qual
[2025-03-08] MEDS: levoFLOXacin 750 MG/D5W 150 ML 750 MG/150 ML BAG 100 MG IVPB (17:14)
[2025-03-08 20:00] VITALS: PULSE 70; RESP 14; O2SAT 99
[2025-03-08] MEDS: INSULIN GLARGINE (*BKC) 100 UNITS/ML 25 UNITS SUB-Q (21:02)
[2025-03-08] MEDS: INSULIN ASPART (*BKC) 100 UNITS/ML 6 UNITS SUB-Q (21:02)
[2025-03-08 21:51] VITALS: BP 127/74; PULSE 70; RESP 14; TEMP 36.6; O2SAT 99
[2025-03-09] MEDS: ONDANSETRON INJ 4 MG/2 ML VIAL IV PUSH ×2 (00:25→08:36)
[2025-03-09] MEDS: ACETAMINOPHEN 325 MG TABLET 650 MG PO ×4 (04:49→21:05)
[2025-03-09] MEDS: SODIUM CHLORIDE 0.9% IV 1,000 ML 100 ML IV CONT ×2 (04:49→14:58)
[2025-03-09] MEDS: METOCLOPRAMIDE HCL INJ 10 MG/2 ML VIAL IV PUSH ×2 (04:49→21:05)
[2025-03-09 06:00] VITALS: BP 158/86; PULSE 86; RESP 13; TEMP 36.5; O2SAT 99
[2025-03-09 07:14] LABS: Hematocrit 34.9 % (37.0-47.0); Hemoglobin 11.4 g/dL (12.0-15.0); Immature Granulocyte Percent A 1.0 % (0-0.5); Lymphocytes Absolute Auto 1.58 K/mm3 (0.9-3.2); Mean Corpuscular HGB Conc 32.7 g/dl (32-36); Mean Corpuscular Hemoglobin 29.7 pg (26-34); Mean Corpuscular Volume 90.9 fl (80-100); Nucleated Red Blood Cells Absolute Auto 0.000 K/mm3 (0.0-0.012); Nucleated Red Blood Cells Perc 0.0 % (0.0-0.2); Platelet Count Result 341 k/mm3 (150-375); Red Blood Count 3.84 M/mm3 (4.2-5.4); White Blood Count 10.0 K/mm3 (4.5-10.0)
[2025-03-09 07:20] LABS: Potassium 3.0 mmol/L (3.4-5.0)
[2025-03-09 07:21] LABS: Alanine Aminotransferase 17 U/L (6-35); Albumin Level 3.4 g/dL (3.5-5.1); Alkaline Phosphatase 60 U/L (38-126); Anion Gap 10 mmol/L (4-12); Aspartate Amino Transferase 23 U/L (14-36); Bilirubin,Total 0.4 mg/dL (0.2-1.3); Blood Urea Nitrogen 4 mg/dL (7-17); Calcium 8.6 mg/dL (8.4-10.2); Carbon Dioxide 25 mmol/L (22-30); Chloride 98 mmol/L (98-107); Estimated CRCL calculation 153 ml/min; Estimated Glomerular Filt Rate > 60; Glucose 206 mg/dL (65-110); Magnesium 1.9 mg/dL (1.6-2.3); Sodium 133 mmol/L (137-145); Total Protein 6.0 g/dL (6.3-8.2)
[2025-03-09 08:31] VITALS: PULSE 86; RESP 13; O2SAT 99
[2025-03-09] MEDS: POTASSIUM CHLORIDE 20 MEQ ER TABLET 40 MEQ PO (12:01)
[2025-03-09] MEDS: INSULIN ASPART (*BKC) 100 UNITS/ML SUB-Q ×2 (12:05→16:56)
--- NOTE | 2025-03-09 12:25 | P.PNIM_ITS ---
Progress Note: A&P Assessment and Plan (1) Cannabinoid hyperemesis syndrome: Code(s): R11.2 - Nausea with vomiting, unspecified; F12.90 - Cannabis use, unspecified, uncomplicated Status: Acute (2) Intractable cyclical vomiting with nausea: Code(s): R11.15 - Cyclical vomiting syndrome unrelated to migraine Status: Acute (3) Dehydration: Code(s): E86.0 - Dehydration Status: Acute (4) Gastroparesis: Code(s): K31.84 - Gastroparesis Status: Acute (5) Type 1 diabetes mellitus: Code(s): E10.9 - Type 1 diabetes mellitus without complications Status: Acute Plan Patient is 24 years old female with history of daily marijuana abuse and recurrent N/V, DM1 presented with about 2 days N/V. denies any fever chills cough, abd pain, chest pain, diarrhea, urinary symptoms. Patient smoke marijuana 2 days ago. denies alcohol abuse. Presented in the Er for further management, received IVF and zofran and had some improvement. she was discharged home but continued to have N/V and presented back to the Er today. In the Er Vital sign stable. WBC 17.1, Anion Gap 14, potassium 3.6. received Iv potassium and insulin lantus and lispro . patient was admitted for further management. N/V. CT abdomen with gastric distension without mural thickening or surrounding inflammatory change consistent with patient history. Mural thickening within the bladder with surrounding inflammatory change for which cystitis. Free fluid within lower abdomen extending into the pelvis more than normal expected for physiologic free fluid possibly reactive to the bladder infection. Cyclical vomiting syndrome secondary to marijuana abuse vs gastroparesis Urine test negative UDS positive for cannabinoids continue reglan, IVF continue to monitor Slowly advance diet as tolerated. Attempt Compazine and add Carafate. DM1 with possible DKa meet the criteria AG elevated and beta hydroxy positive Monitor blood sugar Lantus and lispro Leucocytosis Possible reactive UA positive for UTI. Urine culture with E coli. Started on levofloxacin Slowly improving marijuana abuse encourage cessation Subjective Date/time seen: 03/09/25 12:25 Interval history: No overnight events. Still nauseous and vomiting. Reports abdominal pain. Not able to tolerate diet.. Remains afebrile. Labs reviewed. Review of Systems Review of Systems: All systems reviewed & are unremarkable except as noted in HPI and below Exam Narrative: APPEARANCE: Ill-appearing no acute distress HEAD: normocephalic, atraumatic. EYES: PERRLA/EOMI, conjunctivae clear. NOSE: Normal no drainage NECK: Supple. No adenopathy, no masses. RESPIRATORY: Airway patent, respirations nonlabored. Clear to auscultation bilaterally, no rales, rhonchi, wheezing. CARDIOVASCULAR: Regular rate and rhythm without murmurs rubs or gallops. ABDOMINAL: Soft, mild epigastric tenderness, nondistended, normal bowel sounds MUSCULOSKELETAL: Moves all extremities. Strength/ROM intact, No edema, No calf tenderness. NEURO: Alert. Cranial nerves II through XII intact. Grossly intact SKIN: Warm, dry. Normal Color Objective Data Vital Signs Vital Signs: Vital Signs - 24 hr 03/08/25 14:00 03/08/25 20:00 03/08/25 21:51 Temperature 97.4 F L 97.9 F Pulse Rate 71 70 70 Respiratory Rate 14 14 14 Blood Pressure 137/73 127/74 Pulse Oximetry 100 99 99 Oxygen Delivery Room Air 03/09/25 06:00 03/09/25 08:31 Temperature 97.7 F Pulse Rate 86 86 Respiratory Rate 13 13 Blood Pressure 158/86 H Pulse Oximetry 99 99 Oxygen Delivery Room Air Intake/Output Intake/Output: Intake & Output 03/06/25 03/07/25 03/08/25 03/09/25 23:59 23:59 23:59 23:59 Intake Total 3186.7 4680.3 2886 1787 Output Total 1000 Balance 2186.7 4680.3 2886 1787 Meds/Results Medications: Active Medications Generic Name Dose Route Start Last Admin Trade Name Freq PRN Reason Stop Dose Admin Acetaminophen 650 mg 03/08/25 00:26 03/09/25 08:39 Acetaminophen 325 Mg Tablet PO 650 mg Q4H PRN Administration Mild Pain (1-3) or Fever Dextrose 12.5 gm 03/06/25 03:26 Dextrose 50% 25 Gm/50 Ml Syringe IV PUSH PRN PRN Hypoglycemia Protocol Fluoxetine HCl 40 mg 03/07/25 09:00 03/09/25 08:31 Fluoxetine Hcl 20 Mg Capsule PO 40 mg DAILY SANDRITA Administration Glucagon 1 mg 03/06/25 03:26 Glucagon For Inj 1 Mg Vial IM PRN PRN Hypoglycemia Protocol Glucose 15 gm 03/06/25 03:26 Glucose Oral Gel 15 Gm Of Glucse In 37.5 Gm Tube PO PRN PRN Hypoglycemia Protocol Dextrose 1,000 mls @ 100 mls/hr 03/06/25 03:26 Dextrose 5% 1,000 Ml IVPB PRN PRN Hypoglycemia Protocol Sodium Chloride 1,000 mls @ 100 mls/hr 03/06/25 08:25 03/09/25 04:49 Normal Saline Iv IV CONT 100 mls/hr .Q10H SANDRITA Administration Levofloxacin/Dextrose 750 mg in 150 mls @ 100 mls/hr 03/07/25 16:00 03/08/25 17:14 Levaquin 750 Mg/D5w 150 Ml IVPB 100 mls/hr Q24H SANDRITA Administration Insulin Aspart 3 - 6 units 03/06/25 12:00 03/09/25 12:05 Insulin Aspart (*Bkc) 100 Units/Ml SUB-Q 4 units TIDWM SANDRITA Administration Protocol Insulin Glargine 25 units 03/08/25 21:00 03/08/25 21:02 Insulin Glargine (*Bkc) 100 Units/Ml SUB-Q 25 units HS SANDRITA Administration Metoclopramide HCl 10 mg 03/06/25 10:01 03/09/25 04:49 Metoclopramide Hcl Inj 10 Mg/2 Ml Vial IV PUSH 10 mg Q6HR PRN Administration nausea/vomiting Ondansetron HCl 4 mg 03/06/25 08:24 03/09/25 08:36 Ondansetron Inj 4 Mg/2 Ml Vial IV PUSH 4 mg Q4H PRN Administration Nausea And Vomiting Radiology Results: ITS Impressions Abdomen/Pelvis CT 03/07/25 17:53 IMPRESSION: Gastric distention without mural thickening or surrounding inflammatory change, consistent with patient's history. Mural thickening within the bladder with surrounding inflammatory change for which cystitis affected. Free fluid within the lower abdomen extending into the pelvis more than normally expected for physiologic free fluid, possibly reactive to the bladder infection. Labs Labs: Laboratory Results - last 24 hr 03/08/25 03/08/25 03/09/25 16:51 19:50 06:14 WBC 10.0 RBC 3.84 L Hgb 11.4 L Hct 34.9 L MCV 90.9 MCH 29.7 MCHC 32.7 RDW 13.3 Plt Count 341 MPV 11.2 H Immature Gran % (Auto) 1.0 H Neut % (Auto) 74.4 H Lymph % (Auto) 15.8 L [place] % (Auto) 8.2 Eos % (Auto) 0.1 Baso % (Auto) 0.5 Lymph # (Auto) 1.58 [place] # (Auto) 0.8 H Eos # (Auto) 0.0 Baso # (Auto) 0.1 Abs Immat Gran (auto) 0.10 H Absolute Neuts (auto) 7.5 H Absolute Nucleated RBC 0.000 Nucleated RBC % 0.0 Sodium 133 L Potassium 3.0 L Chloride 98 Carbon Dioxide 25 Anion Gap 10 BUN 4 L Creatinine 0.43 L Estim Creat Clear Calc 153 Estimated GFR > 60 Glucose 206 H POC Capillary Glucose 325 H 377 H Calcium 8.6 Magnesium 1.9 Total Bilirubin 0.4 AST 23 ALT 17 Alkaline Phosphatase 60 Total Protein 6.0 L Albumin 3.4 L 03/09/25 03/09/25 07:57 11:51 WBC RBC Hgb Hct MCV MCH MCHC RDW Plt Count MPV Immature Gran % (Auto) Neut % (Auto) Lymph % (Auto) [place] % (Auto) Eos % (Auto) Baso % (Auto) Lymph # (Auto) [place] # (Auto) Eos # (Auto) Baso # (Auto) Abs Immat Gran (auto) Absolute Neuts (auto) Absolute Nucleated RBC Nucleated RBC % Sodium Potassium Chloride Carbon Dioxide Anion Gap BUN Creatinine Estim Creat Clear Calc Estimated GFR Glucose POC Capillary Glucose 170 H 269 H Calcium Magnesium Total Bilirubin AST ALT Alkaline Phosphatase Total Protein Albumin
[2025-03-09] MEDS: PROCHLORPERAZINE EDISYLATE 10 MG/2 ML VIAL IV PUSH ×2 (12:51→18:21)
[2025-03-09 14:00] VITALS: BP 135/72; PULSE 70; RESP 16; TEMP 37.3; O2SAT 99
[2025-03-09] MEDS: levoFLOXacin 750 MG/D5W 150 ML 750 MG/150 ML BAG 100 MG IVPB (15:00)
[2025-03-09] MEDS: SUCRALFATE SUSP 100 MG/ML 10 ML UDC 1000 MG PO ×2 (15:53→21:05)
[2025-03-09 20:00] VITALS: PULSE 82; RESP 20; O2SAT 100
[2025-03-09] MEDS: INSULIN GLARGINE (*BKC) 100 UNITS/ML 25 UNITS SUB-Q (21:05)
[2025-03-09 21:22] VITALS: BP 169/90; PULSE 82; RESP 20; TEMP 36.9; O2SAT 100
[2025-03-10] MEDS: SODIUM CHLORIDE 0.9% IV 1,000 ML 100 ML IV CONT ×2 (02:57→15:12)
[2025-03-10] MEDS: PROCHLORPERAZINE EDISYLATE 10 MG/2 ML VIAL IV PUSH ×2 (03:00→15:13)
[2025-03-10] MEDS: ACETAMINOPHEN 325 MG TABLET 650 MG PO ×2 (03:00→21:55)
[2025-03-10] MEDS: SUCRALFATE SUSP 100 MG/ML 10 ML UDC 1000 MG PO (05:59)
[2025-03-10 06:00] VITALS: BP 143/91; PULSE 71; RESP 16; TEMP 37.5; O2SAT 97
[2025-03-10 06:39] LABS: Hematocrit 35.8 % (37.0-47.0); Hemoglobin 11.8 g/dL (12.0-15.0); Immature Granulocyte Percent A 1.0 % (0-0.5); Lymphocytes Absolute Auto 1.75 K/mm3 (0.9-3.2); Mean Corpuscular HGB Conc 33.0 g/dl (32-36); Mean Corpuscular Hemoglobin 30.0 pg (26-34); Mean Corpuscular Volume 91.1 fl (80-100); Nucleated Red Blood Cells Absolute Auto 0.000 K/mm3 (0.0-0.012); Nucleated Red Blood Cells Perc 0.0 % (0.0-0.2); Platelet Count Result 347 k/mm3 (150-375); Red Blood Count 3.93 M/mm3 (4.2-5.4); White Blood Count 9.9 K/mm3 (4.5-10.0)
[2025-03-10 06:57] LABS: Alanine Aminotransferase 16 U/L (6-35); Albumin Level 3.4 g/dL (3.5-5.1); Alkaline Phosphatase 63 U/L (38-126); Anion Gap 8 mmol/L (4-12); Aspartate Amino Transferase 20 U/L (14-36); Bilirubin,Total 0.4 mg/dL (0.2-1.3); Calcium 8.6 mg/dL (8.4-10.2); Carbon Dioxide 26 mmol/L (22-30); Chloride 101 mmol/L (98-107); Estimated CRCL calculation 142 ml/min; Estimated Glomerular Filt Rate > 60; Glucose 175 mg/dL (65-110); Magnesium 1.9 mg/dL (1.6-2.3); Potassium 3.0 mmol/L (3.4-5.0); Sodium 135 mmol/L (137-145); Total Protein 6.2 g/dL (6.3-8.2)
[2025-03-10 07:08] LABS: Blood Urea Nitrogen < 2 mg/dL (7-17)
[2025-03-10] MEDS: METOCLOPRAMIDE HCL INJ 10 MG/2 ML VIAL IV PUSH ×2 (08:21→21:55)
[2025-03-10] MEDS: POTASSIUM CHLORIDE INJ 40 MEQ in SODIUM CHLORIDE 0.9% IV 500 ML 130 MEQ IVPB (08:21)
--- NOTE | 2025-03-10 09:16 | PM.IMPN ---
Progress Note: A&P Assessment and Plan (1) Cannabinoid hyperemesis syndrome: Code(s): R11.2 - Nausea with vomiting, unspecified; F12.90 - Cannabis use, unspecified, uncomplicated Status: Acute (2) Intractable cyclical vomiting with nausea: Code(s): R11.15 - Cyclical vomiting syndrome unrelated to migraine Status: Acute (3) Dehydration: Code(s): E86.0 - Dehydration Status: Acute (4) Gastroparesis: Code(s): K31.84 - Gastroparesis Status: Acute (5) Type 1 diabetes mellitus: Code(s): E10.9 - Type 1 diabetes mellitus without complications Status: Acute Plan Patient is 24 years old female with history of daily marijuana abuse and recurrent N/V, DM1 presented with about 2 days N/V. denies any fever chills cough, abd pain, chest pain, diarrhea, urinary symptoms. Patient smoke marijuana 2 days ago. denies alcohol abuse. Presented in the Er for further management, received IVF and zofran and had some improvement. she was discharged home but continued to have N/V and presented back to the Er today. In the Er Vital sign stable. WBC 17.1, Anion Gap 14, potassium 3.6. received Iv potassium and insulin lantus and lispro . patient was admitted for further management. N/V. CT abdomen with gastric distension without mural thickening or surrounding inflammatory change consistent with patient history. Mural thickening within the bladder with surrounding inflammatory change for which cystitis. Free fluid within lower abdomen extending into the pelvis more than normal expected for physiologic free fluid possibly reactive to the bladder infection. Cyclical vomiting syndrome secondary to marijuana abuse vs gastroparesis Urine test negative UDS positive for cannabinoids continue reglan, IVF continue to monitor Slowly advance diet as tolerated. Attempt Compazine and add Carafate. Still persistent nausea vomiting. Will consult GI. DM1 with possible DKa meet the criteria AG elevated and beta hydroxy positive Monitor blood sugar Lantus and lispro Leucocytosis Possible reactive UA positive for UTI. Urine culture with E coli. Started on levofloxacin Slowly improving marijuana abuse encourage cessation Subjective Date/time seen: 03/10/25 09:16 Interval history: Continues to have persistent nausea and vomiting not able to tolerate food. Review of Systems Review of Systems: All systems reviewed & are unremarkable except as noted in HPI and below Exam Narrative: APPEARANCE: Ill-appearing no acute distress HEAD: normocephalic, atraumatic. EYES: PERRLA/EOMI, conjunctivae clear. NOSE: Normal no drainage NECK: Supple. No adenopathy, no masses. RESPIRATORY: Airway patent, respirations nonlabored. Clear to auscultation bilaterally, no rales, rhonchi, wheezing. CARDIOVASCULAR: Regular rate and rhythm without murmurs rubs or gallops. ABDOMINAL: Soft, mild epigastric tenderness, nondistended, normal bowel sounds MUSCULOSKELETAL: Moves all extremities. Strength/ROM intact, No edema, No calf tenderness. NEURO: Alert. Cranial nerves II through XII intact. Grossly intact SKIN: Warm, dry. Normal Color Objective Data Vital Signs Vital Signs: Vital Signs - 24 hr 03/09/25 14:00 03/09/25 20:00 03/09/25 21:22 Temperature 99.1 F 98.5 F Pulse Rate 70 82 82 Respiratory Rate 16 20 20 Blood Pressure 135/72 169/90 H Pulse Oximetry 99 100 100 Oxygen Delivery Room Air 03/10/25 06:00 03/10/25 08:00 Temperature 99.5 F Pulse Rate 71 Respiratory Rate 16 Blood Pressure 143/91 H Pulse Oximetry 97 Oxygen Delivery Room Air Intake/Output Intake/Output: Intake & Output 03/07/25 03/08/25 03/09/25 03/10/25 23:59 23:59 23:59 23:59 Intake Total 4680.3 3036 3297 1240 Balance 4680.3 3036 3297 1240 Meds/Results Medications: Active Medications Generic Name Dose Route Start Last Admin Trade Name Joseq PRN Reason Stop Dose Admin Acetaminophen 650 mg 03/08/25 00:26 03/10/25 03:00 Acetaminophen 325 Mg Tablet PO 650 mg Q4H PRN Administration Mild Pain (1-3) or Fever Dextrose 12.5 gm 03/06/25 03:26 Dextrose 50% 25 Gm/50 Ml Syringe IV PUSH PRN PRN Hypoglycemia Protocol Fluoxetine HCl 40 mg 03/07/25 09:00 03/09/25 08:31 Fluoxetine Hcl 20 Mg Capsule PO 40 mg DAILY SANDRITA Administration Glucagon 1 mg 03/06/25 03:26 Glucagon For Inj 1 Mg Vial IM PRN PRN Hypoglycemia Protocol Glucose 15 gm 03/06/25 03:26 Glucose Oral Gel 15 Gm Of Glucse In 37.5 Gm Tube PO PRN PRN Hypoglycemia Protocol Dextrose 1,000 mls @ 100 mls/hr 03/06/25 03:26 Dextrose 5% 1,000 Ml IVPB PRN PRN Hypoglycemia Protocol Sodium Chloride 1,000 mls @ 100 mls/hr 03/06/25 08:25 03/10/25 02:57 Normal Saline Iv IV CONT 100 mls/hr .Q10H SANDRITA Administration Levofloxacin/Dextrose 750 mg in 150 mls @ 100 mls/hr 03/07/25 16:00 03/09/25 16:30 Levaquin 750 Mg/D5w 150 Ml IVPB Infused Q24H SANDRITA Infusion Potassium Chloride 40 meq/ 520 mls @ 130 mls/hr 03/10/25 07:45 03/10/25 08:21 Sodium Chloride IVPB 03/10/25 11:44 130 mls/hr ONCE ONE Administration Insulin Aspart 3 - 6 units 03/06/25 12:00 03/10/25 08:26 Insulin Aspart (*Bkc) 100 Units/Ml SUB-Q Not Given TIDWM REPLACED BY [facility] Protocol Insulin Glargine 25 units 03/08/25 21:00 03/09/25 21:05 Insulin Glargine (*Bkc) 100 Units/Ml SUB-Q 25 units HS SANDRITA Administration Metoclopramide HCl 10 mg 03/06/25 10:01 03/10/25 08:21 Metoclopramide Hcl Inj 10 Mg/2 Ml Vial IV PUSH 10 mg Q6HR PRN Administration nausea/vomiting Prochlorperazine Edisylate 10 mg 03/09/25 12:25 03/10/25 03:00 Prochlorperazine Edisylate 10 Mg/2 Ml Vial IV PUSH 10 mg Q6H PRN Administration Nausea And Vomiting Sucralfate 1,000 mg 03/09/25 16:30 03/10/25 05:59 Sucralfate Susp 100 Mg/Ml 10 Ml Udc PO 1,000 mg ACHS SANDRITA Administration Radiology Results: ITS Impressions Abdomen/Pelvis CT 03/07/25 17:53 IMPRESSION: Gastric distention without mural thickening or surrounding inflammatory change, consistent with patient's history. Mural thickening within the bladder with surrounding inflammatory change for which cystitis affected. Free fluid within the lower abdomen extending into the pelvis more than normally expected for physiologic free fluid, possibly reactive to the bladder infection. Labs Labs: Laboratory Results - last 24 hr 03/09/25 03/09/25 03/09/25 11:51 16:29 20:08 WBC RBC Hgb Hct MCV MCH MCHC RDW Plt Count MPV Immature Gran % (Auto) Neut % (Auto) Lymph % (Auto) [place] % (Auto) Eos % (Auto) Baso % (Auto) Lymph # (Auto) [place] # (Auto) Eos # (Auto) Baso # (Auto) Abs Immat Gran (auto) Absolute Neuts (auto) Absolute Nucleated RBC Nucleated RBC % Sodium Potassium Chloride Carbon Dioxide Anion Gap BUN Creatinine Estim Creat Clear Calc Estimated GFR Glucose POC Capillary Glucose 269 H 276 H 225 H Calcium Magnesium Total Bilirubin AST ALT Alkaline Phosphatase Total Protein Albumin 03/10/25 03/10/25 06:19 08:04 WBC 9.9 RBC 3.93 L Hgb 11.8 L Hct 35.8 L MCV 91.1 MCH 30.0 MCHC 33.0 RDW 13.4 Plt Count 347 MPV 10.6 H Immature Gran % (Auto) 1.0 H Neut % (Auto) 71.6 Lymph % (Auto) 17.6 L [place] % (Auto) 9.0 H Eos % (Auto) 0.3 Baso % (Auto) 0.5 Lymph # (Auto) 1.75 [place] # (Auto) 0.9 H Eos # (Auto) 0.0 Baso # (Auto) 0.1 Abs Immat Gran (auto) 0.10 H Absolute Neuts (auto) 7.1 H Absolute Nucleated RBC 0.000 Nucleated RBC % 0.0 Sodium 135 L Potassium 3.0 L Chloride 101 Carbon Dioxide 26 Anion Gap 8 BUN < 2 L Creatinine 0.47 L Estim Creat Clear Calc 142 Estimated GFR > 60 Glucose 175 H POC Capillary Glucose 156 H Calcium 8.6 Magnesium 1.9 Total Bilirubin 0.4 AST 20 ALT 16 Alkaline Phosphatase 63 Total Protein 6.2 L Albumin 3.4 L
--- NOTE | 2025-03-10 12:12 | PC.NURSE ---
GI consult for nausea and vomiting. Novolog not administered due to Dr. Flores's recommendation to hold po intake at this time until seen by GI.
[2025-03-10 14:00] VITALS: BP 154/95; PULSE 78; RESP 18; TEMP 36.5; O2SAT 95
[2025-03-10] MEDS: levoFLOXacin 750 MG/D5W 150 ML 750 MG/150 ML BAG 100 MG IVPB (15:13)
--- NOTE | 2025-03-10 16:45 | WPDGICN ---
Assessment and Plan Assessment and plan (1) Cannabinoid hyperemesis syndrome: Code(s): R11.2 - Nausea with vomiting, unspecified; F12.90 - Cannabis use, unspecified, uncomplicated Status: Acute Assessment and Plan: The differential diagnosis includes both Cyclic Vomiting Syndrome and Cannabinoid Hyperemesis Syndrome, with the patient's reported chronic marijuana use being the distinguishing factor in favor of the latter. I had a long discussion with the patient, explaining that resolution of symptoms may not be immediate, as cannabinoid receptor hyper-regulation in the brain can lead to continued vomiting for several weeks post-cessation. We plan to continue her current regimen of metoclopramide and Compazine, while vigilantly watching for the development of extrapyramidal syndromes. I emphasized the critical importance of permanent marijuana cessation and provided reassurance that symptoms typically subside within the coming days, though full resolution can take longer. GI Consult Note Consult date/time: 03/10/25 16:45 Reason for consult: Nausea / vomiting HPI: This 24-year-old female, Ekta Rivero, with a history of Type 1 Diabetes, was admitted on March 06, 2025, due to intractable nausea and vomiting. Despite trials of metoclopramide and Compazine, her symptoms, which include protracted dry heaves and intermittent, sharp epigastric pain, have persisted. She reports a history of recurrent episodes diagnosed with cyclic vomiting syndrome. [place] to her history is chronic daily marijuana use, with her last reported use being a few days prior to admission. She also notes that hot showers sometimes provide symptomatic relief. Review of Systems Review of Systems: All systems reviewed & are unremarkable except as noted in HPI and below PMFSH Past Medical History Medical History Gastroparesis Type 1 diabetes mellitus Cyclic vomiting syndrome Depression Surgical History Surgical History No pertinent past surgical history Family History Family History Father Family history of diabetes mellitus in first degree relative Pulmonary embolism Mother Family history of diabetes mellitus in first degree relative Grandparent Crohn disease Celiac disease Social History Social History Social History: Surrogate medical decision maker: Iliana Villead, mother. Code status: Full code. Years smoked: 4 Smoking status: Current every day smoker Tobacco type: e-cigarettes/vaping Second hand tobacco smoke exposure: No Additional smoking assessment comments: vapes Alcohol intake: never Drinks per week: 1 Substance use: current Substance use type: marijuana Other substance usage details: smokes marijuana Do You Feel Safe in your Home?: Yes Lack of Transportation: No Lack of Food: Never True Current Housing: I Have Housing Concerned About Future Housing: No Difficulty Paying Gas/Electric Bills: No Difficulty Paying for Meds: No Currently Unemployed: No Education: Don't Know Difficulty w/ Childcare or Family Care: No Living arrangements: with family Occupation/Education: occupation 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 Spiritual care concerns: No Meds Home Medications and Allergies Home Medications ?Medication ?Instructions ?Recorded ?Confirmed ?Type fluoxetine 20 mg capsule 20 mg PO DAILY 01/26/23 03/06/25 History insulin glargine 100 unit/mL (3 See Rx Instructions .Route .COMPLEX 01/27/23 03/06/25 History mL) subcutaneous pen (Basaglar KwikPen U-100 Insulin) ondansetron 4 mg disintegrating 4 mg PO Q6H PRN nausea and 06/01/23 03/06/25 Rx tablet vomiting #20 tabs metoclopramide HCl 10 mg tablet 10 mg PO DAILY Nausea #30 tabs 11/27/23 03/06/25 Rx (Reglan) ondansetron 4 mg disintegrating 4 mg PO Q8H PRN nausea and 03/05/25 03/06/25 Rx tablet vomiting #7 tabs fluoxetine 40 mg capsule 40 mg PO DAILY 03/06/25 03/06/25 History Allergies Allergy/AdvReac Type Severity Reaction Status Date / Time Penicillins Allergy Itching Verified 03/06/25 02:03 Vital Signs Vital Signs - 24 hr 03/09/25 20:00 03/09/25 21:22 03/10/25 06:00 Temperature 98.5 F 99.5 F Pulse Rate 82 82 71 Respiratory Rate 20 20 16 Blood Pressure 169/90 H 143/91 H Pulse Oximetry 100 100 97 Oxygen Delivery Room Air 03/10/25 08:00 03/10/25 14:00 Temperature 97.7 F Pulse Rate 78 Respiratory Rate 18 Blood Pressure 154/95 H Pulse Oximetry 95 Oxygen Delivery Room Air Exam Const: General: cooperative and healthy appearing Resp: Effort & Inspection: normal respiratory effort and able to speak in complete sentences Auscultation: clear to auscultation bilaterally Cardio: Rate: regular rate Rhythm: regular rhythm GI: Inspection: normal to inspection GI Palp: No No hepatosplenomegaly present Auscultation: normal bowel sounds Rectal Exam: deferred Skin: General skin exam: normal color Psych: Appearance: grossly normal Mental Status: mental status grossly normal Results Labs 03/10/25 06:19 03/10/25 06:19 Labs: Short CBC 03/10/25 Range/Units 06:19 WBC 9.9 (4.5-10.0) K/mm3 Hgb 11.8 L (12.0-15.0) g/dL Hct 35.8 L (37.0-47.0) % Plt Count 347 (150-375) k/mm3 [facility] 03/10/25 06:19 Sodium 135 L Potassium 3.0 L Chloride 101 Carbon Dioxide 26 BUN < 2 L Creatinine 0.47 L Glucose 175 H Calcium 8.6 Liver Function 03/10/25 Range/Units 06:19 Total Bilirubin 0.4 (0.2-1.3) mg/dL AST 20 (14-36) U/L ALT 16 (6-35) U/L Alkaline Phosphatase 63 (38-126) U/L Albumin 3.4 L (3.5-5.1) g/dL
[2025-03-10] MEDS: INSULIN ASPART (*BKC) 100 UNITS/ML SUB-Q (17:10)
[2025-03-10 20:00] VITALS: PULSE 78; RESP 18; O2SAT 100
[2025-03-10] MEDS: INSULIN GLARGINE (*BKC) 100 UNITS/ML 25 UNITS SUB-Q (21:55)
[2025-03-10 22:00] VITALS: BP 150/91; PULSE 78; RESP 18; TEMP 36.7; O2SAT 100
[2025-03-11] MEDS: PROCHLORPERAZINE EDISYLATE 10 MG/2 ML VIAL IV PUSH (02:10)
[2025-03-11] MEDS: ACETAMINOPHEN 325 MG TABLET 650 MG PO ×2 (02:10→08:41)
[2025-03-11] MEDS: SODIUM CHLORIDE 0.9% IV 1,000 ML 100 ML IV CONT (04:44)
[2025-03-11 06:00] VITALS: BP 147/78; PULSE 71; RESP 18; TEMP 36.6; O2SAT 99
[2025-03-11 06:18] LABS: Hematocrit 36.0 % (37.0-47.0); Hemoglobin 11.8 g/dL (12.0-15.0); Immature Granulocyte Percent A 1.1 % (0-0.5); Lymphocytes Absolute Auto 1.32 K/mm3 (0.9-3.2); Mean Corpuscular HGB Conc 32.8 g/dl (32-36); Mean Corpuscular Hemoglobin 30.0 pg (26-34); Mean Corpuscular Volume 91.6 fl (80-100); Nucleated Red Blood Cells Absolute Auto 0.000 K/mm3 (0.0-0.012); Nucleated Red Blood Cells Perc 0.0 % (0.0-0.2); Platelet Count Result 324 k/mm3 (150-375); Red Blood Count 3.93 M/mm3 (4.2-5.4); White Blood Count 8.8 K/mm3 (4.5-10.0)
[2025-03-11 06:26] LABS: Alanine Aminotransferase 13 U/L (6-35); Albumin Level 3.7 g/dL (3.5-5.1); Alkaline Phosphatase 66 U/L (38-126); Anion Gap 10 mmol/L (4-12); Aspartate Amino Transferase 19 U/L (14-36); Bilirubin,Total 0.6 mg/dL (0.2-1.3); Blood Urea Nitrogen 2 mg/dL (7-17); Calcium 8.4 mg/dL (8.4-10.2); Carbon Dioxide 25 mmol/L (22-30); Chloride 97 mmol/L (98-107); Estimated CRCL calculation 145 ml/min; Estimated Glomerular Filt Rate > 60; Glucose 191 mg/dL (65-110); Magnesium 1.7 mg/dL (1.6-2.3); Potassium 3.2 mmol/L (3.4-5.0); Sodium 132 mmol/L (137-145); Total Protein 6.3 g/dL (6.3-8.2)
[2025-03-11 07:27] VITALS: PULSE 71; RESP 18; O2SAT 99
[2025-03-11] MEDS: INSULIN ASPART (*BKC) 100 UNITS/ML SUB-Q (08:33)
[2025-03-11] MEDS: METOCLOPRAMIDE HCL INJ 10 MG/2 ML VIAL IV PUSH (08:36)
[2025-03-11] MEDS: POTASSIUM CHLORIDE INJ 40 MEQ in SODIUM CHLORIDE 0.9% IV 500 ML 130 MEQ IVPB (08:58)
[2025-03-11 14:00] VITALS: BP 123/66; PULSE 79; RESP 16; TEMP 35.8; O2SAT 98
--- NOTE | 2025-03-11 14:51 | PM.DS ---
DS: Admitting Diagnosis Discharge Date 03/11/2025 Admitting Diagnosis Nausea vomiting DS: Discharge Diagnosis Discharge Diagnosis (1) Cannabinoid hyperemesis syndrome: Code(s): R11.2 - Nausea with vomiting, unspecified; F12.90 - Cannabis use, unspecified, uncomplicated Status: Acute (2) Intractable cyclical vomiting with nausea: Code(s): R11.15 - Cyclical vomiting syndrome unrelated to migraine Status: Acute (3) Dehydration: Code(s): E86.0 - Dehydration Status: Acute (4) Gastroparesis: Code(s): K31.84 - Gastroparesis Status: Acute (5) Type 1 diabetes mellitus: Code(s): E10.9 - Type 1 diabetes mellitus without complications Status: Acute DS: Summary Hospital Course Hospital Course: Patient is 24 years old female with history of daily marijuana abuse and recurrent N/V, DM1 presented with about 2 days N/V. denies any fever chills cough, abd pain, chest pain, diarrhea, urinary symptoms. Patient smoke marijuana 2 days ago. denies alcohol abuse. Presented in the Er for further management, received IVF and zofran and had some improvement. she was discharged home but continued to have N/V and presented back to the Er today. In the Er Vital sign stable. WBC 17.1, Anion Gap 14, potassium 3.6. received Iv potassium and insulin lantus and lispro . patient was admitted for further management. N/V. CT abdomen with gastric distension without mural thickening or surrounding inflammatory change consistent with patient history. Mural thickening within the bladder with surrounding inflammatory change for which cystitis. Free fluid within lower abdomen extending into the pelvis more than normal expected for physiologic free fluid possibly reactive to the bladder infection. Cyclical vomiting syndrome secondary to marijuana abuse vs gastroparesis Urine test negative UDS positive for cannabinoids continue reglan, IVF subsequently added Compazine continue to monitor Slowly advance diet as tolerated. Attempt Compazine and add Carafate. Still persistent nausea vomiting. Consulted GI Slowly improving on p.r.n. medication DM1 with possible DKa meet the criteria AG elevated and beta hydroxy positive Monitor blood sugar Lantus and lispro Leucocytosis UA positive for UTI. Urine culture with E coli. Started on levofloxacin. Leukocytosis resolved with treatment. Finish course of levofloxacin marijuana abuse encourage cessation Time Spent with Patient Time attestation: Total time spent providing and/or coordinating discharge services: 35 minutes Exam Narrative: APPEARANCE: well-appearing no acute distress HEAD: normocephalic, atraumatic. EYES: PERRLA/EOMI, conjunctivae clear. NOSE: Normal no drainage NECK: Supple. No adenopathy, no masses. RESPIRATORY: Airway patent, respirations nonlabored. Clear to auscultation bilaterally, no rales, rhonchi, wheezing. CARDIOVASCULAR: Regular rate and rhythm without murmurs rubs or gallops. ABDOMINAL: Soft, mild epigastric tenderness, nondistended, normal bowel sounds MUSCULOSKELETAL: Moves all extremities. Strength/ROM intact, No edema, No calf tenderness. NEURO: Alert. Cranial nerves II through XII intact. Grossly intact SKIN: Warm, dry. Normal Color DS: Data Data Completed and Pending Labs on day of discharge: Labs from last 24 hours 03/11/25 03/11/25 03/11/25 12:05 08:08 05:51 WBC 8.8 RBC 3.93 L Hgb 11.8 L Hct 36.0 L MCV 91.6 MCH 30.0 MCHC 32.8 RDW 13.6 Plt Count 324 MPV 10.6 H Immature Gran % (Auto) 1.1 H Neut % (Auto) 75.3 H Lymph % (Auto) 14.9 L [place] % (Auto) 7.8 Eos % (Auto) 0.3 Baso % (Auto) 0.6 Lymph # (Auto) 1.32 [place] # (Auto) 0.7 H Eos # (Auto) 0.0 Baso # (Auto) 0.1 Abs Immat Gran (auto) 0.10 H Absolute Neuts (auto) 6.7 Absolute Nucleated RBC 0.000 Nucleated RBC % 0.0 Sodium 132 L Potassium 3.2 L Chloride 97 L Carbon Dioxide 25 Anion Gap 10 BUN 2 L Creatinine 0.46 L Estim Creat Clear Calc 145 Estimated GFR > 60 Glucose 191 H POC Capillary Glucose 153 H 231 H Calcium 8.4 Magnesium 1.7 Total Bilirubin 0.6 AST 19 ALT 13 Alkaline Phosphatase 66 Total Protein 6.3 Albumin 3.7 03/10/25 03/10/25 20:30 17:04 WBC RBC Hgb Hct MCV MCH MCHC RDW Plt Count MPV Immature Gran % (Auto) Neut % (Auto) Lymph % (Auto) [place] % (Auto) Eos % (Auto) Baso % (Auto) Lymph # (Auto) [place] # (Auto) Eos # (Auto) Baso # (Auto) Abs Immat Gran (auto) Absolute Neuts (auto) Absolute Nucleated RBC Nucleated RBC % Sodium Potassium Chloride Carbon Dioxide Anion Gap BUN Creatinine Estim Creat Clear Calc Estimated GFR Glucose POC Capillary Glucose 167 H 225 H Calcium Magnesium Total Bilirubin AST ALT Alkaline Phosphatase Total Protein Albumin Preliminary micro results at discharge 03/06/25 11:27 Blood Culture - Preliminary Blood 03/06/25 11:07 Blood Culture - Preliminary Blood Imaging Radiologist's impression: ITS Impressions Abdomen/Pelvis CT 03/07/25 17:53 IMPRESSION: Gastric distention without mural thickening or surrounding inflammatory change, consistent with patient's history. Mural thickening within the bladder with surrounding inflammatory change for which cystitis affected. Free fluid within the lower abdomen extending into the pelvis more than normally expected for physiologic free fluid, possibly reactive to the bladder infection. Discharge Plan Discharge Attending physician on discharge: Jovani Flores Discharging Clinician: Jovani Flores Anticipated Discharge Date/Time: 03/11/25 14:54 Patient Disposition: Home Activity: as tolerated Diet: as tolerated and diabetic Patient Instructions: Antibiotic Form Patient Language: Faroese Stand Alone Forms: General Discharge Information Follow-up/Referrals: Sophie,Cyn Bain MD [Primary Care Provider] - 1 Week Discharge Medications: New levofloxacin 750 mg tablet 750 mg PO DAILY Qty: 3 0RF Continued ondansetron 4 mg tablet,disintegrating 4 mg PO Q6H PRN (Reason: nausea and vomiting) Qty: 20 0RF metoclopramide HCl [Reglan] 10 mg tablet 10 mg PO DAILY Qty: 30 1RF insulin glargine [Basaglar KwikPen U-100 Insulin] 100 unit/mL (3 mL) Insulin Pen See Rx Instructions .ROUTE .COMPLEX Patient Comments: Lantus 25 units every AM Rx Instructions: 22 units subq NEEDED if insulin pump is no longer working fluoxetine 40 mg capsule 40 mg PO DAILY ondansetron 4 mg tablet,disintegrating 4 mg PO Q8H PRN (Reason: nausea and vomiting) Qty: 7 0RF Discontinued fluoxetine 20 mg capsule 20 mg PO DAILY Date of admission: 03/09/25 13:57 Primary Care Provider: Sophie,Cyn Bain Admitting Provider: Cheryl Harden Attending physician on admission: Jovani Flores Condition: Improved
--- NOTE | 2025-03-13 15:28 | PM.IMHP ---
H&P: HPI History of Present Illness Date/Time: 03/06/25 15:28 Chief Complaint: N/V Narrative: patient is 24 years old female with history of daily marijuana abuse and recurrent N/V, DM1 presented with about 2 days N/V. denies any fever chills cough, abd pian, chest pain, diarrhea, urinary symptoms. Patient smoke marijuana 2 days ago. denies alcohol abuse. Presented in the Er yesterday for further management, received IVF and zofran and had some improvement. she was discharged home but continued to have N/V and presented back to the Er today. In the Er Vital sign stable. WBC 17.1, Anion Gap 14, potassium 3.6. received Iv potassium and insulin lantus and lispro . patient was admitted for further management. 03/06/25 Patient was seen and examined at bedside. she still feeling nauseated. will get EKG, BHCG and UDS. will continue IVF. monitor BS . and will repeat BMP. patient asking to get Reglan as it helped her before. will monitor for hypoglycemia as patient received Lantus and not able to eat. will follow CBC and WBC off of abx. no source of infection identified. possible reactive Vs dehydration. will start Abx if getting worse. Review of Systems Review of Systems: All systems reviewed & are unremarkable except as noted in HPI and below PMFSH Past Medical History Medical History Gastroparesis Type 1 diabetes mellitus Cyclic vomiting syndrome Depression Surgical History Surgical History No pertinent past surgical history Family History Family History Father Family history of diabetes mellitus in first degree relative Pulmonary embolism Mother Family history of diabetes mellitus in first degree relative Grandparent Crohn disease Celiac disease Social History Social History Social History: Surrogate medical decision maker: Iliana Villeda, mother. Code status: Full code. Years smoked: 4 Smoking status: Current every day smoker Tobacco type: e-cigarettes/vaping Second hand tobacco smoke exposure: No Additional smoking assessment comments: vapes Alcohol intake: never Drinks per week: 1 Substance use: current Substance use type: marijuana Other substance usage details: smokes marijuana Do You Feel Safe in your Home?: Yes Lack of Transportation: No Lack of Food: Never True Current Housing: I Have Housing Concerned About Future Housing: No Difficulty Paying Gas/Electric Bills: No Difficulty Paying for Meds: No Currently Unemployed: No Education: Don't Know Difficulty w/ Childcare or Family Care: No Living arrangements: with family Occupation/Education: occupation 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 Meds Home Medications and Allergies Home Medications ?Medication ?Instructions ?Recorded ?Confirmed ?Type insulin glargine 100 unit/mL (3 See Rx Instructions .Route .COMPLEX 01/27/23 03/06/25 History mL) subcutaneous pen (Basaglar KwikPen U-100 Insulin) ondansetron 4 mg disintegrating 4 mg PO Q6H PRN nausea and 06/01/23 03/06/25 Rx tablet vomiting #20 tabs metoclopramide HCl 10 mg tablet 10 mg PO DAILY Nausea #30 tabs 11/27/23 03/06/25 Rx (Reglan) ondansetron 4 mg disintegrating 4 mg PO Q8H PRN nausea and 03/05/25 03/06/25 Rx tablet vomiting #7 tabs fluoxetine 40 mg capsule 40 mg PO DAILY 03/06/25 03/06/25 History levofloxacin 750 mg tablet 750 mg PO DAILY #3 tabs 03/11/25 Rx Allergies Allergy/AdvReac Type Severity Reaction Status Date / Time Penicillins Allergy Itching Verified 03/06/25 02:03 Exam Narrative: APPEARANCE: well-appearing no acute distress HEAD: normocephalic, atraumatic. EYES: PERRLA/EOMI, conjunctivae clear. NOSE: Normal no drainage NECK: Supple. No adenopathy, no masses. RESPIRATORY: Airway patent, respirations nonlabored. Clear to auscultation bilaterally, no rales, rhonchi, wheezing. CARDIOVASCULAR: Regular rate and rhythm without murmurs rubs or gallops. ABDOMINAL: Soft, mild epigastric tenderness, nondistended, normal bowel sounds MUSCULOSKELETAL: Moves all extremities. Strength/ROM intact, No edema, No calf tenderness. NEURO: Alert. Cranial nerves II through XII intact. Grossly intact SKIN: Warm, dry. Normal Color Assessment and Plan Assessment and plan (1) Cannabinoid hyperemesis syndrome: Code(s): R11.2 - Nausea with vomiting, unspecified; F12.90 - Cannabis use, unspecified, uncomplicated Status: Acute (2) Intractable cyclical vomiting with nausea: Code(s): R11.15 - Cyclical vomiting syndrome unrelated to migraine Status: Acute (3) Dehydration: Code(s): E86.0 - Dehydration Status: Acute (4) Gastroparesis: Code(s): K31.84 - Gastroparesis Status: Acute (5) Type 1 diabetes mellitus: Code(s): E10.9 - Type 1 diabetes mellitus without complications Status: Acute Plan N/V Cyclical vomiting syndrome secondary to marijuana abuse vs gastroparesis Will check HCG to R/O Will Check UDs continue reglan, IVF continue to monitor DM1 with possible DKa meet the criteria AG elevated and Bhydroxy positve Will check BMP Will monitor BS Lantus and lispro Leucocytosis Possible reactive Monitor off Abx marijuana abuse encourage cessation
== END 2025-03-11 15:11 | disposition home or self-care (01) | DRG 393 ==
LOC: ANHED 06:24 → ANHIMU 07:09 → ANH3MEDSUR 23:57
PROVIDERS: Internal Medicine; Admitting Provider Internal Medicine; Emergency Provider Emergency Medicine; PCP Emergency Medicine; Visit Provider Internal Medicine
DX: R11.15 Cyclical vomiting syndrome unrelated to migraine (principal); E10.10 Type 1 diabetes mellitus with ketoacidosis without coma; N39.0 Urinary tract infection, site not specified; F12.10 Cannabis abuse, uncomplicated; E10.43 Type 1 diabetes mellitus with diabetic autonomic (poly)neuropathy; K31.84 Gastroparesis; E86.0 Dehydration; B96.20 Unspecified Escherichia coli [E. coli] as the cause of diseases classified elsewhere; D72.829 Elevated white blood cell count, unspecified; E87.6 Hypokalemia; E83.39 Other disorders of phosphorus metabolism; F17.290 Nicotine dependence, other tobacco product, uncomplicated; Z79.4 Long term (current) use of insulin
CPT/HCPCS: 36415; 74177; 80048; 80053; 80307; 81025; 82010; 82948; 83036; 83605; 83735; 84703; 85025; 85027; 85055; 87040; 93005; 96361; 96365; 96366; 96372; 96374; 96375; 96376; 99285; A9270; G0378; J0780; J1200; J1630; J1815; J1956; J2405; J2765; J3480; J7030; J7040; J7120; Q9967

== ENCOUNTER 2025-08-31 07:06 | Inpatient (IN) | payer OTHER, SELFPAY ==
[2025-08-31] VITALS (64 sets, daily range): BP systolic 95–152; BP diastolic 50–110; PULSE 60–115; RESP 7–29; TEMP 36.4–37.1; O2SAT 98–100
--- NOTE | ~2025-08-31 | CT_ITS ---
EXAMINATION: CT abdomen pelvis w con DATE: 08/31/2025 15:13 INDICATION: 24-year-old female with hematemesis. Diabetic. TECHNIQUE: Computed tomography (CT) of the abdomen and pelvis was performed with 100 cc of intravenous contrast. Automated exposure control and iterative reconstruction technique were employed. The dose-length product was 234.92 mGy-cm. COMPARISON: CT abdomen pelvis with contrast dated 03/07/2025. FINDINGS: Lung bases do not show acute findings. No focal lesions of liver and spleen. Gallbladder is no acute findings. Stomach, pancreas and kidneys do not show acute findings. No evidence of small bowel obstruction or ileus. No inflammatory changes in the pelvis. No pelvic mass or fluid collections. Normal size appendix. No acute findings of lumbar spine and pelvic bones. IMPRESSION: 1. No acute findings are noted in the upper abdomen and pelvis on the CT examination. Consider upper endoscopy to evaluate hematemesis. Reviewed, dictated and finalized at location T. ERER IMPRESSION: 1. No acute findings are noted in the upper abdomen and pelvis on the CT examin ation. Consider upper endoscopy to evaluate hematemesis.
--- OUTSIDE RECORDS SUMMARY | 2025-08-31 07:09 | XMS_ITS | Data Portability ---
[facility] Organization [facility] Address [address] [place] [address] Assessment No assessment recorded. Plan of Treatment Reminders Order Date Submit Date Provider Last Modified By Organization Details Last Modified Time Details Appointments None recorded. Lab ESR (erythrocyt e sedimentati on rate), blood 2022 023 [facility], [address] [place] [address], [address], [place], [address], 3 08:36:41 Referral None recorded. Procedures None recorded. Surgeries None recorded. Imaging NM, bone scan, 3-phase - was hospitalize d for abscess after cat bite, continued pain in digit, type 1 diabetic, glucose elevated, 2022 023 [facility] ([facility]), [address] [place], [address], 3 19:12:26 Medication Orders insulin lispro (U-100) 100 unit/mL subcutaneou s pen 2022 023 [facility] #[id number], [address] [place], [place], [id number], 3 11:47:21 Naprosyn 500 mg tablet 2022 023 [facility] #[id number], [address] [place], [place], [id number], 3 10:49:13 ondansetron 8 mg disintegrat ing tablet 2022 023 [facility] #[id number], [address] [place], [place], [id number], 10:52:42 Levaquin 500 mg tablet 2022 023 [facility] #[id number] [place], [place], [id number], 10:49:33 Patient TargetsNo targets recorded. Patient Instructions Encounter Date Encounter Id Patient Instructions Last Modified By Organization Details Last Modified Time 01/25/2023 [id number] A healthy lifestyle: care instructions kfarroll Not available 01/25/2023 18:09:26 03/31/2023 [id number] A healthy lifestyle: care instructions kfarroll Not available 03/31/2023 11:47:16 Reason for Referral None Reported. Results Created Date Observation Date Name Description Value Unit Range Abnormal Flag Note LastModifiedBy Organization Detail LastModifiedTime 01/24/2001/27/2023 [facility]NA[facility] OBIC AND AEROB IC CULTU RE anaerobic culture Final report abnormal Not Available [facility] ([facility]) [address] [facility] [address], [place], [address], 01/28/2023 17:14:44 01/24/2001/27/2023 ANAER OBIC AND AEROB IC CULTU RE result 1 Bacter oides pyogen es abnormal Moder ate growt h Studi es at [facility] have confi rmed the obser vatio ns of other s who have demon strat ed that Bacte roide s fragi lis group are routi dickson susce ptibl e to Cefox itin, Chlor amphe artem , and Metro nidaz ole and are usual ly resis tant to Penic illin , and varia donald in resis tance to Clind amyci n. Not Available [facility] ([facility]) [address] [facility] [address], [place], [address], 01/28/2023 17:14:44 01/24/2001/2801/28/2023 ANAER OBIC AND AEROB IC CULTU RE aerobic culture Final report abnormal Not Available [facility] ([facility]) [address] [facility] [address], [place], [address], 01/28/2023 17:14:44 01/24/20 23 01/28/2023 ANAER OBIC AND AEROB IC CULTU RE result 1 Pasteu rella specie s abnormal Heavy growt h Susce ptibi lity not erendira lly perfo rmed on this organ ism. Not Available [facility] ([facility]) [address] [facility] [facility] [address], [place], [address], 01/28/2023 17:14:44 03/01/20 23 03/02/2023 SEDIM ENTAT ION RATE- WESTE RGREN sedimentatio n rate-westerg heraclio 17 mm/HR 0-32 Not Available [facility] ([facility]) [address] [facility] [facility] [address], [place], [address], 03/02/2023 08:36:41 10/11/19 25 10/11/2024 Hemog lobin A1c/H emogl obin. total in Blood hemoglobin A1C/hemoglob in.total in blood 12.4 % Not Available Not Available 03/11 16:08:07 01/26/20 25 01/25/2025 Gluco se [Mass /volu me] in Capil mesha blood by Gluco meter glucose [mass/volume ] in capillary blood by glucometer 202 mg/dL low: 74mg/d Lhigh: 99mg/d L high Not Available Not Available 01/25/2025 17:41:27 01/26/20 25 01/25/2025 Urina lysis compl ete W Refle x Cultu re panel - Urine color of urine by auto Straw- colore d urine normal Not Available Not Available 17:41:27 01/26/20 25 01/25/2025 Urina lysis compl ete W Refle x Cultu re panel - Urine appearance of urine Urine specim en normal Not Available Not Available 17:41:27 01/26/20 25 01/25/2025 Urina lysis compl ete W Refle x Cultu re panel - Urine specific gravity of urine by test strip 1.021 1 low: 1.001h igh: 1.03 normal Not Available Not Available 01/25/2025 17:41:27 01/26/20 25 01/25/2025 Urina lysis compl ete W Refle x Cultu re panel - Urine pH of urine by test strip 7 pH_un its low: 5pH unitsh igh: 9pH units normal Not Available Not Available 01/25/2025 17:41:27 01/26/20 25 01/25/2025 Urina lysis compl ete W Refle x Cultu re panel - Urine leukocytes [#/volume] in urine by test strip Leukoc yte estera se measur ement text: negati ve normal Not Available Not Available 01/25/2025 17:41:27 01/26/20 25 01/25/2025 Urina lysis compl ete W Refle x Cultu re panel - Urine nitrite [presence] in urine by test strip Labora tory test findin g text: negati ve normal Not Available Not Available 01/25/2025 17:41:27 01/26/20 25 01/25/2025 Urina lysis compl ete W Refle x Cultu re panel - Urine protein [mass/volume ] in urine by test strip Urine findin g text: negati ve normal Not Available Not Available 01/25/2025 17:41:27 01/26/20 25 01/25/2025 Urina lysis compl ete W Refle x Cultu re panel - Urine glucose [moles/volum e] in urine by test strip Labora tory test findin g text: normal Not Available Not Available 01/25/2025 17:41:27 01/26/20 25 01/25/2025 Urina lysis compl ete W Refle x Cultu re panel - Urine ketones [moles/volum e] in urine by test strip 100 mg/dL text: negati ve Not Available Not Available 01/25/2025 17:41:27 01/26/20 25 01/25/2025 Urina lysis compl ete W Refle x Cultu re panel - Urine urobilinogen [mass/volume ] in urine by test strip Urobil inogen measur ement, urine text: normal normal Not Available Not Available 01/25/2025 17:41:27 01/26/20 25 01/25/2025 Urina lysis compl ete W Refle x Cultu re panel - Urine bilirubin.to gary [mass/volume ] in urine by test strip Urine dipsti ck for biliru bin text: negati ve normal Not Available Not Available 01/25/2025 17:41:27 01/26/20 25 01/25/2025 Urina lysis compl ete W Refle x Cultu re panel - Urine erythrocytes [#/volume] in urine by test strip 0.2 mg/dL text: negati ve Not Available Not Available 01/25/2025 17:41:27 01/26/20 25 01/25/2025 Urina lysis compl ete W Refle x Cultu re panel - Urine leukocytes [#/area] in urine sediment by automated count Leukoc ytes in urine low: 0/[hpf ]high: 8/[hpf ] normal Not Available Not Available 01/25/2025 17:41:27 01/26/20 25 01/25/2025 Urina lysis compl ete W Refle x Cultu re panel - Urine erythrocytes [#/area] in urine sediment by automated count Blood in urine low: 0/[hpf ]high: 4/[hpf ] normal Not Available Not Available 01/25/2025 17:41:27 01/26/20 25 01/25/2025 Urina lysis compl ete W Refle x Cultu re panel - Urine bacteria [presence] in urine by automated Urine findin g text: none seen normal Not Available Not Available 01/25/2025 17:41:27 01/26/20 25 01/25/2025 Urina lysis compl ete W Refle x Cultu re panel - Urine mucus [#/area] in urine sediment by automated count Urine findin g text: none seen Not Available Not Available 01/25/2025 17:41:27 01/26/20 25 01/25/2025 Urina lysis compl ete W Refle x Cultu re panel - Urine epithelial cells.squamo us [#/area] in urine sediment by automated count Urine findin g Not Available Not Available 17:41:27 01/26/20 25 01/25/2025 Gluco se [Mass /volu me] in Capil mesha blood by Gluco meter glucose [mass/volume ] in capillary blood by glucometer 274 mg/dL low: 74mg/d Lhigh: 99mg/d L high Not Available Not Available 01/25/2025 17:41:27 01/26/20 25 01/25/2025 Compr ehens gaurav metab olic 1999 panel - Serum or Plasm a sodium [moles/volum e] in blood 140 mmol/ L low: 137mmo l/Lhig h: 145mmo l/L normal Not Available Not Available 01/25/2025 17:41:27 01/26/20 25 01/25/2025 Compr ehens gaurav metab olic 1999 panel - Serum or Plasm a potassium [moles/volum e] in serum or plasma 4.3 mmol/ L low: 3.5mmo l/Lhig h: 5.1mmo l/L normal Not Available Not Available 01/25/2025 17:41:27 01/26/20 25 01/25/2025 Compr ehens gaurav metab olic 1999 panel - Serum or Plasm a chloride [moles/volum e] in serum or plasma 101 mmol/ L low: 98mmol /Lhigh : 107mmo l/L normal Not Available Not Available 01/25/2025 17:41:27 01/26/20 25 01/25/2025 Compr ehens gaurav metab olic 1999 panel - Serum or Plasm a carbon dioxide, total [moles/volum e] in serum or plasma 20 mmol/ L low: 22mmol /Lhigh : 30mmol /L low Not Available Not Available 01/25/2025 17:41:27 01/26/20 25 01/25/2025 Compr ehens gaurav metab olic 1999 panel - Serum or Plasm a anion gap in serum or plasma by calculation 23.3 mmol/ L low: 14mmol /Lhigh : 22mmol /L high Not Available Not Available 01/25/2025 17:41:27 01/26/20 25 01/25/2025 Compr ehens gaurav metab olic 1999 panel - Serum or Plasm a glucose [mass/volume ] in serum or plasma 392 mg/dL low: 70mg/d Lhigh: 99mg/d L high Not Available Not Available 01/25/2025 17:41:27 01/26/20 25 01/25/2025 [facility] [employer] gaurav [facility] 1999 panel - Serum or Plasm a urea nitrogen [mass or moles/volume ] in serum or plasma 9 mg/dL low: 8mg/dL high: 19mg/d L normal Not Available Not Available 01/25/2025 17:41:27 01/26/20 25 01/25/2025 [facility] [employer] gaurav [employer] 1999 panel - Serum or Plasm a creatinine [mass/volume ] in serum or plasma 0.69 mg/dL low: 0.66mg /dLhig h: 1.25mg /dL normal Not Available Not Available 01/25/2025 17:41:27 01/26/20 25 01/25/2025 [facility] [employer] gaurav [employer] 1999 panel - Serum or Plasm a glomerular filtration rate [volume rate/area] in serum, plasma or blood by based on 1.73 sq M >60 normal Not Available Not Available 17:41:27 01/26/20 25 01/25/2025 [facility] [employer] gaurav myQaa ic 1999 panel - Serum or Plasm a alkaline phosphatase [enzymatic activity/vol ume] in serum or plasma 96 U/L low: 38U/Lh igh: 126U/L normal Not Available Not Available 01/25/2025 17:41:27 01/26/20 25 01/25/2025 [facility] [employer] gaurav myQaa ic 1999 panel - Serum or Plasm a alanine aminotransfe rase [enzymatic activity/vol ume] in serum or plasma 38 U/L low: 0U/Lhi gh: 35U/L high Not Available Not Available 01/25/2025 17:41:27 01/26/20 25 01/25/2025 Compr [employer] gaurav myQaa olic 1999 panel - Serum or Plasm a aspartate aminotransfe rase [enzymatic activity/vol ume] in serum or plasma 50 U/L low: 15U/Lh igh: 37U/L high Not Available Not Available 01/25/2025 17:41:27 01/26/20 25 01/25/2025 [facility] panel - Serum or Plasm a bilirubin.to gary [mass/volume ] in serum or plasma 1 mg/dL low: 0.2mg/ dLhigh : 1.3mg/ dL normal Not Available Not Available 01/25/2025 17:41:27 01/26/20 25 01/25/2025 [facility] 1999 panel - Serum or Plasm a calcium [mass/volume ] in serum or plasma 9.8 mg/dL low: 8.4mg/ dLhigh : 10.2mg /dL normal Not Available Not Available 01/25/2025 17:41:27 01/26/20 25 01/25/2025 [facility] 1999 panel - Serum or Plasm a protein [mass/volume ] in serum or plasma 7.9 g/dL low: 6.3g/d Lhigh: 8.2g/d L normal Not Available Not Available 01/25/2025 17:41:27 01/26/20 25 01/25/2025 [facility] 1999 panel - Serum or Plasm a albumin [mass/volume ] in serum or plasma 5.2 g/dL low: 3.4g/d Lhigh: 5g/dL high Not Available Not Available 01/25/2025 17:41:27 01/26/20 25 01/25/2025 [place] [id number] panel - Serum or Plasm a globulin [mass/volume ] in serum 2.7 g/dL low: 2.6g/d Lhigh: 4.2g/d L normal Not Available Not Available 01/25/2025 17:41:27 01/26/20 25 01/25/2025 [place] [address] panel - Serum or Plasm a albumin/glob ulin [mass ratio] in serum or plasma 1.9 ratio low: 1ratio high: 2ratio normal Not Available Not Available 01/25/2025 17:41:27 01/26/20 25 01/25/2025 [facility] panel - Blood leukocytes [#/volume] in blood by automated count 11.4 x10'3 /uL low: 4.2x10 '3/uLh igh: 10.8x1 0'3/uL high Not Available Not Available 01/25/2025 17:41:27 01/26/20 25 01/25/2025 [facility] renti al panel - Blood erythrocytes [#/volume] in blood by automated count 4.67 x10'6 /uL low: 3.8x10 '6/uLh igh: 5.2x10 '6/uL normal Not Available Not Available 01/25/2025 17:41:27 01/26/20 25 01/25/2025 [facility] W [facility] renti al panel - Blood hemoglobin [mass/volume ] in blood 14.1 g/dL low: 12g/dL high: 15.6g/ dL normal Not Available Not Available 01/25/2025 17:41:27 01/26/20 25 01/25/2025 [facility] W [facility] renti al panel - Blood hematocrit [volume fraction] of blood by automated count 42.1 % low: 35.7%h igh: 45.7% normal Not Available Not Available 01/25/2025 17:41:27 01/26/20 25 01/25/2025 [facility]i [facility] panel - Blood MCV [entitic mean volume] in red blood cells by automated count 90.1 fL low: 82fLhi gh: 99fL normal Not Available Not Available 01/25/2025 17:41:27 01/26/20 25 01/25/2025 CBC W Auto [facility]iffe heraclioti al panel - Blood MCH [entitic mass] by automated count 30.2 pg low: 27pghi gh: 33pg normal Not Available Not Available 01/25/2025 17:41:27 01/26/20 25 01/25/2025 [facility] W [facility] renti al panel - Blood MCHC [entitic mass/volume] in red blood cells by automated count 33.5 g/dL low: 31g/dL high: 36g/dL normal Not Available Not Available 01/25/2025 17:41:27 01/26/20 25 01/25/2025 [facility] panel - Blood erythrocyte [distwidth] in red blood cells 13.2 % low: 11.8%h igh: 15.5% normal Not Available Not Available 01/25/2025 17:41:27 01/26/20 25 01/25/2025 [facility]i [facility] panel - Blood platelets [#/volume] in blood by automated count 317 x10'3 /uL low: 150x10 '3/uLh igh: 400x10 '3/uL normal Not Available Not Available 01/25/2025 17:41:27 01/26/20 25 01/25/2025 [facility] panel - Blood platelet [entitic mean volume] in blood by automated count 11.7 fL low: 9fLhig h: 12.4fL normal Not Available Not Available 01/25/2025 17:41:27 01/26/20 25 01/25/2025 [facility]i [facility] panel - Blood neutrophils/ leukocytes in blood 89.8 % low: 39%hig h: 72% high Not Available Not Available 01/25/2025 17:41:27 01/26/20 25 01/25/2025 [facility] panel - Blood lymphocytes/ leukocytes in blood 5.8 % low: 16%hig h: 47% low Not Available Not Available 01/25/2025 17:41:27 01/26/20 25 01/25/2025 [facility] panel - Blood monocytes/le ukocytes in blood 3.3 % low: 5%high : 12% low Not Available Not Available 01/25/2025 17:41:27 01/26/20 25 01/25/2025 [facility] panel - Blood eosinophils [#/volume] in blood 0.2 % low: 1%high : 7% low Not Available Not Available 01/25/2025 17:41:27 01/26/20 25 01/25/2025 [facility] panel - Blood basophils/le ukocytes in blood 0.5 % low: 0%high : 2% normal Not Available Not Available 01/25/2025 17:41:27 01/26/20 25 01/25/2025 [facility]i [facility] panel - Blood immature granulocytes /leukocytes in blood 0.4 % low: 0%high : 0.5% normal Not Available Not Available 01/25/2025 17:41:27 01/26/20 25 01/25/2025 [facility]i [facility] panel - Blood neutrophils [#/volume] in blood 10.26 x10'3 /uL low: 1.5x10 '3/uLh igh: 8x10'3 /uL high Not Available Not Available 01/25/2025 17:41:27 01/26/20 25 01/25/2025 [facility] panel - Blood lymphocytes [#/volume] in blood 0.66 x10'3 /uL low: 1.07x1 0'3/uL high: 3.43x1 0'3/uL low Not Available Not Available 01/25/2025 17:41:27 01/26/20 25 01/25/2025 [facility] renti al panel - Blood monocytes [#/volume] in blood 0.38 x10'3 /uL low: 0.29x1 0'3/uL high: 0.99x1 0'3/uL normal Not Available Not Available 01/25/2025 17:41:27 01/26/20 25 01/25/2025 [facility] renti al panel - Blood eosinophils [#/volume] in blood 0.02 x10'3 /uL low: 0.02x1 0'3/uL high: 0.53x1 0'3/uL normal Not Available Not Available 01/25/2025 17:41:27 01/26/20 25 01/25/2025 [facility] W [facility] renti al panel - Blood basophils [#/volume] in blood 0.06 x10'3 /uL low: 0.01x1 0'3/uL high: 0.08x1 0'3/uL normal Not Available Not Available 01/25/2025 17:41:27 01/26/20 25 01/25/2025 [facility] renti al panel - Blood immature granulocytes [#/volume] in blood 0.04 x10'3 /uL low: 0x10'3 /uLhig h: 0.05x1 0'3/uL normal Not Available Not Available 01/25/2025 17:41:27 01/26/20 25 01/25/2025 [facility] rent[facility] panel - Blood nucleated erythrocytes /leukocytes [ratio] in blood 0 % high: 0% normal Not Available Not Available 01/25/2025 17:41:27 0501/25/2025 [facility] panel - Blood nucleated erythrocytes [#/volume] in blood by automated count 0 x10'3 /uL normal Not Available Not Available 01/26/20 17:41:27 02/03/2002/02/2025 Gluco se [Mass /volu me] in Capil mesha blood by Gluco meter glucose [mass/volume ] in capillary blood by glucometer 166 mg/dL low: 74mg/d Lhigh: 99mg/d L high Not Available Not Available 02/06/2025 14:14:57 02/03/20 25 02/02/2025 Gluco se [Mass /volu me] in Capil mesha blood by Gluco meter glucose [mass/volume ] in capillary blood by glucometer 149 mg/dL low: 74mg/d Lhigh: 99mg/d L high Not Available Not Available 02/06/2025 14:14:57 02/03/20 25 02/02/2025 Basic metab olic 1999 panel - Serum or Plasm a sodium [moles/volum e] in blood 140 mmol/ L low: 137mmo l/Lhig h: 145mmo l/L normal Not Available Not Available 02/06/2025 14:14:55 02/03/20 25 02/02/2025 Basic metab olic 1999 panel - Serum or Plasm a potassium [moles/volum e] in serum or plasma 3.9 mmol/ L low: 3.5mmo l/Lhig h: 5.1mmo l/L normal Not Available Not Available 02/06/2025 14:14:55 02/03/20 25 02/02/2025 Basic metab olic 1999 panel - Serum or Plasm a chloride [moles/volum e] in serum or plasma 104 mmol/ L low: 98mmol /Lhigh : 107mmo l/L normal Not Available Not Available 02/06/2025 14:14:55 02/03/20 25 02/02/2025 Basic metab olic 1999 panel - Serum or Plasm a carbon dioxide, total [moles/volum e] in serum or plasma 20 mmol/ L low: 22mmol /Lhigh : 30mmol /L low Not Available Not Available 02/06/2025 14:14:55 02/03/20 25 02/02/2025 [facility] 1999 panel - Serum or Plasm a anion gap in serum or plasma by calculation 19.9 mmol/ L low: 14mmol /Lhigh : 22mmol /L normal Not Available Not Available 02/06/2025 14:14:55 02/03/20 25 02/02/2025 [facility] 1999 panel - Serum or Plasm a glucose [mass/volume ] in serum or plasma 174 mg/dL low: 70mg/d Lhigh: 99mg/d L high Not Available Not Available 02/06/2025 14:14:55 02/03/20 25 02/02/2025 [facility] 1999 panel - Serum or Plasm a urea nitrogen [mass or moles/volume ] in serum or plasma 8 mg/dL low: 8mg/dL high: 19mg/d L normal Not Available Not Available 02/06/2025 14:14:55 02/03/20 25 02/02/2025 [facility] 1999 panel - Serum or Plasm a creatinine [mass/volume ] in serum or plasma 0.65 mg/dL low: 0.66mg /dLhig h: 1.25mg /dL low Not Available Not Available 02/06/2025 14:14:55 02/03/20 25 02/02/2025 [facility] 1999 panel - Serum or Plasm a glomerular filtration rate [volume rate/area] in serum, plasma or blood by based on 1.73 sq M >60 normal Not Available Not Available 14:14:55 02/03/20 25 02/02/2025 [facility] 1999 panel - Serum or Plasm a calcium [mass/volume ] in serum or plasma 9.2 mg/dL low: 8.4mg/ dLhigh : 10.2mg /dL normal Not Available Not Available 02/06/2025 14:14:55 02/03/20 25 02/02/2025 Gluco se [Mass /volu me] in Capil mesha blood by Gluco meter glucose [mass/volume ] in capillary blood by glucometer 159 mg/dL low: 74mg/d Lhigh: 99mg/d L high Not Available Not Available 02/06/2025 14:14:57 02/03/20 25 02/02/2025 Gluco se [Mass /volu me] in Capil mesha blood by Gluco meter glucose [mass/volume ] in capillary blood by glucometer 156 mg/dL low: 74mg/d Lhigh: 99mg/d L high Not Available Not Available 02/06/2025 14:14:57 02/03/20 25 02/02/2025 Gluco se [Mass /volu me] in Capil mesha blood by Gluco meter glucose [mass/volume ] in capillary blood by glucometer 176 mg/dL low: 74mg/d Lhigh: 99mg/d L high Not Available Not Available 02/06/2025 14:14:57 02/03/20 25 02/02/2025 Phosp hate [Mass /volu me] in Serum or Plasm a phosphate [mass/volume ] in serum or plasma 3.2 mg/dL low: 2.5mg/ dLhigh : 4.5mg/ dL normal Not Available Not Available 02/06/2025 14:14:56 02/03/20 25 02/02/2025 Magne sium [Mass /volu me] in Serum or Plasm a magnesium [mass/volume ] in serum or plasma 2.3 mg/dL low: 1.6mg/ dLhigh : 2.3mg/ dL normal Not Available Not Available 02/06/2025 14:14:56 02/03/20 25 02/02/2025 Basic metab olic 1999 panel - Serum or Plasm a sodium [moles/volum e] in blood 137 mmol/ L low: 137mmo l/Lhig h: 145mmo l/L normal Not Available Not Available 02/06/2025 14:14:55 02/03/20 25 02/02/2025 Basic metab olic 1999 panel - Serum or Plasm a potassium [moles/volum e] in serum or plasma 4.3 mmol/ L low: 3.5mmo l/Lhig h: 5.1mmo l/L normal Not Available Not Available 02/06/2025 14:14:55 02/03/20 25 02/02/2025 Basic metab olic 1999 panel - Serum or Plasm a chloride [moles/volum e] in serum or plasma 103 mmol/ L low: 98mmol /Lhigh : 107mmo l/L normal Not Available Not Available 02/06/2025 14:14:55 02/03/20 25 02/02/2025 [facility] 1999 panel - Serum or Plasm a carbon dioxide, total [moles/volum e] in serum or plasma 20 mmol/ L low: 22mmol /Lhigh : 30mmol /L low Not Available Not Available 02/06/2025 14:14:55 02/03/20 25 02/02/2025 [facility] 1999 panel - Serum or Plasm a anion gap in serum or plasma by calculation 18.3 mmol/ L low: 14mmol /Lhigh : 22mmol /L normal Not Available Not Available 02/06/2025 14:14:55 02/03/20 25 02/02/2025 [facility] 1999 panel - Serum or Plasm a glucose [mass/volume ] in serum or plasma 174 mg/dL low: 70mg/d Lhigh: 99mg/d L high Not Available Not Available 02/06/2025 14:14:55 02/03/20 25 02/02/2025 [facility] 1999 panel - Serum or Plasm a urea nitrogen [mass or moles/volume ] in serum or plasma 9 mg/dL low: 8mg/dL high: 19mg/d L normal Not Available Not Available 02/06/2025 14:14:55 02/03/20 25 02/02/2025 [facility] 1999 panel - Serum or Plasm a creatinine [mass/volume ] in serum or plasma 0.64 mg/dL low: 0.66mg /dLhig h: 1.25mg /dL low Not Available Not Available 02/06/2025 14:14:55 02/03/20 25 02/02/2025 [facility] 1999 panel - Serum or Plasm a glomerular filtration rate [volume rate/area] in serum, plasma or blood by based on 1.73 sq M >60 normal Not Available Not Available 14:14:55 02/03/20 25 02/02/2025 [facility] 1999 panel - Serum or Plasm a calcium [mass/volume ] in serum or plasma 9.3 mg/dL low: 8.4mg/ dLhigh : 10.2mg /dL normal Not Available Not Available 02/06/2025 14:14:55 02/03/20 25 02/02/2025 Gluco se [Mass /volu me] in Capil mesha blood by Gluco meter glucose [mass/volume ] in capillary blood by glucometer 159 mg/dL low: 74mg/d Lhigh: 99mg/d L high Not Available Not Available 02/06/2025 14:14:57 02/03/20 25 02/02/2025 Gluco se [Mass /volu me] in Capil mesha blood by Gluco meter glucose [mass/volume ] in capillary blood by glucometer 171 mg/dL low: 74mg/d Lhigh: 99mg/d L high Not Available Not Available 02/06/2025 14:14:57 02/03/20 25 02/02/2025 Gluco se [Mass /volu me] in Capil mesha blood by Gluco meter glucose [mass/volume ] in capillary blood by glucometer 192 mg/dL low: 74mg/d Lhigh: 99mg/d L high Not Available Not Available 02/06/2025 14:14:57 02/03/20 25 02/02/2025 Basic metab olic 2000 panel - Serum or Plasm a sodium [moles/volum e] in blood 138 mmol/ L low: 137mmo l/Lhig h: 145mmo l/L normal Not Available Not Available 02/06/2025 14:14:55 02/03/20 25 02/02/2025 Basic metab olic 2000 panel - Serum or Plasm a potassium [moles/volum e] in serum or plasma 4.2 mmol/ L low: 3.5mmo l/Lhig h: 5.1mmo l/L normal Not Available Not Available 02/06/2025 14:14:55 02/03/20 25 02/02/2025 Basic metab olic 2000 panel - Serum or Plasm a chloride [moles/volum e] in serum or plasma 101 mmol/ L low: 98mmol /Lhigh : 107mmo l/L normal Not Available Not Available 02/06/2025 14:14:55 02/03/20 25 02/02/2025 Basic metab olic 2000 panel - Serum or Plasm a carbon dioxide, total [moles/volum e] in serum or plasma 18 mmol/ L low: 22mmol /Lhigh : 30mmol /L low Not Available Not Available 02/06/2025 14:14:55 02/03/20 25 02/02/2025 [facility] 1999 panel - Serum or Plasm a anion gap in serum or plasma by calculation 23.2 mmol/ L low: 14mmol /Lhigh : 22mmol /L high Not Available Not Available 02/06/2025 14:14:55 02/03/20 25 02/02/2025 [facility] 1999 panel - Serum or Plasm a glucose [mass/volume ] in serum or plasma 197 mg/dL low: 70mg/d Lhigh: 99mg/d L high Not Available Not Available 02/06/2025 14:14:55 02/03/20 25 02/02/2025 [facility] 1999 panel - Serum or Plasm a urea nitrogen [mass or moles/volume ] in serum or plasma 10 mg/dL low: 8mg/dL high: 19mg/d L normal Not Available Not Available 02/06/2025 14:14:55 02/03/20 25 02/02/2025 [facility] 1999 panel - Serum or Plasm a creatinine [mass/volume ] in serum or plasma 0.7 mg/dL low: 0.66mg /dLhig h: 1.25mg /dL normal Not Available Not Available 02/06/2025 14:14:55 02/03/20 25 02/02/2025 [facility] 1999 panel - Serum or Plasm a glomerular filtration rate [volume rate/area] in serum, plasma or blood by based on 1.73 sq M >60 normal Not Available Not Available 14:14:55 02/03/20 25 02/02/2025 [facility] 1999 panel - Serum or Plasm a calcium [mass/volume ] in serum or plasma 9.5 mg/dL low: 8.4mg/ dLhigh : 10.2mg /dL normal Not Available Not Available 02/06/2025 14:14:55 02/03/20 25 02/02/2025 Gluco se [Mass /volu me] in Capil mesha blood by Gluco meter glucose [mass/volume ] in capillary blood by glucometer 179 mg/dL low: 74mg/d Lhigh: 99mg/d L high Not Available Not Available 02/06/2025 14:14:56 02/03/20 25 02/02/2025 Gluco se [Mass /volu me] in Capil mesha blood by Gluco meter glucose [mass/volume ] in capillary blood by glucometer 186 mg/dL low: 74mg/d Lhigh: 99mg/d L high Not Available Not Available 02/06/2025 14:14:56 02/03/20 25 02/02/2025 Hemog lobin A1c/H emogl obin. total in Blood hemoglobin A1C/hemoglob in.total in blood 11.4 % low: 4%high : 6% high Not Available Not Available 02/06/2025 14:14:56 02/03/20 25 02/02/2025 Gluco se [Mass /volu me] in Capil mesha blood by Gluco meter glucose [mass/volume ] in capillary blood by glucometer 196 mg/dL low: 74mg/d Lhigh: 99mg/d L high Not Available Not Available 02/06/2025 14:14:56 02/03/20 25 02/02/2025 Gluco se [Mass /volu me] in Capil mesha blood by Gluco meter glucose [mass/volume ] in capillary blood by glucometer 192 mg/dL low: 74mg/d Lhigh: 99mg/d L high Not Available Not Available 02/06/2025 14:14:56 02/03/20 25 02/02/2025 Thyro tropi n [Unit s/vol ume] in Serum or Plasm a by Detec tion limit <= 0.005 mIU/L thyrotropin [units/volum e] in serum or plasma by detection limit <= 0.005 mIU/L 0.795 uIU/m L low: 0.465u IU/mLh igh: 4.68uI U/mL normal Not Available Not Available 02/06/2025 14:14:56 02/03/2002/02/2025 Basic metab olic 1999 panel - Serum or Plasm a sodium [moles/volum e] in blood 139 mmol/ L low: 137mmo l/Lhig h: 145mmo l/L normal Not Available Not Available 02/06/2025 14:14:55 02/03/20 25 02/02/2025 Basic metab olic 1999 panel - Serum or Plasm a potassium [moles/volum e] in serum or plasma 4 mmol/ L low: 3.5mmo l/Lhig h: 5.1mmo l/L normal Not Available Not Available 02/06/2025 14:14:55 02/03/20 25 02/02/2025 [facility] 1999 panel - Serum or Plasm a chloride [moles/volum e] in serum or plasma 102 mmol/ L low: 98mmol /Lhigh : 107mmo l/L normal Not Available Not Available 02/06/2025 14:14:55 02/03/20 25 02/02/2025 [facility] 1999 panel - Serum or Plasm a carbon dioxide, total [moles/volum e] in serum or plasma 12 mmol/ L low: 22mmol /Lhigh : 30mmol /L low Not Available Not Available 02/06/2025 14:14:55 02/03/20 25 02/02/2025 [facility] 1999 panel - Serum or Plasm a anion gap in serum or plasma by calculation 29 mmol/ L low: 14mmol /Lhigh : 22mmol /L high Not Available Not Available 02/06/2025 14:14:55 02/03/20 25 02/02/2025 [facility] 1999 panel - Serum or Plasm a glucose [mass/volume ] in serum or plasma 166 mg/dL low: 70mg/d Lhigh: 99mg/d L high Not Available Not Available 02/06/2025 14:14:55 02/03/20 25 02/02/2025 [facility] 1999 panel - Serum or Plasm a urea nitrogen [mass or moles/volume ] in serum or plasma 11 mg/dL low: 8mg/dL high: 19mg/d L normal Not Available Not Available 02/06/2025 14:14:55 02/03/20 25 02/02/2025 [facility] 1999 panel - Serum or Plasm a creatinine [mass/volume ] in serum or plasma 0.7 mg/dL low: 0.66mg /dLhig h: 1.25mg /dL normal Not Available Not Available 02/06/2025 14:14:55 02/03/20 25 02/02/2025 [facility] 1999 panel - Serum or Plasm a glomerular filtration rate [volume rate/area] in serum, plasma or blood by based on 1.73 sq M >60 normal Not Available Not Available 14:14:55 02/03/2002/02/2025 Basic metab olic 1999 panel - Serum or Plasm a calcium [mass/volume ] in serum or plasma 9.6 mg/dL low: 8.4mg/ dLhigh : 10.2mg /dL normal Not Available Not Available 02/06/2025 14:14:55 02/03/20 25 02/02/2025 Gluco se [Mass /volu me] in Capil mesha blood by Gluco meter glucose [mass/volume ] in capillary blood by glucometer 159 mg/dL low: 74mg/d Lhigh: 99mg/d L high Not Available Not Available 02/06/2025 14:14:56 02/03/20 25 02/02/2025 Gluco se [Mass /volu me] in Capil mesha blood by Gluco meter glucose [mass/volume ] in capillary blood by glucometer 164 mg/dL low: 74mg/d Lhigh: 99mg/d L high Not Available Not Available 02/06/2025 14:14:56 02/03/20 25 02/02/2025 Gluco se [Mass /volu me] in Capil mesha blood by Gluco meter glucose [mass/volume ] in capillary blood by glucometer 263 mg/dL low: 74mg/d Lhigh: 99mg/d L high Not Available Not Available 02/06/2025 14:14:55 02/03/20 25 02/02/2025 Gluco se [Mass /volu me] in Capil mesha blood by Gluco meter glucose [mass/volume ] in capillary blood by glucometer 364 mg/dL low: 74mg/d Lhigh: 99mg/d L high Not Available Not Available 02/06/2025 14:14:55 02/03/20 25 02/02/2025 Beta hydro xybut yrate [Mole s/vol ume] in Serum or Plasm a beta hydroxybutyr ate [moles/volum e] in serum or plasma 10.1 mmol/ L low: 0.02mm ol/Lhi gh: 0.27mm ol/L high Not Available Not Available 02/06/2025 14:14:55 02/03/20 25 02/02/2025 Chori ogona dotro pin [Pres ence] in Serum or Plasm a choriogonado tropin [presence] in serum or plasma Negati ve text: negati ve normal Not Available Not Available 02/06/2025 14:14:54 02/03/20 25 02/02/2025 Chori ogona dotro pin [Pres ence] in Serum or Plasm a reagent lot number [id number] normal Not Available Not Available 01/10 14:14:54 02/03/20 25 02/02/2025 Chori ogona dotro pin [Pres ence] in Serum or Plasm a expiration date [id number] normal Not Available Not Available 14:14:54 02/03/20 25 02/02/2025 Chori ogona dotro pin [Pres ence] in Serum or Plasm a internal control result Labora tory test findin g normal Not Available Not Available 14:14:54 02/03/20 25 02/02/2025 Chori ogona dotro pin [Pres ence] in Serum or Plasm a internal control result Labora tory test findin g normal Not Available Not Available 14:14:54 02/03/20 25 02/02/2025 Drugs ident ified in Urine by Scree nel anton Nomin al amphetamines [presence] in urine Negati ve text: negati ve normal Not Available Not Available 02/06/2025 14:14:54 02/03/20 25 02/02/2025 Drugs ident ified in Urine by Scree nel anton Nomin al barbiturates [presence] in urine Negati ve text: negati ve normal Not Available Not Available 02/06/2025 14:14:54 02/03/20 25 02/02/2025 Drugs ident ified in Urine by Scree nel anton Nomin al benzodiazepi mirella [presence] in urine Negati ve text: negati ve normal Not Available Not Available 02/06/2025 14:14:54 02/03/20 25 02/02/2025 Drugs ident ified in Urine by Scree nel anton Nomin al cocaine [presence] in urine Negati ve text: negati ve normal Not Available Not Available 02/06/2025 14:14:54 02/03/20 25 02/02/2025 Drugs ident ified in Urine by Screjamel Monin greg fentanyl Negati ve text: negati ve normal Not Available Not Available 02/06/2025 14:14:54 02/03/20 25 02/02/2025 Drugs ident ified in Urine by Scree nel Monin greg methadone [presence] in urine Negati ve text: negati ve normal Not Available Not Available 02/06/2025 14:14:54 02/03/20 25 02/02/2025 Drugs ident ified in Urine by Scree nel Monin greg opiates [presence] in urine Negati ve text: negati ve normal Not Available Not Available 02/06/2025 14:14:54 02/03/20 25 02/02/2025 Drugs ident ified in Urine by Scree nel Monin al oxycodone [presence] in urine Negati ve text: negati ve normal Not Available Not Available 02/06/2025 14:14:54 02/03/20 25 02/02/2025 Drugs ident ified in Urine by Scree nel Monin greg phencyclidin e [presence] in urine Negati ve text: negati ve normal Not Available Not Available 02/06/2025 14:14:54 02/03/20 25 02/02/2025 Drugs ident ified in Urine by Scree nel Monin al cannabinoids [presence] in urine Positi ve text: negati ve Not Available Not Available 02/06/2025 14:14:54 02/03/20 25 02/02/2025 Miguel ol [Mass /volu me] in Serum or Plasm a ethanol [mass/volume ] in serum or plasma <10 low: 0mg/dL high: 10mg/d L normal Not Available Not Available 02/06/2025 14:14:54 02/03/20 25 02/02/2025 Magne sium [Mass /volu me] in Serum or Plasm a magnesium [mass/volume ] in serum or plasma 1.9 mg/dL low: 1.6mg/ dLhigh : 2.3mg/ dL normal Not Available Not Available 02/06/2025 14:14:54 02/03/20 25 02/02/2025 Lipas e [Enzy matic activ ity/v olume ] in Serum or Plasm a lipase [enzymatic activity/vol ume] in serum or plasma 44 U/L low: 23U/Lh igh: 300U/L normal Not Available Not Available 02/06/2025 14:14:54 02/03/20 25 02/02/2025 Compr ehens gaurav metab olic 1999 panel - Serum or Plasm a sodium [moles/volum e] in blood 136 mmol/ L low: 137mmo l/Lhig h: 145mmo l/L low Not Available Not Available 02/06/2025 14:14:54 02/03/20 25 02/02/2025 Compr ehens gaurav metab olic 1999 panel - Serum or Plasm a potassium [moles/volum e] in serum or plasma 4.3 mmol/ L low: 3.5mmo l/Lhig h: 5.1mmo l/L normal Not Available Not Available 02/06/2025 14:14:54 02/03/20 25 02/02/2025 Compr ehens gaurav metab olic 1999 panel - Serum or Plasm a chloride [moles/volum e] in serum or plasma 94 mmol/ L low: 98mmol /Lhigh : 107mmo l/L low Not Available Not Available 02/06/2025 14:14:54 02/03/20 25 02/02/2025 Compr ehens gaurav metab olic 1999 panel - Serum or Plasm a carbon dioxide, total [moles/volum e] in serum or plasma 9 mmol/ L low: 22mmol /Lhigh : 30mmol /L critical low Not Available Not Available 02/06/2025 14:14:54 02/03/20 25 02/02/2025 Compr ehens gaurav metab olic 1999 panel - Serum or Plasm a anion gap in serum or plasma by calculation 37.3 mmol/ L low: 14mmol /Lhigh : 22mmol /L high Not Available Not Available 02/06/2025 14:14:54 02/03/20 25 02/02/2025 Compr ehens gaurav metab olic 1999 panel - Serum or Plasm a glucose [mass/volume ] in serum or plasma 402 mg/dL low: 70mg/d Lhigh: 99mg/d L high Not Available Not Available 02/06/2025 14:14:54 02/03/20 25 02/02/2025 [facility] 1999 panel - Serum or Plasm a urea nitrogen [mass or moles/volume ] in serum or plasma 10 mg/dL low: 8mg/dL high: 19mg/d L normal Not Available Not Available 02/06/2025 14:14:54 02/03/20 25 02/02/2025 [facility] 1999 panel - Serum or Plasm a creatinine [mass/volume ] in serum or plasma 0.74 mg/dL low: 0.66mg /dLhig h: 1.25mg /dL normal Not Available Not Available 02/06/2025 14:14:54 02/03/20 25 02/02/2025 [facility] 1999 panel - Serum or Plasm a glomerular filtration rate [volume rate/area] in serum, plasma or blood by based on 1.73 sq M >60 normal Not Available Not Available 14:14:54 02/03/20 25 02/02/2025 [facility] 1999 panel - Serum or Plasm a alkaline phosphatase [enzymatic activity/vol ume] in serum or plasma 104 U/L low: 38U/Lh igh: 126U/L normal Not Available Not Available 02/06/2025 14:14:54 02/03/20 25 02/02/2025 [facility] [place] [id number] panel - Serum or Plasm a alanine aminotransfe rase [enzymatic activity/vol ume] in serum or plasma 36 U/L low: 0U/Lhi gh: 35U/L high Not Available Not Available 02/06/2025 14:14:54 02/03/20 25 02/02/2025 [facility] [place] [id number] panel - Serum or Plasm a aspartate aminotransfe rase [enzymatic activity/vol ume] in serum or plasma 43 U/L low: 15U/Lh igh: 37U/L high Not Available Not Available 02/06/2025 14:14:54 02/03/20 25 02/02/2025 [facility] [employer] [facility]av [employer] [facility] 1999 panel - Serum or Plasm a bilirubin.to gary [mass/volume ] in serum or plasma 0.9 mg/dL low: 0.2mg/ dLhigh : 1.3mg/ dL normal Not Available Not Available 02/06/2025 14:14:54 02/03/20 25 02/02/2025 [facility] 1999 panel - Serum or Plasm a calcium [mass/volume ] in serum or plasma 10.1 mg/dL low: 8.4mg/ dLhigh : 10.2mg /dL normal Not Available Not Available 02/06/2025 14:14:54 02/03/20 25 02/02/2025 [facility] [employer] [facility] [employer] [facility] 1999 panel - Serum or Plasm a protein [mass/volume ] in serum or plasma 8.4 g/dL low: 6.3g/d Lhigh: 8.2g/d L high Not Available Not Available 02/06/2025 14:14:54 02/03/20 25 02/02/2025 [facility] 1999 panel - Serum or Plasm a albumin [mass/volume ] in serum or plasma 5.6 g/dL low: 3.4g/d Lhigh: 5g/dL high Not Available Not Available 02/06/2025 14:14:54 02/03/20 25 02/02/2025 [facility] 2000 panel - Serum or Plasm a globulin [mass/volume ] in serum 2.8 g/dL low: 2.6g/d Lhigh: 4.2g/d L normal Not Available Not Available 02/06/2025 14:14:54 02/03/20 25 02/02/2025 [facility] [employer] [facility]aurav [facility] 2000 panel - Serum or Plasm a albumin/glob ulin [mass ratio] in serum or plasma 2 ratio low: 1ratio high: 2ratio normal Not Available Not Available 02/06/2025 14:14:54 02/03/20 25 02/02/2025 Urina lysis compl ete W Refle x Cultu re panel - Urine color of urine by auto Color of urine normal Not Available Not Available 14:14:54 02/03/20 25 02/02/2025 Urina lysis compl ete W Refle x Cultu re panel - Urine appearance of urine Urine specim en normal Not Available Not Available 14:14:54 02/03/20 25 02/02/2025 Urina lysis compl ete W Refle x Cultu re panel - Urine specific gravity of urine by test strip 1.018 1 low: 1.001h igh: 1.03 normal Not Available Not Available 02/06/2025 14:14:54 02/03/20 25 02/02/2025 Urina lysis compl ete W Refle x Cultu re panel - Urine pH of urine by test strip 5.5 pH_un its low: 5pH unitsh igh: 9pH units normal Not Available Not Available 02/06/2025 14:14:54 02/03/20 25 02/02/2025 Urina lysis compl ete W Refle x Cultu re panel - Urine leukocytes [#/volume] in urine by test strip Leukoc yte estera se measur ement text: negati ve normal Not Available Not Available 02/06/2025 14:14:54 02/03/20 25 02/02/2025 Urina lysis compl ete W Refle x Cultu re panel - Urine nitrite [presence] in urine by test strip Labora tory test findin g text: negati ve normal Not Available Not Available 02/06/2025 14:14:54 02/03/20 25 02/02/2025 Urina lysis compl ete W Refle x Cultu re panel - Urine protein [mass/volume ] in urine by test strip 20 mg/dL text: negati ve Not Available Not Available 02/06/2025 14:14:54 02/03/20 25 02/02/2025 Urina lysis compl ete W Refle x Cultu re panel - Urine glucose [moles/volum e] in urine by test strip Labora tory test findin g text: normal Not Available Not Available 02/06/2025 14:14:54 02/03/20 25 02/02/2025 Urina lysis compl ete W Refle x Cultu re panel - Urine ketones [moles/volum e] in urine by test strip Labora tory test findin g text: negati ve Not Available Not Available 02/06/2025 14:14:54 02/03/20 25 02/02/2025 Urina lysis compl ete W Refle x Cultu re panel - Urine urobilinogen [mass/volume ] in urine by test strip Urobil inogen measur ement, urine text: normal normal Not Available Not Available 02/06/2025 14:14:54 02/03/20 25 02/02/2025 Urina lysis compl ete W Refle x Cultu re panel - Urine bilirubin.to gary [mass/volume ] in urine by test strip Urine dipsti ck for biliru bin text: negati ve normal Not Available Not Available 02/06/2025 14:14:54 02/03/2002/02/2025 Urina lysis compl ete W Refle x Cultu re panel - Urine erythrocytes [#/volume] in urine by test strip Urine dipsti ck for blood text: negati ve normal Not Available Not Available 02/06/2025 14:14:54 02/03/20 25 02/02/2025 Urina lysis compl ete W Refle x Cultu re panel - Urine leukocytes [#/area] in urine sediment by automated count Leukoc ytes in urine low: 0/[hpf ]high: 8/[hpf ] normal Not Available Not Available 02/06/2025 14:14:54 02/03/20 25 02/02/2025 Urina lysis compl ete W Refle x Cultu re panel - Urine erythrocytes [#/area] in urine sediment by automated count Blood in urine low: 0/[hpf ]high: 4/[hpf ] normal Not Available Not Available 02/06/2025 14:14:54 02/03/20 25 02/02/2025 Urina lysis compl ete W Refle x Cultu re panel - Urine bacteria [presence] in urine by automated Urine findin g text: none seen Not Available Not Available 02/06/2025 14:14:54 02/03/20 25 02/02/2025 Urina lysis compl ete W Refle x Cultu re panel - Urine mucus [#/area] in urine sediment by automated count Urine findin g text: none seen Not Available Not Available 02/06/2025 14:14:54 02/03/20 25 02/02/2025 Urina lysis compl ete W Refle x Cultu re panel - Urine epithelial cells.[place] [#/area] in urine sediment by automated count Urine findin g Not Available Not Available 14:14:54 02/03/20 25 02/02/2025 Urina lysis compl ete W Refle x Cultu re panel - Urine hyaline casts [#/area] in urine sediment by automated count Urine findin g text: none seen Not Available Not Available 02/06/2025 14:14:54 02/03/20 25 02/02/2025 CBC W Auto Diffe renti al panel - Blood leukocytes [#/volume] in blood by automated count 20.2 x10'3 /uL low: 4.2x10 '3/uLh igh: 10.8x1 0'3/uL high Not Available Not Available 02/06/2025 14:14:54 02/03/20 25 02/02/2025 CBC W Auto Diffe renti al panel - Blood erythrocytes [#/volume] in blood by automated count 4.57 x10'6 /uL low: 3.8x10 '6/uLh igh: 5.2x10 '6/uL normal Not Available Not Available 02/06/2025 14:14:54 02/03/20 25 02/02/2025 CBC W Auto Diffe renti al panel - Blood hemoglobin [mass/volume ] in blood 13.9 g/dL low: 12g/dL high: 15.6g/ dL normal Not Available Not Available 02/06/2025 14:14:54 02/03/20 25 02/02/2025 CBC W Auto Diffe renti al panel - Blood hematocrit [volume fraction] of blood by automated count 41.9 % low: 35.7%h igh: 45.7% normal Not Available Not Available 02/06/2025 14:14:54 02/03/20 25 02/02/2025 CBC W Auto Diffe renti al panel - Blood MCV [entitic mean volume] in red blood cells by automated count 91.7 fL low: 82fLhi gh: 99fL normal Not Available Not Available 02/06/2025 14:14:54 02/03/20 02/02/2025 CBC W Auto Diffe renti al panel - Blood MCH [entitic mass] by automated count 30.4 pg low: 27pghi gh: 33pg normal Not Available Not Available 02/06/2025 14:14:54 02/03/20 25 02/02/2025 CBC W Auto Diffe renti al panel - Blood MCHC [entitic mass/volume] in red blood cells by automated count 33.2 g/dL low: 31g/dL high: 36g/dL normal Not Available Not Available 02/06/2025 14:14:54 02/03/20 25 02/02/2025 CBC W Auto Diffe renti al panel - Blood erythrocyte [distwidth] in red blood cells 13.7 % low: 11.8%h igh: 15.5% normal Not Available Not Available 02/06/2025 14:14:54 02/03/20 25 02/02/2025 CBC W Auto Diffe renti al panel - Blood platelets [#/volume] in blood by automated count 319 x10'3 /uL low: 150x10 '3/uLh igh: 400x10 '3/uL normal Not Available Not Available 02/06/2025 14:14:54 02/03/2002/02/2025 CBC W Auto Diffe renti al panel - Blood platelet [entitic mean volume] in blood by automated count 11.8 fL low: 9fLhig h: 12.4fL normal Not Available Not Available 02/06/2025 14:14:54 02/03/20 25 02/02/2025 CBC W Auto Diffe renti al panel - Blood neutrophils/ leukocytes in blood 91.7 % low: 39%hig h: 72% high Not Available Not Available 02/06/2025 14:14:54 02/03/20 25 02/02/2025 CBC W Auto Diffe renti al panel - Blood lymphocytes/ leukocytes in blood 3.2 % low: 16%hig h: 47% low Not Available Not Available 02/06/2025 14:14:54 02/03/20 25 02/02/2025 CBC W Auto Diffe renti al panel - Blood monocytes/le ukocytes in blood 4 % low: 5%high : 12% low Not Available Not Available 02/06/2025 14:14:54 02/03/20 25 02/02/2025 CBC W Auto Diffe renti al panel - Blood eosinophils [#/volume] in blood 0 % low: 1%high : 7% low Not Available Not Available 02/06/2025 14:14:54 02/03/20 25 02/02/2025 CBC W Auto Diffe renti al panel - Blood basophils/le ukocytes in blood 0.2 % low: 0%high : 2% normal Not Available Not Available 02/06/2025 14:14:54 02/03/20 25 02/02/2025 CBC W Auto Diffe renti al panel - Blood immature granulocytes /leukocytes in blood 0.9 % low: 0%high : 0.5% high Not Available Not Available 02/06/2025 14:14:54 02/03/20 25 02/02/2025 CBC W Auto Diffe renti al panel - Blood neutrophils [#/volume] in blood 18.51 x10'3 /uL low: 1.5x10 '3/uLh igh: 8x10'3 /uL high Not Available Not Available 02/06/2025 14:14:54 02/03/20 25 02/02/2025 CBC W Auto Diffe renti al panel - Blood lymphocytes [#/volume] in blood 0.64 x10'3 /uL low: 1.07x1 0'3/uL high: 3.43x1 0'3/uL low Not Available Not Available 02/06/2025 14:14:54 02/03/20 25 02/02/2025 CBC W Auto Diffe renti al panel - Blood monocytes [#/volume] in blood 0.8 x10'3 /uL low: 0.29x1 0'3/uL high: 0.99x1 0'3/uL normal Not Available Not Available 02/06/2025 14:14:54 02/03/20 25 02/02/2025 CBC W Auto Diffe renti al panel - Blood eosinophils [#/volume] in blood 0.01 x10'3 /uL low: 0.02x1 0'3/uL high: 0.53x1 0'3/uL low Not Available Not Available 02/06/2025 14:14:54 02/03/20 25 02/02/2025 CBC W Auto Diffe renti al panel - Blood basophils [#/volume] in blood 0.04 x10'3 /uL low: 0.01x1 0'3/uL high: 0.08x1 0'3/uL normal Not Available Not Available 02/06/2025 14:14:54 02/03/20 25 02/02/2025 CBC W Auto Diffe renti al panel - Blood immature granulocytes [#/volume] in blood 0.18 x10'3 /uL low: 0x10'3 /uLhig h: 0.05x1 0'3/uL high Not Available Not Available 02/06/2025 14:14:54 02/03/20 25 02/02/2025 CBC W Auto Diffe renti al panel - Blood nucleated erythrocytes /leukocytes [ratio] in blood 0 % high: 0% normal Not Available Not Available 02/06/2025 14:14:54 02/03/20 25 02/02/2025 CBC W Auto Diffe renti al panel - Blood nucleated erythrocytes [#/volume] in blood by automated count 0 x10'3 /uL normal Not Available Not Available 02/07/20 14:14:54 02/03/20 25 02/02/2025 Gluco se [Mass /volu me] in Capil mesha blood by Gluco meter glucose [mass/volume ] in capillary blood by glucometer 352 mg/dL low: 74mg/d Lhigh: 99mg/d L high Not Available Not Available 02/06/2025 14:14:55 02/04/20 25 02/03/2025 Basic metab olic 1999 panel - Serum or Plasm a sodium [moles/volum e] in blood 137 mmol/ L low: 137mmo l/Lhig h: 145mmo l/L normal Not Available Not Available 02/06/2025 14:14:58 02/04/20 25 02/03/2025 Basic metab olic 1999 panel - Serum or Plasm a potassium [moles/volum e] in serum or plasma 4.2 mmol/ L low: 3.5mmo l/Lhig h: 5.1mmo l/L normal Not Available Not Available 02/06/2025 14:14:58 02/04/20 25 02/03/2025 Basic metab olic 1999 panel - Serum or Plasm a chloride [moles/volum e] in serum or plasma 103 mmol/ L low: 98mmol /Lhigh : 107mmo l/L normal Not Available Not Available 02/06/2025 14:14:58 02/04/20 25 02/03/2025 [facility] 1999 panel - Serum or Plasm a carbon dioxide, total [moles/volum e] in serum or plasma 24 mmol/ L low: 22mmol /Lhigh : 30mmol /L normal Not Available Not Available 02/06/2025 14:14:58 02/04/20 25 02/03/2025 [facility] 1999 panel - Serum or Plasm a anion gap in serum or plasma by calculation 14.2 mmol/ L low: 14mmol /Lhigh : 22mmol /L normal Not Available Not Available 02/06/2025 14:14:58 02/04/20 25 02/03/2025 [facility] 1999 panel - Serum or Plasm a glucose [mass/volume ] in serum or plasma 218 mg/dL low: 70mg/d Lhigh: 99mg/d L high Not Available Not Available 02/06/2025 14:14:58 02/04/20 25 02/03/2025 [facility] 1999 panel - Serum or Plasm a urea nitrogen [mass or moles/volume ] in serum or plasma 3 mg/dL low: 8mg/dL high: 19mg/d L low Not Available Not Available 02/06/2025 14:14:58 02/04/20 25 02/03/2025 [facility] 1999 panel - Serum or Plasm a creatinine [mass/volume ] in serum or plasma 0.54 mg/dL low: 0.66mg /dLhig h: 1.25mg /dL low Not Available Not Available 02/06/2025 14:14:58 02/04/20 25 02/03/2025 [facility] 1999 panel - Serum or Plasm a glomerular filtration rate [volume rate/area] in serum, plasma or blood by based on 1.73 sq M >60 normal Not Available Not Available 14:14:58 02/04/20 25 02/03/2025 [facility] 1999 panel - Serum or Plasm a calcium [mass/volume ] in serum or plasma 8.3 mg/dL low: 8.4mg/ dLhigh : 10.2mg /dL low Not Available Not Available 02/06/2025 14:14:58 02/04/20 25 02/03/2025 Gluco se [Mass /volu me] in Capil mesha blood by Gluco meter glucose [mass/volume ] in capillary blood by glucometer 185 mg/dL low: 74mg/d Lhigh: 99mg/d L high Not Available Not Available 02/06/2025 14:14:59 02/04/20 25 02/03/2025 Gluco se [Mass /volu me] in Capil mesha blood by Gluco meter glucose [mass/volume ] in capillary blood by glucometer 189 mg/dL low: 74mg/d Lhigh: 99mg/d L high Not Available Not Available 02/06/2025 14:14:59 02/04/20 25 02/03/2025 [facility] 1999 panel - Serum or Plasm a sodium [moles/volum e] in blood 136 mmol/ L low: 137mmo l/Lhig h: 145mmo l/L low Not Available Not Available 02/06/2025 14:14:58 02/04/20 25 02/03/2025 [facility] 1999 panel - Serum or Plasm a potassium [moles/volum e] in serum or plasma 4.3 mmol/ L low: 3.5mmo l/Lhig h: 5.1mmo l/L normal Not Available Not Available 02/06/2025 14:14:58 02/04/20 25 02/03/2025 [facility] 1999 panel - Serum or Plasm a chloride [moles/volum e] in serum or plasma 102 mmol/ L low: 98mmol /Lhigh : 107mmo l/L normal Not Available Not Available 02/06/2025 14:14:58 02/04/20 25 02/03/2025 [facility] 1999 panel - Serum or Plasm a carbon dioxide, total [moles/volum e] in serum or plasma 23 mmol/ L low: 22mmol /Lhigh : 30mmol /L normal Not Available Not Available 02/06/2025 14:14:58 02/04/20 25 02/03/2025 [facility] 2000 panel - Serum or Plasm a anion gap in serum or plasma by calculation 15.3 mmol/ L low: 14mmol /Lhigh : 22mmol /L normal Not Available Not Available 02/06/2025 14:14:58 02/04/20 25 02/03/2025 [facility] 1999 panel - Serum or Plasm a glucose [mass/volume ] in serum or plasma 195 mg/dL low: 70mg/d Lhigh: 99mg/d L high Not Available Not Available 02/06/2025 14:14:58 02/04/20 25 02/03/2025 [facility] 1999 panel - Serum or Plasm a urea nitrogen [mass or moles/volume ] in serum or plasma 3 mg/dL low: 8mg/dL high: 19mg/d L low Not Available Not Available 02/06/2025 14:14:58 02/04/20 25 02/03/2025 [facility] 1999 panel - Serum or Plasm a creatinine [mass/volume ] in serum or plasma 0.54 mg/dL low: 0.66mg /dLhig h: 1.25mg /dL low Not Available Not Available 02/06/2025 14:14:58 02/04/20 25 02/03/2025 [facility] 1999 panel - Serum or Plasm a glomerular filtration rate [volume rate/area] in serum, plasma or blood by based on 1.73 sq M >60 normal Not Available Not Available 14:14:58 02/04/20 25 02/03/2025 [facility] 1999 panel - Serum or Plasm a calcium [mass/volume ] in serum or plasma 9.5 mg/dL low: 8.4mg/ dLhigh : 10.2mg /dL normal Not Available Not Available 02/06/2025 14:14:58 02/04/20 25 02/03/2025 Gluco se [Mass /volu me] in Capil mesha blood by Gluco meter glucose [mass/volume ] in capillary blood by glucometer 159 mg/dL low: 74mg/d Lhigh: 99mg/d L high Not Available Not Available 02/06/2025 14:14:59 02/04/20 25 02/03/2025 Gluco se [Mass /volu me] in Capil mesha blood by Gluco meter glucose [mass/volume ] in capillary blood by glucometer 172 mg/dL low: 74mg/d Lhigh: 99mg/d L high Not Available Not Available 02/06/2025 14:14:59 02/04/20 25 02/03/2025 [facility] 1999 panel - Serum or Plasm a sodium [moles/volum e] in blood 136 mmol/ L low: 137mmo l/Lhig h: 145mmo l/L low Not Available Not Available 02/06/2025 14:14:58 02/04/20 25 02/03/2025 [facility] 1999 panel - Serum or Plasm a potassium [moles/volum e] in serum or plasma 3.9 mmol/ L low: 3.5mmo l/Lhig h: 5.1mmo l/L normal Not Available Not Available 02/06/2025 14:14:58 02/04/20 25 02/03/2025 [facility] 1999 panel - Serum or Plasm a chloride [moles/volum e] in serum or plasma 102 mmol/ L low: 98mmol /Lhigh : 107mmo l/L normal Not Available Not Available 02/06/2025 14:14:58 02/04/20 25 02/03/2025 [facility] 1999 panel - Serum or Plasm a carbon dioxide, total [moles/volum e] in serum or plasma 22 mmol/ L low: 22mmol /Lhigh : 30mmol /L normal Not Available Not Available 02/06/2025 14:14:58 02/04/20 25 02/03/2025 [facility] 1999 panel - Serum or Plasm a anion gap in serum or plasma by calculation 15.9 mmol/ L low: 14mmol /Lhigh : 22mmol /L normal Not Available Not Available 02/06/2025 14:14:58 02/04/20 25 02/03/2025 [facility] 1999 panel - Serum or Plasm a glucose [mass/volume ] in serum or plasma 192 mg/dL low: 70mg/d Lhigh: 99mg/d L high Not Available Not Available 02/06/2025 14:14:58 02/04/20 25 02/03/2025 [facility] 1999 panel - Serum or Plasm a urea nitrogen [mass or moles/volume ] in serum or plasma 3 mg/dL low: 8mg/dL high: 19mg/d L low Not Available Not Available 02/06/2025 14:14:58 02/04/20 25 02/03/2025 [facility] 1999 panel - Serum or Plasm a creatinine [mass/volume ] in serum or plasma 0.53 mg/dL low: 0.66mg /dLhig h: 1.25mg /dL low Not Available Not Available 02/06/2025 14:14:58 02/04/20 25 02/03/2025 [facility] 1999 panel - Serum or Plasm a glomerular filtration rate [volume rate/area] in serum, plasma or blood by based on 1.73 sq M >60 normal Not Available Not Available 14:14:58 02/04/20 25 02/03/2025 Ask [facility] 1999 panel - Serum or Plasm a calcium [mass/volume ] in serum or plasma 9.4 mg/dL low: 8.4mg/ dLhigh : 10.2mg /dL normal Not Available Not Available 02/06/2025 14:14:58 02/04/20 25 02/03/2025 Gluco se [Mass /volu me] in Capil [facility] blood by Gluco meter glucose [mass/volume ] in capillary blood by glucometer 156 mg/dL low: 74mg/d Lhigh: 99mg/d L high Not Available Not Available 02/06/2025 14:14:59 02/04/20 25 02/03/2025 Gluco se [Mass /volu me] in Capil mesha blood by Gluco meter glucose [mass/volume ] in capillary blood by glucometer 168 mg/dL low: 74mg/d Lhigh: 99mg/d L high Not Available Not Available 02/06/2025 14:14:59 02/04/20 25 02/03/2025 [facility] 1999 panel - Serum or Plasm a sodium [moles/volum e] in blood 139 mmol/ L low: 137mmo l/Lhig h: 145mmo l/L normal Not Available Not Available 02/06/2025 14:14:58 02/04/20 25 02/03/2025 [facility] 1999 panel - Serum or Plasm a potassium [moles/volum e] in serum or plasma 4.1 mmol/ L low: 3.5mmo l/Lhig h: 5.1mmo l/L normal Not Available Not Available 02/06/2025 14:14:58 02/04/20 25 02/03/2025 [facility] 1999 panel - Serum or Plasm a chloride [moles/volum e] in serum or plasma 104 mmol/ L low: 98mmol /Lhigh : 107mmo l/L normal Not Available Not Available 02/06/2025 14:14:58 02/04/20 25 02/03/2025 [facility] 1999 panel - Serum or Plasm a carbon dioxide, total [moles/volum e] in serum or plasma 26 mmol/ L low: 22mmol /Lhigh : 30mmol /L normal Not Available Not Available 02/06/2025 14:14:58 02/04/20 25 02/03/2025 [facility] 1999 panel - Serum or Plasm a anion gap in serum or plasma by calculation 13.1 mmol/ L low: 14mmol /Lhigh : 22mmol /L low Not Available Not Available 02/06/2025 14:14:58 02/04/20 25 02/03/2025 [facility] 1999 panel - Serum or Plasm a glucose [mass/volume ] in serum or plasma 202 mg/dL low: 70mg/d Lhigh: 99mg/d L high Not Available Not Available 02/06/2025 14:14:58 02/04/20 25 02/03/2025 [facility] 1999 panel - Serum or Plasm a urea nitrogen [mass or moles/volume ] in serum or plasma 4 mg/dL low: 8mg/dL high: 19mg/d L low Not Available Not Available 02/06/2025 14:14:58 02/04/20 25 02/03/2025 [facility] 1999 panel - Serum or Plasm a creatinine [mass/volume ] in serum or plasma 0.6 mg/dL low: 0.66mg /dLhig h: 1.25mg /dL low Not Available Not Available 02/06/2025 14:14:58 02/04/20 25 02/03/2025 [facility] 1999 panel - Serum or Plasm a glomerular filtration rate [volume rate/area] in serum, plasma or blood by based on 1.73 sq M >60 normal Not Available Not Available 14:14:58 02/04/20 25 02/03/2025 [facility] 2000 panel - Serum or Plasm a calcium [mass/volume ] in serum or plasma 9 mg/dL low: 8.4mg/ dLhigh : 10.2mg /dL normal Not Available Not Available 02/06/2025 14:14:58 02/04/20 25 02/03/2025 Gluco se [Mass /volu me] in Capil mesha blood by Gluco meter glucose [mass/volume ] in capillary blood by glucometer 152 mg/dL low: 74mg/d Lhigh: 99mg/d L high Not Available Not Available 02/06/2025 14:14:58 02/04/20 25 02/03/2025 Gluco se [Mass /volu me] in Capil mesha blood by Gluco meter glucose [mass/volume ] in capillary blood by glucometer 200 mg/dL low: 74mg/d Lhigh: 99mg/d L high Not Available Not Available 02/06/2025 14:14:58 02/04/20 25 02/03/2025 Gluco se [Mass /volu me] in Capil mesha blood by Gluco meter glucose [mass/volume ] in capillary blood by glucometer 218 mg/dL low: 74mg/d Lhigh: 99mg/d L high Not Available Not Available 02/06/2025 14:14:58 02/04/20 25 02/03/2025 Gluco se [Mass /volu me] in Capil mesha blood by Gluco meter glucose [mass/volume ] in capillary blood by glucometer 186 mg/dL low: 74mg/d Lhigh: 99mg/d L high Not Available Not Available 02/06/2025 14:14:58 02/04/20 25 02/03/2025 Phosp hate [Mass /volu me] in Serum or Plasm a phosphate [mass/volume ] in serum or plasma 2.5 mg/dL low: 2.5mg/ dLhigh : 4.5mg/ dL normal Not Available Not Available 02/06/2025 14:14:58 02/04/20 25 02/03/2025 Magne sium [Mass /volu me] in Serum or Plasm a magnesium [mass/volume ] in serum or plasma 2.2 mg/dL low: 1.6mg/ dLhigh : 2.3mg/ dL normal Not Available Not Available 02/06/2025 14:14:58 02/04/20 25 02/03/2025 [facility] 1999 panel - Serum or Plasm a sodium [moles/volum e] in blood 140 mmol/ L low: 137mmo l/Lhig h: 145mmo l/L normal Not Available Not Available 02/06/2025 14:14:58 02/04/20 25 02/03/2025 [facility] 1999 panel - Serum or Plasm a potassium [moles/volum e] in serum or plasma 4.3 mmol/ L low: 3.5mmo l/Lhig h: 5.1mmo l/L normal Not Available Not Available 02/06/2025 14:14:58 02/04/20 25 02/03/2025 [facility] 1999 panel - Serum or Plasm a chloride [moles/volum e] in serum or plasma 104 mmol/ L low: 98mmol /Lhigh : 107mmo l/L normal Not Available Not Available 02/06/2025 14:14:58 02/04/20 25 02/03/2025 [facility] 1999 panel - Serum or Plasm a carbon dioxide, total [moles/volum e] in serum or plasma 22 mmol/ L low: 22mmol /Lhigh : 30mmol /L normal Not Available Not Available 02/06/2025 14:14:58 02/04/20 25 02/03/2025 [facility] 1999 panel - Serum or Plasm a anion gap in serum or plasma by calculation 18.3 mmol/ L low: 14mmol /Lhigh : 22mmol /L normal Not Available Not Available 02/06/2025 14:14:58 02/04/20 25 02/03/2025 [facility] 1999 panel - Serum or Plasm a glucose [mass/volume ] in serum or plasma 188 mg/dL low: 70mg/d Lhigh: 99mg/d L high Not Available Not Available 02/06/2025 14:14:58 02/04/20 25 02/03/2025 [facility] 1999 panel - Serum or Plasm a urea nitrogen [mass or moles/volume ] in serum or plasma 5 mg/dL low: 8mg/dL high: 19mg/d L low Not Available Not Available 02/06/2025 14:14:58 02/04/20 25 02/03/2025 [facility] 1999 panel - Serum or Plasm a creatinine [mass/volume ] in serum or plasma 0.62 mg/dL low: 0.66mg /dLhig h: 1.25mg /dL low Not Available Not Available 02/06/2025 14:14:58 02/04/20 25 02/03/2025 [facility] 1999 panel - Serum or Plasm a glomerular filtration rate [volume rate/area] in serum, plasma or blood by based on 1.73 sq M >60 normal Not Available Not Available 14:14:58 02/04/20 25 02/03/2025 [facility] 1999 panel - Serum or Plasm a calcium [mass/volume ] in serum or plasma 9.7 mg/dL low: 8.4mg/ dLhigh : 10.2mg /dL normal Not Available Not Available 02/06/2025 14:14:58 02/04/20 25 02/03/2025 Gluco se [Mass /volu me] in Capil mesha blood by Gluco meter glucose [mass/volume ] in capillary blood by glucometer 152 mg/dL low: 74mg/d Lhigh: 99mg/d L high Not Available Not Available 02/06/2025 14:14:58 02/04/20 25 02/03/2025 Gluco se [Mass /volu me] in Capil mesha blood by Gluco meter glucose [mass/volume ] in capillary blood by glucometer 139 mg/dL low: 74mg/d Lhigh: 99mg/d L high Not Available Not Available 02/06/2025 14:14:58 02/04/20 25 02/03/2025 Gluco se [Mass /volu me] in Capil mesha blood by Gluco meter glucose [mass/volume ] in capillary blood by glucometer 175 mg/dL low: 74mg/d Lhigh: 99mg/d L high Not Available Not Available 02/06/2025 14:14:58 02/04/20 25 02/03/2025 Gluco se [Mass /volu me] in Capil mesha blood by Gluco meter glucose [mass/volume ] in capillary blood by glucometer 185 mg/dL low: 74mg/d Lhigh: 99mg/d L high Not Available Not Available 02/06/2025 14:14:57 02/04/20 25 02/03/2025 CBC W [facility]iffe rent[facility] panel - Blood leukocytes [#/volume] in blood by automated count 14 x10'3 /uL low: 4.2x10 '3/uLh igh: 10.8x1 0'3/uL high Not Available Not Available 02/06/2025 14:14:55 02/04/20 25 02/03/2025 CBC W Auto Diffe renti al panel - Blood erythrocytes [#/volume] in blood by automated count 4.65 x10'6 /uL low: 3.8x10 '6/uLh igh: 5.2x10 '6/uL normal Not Available Not Available 02/06/2025 14:14:55 02/04/20 25 02/03/2025 CBC W Auto Diffe renti al panel - Blood hemoglobin [mass/volume ] in blood 14 g/dL low: 12g/dL high: 15.6g/ dL normal Not Available Not Available 02/06/2025 14:14:55 02/04/20 25 02/03/2025 CBC W Auto Diffe renti al panel - Blood hematocrit [volume fraction] of blood by automated count 43.9 % low: 35.7%h igh: 45.7% normal Not Available Not Available 02/06/2025 14:14:55 02/04/20 25 02/03/2025 CBC W Auto Diffe renti al panel - Blood MCV [entitic mean volume] in red blood cells by automated count 94.4 fL low: 82fLhi gh: 99fL normal Not Available Not Available 02/06/2025 14:14:55 02/04/20 25 02/03/2025 CBC W Auto Diffe renti al panel - Blood MCH [entitic mass] by automated count 30.1 pg low: 27pghi gh: 33pg normal Not Available Not Available 02/06/2025 14:14:55 02/04/20 25 02/03/2025 CBC W Auto Diffe renti al panel - Blood MCHC [entitic mass/volume] in red blood cells by automated count 31.9 g/dL low: 31g/dL high: 36g/dL normal Not Available Not Available 02/06/2025 14:14:55 02/04/20 25 02/03/2025 CBC W Auto Diffe renti al panel - Blood erythrocyte [distwidth] in red blood cells 14.1 % low: 11.8%h igh: 15.5% normal Not Available Not Available 02/06/2025 14:14:55 02/04/20 25 02/03/2025 CBC W Auto Diffe renti al panel - Blood platelets [#/volume] in blood by automated count 261 x10'3 /uL low: 150x10 '3/uLh igh: 400x10 '3/uL normal Not Available Not Available 02/06/2025 14:14:55 02/04/20 25 02/03/2025 CBC W Auto Diffe renti al panel - Blood platelet [entitic mean volume] in blood by automated count 12.2 fL low: 9fLhig h: 12.4fL normal Not Available Not Available 02/06/2025 14:14:55 02/04/20 25 02/03/2025 CBC W Auto Diffe renti al panel - Blood neutrophils/ leukocytes in blood 86.3 % low: 39%hig h: 72% high Not Available Not Available 02/06/2025 14:14:55 02/04/20 25 02/03/2025 CBC W Auto Diffe renti al panel - Blood lymphocytes/ leukocytes in blood 6 % low: 16%hig h: 47% low Not Available Not Available 02/06/2025 14:14:55 02/04/20 25 02/03/2025 CBC W Auto Diffe renti al panel - Blood monocytes/le ukocytes in blood 6.3 % low: 5%high : 12% normal Not Available Not Available 02/06/2025 14:14:55 02/04/20 25 02/03/2025 CBC W Auto Diffe renti al panel - Blood eosinophils [#/volume] in blood 0 % low: 1%high : 7% low Not Available Not Available 02/06/2025 14:14:55 02/04/20 25 02/03/2025 CBC W Auto Diffe renti al panel - Blood basophils/le ukocytes in blood 0.4 % low: 0%high : 2% normal Not Available Not Available 02/06/2025 14:14:55 02/04/20 25 02/03/2025 CBC W Auto Diffe renti al panel - Blood immature granulocytes /leukocytes in blood 1 % low: 0%high : 0.5% high Not Available Not Available 02/06/2025 14:14:55 02/04/20 25 02/03/2025 CBC W Auto Diffe renti al panel - Blood neutrophils [#/volume] in blood 12.06 x10'3 /uL low: 1.5x10 '3/uLh igh: 8x10'3 /uL high Not Available Not Available 02/06/2025 14:14:55 02/04/20 25 02/03/2025 CBC W Auto Diffe renti al panel - Blood lymphocytes [#/volume] in blood 0.84 x10'3 /uL low: 1.07x1 0'3/uL high: 3.43x1 0'3/uL low Not Available Not Available 02/06/2025 14:14:55 02/04/20 25 02/03/2025 CBC W Auto Diffe renti al panel - Blood monocytes [#/volume] in blood 0.88 x10'3 /uL low: 0.29x1 0'3/uL high: 0.99x1 0'3/uL normal Not Available Not Available 02/06/2025 14:14:55 02/04/20 25 02/03/2025 CBC W Auto Diffe renti al panel - Blood eosinophils [#/volume] in blood 0 x10'3 /uL low: 0.02x1 0'3/uL high: 0.53x1 0'3/uL low Not Available Not Available 02/06/2025 14:14:55 02/04/20 25 02/03/2025 CBC W Auto Diffe renti al panel - Blood basophils [#/volume] in blood 0.05 x10'3 /uL low: 0.01x1 0'3/uL high: 0.08x1 0'3/uL normal Not Available Not Available 02/06/2025 14:14:55 02/04/20 25 02/03/2025 CBC W Auto Diffe renti al panel - Blood immature granulocytes [#/volume] in blood 0.14 x10'3 /uL low: 0x10'3 /uLhig h: 0.05x1 0'3/uL high Not Available Not Available 02/06/2025 14:14:55 02/04/20 25 02/03/2025 CBC W Auto Diffe renti al panel - Blood nucleated erythrocytes /leukocytes [ratio] in blood 0 % high: 0% normal Not Available Not Available 02/06/2025 14:14:55 02/04/20 25 02/03/2025 CBC W Auto Diffe renti al panel - Blood nucleated erythrocytes [#/volume] in blood by automated count 0 x10'3 /uL normal Not Available Not Available 02/07/20 14:14:55 02/04/20 25 02/03/2025 [facility] metab [facility] 1999 panel - Serum or Plasm a sodium [moles/volum e] in blood 140 mmol/ L low: 137mmo l/Lhig h: 145mmo l/L normal Not Available Not Available 02/06/2025 14:14:55 02/04/20 25 02/03/2025 Basic metab o[facility] 1999 panel - Serum or Plasm a potassium [moles/volum e] in serum or plasma 4.7 mmol/ L low: 3.5mmo l/Lhig h: 5.1mmo l/L normal Not Available Not Available 02/06/2025 14:14:55 02/04/20 25 02/03/2025 [facility] metab o[facility] 1999 panel - Serum or Plasm a chloride [moles/volum e] in serum or plasma 105 mmol/ L low: 98mmol /Lhigh : 107mmo l/L normal Not Available Not Available 02/06/2025 14:14:55 02/04/20 25 02/03/2025 [facility] metab o[facility] 1999 panel - Serum or Plasm a carbon dioxide, total [moles/volum e] in serum or plasma 16 mmol/ L low: 22mmol /Lhigh : 30mmol /L low Not Available Not Available 02/06/2025 14:14:55 02/04/20 25 02/03/2025 [facility] metab [facility] 1999 panel - Serum or Plasm a anion gap in serum or plasma by calculation 23.7 mmol/ L low: 14mmol /Lhigh : 22mmol /L high Not Available Not Available 02/06/2025 14:14:55 02/04/20 25 02/03/2025 [facility] 1999 panel - Serum or Plasm a glucose [mass/volume ] in serum or plasma 213 mg/dL low: 70mg/d Lhigh: 99mg/d L high Not Available Not Available 02/06/2025 14:14:55 02/04/20 25 02/03/2025 [facility] 1999 panel - Serum or Plasm a urea nitrogen [mass or moles/volume ] in serum or plasma 6 mg/dL low: 8mg/dL high: 19mg/d L low Not Available Not Available 02/06/2025 14:14:55 02/04/20 25 02/03/2025 [facility] 1999 panel - Serum or Plasm a creatinine [mass/volume ] in serum or plasma 0.57 mg/dL low: 0.66mg /dLhig h: 1.25mg /dL low Not Available Not Available 02/06/2025 14:14:55 02/04/20 25 02/03/2025 [facility] 1999 panel - Serum or Plasm a glomerular filtration rate [volume rate/area] in serum, plasma or blood by based on 1.73 sq M >60 normal Not Available Not Available 14:14:55 02/04/20 25 02/03/2025 [place] [id number] panel - Serum or Plasm a calcium [mass/volume ] in serum or plasma 9.7 mg/dL low: 8.4mg/ dLhigh : 10.2mg /dL normal Not Available Not Available 02/06/2025 14:14:55 02/04/20 25 02/03/2025 Gluco se [Mass /volu me] in Capil mesha blood by Gluco meter glucose [mass/volume ] in capillary blood by glucometer 212 mg/dL low: 74mg/d Lhigh: 99mg/d L high Not Available Not Available 02/06/2025 14:14:57 02/04/20 25 02/03/2025 Phosp hate [Mass /volu me] in Serum or Plasm a phosphate [mass/volume ] in serum or plasma 2.6 mg/dL low: 2.5mg/ dLhigh : 4.5mg/ dL normal Not Available Not Available 02/06/2025 14:14:56 02/04/20 25 02/03/2025 Magne sium [Mass /volu me] in Serum or Plasm a magnesium [mass/volume ] in serum or plasma 2.3 mg/dL low: 1.6mg/ dLhigh : 2.3mg/ dL normal Not Available Not Available 02/06/2025 14:14:56 02/04/20 25 02/03/2025 Gluco se [Mass /volu me] in Capil mesha blood by Gluco meter glucose [mass/volume ] in capillary blood by glucometer 190 mg/dL low: 74mg/d Lhigh: 99mg/d L high Not Available Not Available 02/06/2025 14:14:57 02/04/20 25 02/03/2025 Gluco se [Mass /volu me] in Capil mesha blood by Gluco meter glucose [mass/volume ] in capillary blood by glucometer 158 mg/dL low: 74mg/d Lhigh: 99mg/d L high Not Available Not Available 02/06/2025 14:14:57 02/04/20 25 02/03/2025 Gluco se [Mass /volu me] in Capil mesha blood by Gluco meter glucose [mass/volume ] in capillary blood by glucometer 173 mg/dL low: 74mg/d Lhigh: 99mg/d L high Not Available Not Available 02/06/2025 14:14:57 02/04/20 25 02/03/2025 Gluco se [Mass /volu me] in Capil mesha blood by Gluco meter glucose [mass/volume ] in capillary blood by glucometer 205 mg/dL low: 74mg/d Lhigh: 99mg/d L high Not Available Not Available 02/06/2025 14:14:57 02/04/20 25 02/03/2025 Basic metab [facility] 2000 panel - Serum or Plasm a sodium [moles/volum e] in blood 139 mmol/ L low: 137mmo l/Lhig h: 145mmo l/L normal Not Available Not Available 02/06/2025 14:14:55 02/04/20 25 02/03/2025 [facility] 1999 panel - Serum or Plasm a potassium [moles/volum e] in serum or plasma 4 mmol/ L low: 3.5mmo l/Lhig h: 5.1mmo l/L normal Not Available Not Available 02/06/2025 14:14:55 02/04/20 25 02/03/2025 [facility] 1999 panel - Serum or Plasm a chloride [moles/volum e] in serum or plasma 105 mmol/ L low: 98mmol /Lhigh : 107mmo l/L normal Not Available Not Available 02/06/2025 14:14:55 02/04/20 25 02/03/2025 [facility] 1999 panel - Serum or Plasm a carbon dioxide, total [moles/volum e] in serum or plasma 17 mmol/ L low: 22mmol /Lhigh : 30mmol /L low Not Available Not Available 02/06/2025 14:14:55 02/04/20 25 02/03/2025 [facility] 1999 panel - Serum or Plasm a anion gap in serum or plasma by calculation 21 mmol/ L low: 14mmol /Lhigh : 22mmol /L normal Not Available Not Available 02/06/2025 14:14:55 02/04/2002/03/2025 [facility] 1999 panel - Serum or Plasm a glucose [mass/volume ] in serum or plasma 209 mg/dL low: 70mg/d Lhigh: 99mg/d L high Not Available Not Available 02/06/2025 14:14:55 02/04/2002/03/2025 [facility] 1999 panel - Serum or Plasm a urea nitrogen [mass or moles/volume ] in serum or plasma 7 mg/dL low: 8mg/dL high: 19mg/d L low Not Available Not Available 02/06/2025 14:14:55 02/04/20 25 02/03/2025 [facility] 1999 panel - Serum or Plasm a creatinine [mass/volume ] in serum or plasma 0.6 mg/dL low: 0.66mg /dLhig h: 1.25mg /dL low Not Available Not Available 02/06/2025 14:14:55 02/04/20 25 02/03/2025 [facility] 1999 panel - Serum or Plasm a glomerular filtration rate [volume rate/area] in serum, plasma or blood by based on 1.73 sq M >60 normal Not Available Not Available 14:14:55 02/04/20 25 02/03/2025 [facility] 1999 panel - Serum or Plasm a calcium [mass/volume ] in serum or plasma 9.4 mg/dL low: 8.4mg/ dLhigh : 10.2mg /dL normal Not Available Not Available 02/06/2025 14:14:55 02/05/20 25 02/04/2025 Gluco se [Mass /volu me] in Capil mesha blood by Gluco meter glucose [mass/volume ] in capillary blood by glucometer 240 mg/dL low: 74mg/d Lhigh: 99mg/d L high Not Available Not Available 02/06/2025 14:15:00 02/05/20 25 02/04/2025 [facility] 1999 panel - Serum or Plasm a sodium [moles/volum e] in blood 132 mmol/ L low: 137mmo l/Lhig h: 145mmo l/L low Not Available Not Available 02/06/2025 14:14:59 02/05/20 25 02/04/2025 [facility] 1999 panel - Serum or Plasm a potassium [moles/volum e] in serum or plasma 4 mmol/ L low: 3.5mmo l/Lhig h: 5.1mmo l/L normal Not Available Not Available 02/06/2025 14:14:59 02/05/20 25 02/04/2025 [facility] 1999 panel - Serum or Plasm a chloride [moles/volum e] in serum or plasma 95 mmol/ L low: 98mmol /Lhigh : 107mmo l/L low Not Available Not Available 02/06/2025 14:14:59 02/05/20 25 02/04/2025 [facility] 1999 panel - Serum or Plasm a carbon dioxide, total [moles/volum e] in serum or plasma 26 mmol/ L low: 22mmol /Lhigh : 30mmol /L normal Not Available Not Available 02/06/2025 14:14:59 02/05/20 25 02/04/2025 [facility] 1999 panel - Serum or Plasm a anion gap in serum or plasma by calculation 15 mmol/ L low: 14mmol /Lhigh : 22mmol /L normal Not Available Not Available 02/06/2025 14:14:59 02/05/20 25 02/04/2025 [facility] 1999 panel - Serum or Plasm a glucose [mass/volume ] in serum or plasma 238 mg/dL low: 70mg/d Lhigh: 99mg/d L high Not Available Not Available 02/06/2025 14:14:59 02/05/20 25 02/04/2025 [facility] 1999 panel - Serum or Plasm a urea nitrogen [mass or moles/volume ] in serum or plasma 6 mg/dL low: 8mg/dL high: 19mg/d L low Not Available Not Available 02/06/2025 14:14:59 02/05/20 25 02/04/2025 [facility] 1999 panel - Serum or Plasm a creatinine [mass/volume ] in serum or plasma 0.51 mg/dL low: 0.66mg /dLhig h: 1.25mg /dL low Not Available Not Available 02/06/2025 14:14:59 02/05/20 25 02/04/2025 [facility] 1999 panel - Serum or Plasm a glomerular filtration rate [volume rate/area] in serum, plasma or blood by based on 1.73 sq M >60 normal Not Available Not Available 14:14:59 02/05/20 25 02/04/2025 [facility] 1999 panel - Serum or Plasm a calcium [mass/volume ] in serum or plasma 9.4 mg/dL low: 8.4mg/ dLhigh : 10.2mg /dL normal Not Available Not Available 02/06/2025 14:14:59 02/05/20 25 02/04/2025 Gluco se [Mass /volu me] in Capil mesha blood by Gluco meter glucose [mass/volume ] in capillary blood by glucometer 171 mg/dL low: 74mg/d Lhigh: 99mg/d L high Not Available Not Available 02/06/2025 14:15:00 02/05/20 25 02/04/2025 [facility] 1999 panel - Serum or Plasm a sodium [moles/volum e] in blood 133 mmol/ L low: 137mmo l/Lhig h: 145mmo l/L low Not Available Not Available 02/06/2025 14:14:59 02/05/20 25 02/04/2025 [facility] 1999 panel - Serum or Plasm a potassium [moles/volum e] in serum or plasma 3.9 mmol/ L low: 3.5mmo l/Lhig h: 5.1mmo l/L normal Not Available Not Available 02/06/2025 14:14:59 02/05/20 25 02/04/2025 [facility] 1999 panel - Serum or Plasm a chloride [moles/volum e] in serum or plasma 96 mmol/ L low: 98mmol /Lhigh : 107mmo l/L low Not Available Not Available 02/06/2025 14:14:59 02/05/20 25 02/04/2025 [facility] 1999 panel - Serum or Plasm a carbon dioxide, total [moles/volum e] in serum or plasma 23 mmol/ L low: 22mmol /Lhigh : 30mmol /L normal Not Available Not Available 02/06/2025 14:14:59 02/05/20 25 02/04/2025 [facility] 1999 panel - Serum or Plasm a anion gap in serum or plasma by calculation 17.9 mmol/ L low: 14mmol /Lhigh : 22mmol /L normal Not Available Not Available 02/06/2025 14:14:59 02/05/20 25 02/04/2025 [facility] 1999 panel - Serum or Plasm a glucose [mass/volume ] in serum or plasma 237 mg/dL low: 70mg/d Lhigh: 99mg/d L high Not Available Not Available 02/06/2025 14:14:59 02/05/20 25 02/04/2025 [facility] 1999 panel - Serum or Plasm a urea nitrogen [mass or moles/volume ] in serum or plasma 6 mg/dL low: 8mg/dL high: 19mg/d L low Not Available Not Available 02/06/2025 14:14:59 02/05/20 25 02/04/2025 [facility] 1999 panel - Serum or Plasm a creatinine [mass/volume ] in serum or plasma 0.56 mg/dL low: 0.66mg /dLhig h: 1.25mg /dL low Not Available Not Available 02/06/2025 14:14:59 02/05/20 25 02/04/2025 [facility] 1999 panel - Serum or Plasm a glomerular filtration rate [volume rate/area] in serum, plasma or blood by based on 1.73 sq M >60 normal Not Available Not Available 14:14:59 02/05/20 25 02/04/2025 [facility] 1999 panel - Serum or Plasm a calcium [mass/volume ] in serum or plasma 9.5 mg/dL low: 8.4mg/ dLhigh : 10.2mg /dL normal Not Available Not Available 02/06/2025 14:14:59 02/05/20 25 02/04/2025 Gluco se [Mass /volu me] in Capil mesha blood by Gluco meter glucose [mass/volume ] in capillary blood by glucometer 178 mg/dL low: 74mg/d Lhigh: 99mg/d L high Not Available Not Available 02/06/2025 14:14:59 02/05/20 25 02/04/2025 Gluco se [Mass /volu me] in Capil mesha blood by Gluco meter glucose [mass/volume ] in capillary blood by glucometer 319 mg/dL low: 74mg/d Lhigh: 99mg/d L high Not Available Not Available 02/06/2025 14:14:59 02/05/20 25 02/04/2025 [facility] panel - Blood leukocytes [#/volume] in blood by automated count 11.4 x10'3 /uL low: 4.2x10 '3/uLh igh: 10.8x1 0'3/uL high Not Available Not Available 02/06/2025 14:14:55 02/05/20 25 02/04/2025 [facility] panel - Blood erythrocytes [#/volume] in blood by automated count 4.44 x10'6 /uL low: 3.8x10 '6/uLh igh: 5.2x10 '6/uL normal Not Available Not Available 02/06/2025 14:14:55 02/05/20 25 02/04/2025 [facility] panel - Blood hemoglobin [mass/volume ] in blood 13.7 g/dL low: 12g/dL high: 15.6g/ dL normal Not Available Not Available 02/06/2025 14:14:55 02/05/20 25 02/04/2025 [facility] panel - Blood hematocrit [volume fraction] of blood by automated count 41.5 % low: 35.7%h igh: 45.7% normal Not Available Not Available 02/06/2025 14:14:55 02/05/20 25 02/04/2025 [facility] panel - Blood MCV [entitic mean volume] in red blood cells by automated count 93.5 fL low: 82fLhi gh: 99fL normal Not Available Not Available 02/06/2025 14:14:55 02/05/20 25 02/04/2025 [facility] panel - Blood MCH [entitic mass] by automated count 30.9 pg low: 27pghi gh: 33pg normal Not Available Not Available 02/06/2025 14:14:55 02/05/20 25 02/04/2025 [facility] panel - Blood MCHC [entitic mass/volume] in red blood cells by automated count 33 g/dL low: 31g/dL high: 36g/dL normal Not Available Not Available 02/06/2025 14:14:55 02/05/20 25 02/04/2025 [facility] panel - Blood erythrocyte [distwidth] in red blood cells 13.9 % low: 11.8%h igh: 15.5% normal Not Available Not Available 02/06/2025 14:14:55 02/05/20 25 02/04/2025 [facility] panel - Blood platelets [#/volume] in blood by automated count 261 x10'3 /uL low: 150x10 '3/uLh igh: 400x10 '3/uL normal Not Available Not Available 02/06/2025 14:14:55 02/05/20 25 02/04/2025 [facility] panel - Blood platelet [entitic mean volume] in blood by automated count 11.7 fL low: 9fLhig h: 12.4fL normal Not Available Not Available 02/06/2025 14:14:55 02/05/20 25 02/04/2025 [facility] panel - Blood neutrophils/ leukocytes in blood 84.9 % low: 39%hig h: 72% high Not Available Not Available 02/06/2025 14:14:55 02/05/20 25 02/04/2025 [facility] panel - Blood lymphocytes/ leukocytes in blood 8.1 % low: 16%hig h: 47% low Not Available Not Available 02/06/2025 14:14:55 02/05/20 25 02/04/2025 [facility] panel - Blood monocytes/le ukocytes in blood 6 % low: 5%high : 12% normal Not Available Not Available 02/06/2025 14:14:55 02/05/20 25 02/04/2025 [facility] panel - Blood eosinophils [#/volume] in blood 0 % low: 1%high : 7% low Not Available Not Available 02/06/2025 14:14:55 02/05/20 25 02/04/2025 [facility] panel - Blood basophils/le ukocytes in blood 0.3 % low: 0%high : 2% normal Not Available Not Available 02/06/2025 14:14:55 02/05/20 25 02/04/2025 [facility] panel - Blood immature granulocytes /leukocytes in blood 0.7 % low: 0%high : 0.5% high Not Available Not Available 02/06/2025 14:14:55 02/05/20 25 02/04/2025 [facility] panel - Blood neutrophils [#/volume] in blood 9.71 x10'3 /uL low: 1.5x10 '3/uLh igh: 8x10'3 /uL high Not Available Not Available 02/06/2025 14:14:55 02/05/20 25 02/04/2025 [facility] panel - Blood lymphocytes [#/volume] in blood 0.92 x10'3 /uL low: 1.07x1 0'3/uL high: 3.43x1 0'3/uL low Not Available Not Available 02/06/2025 14:14:55 02/05/20 25 02/04/2025 [facility] panel - Blood monocytes [#/volume] in blood 0.68 x10'3 /uL low: 0.29x1 0'3/uL high: 0.99x1 0'3/uL normal Not Available Not Available 02/06/2025 14:14:55 02/05/20 25 02/04/2025 [facility] panel - Blood eosinophils [#/volume] in blood 0 x10'3 /uL low: 0.02x1 0'3/uL high: 0.53x1 0'3/uL low Not Available Not Available 02/06/2025 14:14:55 02/05/20 25 02/04/2025 [facility] panel - Blood basophils [#/volume] in blood 0.03 x10'3 /uL low: 0.01x1 0'3/uL high: 0.08x1 0'3/uL normal Not Available Not Available 02/06/2025 14:14:55 02/05/20 25 02/04/2025 [facility] panel - Blood immature granulocytes [#/volume] in blood 0.08 x10'3 /uL low: 0x10'3 /uLhig h: 0.05x1 0'3/uL high Not Available Not Available 02/06/2025 14:14:55 02/05/20 25 02/04/2025 [facility] panel - Blood nucleated erythrocytes /leukocytes [ratio] in blood 0 % high: 0% normal Not Available Not Available 02/06/2025 14:14:55 02/05/20 25 02/04/2025 [facility] panel - Blood nucleated erythrocytes [#/volume] in blood by automated count 0 x10'3 /uL normal Not Available Not Available 02/07/20 14:14:55 02/05/20 25 02/04/2025 [facility] 2000 panel - Serum or Plasm a sodium [moles/volum e] in blood 133 mmol/ L low: 137mmo l/Lhig h: 145mmo l/L low Not Available Not Available 02/06/2025 14:14:58 02/05/20 25 02/04/2025 [facility] 1999 panel - Serum or Plasm a potassium [moles/volum e] in serum or plasma 4.1 mmol/ L low: 3.5mmo l/Lhig h: 5.1mmo l/L normal Not Available Not Available 02/06/2025 14:14:58 02/05/20 25 02/04/2025 [facility] 1999 panel - Serum or Plasm a chloride [moles/volum e] in serum or plasma 97 mmol/ L low: 98mmol /Lhigh : 107mmo l/L low Not Available Not Available 02/06/2025 14:14:58 02/05/20 25 02/04/2025 [facility] 1999 panel - Serum or Plasm a carbon dioxide, total [moles/volum e] in serum or plasma 19 mmol/ L low: 22mmol /Lhigh : 30mmol /L low Not Available Not Available 02/06/2025 14:14:58 02/05/20 25 02/04/2025 [facility] 1999 panel - Serum or Plasm a anion gap in serum or plasma by calculation 21.1 mmol/ L low: 14mmol /Lhigh : 22mmol /L normal Not Available Not Available 02/06/2025 14:14:58 02/05/20 25 02/04/2025 [facility] 1999 panel - Serum or Plasm a glucose [mass/volume ] in serum or plasma 319 mg/dL low: 70mg/d Lhigh: 99mg/d L high Not Available Not Available 02/06/2025 14:14:58 02/05/20 25 02/04/2025 [facility] 1999 panel - Serum or Plasm a urea nitrogen [mass or moles/volume ] in serum or plasma 7 mg/dL low: 8mg/dL high: 19mg/d L low Not Available Not Available 02/06/2025 14:14:58 02/05/20 25 02/04/2025 [facility] 1999 panel - Serum or Plasm a creatinine [mass/volume ] in serum or plasma 0.56 mg/dL low: 0.66mg /dLhig h: 1.25mg /dL low Not Available Not Available 02/06/2025 14:14:58 02/05/20 25 02/04/2025 [facility] 2000 panel - Serum or Plasm a glomerular filtration rate [volume rate/area] in serum, plasma or blood by based on 1.73 sq M >60 normal Not Available Not Available 14:14:58 02/05/20 25 02/04/2025 [facility] 2000 panel - Serum or Plasm a calcium [mass/volume ] in serum or plasma 9.3 mg/dL low: 8.4mg/ dLhigh : 10.2mg /dL normal Not Available Not Available 02/06/2025 14:14:58 02/05/20 25 02/04/2025 Gluco se [Mass /volu me] in Capil mesha blood by Gluco meter glucose [mass/volume ] in capillary blood by glucometer 273 mg/dL low: 74mg/d Lhigh: 99mg/d L high Not Available Not Available 02/06/2025 14:14:59 02/05/20 25 02/04/2025 Gluco se [Mass /volu me] in Capil mesha blood by Gluco meter glucose [mass/volume ] in capillary blood by glucometer 240 mg/dL low: 74mg/d Lhigh: 99mg/d L high Not Available Not Available 02/06/2025 14:14:59 02/06/20 25 02/05/2025 Gluco se [Mass /volu me] in Capil mesha blood by Gluco meter glucose [mass/volume ] in capillary blood by glucometer 122 mg/dL low: 74mg/d Lhigh: 99mg/d L high Not Available Not Available 02/06/2025 14:15:00 02/06/20 25 02/05/2025 Gluco se [Mass /volu me] in Capil mesha blood by Gluco meter glucose [mass/volume ] in capillary blood by glucometer 185 mg/dL low: 74mg/d Lhigh: 99mg/d L high Not Available Not Available 02/06/2025 14:15:00 02/06/20 25 02/05/2025 Gluco se [Mass /volu me] in Capil mesha blood by Gluco meter glucose [mass/volume ] in capillary blood by glucometer 201 mg/dL low: 74mg/d Lhigh: 99mg/d L high Not Available Not Available 02/06/2025 14:15:00 02/06/20 25 02/05/2025 Gluco se [Mass /volu me] in Capil mesha blood by Gluco meter glucose [mass/volume ] in capillary blood by glucometer 310 mg/dL low: 74mg/d Lhigh: 99mg/d L high Not Available Not Available 02/06/2025 14:15:00 02/06/20 25 02/05/2025 [facility] 1999 panel - Serum or Plasm a sodium [moles/volum e] in blood 132 mmol/ L low: 137mmo l/Lhig h: 145mmo l/L low Not Available Not Available 02/06/2025 14:14:59 02/06/20 25 02/05/2025 [facility] 1999 panel - Serum or Plasm a potassium [moles/volum e] in serum or plasma 3.8 mmol/ L low: 3.5mmo l/Lhig h: 5.1mmo l/L normal Not Available Not Available 02/06/2025 14:14:59 02/06/20 25 02/05/2025 [facility] 1999 panel - Serum or Plasm a chloride [moles/volum e] in serum or plasma 95 mmol/ L low: 98mmol /Lhigh : 107mmo l/L low Not Available Not Available 02/06/2025 14:14:59 02/06/20 25 02/05/2025 [facility] 1999 panel - Serum or Plasm a carbon dioxide, total [moles/volum e] in serum or plasma 26 mmol/ L low: 22mmol /Lhigh : 30mmol /L normal Not Available Not Available 02/06/2025 14:14:59 02/06/20 25 02/05/2025 [facility] 1999 panel - Serum or Plasm a anion gap in serum or plasma by calculation 14.8 mmol/ L low: 14mmol /Lhigh : 22mmol /L normal Not Available Not Available 02/06/2025 14:14:59 02/06/20 25 02/05/2025 [facility] 1999 panel - Serum or Plasm a glucose [mass/volume ] in serum or plasma 258 mg/dL low: 70mg/d Lhigh: 99mg/d L high Not Available Not Available 02/06/2025 14:14:59 02/06/20 25 02/05/2025 [place] [id number] panel - Serum or Plasm a urea nitrogen [mass or moles/volume ] in serum or plasma 6 mg/dL low: 8mg/dL high: 19mg/d L low Not Available Not Available 02/06/2025 14:14:59 02/06/20 25 02/05/2025 [place] [id number] panel - Serum or Plasm a creatinine [mass/volume ] in serum or plasma 0.51 mg/dL low: 0.66mg /dLhig h: 1.25mg /dL low Not Available Not Available 02/06/2025 14:14:59 02/06/20 25 02/05/2025 [facility] 1999 panel - Serum or Plasm a glomerular filtration rate [volume rate/area] in serum, plasma or blood by based on 1.73 sq M >60 normal Not Available Not Available 14:14:59 02/06/20 25 02/05/2025 [facility] 1999 panel - Serum or Plasm a calcium [mass/volume ] in serum or plasma 8.6 mg/dL low: 8.4mg/ dLhigh : 10.2mg /dL normal Not Available Not Available 02/06/2025 14:14:59 02/06/20 25 02/05/2025 [facility] panel - Blood leukocytes [#/volume] in blood by automated count 8.1 x10'3 /uL low: 4.2x10 '3/uLh igh: 10.8x1 0'3/uL normal Not Available Not Available 02/06/2025 14:14:56 02/06/20 25 02/05/2025 [facility] panel - Blood erythrocytes [#/volume] in blood by automated count 4.44 x10'6 /uL low: 3.8x10 '6/uLh igh: 5.2x10 '6/uL normal Not Available Not Available 02/06/2025 14:14:56 02/06/20 25 02/05/2025 [facility] panel - Blood hemoglobin [mass/volume ] in blood 13.3 g/dL low: 12g/dL high: 15.6g/ dL normal Not Available Not Available 02/06/2025 14:14:56 02/06/20 25 02/05/2025 [facility] panel - Blood hematocrit [volume fraction] of blood by automated count 40.9 % low: 35.7%h igh: 45.7% normal Not Available Not Available 02/06/2025 14:14:56 02/06/20 25 02/05/2025 [facility] panel - Blood MCV [entitic mean volume] in red blood cells by automated count 92.1 fL low: 82fLhi gh: 99fL normal Not Available Not Available 02/06/2025 14:14:56 02/06/20 25 02/05/2025 [facility] panel - Blood MCH [entitic mass] by automated count 30 pg low: 27pghi gh: 33pg normal Not Available Not Available 02/06/2025 14:14:56 02/06/20 25 02/05/2025 [facility] panel - Blood MCHC [entitic mass/volume] in red blood cells by automated count 32.5 g/dL low: 31g/dL high: 36g/dL normal Not Available Not Available 02/06/2025 14:14:56 02/06/20 25 02/05/2025 [facility] panel - Blood erythrocyte [distwidth] in red blood cells 13.2 % low: 11.8%h igh: 15.5% normal Not Available Not Available 02/06/2025 14:14:56 02/06/20 25 02/05/2025 [facility] panel - Blood platelets [#/volume] in blood by automated count 244 x10'3 /uL low: 150x10 '3/uLh igh: 400x10 '3/uL normal Not Available Not Available 02/06/2025 14:14:56 02/06/20 25 02/05/2025 [facility] panel - Blood platelet [entitic mean volume] in blood by automated count 11.3 fL low: 9fLhig h: 12.4fL normal Not Available Not Available 02/06/2025 14:14:56 02/06/20 25 02/05/2025 [facility] panel - Blood neutrophils/ leukocytes in blood 72.5 % low: 39%hig h: 72% high Not Available Not Available 02/06/2025 14:14:56 02/06/20 25 02/05/2025 [facility] panel - Blood lymphocytes/ leukocytes in blood 17.1 % low: 16%hig h: 47% normal Not Available Not Available 02/06/2025 14:14:56 02/06/20 25 02/05/2025 [facility] panel - Blood monocytes/le ukocytes in blood 9.4 % low: 5%high : 12% normal Not Available Not Available 02/06/2025 14:14:56 02/06/20 25 02/05/2025 [facility] panel - Blood eosinophils [#/volume] in blood 0 % low: 1%high : 7% low Not Available Not Available 02/06/2025 14:14:56 02/06/20 25 02/05/2025 [facility] panel - Blood basophils/le ukocytes in blood 0.4 % low: 0%high : 2% normal Not Available Not Available 02/06/2025 14:14:56 02/06/20 25 02/05/2025 [facility] panel - Blood immature granulocytes /leukocytes in blood 0.6 % low: 0%high : 0.5% high Not Available Not Available 02/06/2025 14:14:56 02/06/20 25 02/05/2025 [facility] panel - Blood neutrophils [#/volume] in blood 5.87 x10'3 /uL low: 1.5x10 '3/uLh igh: 8x10'3 /uL normal Not Available Not Available 02/06/2025 14:14:56 02/06/20 25 02/05/2025 [facility] panel - Blood lymphocytes [#/volume] in blood 1.38 x10'3 /uL low: 1.07x1 0'3/uL high: 3.43x1 0'3/uL normal Not Available Not Available 02/06/2025 14:14:56 02/06/20 25 02/05/2025 [facility] panel - Blood monocytes [#/volume] in blood 0.76 x10'3 /uL low: 0.29x1 0'3/uL high: 0.99x1 0'3/uL normal Not Available Not Available 02/06/2025 14:14:56 02/06/20 25 02/05/2025 [facility] panel - Blood eosinophils [#/volume] in blood 0 x10'3 /uL low: 0.02x1 0'3/uL high: 0.53x1 0'3/uL low Not Available Not Available 02/06/2025 14:14:56 02/06/20 25 02/05/2025 [facility] panel - Blood basophils [#/volume] in blood 0.03 x10'3 /uL low: 0.01x1 0'3/uL high: 0.08x1 0'3/uL normal Not Available Not Available 02/06/2025 14:14:56 02/06/20 25 02/05/2025 [facility] panel - Blood immature granulocytes [#/volume] in blood 0.05 x10'3 /uL low: 0x10'3 /uLhig h: 0.05x1 0'3/uL normal Not Available Not Available 02/06/2025 14:14:56 02/06/20 25 02/05/2025 [facility] panel - Blood nucleated erythrocytes /leukocytes [ratio] in blood 0 % high: 0% normal Not Available Not Available 02/06/2025 14:14:56 02/06/20 25 02/05/2025 [facility] panel - Blood nucleated erythrocytes [#/volume] in blood by automated count 0 x10'3 /uL normal Not Available Not Available 02/07/20 14:14:56 02/06/20 25 02/05/2025 Basic metab olic 2000 panel - Serum or Plasm a sodium [moles/volum e] in blood 132 mmol/ L low: 137mmo l/Lhig h: 145mmo l/L low Not Available Not Available 02/06/2025 14:14:59 02/06/20 25 02/05/2025 [facility] 1999 panel - Serum or Plasm a potassium [moles/volum e] in serum or plasma 3.8 mmol/ L low: 3.5mmo l/Lhig h: 5.1mmo l/L normal Not Available Not Available 02/06/2025 14:14:59 02/06/20 25 02/05/2025 [facility] 1999 panel - Serum or Plasm a chloride [moles/volum e] in serum or plasma 94 mmol/ L low: 98mmol /Lhigh : 107mmo l/L low Not Available Not Available 02/06/2025 14:14:59 02/06/20 25 02/05/2025 [facility] 1999 panel - Serum or Plasm a carbon dioxide, total [moles/volum e] in serum or plasma 27 mmol/ L low: 22mmol /Lhigh : 30mmol /L normal Not Available Not Available 02/06/2025 14:14:59 02/06/20 25 02/05/2025 [facility] 1999 panel - Serum or Plasm a anion gap in serum or plasma by calculation 14.8 mmol/ L low: 14mmol /Lhigh : 22mmol /L normal Not Available Not Available 02/06/2025 14:14:59 02/06/20 25 02/05/2025 [facility] 1999 panel - Serum or Plasm a glucose [mass/volume ] in serum or plasma 260 mg/dL low: 70mg/d Lhigh: 99mg/d L high Not Available Not Available 02/06/2025 14:14:59 02/06/20 25 02/05/2025 [facility] 1999 panel - Serum or Plasm a urea nitrogen [mass or moles/volume ] in serum or plasma 5 mg/dL low: 8mg/dL high: 19mg/d L low Not Available Not Available 02/06/2025 14:14:59 02/06/20 25 02/05/2025 [facility] 1999 panel - Serum or Plasm a creatinine [mass/volume ] in serum or plasma 0.52 mg/dL low: 0.66mg /dLhig h: 1.25mg /dL low Not Available Not Available 02/06/2025 14:14:59 02/06/20 25 02/05/2025 Basic metab olic 2000 panel - Serum or Plasm a glomerular filtration rate [volume rate/area] in serum, plasma or blood by based on 1.73 sq M >60 normal Not Available Not Available 14:14:59 02/06/20 25 02/05/2025 Basic metab olic 2000 panel - Serum or Plasm a calcium [mass/volume ] in serum or plasma 9 mg/dL low: 8.4mg/ dLhigh : 10.2mg /dL normal Not Available Not Available 02/06/2025 14:14:59 02/07/20 25 02/06/2025 Gluco se [Mass /volu me] in Capil mesha blood by Gluco meter glucose [mass/volume ] in capillary blood by glucometer 195 mg/dL low: 74mg/d Lhigh: 99mg/d L high Not Available Not Available 02/06/2025 14:15:00 02/07/20 25 02/06/2025 Gluco se [Mass /volu me] in Capil mesha blood by Gluco meter glucose [mass/volume ] in capillary blood by glucometer 188 mg/dL low: 74mg/d Lhigh: 99mg/d L high Not Available Not Available 02/06/2025 14:15:00 02/07/20 25 02/06/2025 CBC W Auto Diffe renti al panel - Blood leukocytes [#/volume] in blood by automated count 8.3 x10'3 /uL low: 4.2x10 '3/uLh igh: 10.8x1 0'3/uL normal Not Available Not Available 02/06/2025 14:14:56 02/07/20 25 02/06/2025 CBC W Auto Diffe renti al panel - Blood erythrocytes [#/volume] in blood by automated count 4.59 x10'6 /uL low: 3.8x10 '6/uLh igh: 5.2x10 '6/uL normal Not Available Not Available 02/06/2025 14:14:56 02/07/20 25 02/06/2025 CBC W Auto Diffe renti al panel - Blood hemoglobin [mass/volume ] in blood 13.7 g/dL low: 12g/dL high: 15.6g/ dL normal Not Available Not Available 02/06/2025 14:14:56 02/07/20 25 02/06/2025 CBC W Auto Diffe renti al panel - Blood hematocrit [volume fraction] of blood by automated count 42.1 % low: 35.7%h igh: 45.7% normal Not Available Not Available 02/06/2025 14:14:56 02/07/20 25 02/06/2025 CBC W Auto Diffe renti al panel - Blood MCV [entitic mean volume] in red blood cells by automated count 91.7 fL low: 82fLhi gh: 99fL normal Not Available Not Available 02/06/2025 14:14:56 02/07/20 25 02/06/2025 CBC W Auto Diffe renti al panel - Blood MCH [entitic mass] by automated count 29.8 pg low: 27pghi gh: 33pg normal Not Available Not Available 02/06/2025 14:14:56 02/07/20 25 02/06/2025 CBC W Auto Diffe renti al panel - Blood MCHC [entitic mass/volume] in red blood cells by automated count 32.5 g/dL low: 31g/dL high: 36g/dL normal Not Available Not Available 02/06/2025 14:14:56 02/07/20 25 02/06/2025 CBC W Auto Diffe renti al panel - Blood erythrocyte [distwidth] in red blood cells 13.2 % low: 11.8%h igh: 15.5% normal Not Available Not Available 02/06/2025 14:14:56 02/07/20 25 02/06/2025 CBC W Auto Diffe renti al panel - Blood platelets [#/volume] in blood by automated count 230 x10'3 /uL low: 150x10 '3/uLh igh: 400x10 '3/uL normal Not Available Not Available 02/06/2025 14:14:56 02/07/20 25 02/06/2025 CBC W Auto Diffe renti al panel - Blood platelet [entitic mean volume] in blood by automated count 11.4 fL low: 9fLhig h: 12.4fL normal Not Available Not Available 02/06/2025 14:14:56 02/07/20 25 02/06/2025 CBC W Auto Diffe renti al panel - Blood neutrophils/ leukocytes in blood 72.6 % low: 39%hig h: 72% high Not Available Not Available 02/06/2025 14:14:56 02/07/20 25 02/06/2025 CBC W Auto Diffe renti al panel - Blood lymphocytes/ leukocytes in blood 17.6 % low: 16%hig h: 47% normal Not Available Not Available 02/06/2025 14:14:56 02/07/20 25 02/06/2025 CBC W Auto Diffe renti al panel - Blood monocytes/le ukocytes in blood 9.1 % low: 5%high : 12% normal Not Available Not Available 02/06/2025 14:14:56 02/07/20 25 02/06/2025 CBC W Auto Diffe renti al panel - Blood eosinophils [#/volume] in blood 0 % low: 1%high : 7% low Not Available Not Available 02/06/2025 14:14:56 02/07/20 25 02/06/2025 CBC W Auto Diffe renti al panel - Blood basophils/le ukocytes in blood 0.2 % low: 0%high : 2% normal Not Available Not Available 02/06/2025 14:14:56 02/07/2002/06/2025 CBC W Auto Diffe renti al panel - Blood immature granulocytes /leukocytes in blood 0.5 % low: 0%high : 0.5% normal Not Available Not Available 02/06/2025 14:14:56 02/07/20 25 02/06/2025 CBC W Auto Diffe renti al panel - Blood neutrophils [#/volume] in blood 6.01 x10'3 /uL low: 1.5x10 '3/uLh igh: 8x10'3 /uL normal Not Available Not Available 02/06/2025 14:14:56 02/07/20 25 02/06/2025 CBC W Auto Diffe renti al panel - Blood lymphocytes [#/volume] in blood 1.46 x10'3 /uL low: 1.07x1 0'3/uL high: 3.43x1 0'3/uL normal Not Available Not Available 02/06/2025 14:14:56 02/07/20 25 02/06/2025 CBC W Auto Diffe renti al panel - Blood monocytes [#/volume] in blood 0.75 x10'3 /uL low: 0.29x1 0'3/uL high: 0.99x1 0'3/uL normal Not Available Not Available 02/06/2025 14:14:56 02/07/20 25 02/06/2025 CBC W Auto Diffe renti al panel - Blood eosinophils [#/volume] in blood 0 x10'3 /uL low: 0.02x1 0'3/uL high: 0.53x1 0'3/uL low Not Available Not Available 02/06/2025 14:14:56 02/07/20 25 02/06/2025 CBC W Auto Diffe renti al panel - Blood basophils [#/volume] in blood 0.02 x10'3 /uL low: 0.01x1 0'3/uL high: 0.08x1 0'3/uL normal Not Available Not Available 02/06/2025 14:14:56 02/07/20 25 02/06/2025 CBC W Auto Diffe renti al panel - Blood immature granulocytes [#/volume] in blood 0.04 x10'3 /uL low: 0x10'3 /uLhig h: 0.05x1 0'3/uL normal Not Available Not Available 02/06/2025 14:14:56 02/07/20 25 02/06/2025 CBC W Auto Diffe renti al panel - Blood nucleated erythrocytes /leukocytes [ratio] in blood 0 % high: 0% normal Not Available Not Available 02/06/2025 14:14:56 02/07/2002/06/2025 CBC W Auto Diffe renti al panel - Blood nucleated erythrocytes [#/volume] in blood by automated count 0 x10'3 /uL normal Not Available Not Available 02/07/20 14:14:56 03/21/2003/21/2023 NM, bone scan, 3-pha se No observ ation record ed. [address], [address], 03/24/2023 11:52:42 04/08/20 24 04/08/2024 XR, abdom en No observ ation record ed. [address] [place], [address], 06/27/2024 09:46:06 02/03/20 25 02/02/2025 CT, abdom en + pelvi s, w/ contr ast No observ ation record ed. [address] [place], [address], 02/05/2025 09:51:33 02/03/20 25 02/02/2025 XR, chest No observ ation record ed. [address] [place], [address], 02/05/2025 09:51:45 03/05/20 25 03/05/2025 XR, chest , 2 view No observ ation record ed. [address] [facility], [place], [address], 03/11/2025 15:35:34 03/10/20 25 03/06/2025 CT, abdom en + pelvi s, w/ contr ast No observ ation record ed. [address] [address], [place], [address], 04/22/2025 18:23:33 Result Notes None recorded. Problems Name Problem SNOMED Code Status Onset Date Resolution Date Notes Provider Name and Address Organization Details Recorded Time Diabetes mellitus 28466577 Active 2019 Not Available [facility] 2 00:44:59 Depressive disorder 82107863 Active 2019 Not Available [facility] 2 00:44:59 At increased risk of nutritional deficit 579906083 Active 2019 Not Available [facility] 2 00:44:59 Type 1 diabetes mellitus 43350481 Active 2019 Not Available [facility] 2 00:44:59 Vitamin D deficiency 24143248 Active 2019 Not Available [facility] 2 00:44:59 Tachycardia 0291249 Active 2019 Not Available [facility] 2 00:44:59 Insomnia 415264242 Active 2019 Not Available [facility] 2 00:44:59 Ingrowing toenail 854371655 Active 2020 Not Available [facility] 2 00:44:59 Administratio n of influenza vaccine Active 2020 Not Available [facility] 2 00:44:59 Upper respiratory infection 29230394 Active 2021 Not Available [facility] 2 00:44:59 Hand eczema 097048296 Active 2021 Suhas Byrd PA-C Attn: Accounting ,[address] [place], [address] , [facility] 2 16:10:20 Problem Notes None recorded. Medical Equipment None Reported. Allergies Allergen ID Allergen Name Allergen Category Reaction Reaction Severity Criticality Documentation Date Start Date Code Code System Note Provider Name and Address Organization Details Recorded Time 151101 Product containin g penicilli n (product) medicatio n itching moderate low 01/23/2023 00441 8001 SNOMED Cee Parikh MA [place], [place] - [facility] 3 10:57:16 Medications Name Sig Start Date Stop Date Status Note LastModified by Organization Details LastModified Time fluoxetin e 40 mg capsule TAKE 1 CAPSULE BY MOUTH EVERY MORNING active Not Available Not Available No t Available doxycycli ne hyclate 100 mg capsule TAKE 1 CAPSULE BY MOUTH TWICE DAILY 03/31 completed Not Available Not Available Not Available trazodone 50 mg tablet TAKE 1 TABLET BY MOUTH AT BEDTIME active Not Available Not Available No t Available azithromy chadwick 250 mg tablet TAKE 2 TABLETS BY MOUTH FOR 1 DAY THEN 1 TABLET EVERY DAY FOR 4 DAYS 02/11 completed Not Available Not Available Not Available ibuprofen 800 mg tablet TAKE 1 TABLET BY MOUTH EVERY 8 HOURS WITH FOOD NEEDED FOR PAIN 01/23 completed Not Available Not Available Not Available ondansetr on HCl 4 mg tablet TAKE 1 TABLET BY MOUTH EVERY 8 HOURS 01/23 completed Not Available Not Available Not Available sertralin e 100 mg tablet TAKE 1 TABLET BY MOUTH EVERY DAY IN THE MORNING 01/19 completed not helping Not Available Not Available Not Available Lantus U-100 Insulin 100 unit/mL subcutane ous solution Inject 34 units every day by subcutan eous route at bedtime. 2020 active Not Available Not Available Not Avai lable clindamyc in HCl 150 mg capsule TAKE 3 CAPSULES BY MOUTH THREE TIMES DAILY 04/13 completed Not Available Not Available Not Available cyanocoba chana (vit B-12) 1,000 mcg tablet TAKE 1 TABLET BY MOUTH EVERY DAY active Not Available Not Available No t Available diphenoxy late-atro pine 2.5 mg-0.025 mg tablet TAKE 1 TABLET BY MOUTH EVERY 6 TO 8 HOURS NEEDED 01/23 completed Not Available Not Available Not Available metronida zole 500 mg tablet TAKE 1 TABLET BY MOUTH EVERY 8 HOURS FOR 7 DAYS 03/31 completed Not Available Not Available Not Available hydroxyzi ne HCl 50 mg tablet TAKE 1 TABLET BY MOUTH THREE TIMES DAILY NEEDED FOR ANXIETY active Not Available Not Available No t Available fluocinon bryan 0.05 % topical ointment APPLY TOPICALL Y TO THE AFFECTED AREA TWICE DAILY 01/23 completed Not Available Not Available Not Available ondansetr on 8 mg disintegr ating tablet one tab SL TID prn 03/31 completed Not Available Not Available Not Available lorazepam 0.5 mg tablet TAKE 1 TABLET BY MOUTH TWICE DAILY NEEDED FOR NAUSEA OR VOMITING 03/31 completed Not Available Not Available Not Available dicyclomi ne 20 mg tablet TAKE 1 TABLET BY MOUTH THREE TIMES DAILY 01/23 completed Not Available Not Available Not Available benzonata te 100 mg capsule TAKE 1 CAPSULE BY MOUTH EVERY 8 HOURS NEEDED 07/16 completed Not Available Not Available Not Available doxycycli ne monohydra te 100 mg capsule TAKE 1 CAPSULE BY MOUTH TWICE DAILY FOR 7 DAYS 03/31 completed Not Available Not Available Not Available cephalexi n 500 mg capsule TAKE ONE CAPSULE BY MOUTH EVERY 12 HOURS FOR 10 DAYS 01/23 completed Not Available Not Available Not Available Humulin R Regular U-100 Insulin 100 unit/mL injection solution Take 59 units every day by injectio n route as directed for 90 days. 01/23 completed Not Available Not Available Not Available pantopraz ole 40 mg tablet,de layed release TAKE 1 TABLET BY MOUTH DAILY active Not Available Not Available No t Available nortripty line 10 mg capsule TAKE 2 CAPSULES BY MOUTH AT BEDTIME NEEDED 01/23 completed Not Available Not Available Not Available oseltamiv ir 75 mg capsule TAKE 1 CAPSULE BY MOUTH TWICE DAILY FOR 5 DAYS 01/23 completed Not Available Not Available Not Available sertralin e 25 mg tablet Take 1 tablet every day by oral route in the morning for 30 days. 11/12 completed Not Available Not Available Not Available hydroxyzi ne HCl 25 mg tablet TAKE 1 TABLET BY MOUTH THREE TIMES DAILY NEEDED FOR ITCHING active Not Available Not Available No t Available ergocalci ferol (vitamin D2) 1,250 mcg (50,000 unit) capsule TAKE 1 CAPSULE BY MOUTH EVERY 7 DAYS active Not Available Not Available No t Available insulin lispro (U-100) 100 unit/mL subcutane ous solution USE MAX 0F 70 UNITS DAILY IN INSULIN PUMP active Not Available Not Available No t Available levofloxa chadwick 500 mg tablet Take 1 tablet every 24 hours by oral route. 03/31 completed Not Available Not Available Not Available ondansetr on 4 mg disintegr ating tablet DISSOLVE 1 TABLET ON THE TONGUE EVERY 6 HOURS NEEDED FOR NAUSEA OR VOMITING active Not Available Not Available No t Available fluoxetin e 20 mg capsule TAKE 1 CAPSULE BY MOUTH EVERY DAY active Not Available Not Available No t Available sertralin e 50 mg tablet Take 0.5 tablets every day by oral route in the morning for 10 days. 11/12 completed Not Available Not Available Not Available Ketostix strips USE DIRECTED active Not Available Not Available No t Available naproxen 500 mg tablet one tab po bid with food 03/31 completed Not Available Not Available Not Available metoclopr amide 10 mg tablet TAKE 1 TABLET BY MOUTH DAILY FOR NAUSEA active Not Available Not Available No t Available amoxicill in 875 mg-potass ium clavulana te 125 mg tablet TAKE 1 TABLET BY MOUTH TWICE DAILY WITH FOOD 07/16 completed Not Available Not Available Not Available Bactrim DS 800 mg-160 mg tablet one tab po bid 03/31 completed Not Available Not Available Not Available insulin lispro (U-100) 100 unit/mL subcutane ous pen ADMINIST ER 25 UNITS UNDER THE SKIN THREE TIMES DAILY BEFORE MEALS active Not Available Not Available No t Available escitalop maurizio 10 mg tablet TAKE 1 TABLET BY MOUTH EVERY DAY AT DINNER 01/23 completed Not Available Not Available Not Available escitalop maurizio 20 mg tablet TAKE 1 TABLET BY MOUTH EVERY DAY 01/23 completed Not Available Not Available Not Available cholecalc iferol (vitamin D3) 1,250 mcg (50,000 unit) capsule Take 1 capsule every week by oral route with meals for 30 days. 01/19 completed Not Available Not Available Not Available D3-2000 50 mcg (2,000 unit) capsule TAKE 1 CAPSULE BY MOUTH EVERY DAY WITH MEAL 01/23 completed Not Available Not Available Not Available OneTouch Verio test strips USE TO TEST BLOOD SUGAR LEVELS THREE TIMES DAILY active Not Available Not Available No t Available TRUEplus Insulin 0.5 mL 31 gauge x 5/16 syringe 09/25 completed Not Available Not Available Not Available OneTouch Delica Lancets 30 gauge active Not Available Not Available Not Available Basaglar JosePen U-100 Insulin 100 unit/mL (3 mL) subcutane ous ADMINIST ER 22 UNITS UNDER THE SKIN AT BEDTIME active Not Available Not Available No t Available TRUEplus Pen Needle 31 gauge x 1/4 USE THREE TIMES DAILY WITH INSULIN 01/23 completed Not Available Not Available Not Available Dexcom G6 Sensor device USE ONE EACH EVERY 10 DAYS active Not Available Not Available No t Available Dexcom G6 Art Preparator USE WITH TRANSMIT TER AND SENSOR active Not Available Not Available No t Available Dexcom G6 Transmitt er device USE DIRECTED active Not Available Not Available No t Available BD Maddi 2nd Gen Pen Needle 32 gauge x 5/32 USE FOUR TIMES DAILY WITH INSULIN active Not Available Not Available No t Available ID NOW COVID-19 Test Kit TEST DIRECTED TODAY active Not Available Not Available No t Available COVID-19 test specimen collectio n TEST DIRECTED TODAY active Not Available Not Available No t Available Vitals Date Recorded Body height Body mass index (BMI) Body weight Oxygen saturation Heart rate Respiratory rate Body temperature Systolic And Diastolic Provider Name and Address Organization Details Last Updated DateTime 3 165.1 cm 28.8 kg/m2 16639.4 8 g 99 % 90 /min 16 /min 97.8 [degF] 110/77 mm[Hg] Cee Parikh MA [facility] 3 09:44:59 Date Recorded Body height Body mass index (BMI) Body weight Oxygen saturation Heart rate Body temperature Respiratory rate Systolic And Diastolic Provider Name and Address Organization Details Last Updated DateTime 3 165.1 cm 28.8 kg/m2 05149.4 8 g 99 % 95 /min 97.9 [degF] 18 /min 110/77 mm[Hg] Cee Parikh MA [facility] 3 12:29:50 Date Recorded Body height Body mass index (BMI) Body weight Body temperature Heart rate Oxygen saturation Systolic And Diastolic Provider Name and Address Organization Details Last Updated DateTime 3 165.1 cm 26.6 kg/m2 17597.7 8 g 97.7 [degF] 91 /min 100 % 126/76 mm[Hg] Zaida quiroz MA [facility] 3 11:21:53 Date Recorded Body height Body mass index (BMI) Body weight Oxygen saturation Heart rate Respiratory rate Systolic And Diastolic Provider Name and Address Organization Details Last Updated DateTime 3 165.1 cm 26.6 kg/m2 32003.7 8 g 100 % 86 /min 18 /min 112/70 mm[Hg] Cee Parikh MA [facility] 3 12:26:01 Date Recorded Body height Body mass index (BMI) Body weight Oxygen saturation Heart rate Systolic And Diastolic Provider Name and Address Organization Details Last Updated DateTime 3 165.1 cm 29.6 kg/m2 98482.4 4 g 99 % 78 /min 120/80 mm[Hg] Cee Parikh MA [facility] 3 10:35:01 Social History Question Answer Notes LastModified by Organizat ion Details LastModified Time Tobacco Smoking Status Former Smoker KARINA Rios, [facility] 09/25/2019 09:44:55 Do You Have An Advance Directive? No [email or web address] Information not available 09/25/2019 Are You Blind Or Do You Have Difficulty Seeing? No Information not available 02/21/2023 What Is Your Level Of Caffeine Consumption? Heavy Information not available 09/25/2019 How Much Tobacco Do You Chew? None Information not available 09/25/2019 In The 14 Days Before Symptom Onset, Have You Had Close Contact With A Laboratory-confir med COVID-19 While That Case Was Ill? No Information not available 02/21/2023 In The 14 Days Before Symptom Onset, Have You Had Close Contact With A Person Who Is Under Investigation For COVID-19 While That Person Was Ill? No Information not available 02/21/2023 Have You Been To An Area Known To Be High Risk For COVID-19? No Information not available 02/21/2023 Are You Deaf Or Do You Have Serious Difficulty Hearing? No Information not available 02/21/2023 What Type Of Diet Are You Following? REGULAR Information not available 09/25/2019 Which Illicit Or Recreational Drugs Have You Used? Marijuna Information not available 09/25/2019 Education 12 Information n ot available 09/25/2019 Are There Any Guns Present In Your Home? Yes Information not available 09/25/2019 Hard Of Hearing Or Deaf In One Or Both Ears? No Information not available 09/25/2019 Legally Blind In One Or Both Eyes? No Information no t available 09/25/2019 Marital Status Single Informati on not available 09/25/2019 What Was The Date Of Your Most Recent Tobacco Screening? 03/31/2023 Information not available 03/31/2023 How Many Children Do You Have? 0 Information not available 02/21/2023 Performs Monthly Self-breast Exam? No Information no t available 09/25/2019 What Is Your Relationship Status? Single Information not available 02/21/2023 Do You Use Your Seat Belt Or Car Seat Routinely? Yes Information not available 02/21/2023 Seat Belts Used Routinely Yes Information not available 09/25/2019 Are You Sexually Active? No Information not available 02/21/2023 Smoke Alarm In Home No Information not available 09/25/2019 Do You Have Smoke And Carbon Monoxide Detectors In Your Home? Yes Information not available 01/19/2021 Are You Passively Exposed To Smoke? No Information no t available 01/19/2021 General Stress Level High Information not available 09/25/2019 Do You Use Sunscreen Routinely? Yes Information not available 09/25/2019 Has Tobacco Cessation Counseling Been Provided? No Information not available 01/19/2021 On What Date Was Tobacco Cessation Counseling Provided? 03/31/2023 Information not available 03/31/2023 Sex: Unknown Functional Status Question Answer Note LastModified by Organizat ion Details LastModified Time Do you use any illicit or recreational drugs? Yes marijuana Information not available 01/19/2021 Do you or have you ever used any other forms of tobacco or nicotine? No Information not available 01/19/2021 What is your level of alcohol consumption? Occasional Information not available 01/19/2021 Are you currently employed? Yes Information not available 02/21/2023 Are you able to care for yourself independently? Yes Information not available 02/21/2023 What is your occupation? [employer] Information not available 02/21/2023 Do you or have you ever used e-cigarettes or vape? Current user of electronic cigarettes Information not available 01/23/2023 What is your exercise level? Occasional Information not available 09/25/2019 Mental Status Question Answer Note LastModified by Organization D etails LastModified Time Do you feel stressed (tense, restless, nervous, or anxious, or unable to sleep at night)? [id number] Information not available 02/21/2023 Family History Relationship Description Onset Age of this Age Resolved Age Notes LastModified by Organization Details LastModified Time Paternal Uncle Heart disease [email or web address] Not available 09/11 09:43:10 Mother Depressive disorder [email or web address] Not available 09/11 09:43:31 Unspecified Relation Diabetes mellitus [email or web address] Not available 09/11 09:44:22 Medical History Condition Response Coronary Artery Disease N High Blood Pressure N Atrial Fibrillation N Thyroid Problems N Kidney or Bladder Problems N Blood Clots N COPD N Depression Y GI Problems N Skin Problems N Eating Disorder Y Anemia N Heart Attack ([place]) N Anxiety Disorder N Diabetes Y Muscle, Joint, or Bone Problems N Seizures/Epilepsy N Acid Reflux (GERD) N Cancer N Stroke N Asthma N Allergies N ADHD N Substance Abuse N High Cholesterol N Hepatitis N Liver Disease N Schizophrenia N Headaches N Osteoporosis N Heart Failure N Gynecological History Statement/Question Response Flow Moderate Date of LMP 01/31/2023 Menses Monthly Y Duration of Flow (days) 5 Age at Menarche 10 Current Control Method None LMP Definite Obstetrics History GPAL:G 0 P 0 0 0 0 Immunizations Vaccine Type Date Status Note Provider Nam e and Address Organization Details Recorded Time Influenza, split virus, quadrivalent, preservative completed Cecelia Whittington MA [facility] 07/16/2021 12:59:07 Past Encounters Encounter ID Performer Location Encounter Start Date Encounter Closed Date Diagnosis/Indication Diagnosis SNOMED-CT Code Diagnosis ICD10 Code Diagnosis IMO Codes Diagnosis Note [id number] MD Darnell Lynch (Adult Med) [address] [place] [address] [phone] 0 09/25/2019 09:20:10 09/25/2019 10:35:43 Type 1 diabetes mellitus 64486362 E10.9 Depressive disorder 3548 9007 F32.9 At [facility] risk of nutritional deficit 853512031 Z91.89 [id number] MD Darnell Lynch (Adult Med) [address] [place] [address] [phone] 0 10/17/2019 10:21:18 10/17/2019 11:32:33 Vitamin D deficiency 48114310 E55.9 Type 1 lizette betes mellitus 84382721 E10.9 Tachycardia 0161324 R00. 0 Depressive disorder 3548 9007 F32.9 Insomnia 882275129 G47.0 0 [id number] MD Darnell Lynch (Adult Med) [address] [place] [address] [phone] 0 01/30/2020 08:11:58 01/30/2020 10:31:39 Depressive disorder 51273303 F32.9 Type 1 lizette betes mellitus 27069909 E10.9 Vitamin D deficiency 347 31547 E55.9 [id number] MD Darnell Lynch (Adult Med) [address] [place] [address] [phone] 0 06/01/2020 16:05:55 06/01/2020 17:39:17 Type 1 diabetes mellitus 77802043 E10.9 Depressive disorder 3548 9007 F32.9 [id number] MD Darnell Lynch (Adult Med) [address] [place] [address] [id number] 0 01/19/2021 13:51:52 01/20/2021 13:49:15 Depressive disorder 49600603 F32.9 Insomnia 827989198 G47.0 0 Type 1 lizette betes mellitus 54194299 E10.9 Vitamin D deficiency 347 10688 E55.9 [id number] NÉSTOR Borges (Adult Med) [address] [place] [address] [phone] 0 04/13/2021 14:49:35 04/15/2021 14:55:12 Type 1 diabetes mellitus 96699341 E10.9 Vitamin D deficiency 347 98200 E55.9 Depressive disorder 3548 9007 F32.9 Insomnia 514653720 G47.0 0 Ingrowing toenail 362563 009 L60.0 Tachycardia 9423111 R00. 0 [id number] MD Darnell Lynch (Adult Med) [address] [place] [address] [phone] 0 07/16/2021 12:03:02 07/19/2021 11:11:22 Type 1 diabetes mellitus 98526335 E10.9 Administra tion of influenza vaccine 30153662 Z23 Ingrowing toenail 201855 009 L60.0 [id number] MD Darnell Lynch (Adult Med) [address] [place] [address] [phone] 0 09/15/2021 12:32:22 09/15/2021 12:56:11 Upper respiratory infection 11988830 J06.9 Type 1 lizette betes mellitus 93693939 E10.9 [id number] MD Darnell Lynch (Adult Med) [address] [place] [address] [phone] 0 11/12/2021 15:45:42 11/12/2021 16:06:11 Depressive disorder 86079155 F32.9 Type 1 lizette betes mellitus 49307131 E10.9 Insomnia 004637416 G47.0 0 Vitamin D deficiency 347 27308 E55.9 [id number] MD Darnell Lynch (Adult Med) [address] [place] [address] 10670-866 0 02/11/2022 15:53:42 02/14/2022 11:18:56 Type 1 diabetes mellitus 91756209 E10.9 Vitamin D deficiency 347 71663 E55.9 Depressive disorder 3548 9007 F32.9 Insomnia 529049926 G47.0 0 [id number] MD Darnell Lynch (Adult Med) [address] [place] [address] [phone] 0 05/13/2022 15:23:04 05/17/2022 09:37:31 Hand eczema 691493780 L30.9 Depressive disorder 3548 9007 F32.9 Insomnia 647233675 G47.0 0 Type 1 lizette betes mellitus 61163255 E10.9 Vitamin D deficiency [id number] 37286 E55.9 [id number] MD Darnell Lynch (Adult Med) [address] [place] [phone] 11/01/2022 10:44:43 11/02/2022 11:15:22 Obesity 649486644 E66.9 BMI is 31.6, 11-01-22. , diabetic diet, exercise nad keep the weight down. Type 1 lizette betes mellitus 93521897 E10.9 On insulin pump /day, has dexcom, will refill humulin-u- 100. Has annual eye ex as standard care. She said that she is on 59 unit/day on pump. [id number] MD Darnell Marroquin (Adult Med) [address] [place] [phone] 01/23/2023 10:46:11 02/08/2023 12:04:11 Abscess of skin and/or subcutaneous tissue 07801842 L02.91 1.) Wound culture 2.) Apply warm compress 3.) Bactrim DS BID. Discussed side effects. Advised patient to stop antibiotic and seek medical attention if develops skin or mucous membrane lesions. 3.) Metronidaz ole TID. Discussed side effects and advised patient to avoid alcohol. 4.) Follow up in two days. Seek immediate medical attention if develops fever or if symptoms become worse. Type 1 lizette betes mellitus 17679456 E10.9 Follows with Endocrinol ogist. Adjustment disorder with depressed mood 81110108 F43.21 Sees mental health specialist . She is working on getting a job so she can move out of her house. Living with her mother makes it very difficult to avoid triggers. Eating disorder 36726281 F50.9 Uses cannabis to help with appetite which helps her to eat. Discussed my concerns with this. [id number] MD Darnell Marroquin (Adult Med) [address] [place] [phone] 0 01/25/2023 09:38:18 02/08/2023 12:14:42 Nausea 083596528 R11.0 Try ondansetro n sublingual 8 mg TID. Advised her to stay home today. Will follow up tomorrow. Abscess of skin and/or subcutaneous tissue 84510883 L02.91 1.) Stop Bactrim since this is likely the cause of her nausea. 2.) Limited on antibiotic choice at this time. Considered IM Rocephin due to nausea, but did not want to use that due to allergy to Penicillin . Considered Clindamyci n for MRSA coverage and Doxycyclin e for Gram positive and Gram negative coverage but concerned about aggravatin g nausea. Will try Levaquin later tonight if nausea is better. Hopefully will have culture results back soon. She is following up tomorrow. 3.) Continue to apply heat. 4.) Advised to go to ER if develops a fever, if acu checks increase, if vomiting continues, if wound worse. Overweight 720616090 E66 .3 [id number] MD Darnell Marroquin (Adult Med) [address] [place] [address] [phone] 01/26/2023 12:03:20 02/08/2023 12:18:41 Abscess 288472098 L02.91 Type 1 diabetic with finger abscess and uncontroll ed nausea, vomiting, and abdominal pain. Has been to ER twice. Unable to tolerate po antibiotic . Needs to be admitted for IV antibiotic s and management of glucose. Sent to ER by ambulance. Gave report to ER nurse over the phone. Type 1 lizette betes mellitus 58413877 E10.9 [id number] MD Darnell Marroquin (Adult Med) [address] [place] [address] [phone] 0 02/21/2023 10:42:53 03/13/2023 15:34:49 Thoracic back pain 154505549 M54.6 Muscle strain from being in the hospital. One week of anti-infla mmatory. Abscess of skin and/or subcutaneous tissue 44748938 L02.91 Abscess has resolved. Has had multiple courses of antibiotic s. What I see now is post inflammato ry change. No evidence of acute infection. Due to her diabetes and the fact that the finger is still somewhat sensitive and the appearance is not back to normal will continue to monitor closely. Advised her to wear gloves when playing with cat. Watch sugars closely and if has sudden increase seak immediate medical attention. Follow up in two weeks. Marijuana user 219693030 F12.90 Has stopped using Cannabis on a regular basis. Encouraged her to continue this. [id number] MD Darnell Marroquin (Adult Med) [address] [place] [address] [phone] 03/01/2023 12:15:30 03/02/2023 15:57:45 Abscess of skin and/or subcutaneous tissue 76555448 L02.91 Abscess 894675074 L02.91 Continued pain in digit with erythema. Glucose levels are also somewhat elevated. Will get sed rate and bone scan to rule out osteomyeli tis. Type 1 lizette betes mellitus 62031755 E10.9 Sees Endocrinol ogist. Acu checks slightly elevated lately. If bone scan and sed rate normal and there is no indication of infection, recommende d she follow up with endocrinol ogist. [id number] MD Darnell Marroquin (Adult Med) [address] [place] [phone] 03/31/2023 10:27:23 04/10/2023 17:11:07 Overweight 764035730 E66.3 Encouraged healthy lifetstyle and diet. Type 1 lizette noel mellitus 63527962 E10.9 Needs refill on Humolog. Has an insulin pump. Uses as directed by Endocrinol ogist. Will be making follow up appointmen t with Endocrinol ogist. Cat bite - wound 6127944 04 T14.8XXD Bone scan inconclusi ve so will proceed with MRI. Symptoms are continuing to improve. No more pain but still has prominence of the bone where wound was. Encouraged patient to continue with range of motion activities . If MRI is normal and continues to improves likely to just have been a slow healing infection. Will inform patient of MRI result once I receive it. Health Concerns Section Related Observation LastModified by Organization Detai ls LastModified Time None Recorded Concern Status LastModified by Organization Details LastModified Time None Recorded Advance Directives Directive N: Payers Insurance Date Sequence Insurance Name Policy Number Policy Denson Covered Member ID Denson Member ID Guarantor Name 06/17/2025 1 [facility] ON OR AFTER 03/11/21 (MEDICAID REPLACEMENT - HMO) Ekta Rivero [id number] Ekta Rivero 11/01/2022 1 [facility] PRIOR TO 03/11/2021 (MEDICAID REPLACEMENT - HMO) Ekta Rivero [id number] Ekta Rivero Notes Date Note Type Note Provider Name and Address Organization Details Recorded Time 01/25/2023 text/html follow up finger infection, went to ER last night due to nausea and vomiting, was given Zofran pills but cannot keep them down, finger is getting better, redness improving and fifty percent decrease in pain, it is draining, glucose is controlled, acu checks around 130's, no fevers, Cyn Barrios MD Attn: Accounting[address] [facility], [place], [address], [facility] 01/25/2023 18:09:34 01/26/2023 text/html follow up abscess right ring finger, pain increased, cannot tolerate po antibiotics, went to ER again last night due to nausea and vomiting and abdominal pain, still vomiting this morning, glucose in the 130's insulin dependant diabetic Cyn Barrios MD Attn: [address] [place], [address], [facility] 01/26/2023 13:09:00 02/21/2023 text/html ROS as noted in the HPI follow up hospital admission, in the hospital for five days, went home on two antibiotics, vomited one time after was home and went to ER, went to Urgent Care because was still hurting, gave another round of antibiotics which finished last week, no fevers, still numb on the side of finger, finger still red, sugars are good, running 130 or lower, feels fine, physically feels fine, no marijuana for a month, experiencing upper back pain since in the hospital, no tingling or numbness, chronic upper back pain Cyn Barrios MD Attn: [address]ing[address] [place], [address], [facility] 02/21/2023 18:31:19 03/01/2023 text/html blood sugars have been higher into 160 to 180, has been doing that for a couple weeks, thought it was the medicine, Cyn Barrios MD Attn: [address]ing[address] [place], [address], [facility] 03/01/2023 12:49:10 03/31/2023 text/html ROS as noted in the HPI follow up, feeling better, no pain in finger, still a prominence there but would not say it is swollen, still feels it when bends it, sugars steady around 120, due for diabetic follow up, needs refill on Humolog, saw GI specialist and was started on Pantoprazole, sees mental health specialist, takes Lexapro and hydroxyzine and Trazadone as needed Cyn Barrios MD Attn: [address]ing[address] [place], [address], [facility] 03/31/2023 11:51:16 OBGyn Episode No OBEpisode recorded.
--- OUTSIDE RECORDS SUMMARY | 2025-08-31 07:09 | XMS_ITS | Data Portability ---
Author Organization [place] - [facility], Main Office Address [address] [place] [address] Care Team Providers Care Research Program Internship Name Role Phone VITALIY MADRID Primary Care Provider Assessment No assessment recorded. Plan of Treatment Reminders Order Date Submit Date Provider Last Modified By Organization Details Last Modified Time Details Appointments None record ed. Lab None record ed. Referral None record ed. Procedures None record ed. Surgeries None record ed. Imaging None record ed. Medication Orders None record ed. Patient TargetsNo targets recorded. Patient InstructionsNo instructions recorded. Reason for Referral None Reported. Results Created Date Observation Date Name Description Value Unit Range Abnormal Flag Note LastModifiedBy Organization Detail LastModifiedTime 09/24/19 22 09/24/2021 HEMOG LOBIN A1C HA1C 9.2 % 4.0-6. 0 high Diabe iván Scree lee ann Crite cecile: <5.7% Consi stent with absen ce of diabe iván 5.7-6 .4% Consi stent with incre ased risk for diabe iván (pred iabet es) >OR=6 .5% Consi stent with diabe iván REFER ENCE: Diabe iván Care 2016, 39(Olivo ppl.1 ):s13 -s22 Not Available [facility] (Lab) [address] [place], [address], 09/24/2021 12:00:52 02/11/20 23 02/10/2023 XR, finge r(s) No observ ation record ed. [email or web address] [facility] [address] [place], [address], 02/23/2023 11:48:02 Result Notes None recorded. Problems Name Problem SNOMED Code Status Onset Date Resolution Date Notes Provider Name and Address Organization Details Recorded Time Ingrowing nail of toe of right foot 6928925632295 9102 Active 2020 Not Available [facility] 3 17:13:34 Type 1 diabetes mellitus without complicati on 103995592 Active 2020 Not Available [facility] 3 17:13:34 Notes:Some problems listed i n Documents: #[id number], #[id number], #[id number] could not be added to this patient's chart. Please review these documents and add these problems to the patient's chart manually as needed. Problem Notes None recorded. Medical Equipment None Reported. Medications Name Sig Start Date Stop Date Status Note LastModified by Organization Details LastModified Time ibuprofen 800 mg tablet TAKE 1 TABLET BY MOUTH EVERY 8 HOURS WITH FOOD NEEDED FOR PAIN 08/24 completed Not Available Not Available Not Available sertraline 100 mg tablet TAKE 1 TABLET BY MOUTH EVERY DAY IN THE MORNING 08/24 completed Not Available Not Available Not Available clindamycin HCl 150 mg capsule TAKE 3 CAPSULES BY MOUTH THREE TIMES DAILY 08/24 completed Not Available Not Available Not Available benzonatate 100 mg capsule TAKE 1 CAPSULE BY MOUTH EVERY 8 HOURS NEEDED 08/24 completed Not Available Not Available Not Available nortriptyli ne 10 mg capsule TAKE 2 CAPSULES BY MOUTH AT BEDTIME NEEDED 08/24 completed Not Available Not Available Not Available ondansetron 4 mg disintegrat ing tablet DISSOLVE 1 TABLET ON THE TONGUE EVERY 8 HOURS 08/24 completed Not Available Not Available Not Available Ketostix strips USE WHEN BLOOD SUGAR IS GREATER THAN 250 OR WHEN ILL. active Not Available Not Available No t Available amoxicillin 875 mg-potassiu m clavulanate 125 mg tablet TAKE 1 TABLET BY MOUTH TWICE DAILY WITH FOOD 08/24 completed Not Available Not Available Not Available insulin lispro (U-100) 100 unit/mL subcutaneou s pen ADMINISTE R 20 UNITS UNDER THE SKIN THREE TIMES DAILY BEFORE MEALS 08/24 completed Not Available Not Available Not Available escitalopra m 10 mg tablet TAKE 1 TABLET BY MOUTH EVERY DAY AT DINNER active Not Available Not Available No t Available escitalopra m 20 mg tablet TAKE 1 TABLET BY MOUTH EVERY DAY AT DINNER 08/24 completed Not Available Not Available Not Available Humalog KwikPen Insulin sliding scale 2020 active Not Available Not Available Not Avai lable cholecalcif john (vitamin D3) 50 mcg (2,000 unit) capsule TAKE 1 CAPSULE BY MOUTH EVERY DAY WITH MEAL active Not Available Not Available No t Available OneTouch Verio test strips USE TO TEST THREE TIMES DAILY active Not Available Not Available No t Available Basaglar KwikPen U-100 Insulin 100 unit/mL (3 mL) subcutaneou s ADMINISTE R 34 UNITS UNDER THE SKIN EVERY DAY AT BEDTIME 08/24 completed Not Available Not Available Not Available BD Maddi 2nd Gen Pen Needle 32 gauge x 5/32 USE FOUR TIMES DAILY WITH INSULIN active Not Available Not Available No t Available ID NOW COVID-19 Test Kit DIRECTED active Not Available Not Available No t Available Vitals Date Recorded Body mass index (BMI) Body height Body weight Provider Name and Address Organization Details Last Updated DateTime 08/19/2021 25.8 kg/m2 165.1 cm 47160.82 g Not Available [facility] 11/09/2022 23:28:40 Social History None recorded. Functional Status None recorded. Mental Status None recorded. Family History Nothing Reported. Medical History Condition Response DEPRESSION (INCLUDING POST ) Y DIABETES, TYPE Y Gynecological HistoryNo gynecological history recorded. Obstetrics History GPAL:G 0 P 0 0 0 0 Past Encounters Encounter ID Performer Location Encounter Start Date Encounter Closed Date Diagnosis/Indication Diagnosis SNOMED-CT Code Diagnosis ICD10 Code Diagnosis IMO Codes Diagnosis Note [id number] [facility] [address] [place] [address] 08/19/2021 00:00:00 08/23/2021 10:32:47 Health Concerns Section Related Observation LastModified by Organization Detai ls LastModified Time None Recorded Concern Status LastModified by Organization Details LastModified Time None Recorded Advance Directives Directive None Recorded Payers Insurance Date Sequence Insurance Name Policy Number Policy Denson Covered Member ID Denson Member ID Guarantor Name 01/01/2024 1 [facility] - DOS ON OR AFTER 21 (MEDICAID REPLACEMENT - HMO) Ekta Rivero [id number] Ekta Rivero 03/05/2025 1 *SELF PAY* Sa bertha Gomezs 04/09/2025 1 [facility] - DOS ON OR AFTER 21 (MEDICAID REPLACEMENT - HMO) Ekta Rivero [id number] Ekta Rivero 04/09/2025 1 [place] [employer] Ekta Rivero [id number] Ekta Rivero 04/09/2025 1 [facility] Ekta Rivero [id number] Ekta Rivero 04/09/2025 1 [facility] [place] - [place] ([place] [employer] Ekta Rivero [id number] Ekta Rivero OBGyn Episode No OBEpisode recorded.
--- OUTSIDE RECORDS SUMMARY | 2025-08-31 07:09 | XMS_ITS | Encounter Summary ---
Author Organization [facility] Address [address] [facility] [place] [address] Care Team Providers Care C++ Professor Name Role Phone Lian Perez MD Primary Care Provider [phone] Unlisted, Ordering Provider Primary Care Prov ider Unavailable Lian Perez MD Primary Care Provider + [phone] Suhas Byrd Primary Care Provider + Cyn Barrios MD Primary Care Provider [phone] Lizett Morrell HOSPITALIST PROGRAM DIRECTOR-STEEL BOX TOE INSERTER Unavailable [phone] Reason for Visit * Reason Onset Date Comments General 09/01/2017 Encounter Details Date Type Department Care Team (Late st Contact Info) Description 09/01/2017 Telephone [facility] Pediatrics - Endocrinology [address] [place] [address] Sonia Garcia, DO [address] [place] [address] General Social History Tobacco Use Types Packs/Day Years Used Date Smoking Tobacco: Never Alcohol Use Standard Drinks/Week Comments Not Asked 0 (1 standard drink = 0.6 oz pur e alcohol) Comments No Sex and Gender Information Value Date Recorded Sex Assigned at Not on file Legal Sex Female 11:58 AM RELOCATION COMMISSIONER Gender Identity Not on file Sexual Orientation Not on file documented as of this encounter Miscellaneous Notes * Telephone Encounter - Rica Bernal, RN - 05/01/2018 9:37 AM CDT PA sent via [employer] [facility] for true metrix test strips 150 strips for 30 days * Telephone Encounter - Tanvir Villeda RN - 09/01/2017 9:09 AM CST Refill request rec'd from kat, pt not seen in clinic since February so I called mom. She reports pt's father in February ( sounds like from diabetes complications?). Mom doesn't know if pt is compliant with her diabetes care, I scheduled an appt for September with Dr Garcia per mom's request. I inquired if pt has started counseling, mom said pt refuses, I stressed the need for that. I told mom that she can have pt call me if she needs encouragement with that. Requested bg review, advised mom treat basic diabetes care as non-negotiable as she would any other rule in the house. Mother agreed,I told her she can have pt call me herself, too. CATION COMMISSIONER documented in this encounter Plan of Treatment Not on file documented as of this encounter Visit Diagnoses Not on filedocumented in this encounter Care Teams C++ Professor Relationship Specialty Start Date End Date Lian Perez MD PCP - General Family Medicine 09/01/15 10/04/17 Unlisted, Ordering ProviderMD PCP - General 04/24/18 04/25/18 Lian Perez MD [address] [place] [phone] PCP - General 02/08/19 01/26/21 Suhas Byrd PA [address] [place] [address] PCP - General 01/27/21 08/13/23 Cyn Barrios MD [address] [place] [phone] PCP - General Emergency Medicine 08/14/23 Lizett Morrell APRN-STEEL BOX TOE INSERTER [address] [facility] [phone] PCP - Attributed-[employer] [place] 03/11/24 07/29/24 documented as of this encounter
--- OUTSIDE RECORDS SUMMARY | 2025-08-31 07:09 | XMS_ITS | Encounter Summary ---
Author Organization [facility] Address [address] [facility] [place] [address] Care Team Providers Care Tool Grinder Name Role Phone Lian Perez MD Primary Care Provider [phone] Unlisted, Ordering Provider Primary Care Prov ider Unavailable Lian Perez MD Primary Care Provider + [phone] Suhas Byrd Primary Care Provider + Cyn Barrios MD Primary Care Provider [phone] Lizett Morrell ONLINE PRODUCER-PRODUCTION MECHANIC TIN CANS Unavailable [phone] Reason for Visit * Reason Onset Date Comments MEDICATION REFILL 09/01/2017 Encounter Details Date Type Department Care Team (Late st Contact Info) Description 09/01/2017 Refill [facility] Pediatrics - Endocrinology [address] [place] [address] Chema Godinez MD [address] [place] [phone] MEDICATION REFILL Social History Tobacco Use Types Packs/Day Years Used Date Smoking Tobacco: Never Alcohol Use Standard Drinks/Week Comments Not Asked 0 (1 standard drink = 0.6 oz pur e alcohol) Comments No Sex and Gender Information Value Date Recorded Sex Assigned at Not on file Legal Sex Female 11:58 AM DIRECTOR OF MARKETING AND PROMOTIONS Gender Identity Not on file Sexual Orientation Not on file documented as of this encounter Miscellaneous Notes * Telephone Encounter - Tanvir Villeda, RN - 09/01/2017 8:56 AM CST . CTOR OF MARKETING AND PROMOTIONS documented in this encounter Plan of Treatment Not on file documented as of this encounter Visit Diagnoses Not on filedocumented in this encounter Care Teams Tool Grinder Relationship Specialty Start Date End Date Lian Perez MD PCP - General Family Medicine 09/01/15 10/04/17 Unlisted, Ordering Provider, PCP - General 04/24/18 04/25/18 Lian Perez MD [address] [place] [phone] PCP - General 02/08/19 01/26/21 Suhas Byrd PA [address] [place] [phone] PCP - General 01/27/21 08/13/23 Cyn Barrios MD [address] [place] [phone] PCP - General Emergency Medicine 08/14/23 Lizett Morrell APRN-PRODUCTION MECHANIC TIN CANS [address] [facility] [place] [address] PCP - Attributed-[employer] [place] 03/11/24 07/29/24 documented as of this encounter
--- OUTSIDE RECORDS SUMMARY | 2025-08-31 07:09 | XMS_ITS | Encounter Summary ---
Author Organization [facility] Address [address] [facility] [place] [address] Care Team Providers Care Surveillance Director Name Role Phone Cyn Barrios MD Primary Care Provider [phone] Reason for Visit * Reason Onset Date Comments MEDICATION REFILL 10/04/2024 Encounter Details Date Type Department Care Team (Late st Contact Info) Description 10/04/2024 Refill [facility] - Endocrinology [address] [place] [phone] Lizett Morrell, GORDO-CLOUD SUBJECT MATTER EXPERT [address] [place] [address] MEDICATION REFILL Social History Tobacco Use Types Packs/Day Years Used Date Smoking Tobacco: Never Smokeless Tobacco: Never Alcohol Use Standard Drinks/Week Comments Yes 0 (1 standard drink = 0.6 oz pur e alcohol) occasionally PHQ-2 Answer Date Recorded Patient Health Questionnaire-2 Score 2 11/10/2023 Comments No Sex and Gender Information Value Date Recorded Sex Assigned at Not on file Legal Sex Female 11:58 AM SNOW TECHNICIAN Gender Identity Not on file Sexual Orientation Not on file documented as of this encounter Plan of Treatment Not on file documented as of this encounter Visit Diagnoses Diagnosis Type 1 diabetes mellitus with hyperglycemia (HCC) Type I (juvenile type) diabetes mellitus without mention of complication, not stated as uncontrolled documented in this encounter Care Teams Surveillance Director Relationship Specialty [place] [address] [place] [phone] PCP - General Emergency Medicine 08/14/23 documented as of this encounter
--- OUTSIDE RECORDS SUMMARY | 2025-08-31 08:09 | XMS_ITS | Encounter Summary ---
Author Organization [facility] Address [address] [place] [address] Care Team Providers Care Bread Jockey Name Role Phone Lian Perez MD Primary Care Provider [phone] Unlisted, Ordering Provider Primary Care Prov ider Unavailable Lian Perez MD Primary Care Provider + [phone] Suhas Byrd Primary Care Provider + Cyn Barrios MD Primary Care Provider [phone] Liztet Morrell IRON ASSORTER-SHALE PLANER OPERATOR Unavailable [phone] Reason for Visit * Reason Onset Date Comments MEDICATION REFILL 09/01/2017 Encounter Details Date Type Department Care Team (Late st Contact Info) Description 09/01/2017 Refill [facility] Pediatrics - Endocrinology [address] [place] [phone] Chema Godinez MD [address] [place] [address] MEDICATION REFILL Social History Tobacco Use Types Packs/Day Years Used Date Smoking Tobacco: Never Alcohol Use Standard Drinks/Week Comments Not Asked 0 (1 standard drink = 0.6 oz pur e alcohol) Comments No Sex and Gender Information Value Date Recorded Sex Assigned at Not on file Legal Sex Female 11:58 AM INSTITUTION DIRECTOR Gender Identity Not on file Sexual Orientation Not on file documented as of this encounter Miscellaneous Notes * Telephone Encounter - Tanvir Villeda, RN - 09/01/2017 8:56 AM CST . ITUTION DIRECTOR documented in this encounter Plan of Treatment Not on file documented as of this encounter Visit Diagnoses Not on filedocumented in this encounter Care Teams Bread Jockey Relationship Specialty Start Date End Date Lian Perez MD PCP - General Family Medicine 09/01/15 10/04/17 Unlisted, Ordering Provider, PCP - General 04/24/18 04/25/18 Lian Perez MD [address] [place] [phone] PCP - General 02/08/19 01/26/21 Suhas Byrd PA [address] [place] [phone] PCP - General 01/27/21 08/13/23 Cyn Barrios MD [address] [place] [phone] PCP - General Emergency Medicine 08/14/23 Lizett Morrell APRN-SHALE PLANER OPERATOR [address] [facility] [place] [address] PCP - Attributed-[employer] [place] 03/11/24 07/29/24 documented as of this encounter
--- OUTSIDE RECORDS SUMMARY | 2025-08-31 08:09 | XMS_ITS | Encounter Summary ---
Author Organization [facility] Address [address] [place] [address] Care Team Providers Care Electronic Security Technician Name Role Phone Lian Perez MD Primary Care Provider [phone] Unlisted, Ordering Provider Primary Care Prov ider Unavailable Lian Perez MD Primary Care Provider [phone] Suhas Byrd Primary Care Provider + Cyn Barrios MD Primary Care Provider [phone] Lizett Morrell REFERRAL CLERK-LOAN COLLECTOR Unavailable [phone] Reason for Visit * Reason Onset Date Comments General 09/01/2017 Encounter Details Date Type Department Care Team (Late st Contact Info) Description 09/01/2017 Telephone [facility] - Endocrinology [address] [place] [address] Sonia Garcia, DO [address] [place] [address] General Social History Tobacco Use Types Packs/Day Years Used Date Smoking Tobacco: Never Alcohol Use Standard Drinks/Week Comments Not Asked 0 (1 standard drink = 0.6 oz pur e alcohol) Comments No Sex and Gender Information Value Date Recorded Sex Assigned at Not on file Legal Sex Female 11:58 AM ELECTRICIAN DECK Gender Identity Not on file Sexual Orientation Not on file documented as of this encounter Miscellaneous Notes * Telephone Encounter - Rica Bernal, RN - 05/01/2018 9:37 AM CDT PA sent via [employer] for true metrix test strips 150 strips [...] can have pt call me herself, too. TRICIAN DECK documented in this encounter Plan of Treatment Not on file documented as of this encounter Visit Diagnoses Not on filedocumented in this encounter Care Teams Electronic Security Technician Relationship Specialty Start Date End Date Lian Perez MD PCP - General Family Medicine 09/01/15 10/04/17 Unlisted, Ordering ProviderMD PCP - General 04/24/18 04/25/18 Lian Perez MD [address] [place] [phone] PCP - General 02/08/19 01/26/21 Suhas Byrd PA [address] [place] [phone] PCP - General 01/27/21 08/13/23 Cyn Barrios MD [address] [place] [phone] PCP - General Emergency Medicine 08/14/23 Lizett Morrell APRN-LOAN COLLECTOR [address] [facility] [place] [phone] PCP - Attributed-[employer] [place] 03/11/24 07/29/24 documented as of this encounter
--- OUTSIDE RECORDS SUMMARY | 2025-08-31 08:10 | XMS_ITS | Encounter Summary ---
Author Organization [facility] Address [address] [facility] [place] [address] Care Team Providers Care Pipe Organ Tuner And Repairer Name Role Phone Cyn Barrios MD Primary Care Provider [phone] Reason for Visit * Reason Onset Date Comments MEDICATION REFILL 10/04/2024 Encounter Details Date Type Department Care Team (Late st Contact Info) Description 10/04/2024 Refill [facility] - Endocrinology [address] [place] [phone] Lizett Morrell, GORDO-BURNING SUPERVISOR [address] [place] [phone] MEDICATION REFILL Social History Tobacco [...] on file Legal Sex Female 11:58 AM CNC MILL AND LATHE OPERATOR Gender Identity Not on file Sexual Orientation Not on file documented as of this encounter Plan of Treatment Not on file documented as of this encounter Visit Diagnoses Diagnosis Type 1 diabetes mellitus with hyperglycemia (HCC) Type I (juvenile type) diabetes mellitus without mention of complication, not stated as uncontrolled documented in this encounter Care Teams Pipe Organ Tuner And Repairer Relationship Specialty [place] [address] [place] [phone] PCP - General Emergency Medicine 08/14/23 documented as of this encounter
[2025-08-31] MEDS: INSULIN HUMAN REGULAR (*BKC) 100 UNITS/ML IV PUSH (08:20)
[2025-08-31] MEDS: INSULIN HUMAN REGULAR (*BKC) 100 UNITS/ML 10 UNITS IV PUSH (08:20)
[2025-08-31 09:08] LABS: Hemoglobin A1C 9.9 % (<5.7)
--- NOTE | 2025-08-31 09:20 | PC.NURSE ---
Lab rejected patient's green top. Patient is a difficult stick. Multiple staff members have attempted. Phleb called for assistance.
[2025-08-31 09:43] LABS: Hematocrit 41.8 % (37.0-47.0); Hemoglobin 13.6 g/dL (12.0-15.0); Immature Granulocyte Percent A 0.5 % (0-0.5); Lymphocytes Absolute Auto 1.31 K/mm3 (0.9-3.2); Mean Corpuscular HGB Conc 32.5 g/dl (32-36); Mean Corpuscular Hemoglobin 29.3 pg (26-34); Mean Corpuscular Volume 90.1 fl (80-100); Nucleated Red Blood Cells Absolute Auto 0.000 K/mm3 (0.0-0.012); Nucleated Red Blood Cells Perc 0.0 % (0.0-0.2); Platelet Count Result 294 k/mm3 (150-375); Red Blood Count 4.64 M/mm3 (4.2-5.4); White Blood Count 12.2 K/mm3 (4.5-10.0)
[2025-08-31] MEDS: SODIUM CHLORIDE 0.9% IV 1,000 ML 999 ML IV CONT ×2 (10:10→13:47)
[2025-08-31 10:26] LABS: Add Urine Microscopic? YES; Appearance Urine Cloudy (Clear); Glucose Urine UA 3+ mg/dL (Negative); Leukocyte Esterase Ur Negative LEU/UL (Negative); Need Manual Microscopic Reviewed; Nitrate Urine Negative (Negative); Non Pathogenic Casts 0-2; Specific Grav Ur 1.024 (1.001-1.035)
[2025-08-31 10:29] LABS: Anion Gap 16 mmol/L (4-12); Blood Urea Nitrogen 13 mg/dL (7-17); Calcium 9.5 mg/dL (8.4-10.2); Carbon Dioxide 14 mmol/L (22-30); Chloride 107 mmol/L (98-107); Estimated CRCL calculation 99 ml/min; Estimated Glomerular Filt Rate > 60; Glucose 175 mg/dL (65-110); Magnesium 1.8 mg/dL (1.6-2.3); Potassium 3.9 mmol/L (3.4-5.0); Sodium 137 mmol/L (137-145)
[2025-08-31 12:37] LABS: Anion Gap 15 mmol/L (4-12); Blood Urea Nitrogen 11 mg/dL (7-17); Calcium 8.7 mg/dL (8.4-10.2); Carbon Dioxide 14 mmol/L (22-30); Chloride 107 mmol/L (98-107); Estimated CRCL calculation 112 ml/min; Estimated Glomerular Filt Rate > 60; Glucose 140 mg/dL (65-110); Potassium 4.0 mmol/L (3.4-5.0); Sodium 136 mmol/L (137-145)
[2025-08-31] MEDS: METOCLOPRAMIDE HCL INJ 10 MG/2 ML VIAL 5 MG IV PUSH (13:47)
[2025-08-31 14:50] LABS: Pregnancy On Board Control Positive
[2025-08-31 16:27] LABS: Anion Gap 17 mmol/L (4-12); Blood Urea Nitrogen 9 mg/dL (7-17); Calcium 8.2 mg/dL (8.4-10.2); Carbon Dioxide 12 mmol/L (22-30); Chloride 105 mmol/L (98-107); Estimated CRCL calculation 112 ml/min; Estimated Glomerular Filt Rate > 60; Glucose 288 mg/dL (65-110); Potassium 4.1 mmol/L (3.4-5.0); Sodium 134 mmol/L (137-145)
--- NOTE | 2025-08-31 16:31 | PC.NURSE ---
1000 insulin gtt held and wasted per verbal order of EDP Dr. Cerna
[2025-08-31] MEDS: INSULIN HUMAN REGULAR (*BKC) 100 UNITS in SODIUM CHLORIDE 0.9% IV 99 ML 6.5 UNITS IV CONT (17:00)
--- NOTE | 2025-08-31 17:32 | ED_ITS ---
HPI - General Adult General Chief complaint: Recheck/Abnormal Lab/Rx <Darin Cerna MD - Last Filed: 08/31/25 17:39> Stated complaint: diabetic-hyperglycemia <Darin Cerna MD - Last Filed: 08/31/25 17:39> Time Seen by Provider: 08/31/25 07:45 <Darin Cerna MD - Last Filed: 08/31/25 17:39> Source: patient <Darin Cerna MD - Last Filed: 08/31/25 17:39> Mode of arrival: ambulatory <Darin Cerna MD - Last Filed: 08/31/25 17:39> Limitations: no limitations <Darin Cerna MD - Last Filed: 08/31/25 17:39> History of Present Illness HPI narrative: 24-year-old with a history of type 1 diabetes, cyclical vomiting syndrome, presents to the ER with a complaint of nausea, vomiting, abdominal pain started early this morning. Patient states that she did not take her insulin yesterday. Patient also did mention that she did not feel like taking her insulin she was tired. Denies any fever or chills <Darin Cerna MD - Last Filed: 08/31/25 17:39> Onset (ago): day(s) (1) <Darin Cerna MD - Last Filed: 08/31/25 17:39> Location: abdomen <Darin Cerna MD - Last Filed: 08/31/25 17:39> Pain Consistency: constant <Darin Cerna MD - Last Filed: 08/31/25 17:39> Relieving factors: none <Darin Cerna MD - Last Filed: 08/31/25 17:39> Exacerbating factors: none <Darin Cerna MD - Last Filed: 08/31/25 17:39> Associated symptoms: nausea/vomiting <Darin Cerna MD - Last Filed: 08/31/25 17:39> Related Data Home medications: Home Medications ?Medication ?Instructions ?Recorded ?Confirmed ?Last Taken ?Type insulin glargine 100 unit/mL (3 See Rx Instructions .R jinae .COMPLEX 01/27/23 03/06/25 03/05/25 History mL) subcutaneous pen (Basaglar KwikPen U-100 Insulin) fluoxetine 40 mg capsule 40 mg PO DAILY 03/06/2502/10 Unknown History <Darin Cerna MD - Last Filed: 08/31/25 17:39> Allergies/adverse reactions: Allergies Allergy/AdvReac Type Severity Reaction Status Date / Time Penicillins Allergy Itching Verified 03/06/25 02:03 <Darin Cerna MD - Last Filed: 08/31/25 17:39> Review of Systems 2 Review of Systems: All systems reviewed & are unremarkable except as noted in HPI and below <Darin Cerna MD - Last Filed: 08/31/25 17:39> Constitutional: Constitutional: Reports no additional constitutional complaints <Darin Cerna MD - Last Filed: 08/31/25 17:39> Eyes: Eyes: Reports no additional eye complaints <Darin Cerna MD - Last Filed: 08/31/25 17:39> ENT: Reports system reviewed and no additional complaints, except as documented <Darin Cerna MD - Last Filed: 08/31/25 17:39> Cardiovascular: Cardiovascular: Reports no additional cardiovascular complaints <Darin Cerna MD - Last Filed: 08/31/25 17:39> Respiratory: Respiratory: Reports no additional respiratory complaints < Darin Cerna MD - Last Filed: 08/31/25 17:39> Gastrointestinal: Gastrointestinal: Reports as per HPI <Darin Cerna MD - Last Filed: 08/31/25 17:39> Musculoskeletal: Musculoskeletal: Reports no additional musculoskeletal complaints <Darin Cerna MD - Last Filed: 08/31/25 17:39> Integumentary/Breasts: Skin/Breast: Reports system reviewed and no additional complaints, except as docu <Darin Cerna MD - Last Filed: 08/31/25 17:39> Neurologic: Reports system reviewed and no additional complaints, except as documented <Darin Cerna MD - Last Filed: 08/31/25 17:39> PMFSH Past Medical History Medical History: Medical History Gastroparesis Type 1 diabetes mellitus Cyclic vomiting syndrome Depression <Darin Cerna MD - Last Filed: 08/31/25 17:39> Surgical History Surgical History: Surgical History No pertinent past surgical history <Darin Cerna MD - Last Filed: 08/31/25 17:39> Family History Family History: Family History Father Family history of diabetes mellitus in first degree relative Pulmonary embolism Mother Family history of diabetes mellitus in first degree relative Grandparent Crohn disease Celiac disease <Darin Cerna MD - Last Filed: 08/31/25 17:39> Social History Social History: Social History Social History: Surrogate medical decision maker: Iliana Villeda, mother. Code status: Full code. Years smoked: 4 Smoking status: Current every day smoker Tobacco type: e-cigarettes/vaping Second hand tobacco smoke exposure: No Additional smoking assessment comments: vapes Alcohol intake: never Drinks per week: 1 Substance use: current Substance use type: marijuana Other substance usage details: smokes marijuana Lack of Transportation: No Lack of Food: Never True Current Housing: I Have Housing Concerned About Future Housing: No Difficulty Paying Gas/Electric Bills: No Difficulty Paying for Meds: No Currently Unemployed: No Education: Don't Know Difficulty w/ Childcare or Family Care: No Living arrangements: with family Occupation/Education: occupation 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 Spiritual care concerns: No <Darin Cerna MD - Last Filed: 08/31/25 17:39> Exam 2 Narrative: GENERAL: Well-appearing, well-nourished, retching and vomiting HEAD: Normocephalic, atraumatic. EYES: PERRLA and EOMI. ENT: Nares clear, no rhinorrhea or epistaxis. Mucous membranes moist. NECK: Supple. CHEST: Clear to auscultation. No respiratory distress. HEART: Regular rate and rhythm. No murmur heard. Normal peripheral pulses. ABDOMEN: Soft, upper abdominal tenderness , nondistended, normal active bowel sounds. EXTREMITIES: Normal range of motion. No edema. SKIN: Warm, dry, no rash. NEURO: No focal deficits. Alert and oriented x3. PSYCH: Normal mood and affect. <Darin Cerna MD - Last Filed: 08/31/25 17:39> Course Course Emergency Course: Patient was given 3 L of normal saline repeat BMP was obtained she has still continued to have high anion gap of 17 DKA protocol was initiated her nausea is much improved with the Reglan. <Darin Cerna MD - Last Filed: 08/31/25 17:39> Vital Signs Vital signs: Vital Signs Temperature 36.4 C 08/31/25 07:13 Pulse Rate 84 08/31/25 07:13 Respiratory Rate 18 08/31/25 07:13 Blood Pressure 137/74 08/31/25 07:13 Pulse Oximetry 100 08/31/25 07:13 Oxygen Delivery Room Air 08/31/25 07:13 Temperature 36.4 C 08/31/25 18:50 Pulse Rate 80 08/31/25 21:45 Respiratory Rate 17 08/31/25 21:45 Blood Pressure 103/58 L 08/31/25 21:31 Pulse Oximetry 98 08/31/25 20:05 Oxygen Delivery Room Air 08/31/25 07:13 <Darin Cerna MD - Last Filed: 08/31/25 17:39> Vital Signs Temperature 36.4 C 08/31/25 07:13 Pulse Rate 84 08/31/25 07:13 Respiratory Rate 18 08/31/25 07:13 Blood Pressure 137/74 08/31/25 07:13 Pulse Oximetry 100 08/31/25 07:13 Oxygen Delivery Room Air 08/31/25 07:13 Temperature 36.4 C 08/31/25 18:50 Pulse Rate 80 08/31/25 21:45 Respiratory Rate 17 08/31/25 21:45 Blood Pressure 103/58 L 08/31/25 21:31 Pulse Oximetry 98 08/31/25 20:05 Oxygen Delivery Room Air 08/31/25 07:13 <Myron Yeager MD - Last Filed: 08/31/25 22:27> MDM Differential Diagnosis Differential Diagnosis: DKA, cyclical vomiting syndrome, gastroenteritis <Darin Cerna MD - Last Filed: 08/31/25 17:39> Medical Records I have reviewed the following patient records and this information was taken into consideration when formulating the assessment and plan.: previous labs and previous ER visits <Darin Cerna MD - Last Filed: 08/31/25 17:39> Lab Data Result diagrams: 08/31/25 09:33 08/31/25 21:49 <Darin Cerna MD - Last Filed: 08/31/25 17:39> Labs: Lab Results 08/31/25 08/31/25 08/31/25 Range/Units 07:10 08:16 08:20 WBC (4.5-10.0) K/mm3 RBC (4.2-5.4) M/mm3 Hgb (12.0-15.0) g/dL Hct (37.0-47.0) % MCV (80-100) fl MCH (26-34) pg MCHC (32-36) g/dl RDW (11.5-14.5) % Plt Count (150-375) k/mm3 MPV (7.4-10.4) fl Immature Gran % (Auto) (0-0.5) % Neut % (Auto) (45.5-73.1) % Lymph % (Auto) (18.3-44.2) % [place] % (Auto) (2.6-8.5) % Eos % (Auto) (0-4.4) % Baso % (Auto) (0.2-1.2) % Lymph # (Auto) (0.9-3.2) K/mm3 [place] # (Auto) (0.1-0.6) K/mm3 Eos # (Auto) (0-0.3) K/mm3 Baso # (Auto) (0.0-0.1) K/mm3 Abs Immat Gran (auto) (0.00-0.031) K/mm3 Absolute Neuts (auto) (1.3-6.7) K/mm3 Absolute Nucleated RBC (0.0-0.012) K/mm3 Nucleated RBC % (0.0-0.2) % Methemoglobin (0-1.5) %THb Sodium (137-145) mmol/L Potassium (3.4-5.0) mmol/L Chloride (98-107) mmol/L Carbon Dioxide (22-30) mmol/L Anion Gap (4-12) mmol/L BUN (7-17) mg/dL Creatinine (0.7-1.0) mg/dL Estim Creat Clear Calc ml/min Estimated GFR (59 - ) Glucose (65-110) mg/dL POC Capillary Glucose 386 H 388 H (65-105) mg/dl Hemoglobin A1c 9.9 H (<5.7) % Calcium (8.4-10.2) mg/dL Phosphorus (2.5-4.5) mg/dL Magnesium (1.6-2.3) mg/dL Beta-Hydroxybutyrate/Acetoacetate (0.02-0.27) mmol/L Urine Color (Yellow) Urine Appearance (Clear) Urine pH (5.0-9.0) Ur Specific [place] (1.001-1.035) Urine Protein (Negative) mg/dL Urine Glucose (UA) (Negative) mg/dL Urine Ketones (Negative) mg/dL Ur Blood (Man) (Negative) Urine Nitrate (Negative) Urine Bilirubin (Negative) Urine Urobilinogen (<2.0) mg/dL Add Ur Microanalysis Leukocyte Esterase Rfl (Negative) BRYANNA/UL Urine RBC (0-2) /hpf Urine WBC (0-3) /hpf Ur Squamous Epith Cells (Few) /hpf Urine Bacteria /hpf Urine Casts Urine Test 08/31/25 08/31/25 08/31/25 Range/Units 09:33 09:52 09:58 WBC 12.2 H (4.5-10.0) K/mm3 RBC 4.64 (4.2-5.4) M/mm3 Hgb 13.6 (12.0-15.0) g/dL Hct 41.8 (37.0-47.0) % MCV 90.1 (80-100) fl MCH 29.3 (26-34) pg MCHC 32.5 (32-36) g/dl RDW 13.3 (11.5-14.5) % Plt Count 294 (150-375) k/mm3 MPV 10.6 H (7.4-10.4) fl Immature Gran % (Auto) 0.5 (0-0.5) % Neut % (Auto) 82.2 H (45.5-73.1) % Lymph % (Auto) 10.8 L (18.3-44.2) % [place] % (Auto) 5.7 (2.6-8.5) % Eos % (Auto) 0.1 (0-4.4) % Baso % (Auto) 0.7 (0.2-1.2) % Lymph # (Auto) 1.31 (0.9-3.2) K/mm3 [place] # (Auto) 0.7 H (0.1-0.6) K/mm3 Eos # (Auto) 0.0 (0-0.3) K/mm3 Baso # (Auto) 0.1 (0.0-0.1) K/mm3 Abs Immat Gran (auto) 0.06 H (0.00-0.031) K/mm3 Absolute Neuts (auto) 10.0 H (1.3-6.7) K/mm3 Absolute Nucleated RBC 0.000 (0.0-0.012) K/mm3 Nucleated RBC % 0.0 (0.0-0.2) % Methemoglobin (0-1.5) %THb Sodium 137 (137-145) mmol/L Potassium 3.9 (3.4-5.0) mmol/L Chloride 107 (98-107) mmol/L Carbon Dioxide 14 L (22-30) mmol/L Anion Gap 16 H (4-12) mmol/L BUN 13 D (7-17) mg/dL Creatinine 0.70 (0.7-1.0) mg/dL Estim Creat Clear Calc 99 ml/min Estimated GFR > 60 (59 - ) Glucose 175 H (65-110) mg/dL POC Capillary Glucose 168 H (65-105) mg/dl Hemoglobin A1c (<5.7) % Calcium 9.5 (8.4-10.2) mg/dL Phosphorus < 1.0 L (2.5-4.5) mg/dL Magnesium 1.8 (1.6-2.3) mg/dL Beta-Hydroxybutyrate/Acetoacetate (0.02-0.27) mmol/L Urine Color Yellow (Yellow) Urine Appearance Cloudy H (Clear) Urine pH 5.5 (5.0-9.0) Ur Specific [place] 1.024 (1.001-1.035) Urine Protein Negative (Negative) mg/dL Urine Glucose (UA) 3+ H (Negative) mg/dL Urine Ketones 3+ H (Negative) mg/dL Ur Blood (Man) Negative (Negative) Urine Nitrate Negative (Negative) Urine Bilirubin Negative (Negative) Urine Urobilinogen 0.2 (<2.0) mg/dL Add Ur Microanalysis Reviewed Leukocyte Esterase Rfl Negative (Negative) BRYANNA/UL Urine RBC 0-2 (0-2) /hpf Urine WBC 6-10 H (0-3) /hpf Ur Squamous Epith Cells Many H (Few) /hpf Urine Bacteria 2+ H /hpf Urine Casts 0-2 Urine Test Negative 08/31/25 08/31/25 08/31/25 Range/Units 11:37 16:11 18:08 WBC (4.5-10.0) K/mm3 RBC (4.2-5.4) M/mm3 Hgb (12.0-15.0) g/dL Hct (37.0-47.0) % MCV (80-100) fl MCH (26-34) pg MCHC (32-36) g/dl RDW (11.5-14.5) % Plt Count (150-375) k/mm3 MPV (7.4-10.4) fl Immature Gran % (Auto) (0-0.5) % Neut % (Auto) (45.5-73.1) % Lymph % (Auto) (18.3-44.2) % [place] % (Auto) (2.6-8.5) % Eos % (Auto) (0-4.4) % Baso % (Auto) (0.2-1.2) % Lymph # (Auto) (0.9-3.2) K/mm3 [place] # (Auto) (0.1-0.6) K/mm3 Eos # (Auto) (0-0.3) K/mm3 Baso # (Auto) (0.0-0.1) K/mm3 Abs Immat Gran (auto) (0.00-0.031) K/mm3 Absolute Neuts (auto) (1.3-6.7) K/mm3 Absolute Nucleated RBC (0.0-0.012) K/mm3 Nucleated RBC % (0.0-0.2) % Methemoglobin (0-1.5) %THb Sodium 136 L 134 L (137-145) mmol/L Potassium 4.0 4.1 (3.4-5.0) mmol/L Chloride 107 105 (98-107) mmol/L Carbon Dioxide 14 L 12 L (22-30) mmol/L Anion Gap 15 H 17 H (4-12) mmol/L BUN 11 9 (7-17) mg/dL Creatinine 0.61 L 0.61 L (0.7-1.0) mg/dL Estim Creat Clear Calc 112 112 ml/min Estimated GFR > 60 > 60 (59 - ) Glucose 140 H 288 H (65-110) mg/dL POC Capillary Glucose 258 H (65-105) mg/dl Hemoglobin A1c (<5.7) % Calcium 8.7 8.2 L (8.4-10.2) mg/dL Phosphorus (2.5-4.5) mg/dL Magnesium (1.6-2.3) mg/dL Beta-Hydroxybutyrate/Acetoacetate (0.02-0.27) mmol/L Urine Color (Yellow) Urine Appearance (Clear) Urine pH (5.0-9.0) Ur Specific [place] (1.001-1.035) Urine Protein (Negative) mg/dL Urine Glucose (UA) (Negative) mg/dL Urine Ketones (Negative) mg/dL Ur Blood (Man) (Negative) Urine Nitrate (Negative) Urine Bilirubin (Negative) Urine Urobilinogen (<2.0) mg/dL Add Ur Microanalysis Leukocyte Esterase Rfl (Negative) BRYANNA/UL Urine RBC (0-2) /hpf Urine WBC (0-3) /hpf Ur Squamous Epith Cells (Few) /hpf Urine Bacteria /hpf Urine Casts Urine Test 08/31/25 08/31/25 08/31/25 Range/Units 18:28 19:40 20:51 WBC (4.5-10.0) K/mm3 RBC (4.2-5.4) M/mm3 Hgb (12.0-15.0) g/dL Hct (37.0-47.0) % MCV (80-100) fl MCH (26-34) pg MCHC (32-36) g/dl RDW (11.5-14.5) % Plt Count (150-375) k/mm3 MPV (7.4-10.4) fl Immature Gran % (Auto) (0-0.5) % Neut % (Auto) (45.5-73.1) % Lymph % (Auto) (18.3-44.2) % [place] % (Auto) (2.6-8.5) % Eos % (Auto) (0-4.4) % Baso % (Auto) (0.2-1.2) % Lymph # (Auto) (0.9-3.2) K/mm3 [place] # (Auto) (0.1-0.6) K/mm3 Eos # (Auto) (0-0.3) K/mm3 Baso # (Auto) (0.0-0.1) K/mm3 Abs Immat Gran (auto) (0.00-0.031) K/mm3 Absolute Neuts (auto) (1.3-6.7) K/mm3 Absolute Nucleated RBC (0.0-0.012) K/mm3 Nucleated RBC % (0.0-0.2) % Methemoglobin 0.0 (0-1.5) %THb Sodium (137-145) mmol/L Potassium (3.4-5.0) mmol/L Chloride (98-107) mmol/L Carbon Dioxide (22-30) mmol/L Anion Gap (4-12) mmol/L BUN (7-17) mg/dL Creatinine (0.7-1.0) mg/dL Estim Creat Clear Calc ml/min Estimated GFR (59 - ) Glucose (65-110) mg/dL POC Capillary Glucose 154 H 184 H (65-105) mg/dl Hemoglobin A1c (<5.7) % Calcium (8.4-10.2) mg/dL Phosphorus (2.5-4.5) mg/dL Magnesium (1.6-2.3) mg/dL Beta-Hydroxybutyrate/Acetoacetate (0.02-0.27) mmol/L Urine Color (Yellow) Urine Appearance (Clear) Urine pH (5.0-9.0) Ur Specific [place] (1.001-1.035) Urine Protein (Negative) mg/dL Urine Glucose (UA) (Negative) mg/dL Urine Ketones (Negative) mg/dL Ur Blood (Man) (Negative) Urine Nitrate (Negative) Urine Bilirubin (Negative) Urine Urobilinogen (<2.0) mg/dL Add Ur Microanalysis Leukocyte Esterase Rfl (Negative) BRYANNA/UL Urine RBC (0-2) /hpf Urine WBC (0-3) /hpf Ur Squamous Epith Cells (Few) /hpf Urine Bacteria /hpf Urine Casts Urine Test 08/31/25 08/31/25 Range/Units 21:49 21:54 WBC (4.5-10.0) K/mm3 RBC (4.2-5.4) M/mm3 Hgb (12.0-15.0) g/dL Hct (37.0-47.0) % MCV (80-100) fl MCH (26-34) pg MCHC (32-36) g/dl RDW (11.5-14.5) % Plt Count (150-375) k/mm3 MPV (7.4-10.4) fl Immature Gran % (Auto) (0-0.5) % Neut % (Auto) (45.5-73.1) % Lymph % (Auto) (18.3-44.2) % [place] % (Auto) (2.6-8.5) % Eos % (Auto) (0-4.4) % Baso % (Auto) (0.2-1.2) % Lymph # (Auto) (0.9-3.2) K/mm3 [place] # (Auto) (0.1-0.6) K/mm3 Eos # (Auto) (0-0.3) K/mm3 Baso # (Auto) (0.0-0.1) K/mm3 Abs Immat Gran (auto) (0.00-0.031) K/mm3 Absolute Neuts (auto) (1.3-6.7) K/mm3 Absolute Nucleated RBC (0.0-0.012) K/mm3 Nucleated RBC % (0.0-0.2) % Methemoglobin (0-1.5) %THb Sodium 133 L (137-145) mmol/L Potassium 3.8 (3.4-5.0) mmol/L Chloride 104 (98-107) mmol/L Carbon Dioxide 15 L (22-30) mmol/L Anion Gap 14 H (4-12) mmol/L BUN 10 (7-17) mg/dL Creatinine 0.65 L (0.7-1.0) mg/dL Estim Creat Clear Calc 106 ml/min Estimated GFR > 60 (59 - ) Glucose 182 H (65-110) mg/dL POC Capillary Glucose 191 H (65-105) mg/dl Hemoglobin A1c (<5.7) % Calcium 8.6 (8.4-10.2) mg/dL Phosphorus (2.5-4.5) mg/dL Magnesium (1.6-2.3) mg/dL Beta-Hydroxybutyrate/Acetoacetate 3.76 H (0.02-0.27) mmol/L Urine Color (Yellow) Urine Appearance (Clear) Urine pH (5.0-9.0) Ur Specific [place] (1.001-1.035) Urine Protein (Negative) mg/dL Urine Glucose (UA) (Negative) mg/dL Urine Ketones (Negative) mg/dL Ur Blood (Man) (Negative) Urine Nitrate (Negative) Urine Bilirubin (Negative) Urine Urobilinogen (<2.0) mg/dL Add Ur Microanalysis Leukocyte Esterase Rfl (Negative) BRYANNA/UL Urine RBC (0-2) /hpf Urine WBC (0-3) /hpf Ur Squamous Epith Cells (Few) /hpf Urine Bacteria /hpf Urine Casts Urine Test <Darin Cerna MD - Last Filed: 08/31/25 17:39> Lab Results 08/31/25 08/31/25 08/31/25 Range/Units 07:10 08:16 08:20 WBC (4.5-10.0) K/mm3 RBC (4.2-5.4) M/mm3 Hgb (12.0-15.0) g/dL Hct (37.0-47.0) % MCV (80-100) fl MCH (26-34) pg MCHC (32-36) g/dl RDW (11.5-14.5) % Plt Count (150-375) k/mm3 MPV (7.4-10.4) fl Immature Gran % (Auto) (0-0.5) % Neut % (Auto) (45.5-73.1) % Lymph % (Auto) (18.3-44.2) % [place] % (Auto) (2.6-8.5) % Eos % (Auto) (0-4.4) % Baso % (Auto) (0.2-1.2) % Lymph # (Auto) (0.9-3.2) K/mm3 [place] # (Auto) (0.1-0.6) K/mm3 Eos # (Auto) (0-0.3) K/mm3 Baso # (Auto) (0.0-0.1) K/mm3 Abs Immat Gran (auto) (0.00-0.031) K/mm3 Absolute Neuts (auto) (1.3-6.7) K/mm3 Absolute Nucleated RBC (0.0-0.012) K/mm3 Nucleated RBC % (0.0-0.2) % Methemoglobin (0-1.5) %THb Sodium (137-145) mmol/L Potassium (3.4-5.0) mmol/L Chloride (98-107) mmol/L Carbon Dioxide (22-30) mmol/L Anion Gap (4-12) mmol/L BUN (7-17) mg/dL Creatinine (0.7-1.0) mg/dL Estim Creat Clear Calc ml/min Estimated GFR (59 - ) Glucose (65-110) mg/dL POC Capillary Glucose 386 H 388 H (65-105) mg/dl Hemoglobin A1c 9.9 H (<5.7) % Calcium (8.4-10.2) mg/dL Phosphorus (2.5-4.5) mg/dL Magnesium (1.6-2.3) mg/dL Beta-Hydroxybutyrate/Acetoacetate (0.02-0.27) mmol/L Urine Color (Yellow) Urine Appearance (Clear) Urine pH (5.0-9.0) Ur Specific [place] (1.001-1.035) Urine Protein (Negative) mg/dL Urine Glucose (UA) (Negative) mg/dL Urine Ketones (Negative) mg/dL Ur Blood (Man) (Negative) Urine Nitrate (Negative) Urine Bilirubin (Negative) Urine Urobilinogen (<2.0) mg/dL Add Ur Microanalysis Leukocyte Esterase Rfl (Negative) BRYANNA/UL Urine RBC (0-2) /hpf Urine WBC (0-3) /hpf Ur Squamous Epith Cells (Few) /hpf Urine Bacteria /hpf Urine Casts Urine Test 1208/31/25 08/31/25 Range/Units 09:33 09:52 09:58 WBC 12.2 H (4.5-10.0) K/mm3 RBC 4.64 (4.2-5.4) M/mm3 Hgb 13.6 (12.0-15.0) g/dL Hct 41.8 (37.0-47.0) % MCV 90.1 (80-100) fl MCH 29.3 (26-34) pg MCHC 32.5 (32-36) g/dl RDW 13.3 (11.5-14.5) % Plt Count 294 (150-375) k/mm3 MPV 10.6 H (7.4-10.4) fl Immature Gran % (Auto) 0.5 (0-0.5) % Neut % (Auto) 82.2 H (45.5-73.1) % Lymph % (Auto) 10.8 L (18.3-44.2) % [place] % (Auto) 5.7 (2.6-8.5) % Eos % (Auto) 0.1 (0-4.4) % Baso % (Auto) 0.7 (0.2-1.2) % Lymph # (Auto) 1.31 (0.9-3.2) K/mm3 [place] # (Auto) 0.7 H (0.1-0.6) K/mm3 Eos # (Auto) 0.0 (0-0.3) K/mm3 Baso # (Auto) 0.1 (0.0-0.1) K/mm3 Abs Immat Gran (auto) 0.06 H (0.00-0.031) K/mm3 Absolute Neuts (auto) 10.0 H (1.3-6.7) K/mm3 Absolute Nucleated RBC 0.000 (0.0-0.012) K/mm3 Nucleated RBC % 0.0 (0.0-0.2) % Methemoglobin (0-1.5) %THb Sodium 137 (137-145) mmol/L Potassium 3.9 (3.4-5.0) mmol/L Chloride 107 (98-107) mmol/L Carbon Dioxide 14 L (22-30) mmol/L Anion Gap 16 H (4-12) mmol/L BUN 13 D (7-17) mg/dL Creatinine 0.70 (0.7-1.0) mg/dL Estim Creat Clear Calc 99 ml/min Estimated GFR > 60 (59 - ) Glucose 175 H (65-110) mg/dL POC Capillary Glucose 168 H (65-105) mg/dl Hemoglobin A1c (<5.7) % Calcium 9.5 (8.4-10.2) mg/dL Phosphorus < 1.0 L (2.5-4.5) mg/dL Magnesium 1.8 (1.6-2.3) mg/dL Beta-Hydroxybutyrate/Acetoacetate (0.02-0.27) mmol/L Urine Color Yellow (Yellow) Urine Appearance Cloudy H (Clear) Urine pH 5.5 (5.0-9.0) Ur Specific [place] 1.024 (1.001-1.035) Urine Protein Negative (Negative) mg/dL Urine Glucose (UA) 3+ H (Negative) mg/dL Urine Ketones 3+ H (Negative) mg/dL Ur Blood (Man) Negative (Negative) Urine Nitrate Negative (Negative) Urine Bilirubin Negative (Negative) Urine Urobilinogen 0.2 (<2.0) mg/dL Add Ur Microanalysis Reviewed Leukocyte Esterase Rfl Negative (Negative) BRYANNA/UL Urine RBC 0-2 (0-2) /hpf Urine WBC 6-10 H (0-3) /hpf Ur Squamous Epith Cells Many H (Few) /hpf Urine Bacteria 2+ H /hpf Urine Casts 0-2 Urine Test Negative 08/31/25 08/31/25 08/31/25 Range/Units 11:37 16:11 18:08 WBC (4.5-10.0) K/mm3 RBC (4.2-5.4) M/mm3 Hgb (12.0-15.0) g/dL Hct (37.0-47.0) % MCV (80-100) fl MCH (26-34) pg MCHC (32-36) g/dl RDW (11.5-14.5) % Plt Count (150-375) k/mm3 MPV (7.4-10.4) fl Immature Gran % (Auto) (0-0.5) % Neut % (Auto) (45.5-73.1) % Lymph % (Auto) (18.3-44.2) % [place] % (Auto) (2.6-8.5) % Eos % (Auto) (0-4.4) % Baso % (Auto) (0.2-1.2) % Lymph # (Auto) (0.9-3.2) K/mm3 [place] # (Auto) (0.1-0.6) K/mm3 Eos # (Auto) (0-0.3) K/mm3 Baso # (Auto) (0.0-0.1) K/mm3 Abs Immat Gran (auto) (0.00-0.031) K/mm3 Absolute Neuts (auto) (1.3-6.7) K/mm3 Absolute Nucleated RBC (0.0-0.012) K/mm3 Nucleated RBC % (0.0-0.2) % Methemoglobin (0-1.5) %THb Sodium 136 L 134 L (137-145) mmol/L Potassium 4.0 4.1 (3.4-5.0) mmol/L Chloride 107 105 (98-107) mmol/L Carbon Dioxide 14 L 12 L (22-30) mmol/L Anion Gap 15 H 17 H (4-12) mmol/L BUN 11 9 (7-17) mg/dL Creatinine 0.61 L 0.61 L (0.7-1.0) mg/dL Estim Creat Clear Calc 112 112 ml/min Estimated GFR > 60 > 60 (59 - ) Glucose 140 H 288 H (65-110) mg/dL POC Capillary Glucose 258 H (65-105) mg/dl Hemoglobin A1c (<5.7) % Calcium 8.7 8.2 L (8.4-10.2) mg/dL Phosphorus (2.5-4.5) mg/dL Magnesium (1.6-2.3) mg/dL Beta-Hydroxybutyrate/Acetoacetate (0.02-0.27) mmol/L Urine Color (Yellow) Urine Appearance (Clear) Urine pH (5.0-9.0) Ur Specific [place] (1.001-1.035) Urine Protein (Negative) mg/dL Urine Glucose (UA) (Negative) mg/dL Urine Ketones (Negative) mg/dL Ur Blood (Man) (Negative) Urine Nitrate (Negative) Urine Bilirubin (Negative) Urine Urobilinogen (<2.0) mg/dL Add Ur Microanalysis Leukocyte Esterase Rfl (Negative) BRYANNA/UL Urine RBC (0-2) /hpf Urine WBC (0-3) /hpf Ur Squamous Epith Cells (Few) /hpf Urine Bacteria /hpf Urine Casts Urine Test 08/31/25 08/31/25 08/31/25 Range/Units 18:28 19:40 20:51 WBC (4.5-10.0) K/mm3 RBC (4.2-5.4) M/mm3 Hgb (12.0-15.0) g/dL Hct (37.0-47.0) % MCV (80-100) fl MCH (26-34) pg MCHC (32-36) g/dl RDW (11.5-14.5) % Plt Count (150-375) k/mm3 MPV (7.4-10.4) fl Immature Gran % (Auto) (0-0.5) % Neut % (Auto) (45.5-73.1) % Lymph % (Auto) (18.3-44.2) % [place] % (Auto) (2.6-8.5) % Eos % (Auto) (0-4.4) % Baso % (Auto) (0.2-1.2) % Lymph # (Auto) (0.9-3.2) K/mm3 [place] # (Auto) (0.1-0.6) K/mm3 Eos # (Auto) (0-0.3) K/mm3 Baso # (Auto) (0.0-0.1) K/mm3 Abs Immat Gran (auto) (0.00-0.031) K/mm3 Absolute Neuts (auto) (1.3-6.7) K/mm3 Absolute Nucleated RBC (0.0-0.012) K/mm3 Nucleated RBC % (0.0-0.2) % Methemoglobin 0.0 (0-1.5) %THb Sodium (137-145) mmol/L Potassium (3.4-5.0) mmol/L Chloride (98-107) mmol/L Carbon Dioxide (22-30) mmol/L Anion Gap (4-12) mmol/L BUN (7-17) mg/dL Creatinine (0.7-1.0) mg/dL Estim Creat Clear Calc ml/min Estimated GFR (59 - ) Glucose (65-110) mg/dL POC Capillary Glucose 154 H 184 H (65-105) mg/dl Hemoglobin A1c (<5.7) % Calcium (8.4-10.2) mg/dL Phosphorus (2.5-4.5) mg/dL Magnesium (1.6-2.3) mg/dL Beta-Hydroxybutyrate/Acetoacetate (0.02-0.27) mmol/L Urine Color (Yellow) Urine Appearance (Clear) Urine pH (5.0-9.0) Ur Specific [place] (1.001-1.035) Urine Protein (Negative) mg/dL Urine Glucose (UA) (Negative) mg/dL Urine Ketones (Negative) mg/dL Ur Blood (Man) (Negative) Urine Nitrate (Negative) Urine Bilirubin (Negative) Urine Urobilinogen (<2.0) mg/dL Add Ur Microanalysis Leukocyte Esterase Rfl (Negative) BRYANNA/UL Urine RBC (0-2) /hpf Urine WBC (0-3) /hpf Ur Squamous Epith Cells (Few) /hpf Urine Bacteria /hpf Urine Casts Urine Test 08/31/25 08/31/25 Range/Units 21:49 21:54 WBC (4.5-10.0) K/mm3 RBC (4.2-5.4) M/mm3 Hgb (12.0-15.0) g/dL Hct (37.0-47.0) % MCV (80-100) fl MCH (26-34) pg MCHC (32-36) g/dl RDW (11.5-14.5) % Plt Count (150-375) k/mm3 MPV (7.4-10.4) fl Immature Gran % (Auto) (0-0.5) % Neut % (Auto) (45.5-73.1) % Lymph % (Auto) (18.3-44.2) % [place] % (Auto) (2.6-8.5) % Eos % (Auto) (0-4.4) % Baso % (Auto) (0.2-1.2) % Lymph # (Auto) (0.9-3.2) K/mm3 [place] # (Auto) (0.1-0.6) K/mm3 Eos # (Auto) (0-0.3) K/mm3 Baso # (Auto) (0.0-0.1) K/mm3 Abs Immat Gran (auto) (0.00-0.031) K/mm3 Absolute Neuts (auto) (1.3-6.7) K/mm3 Absolute Nucleated RBC (0.0-0.012) K/mm3 Nucleated RBC % (0.0-0.2) % Methemoglobin (0-1.5) %THb Sodium 133 L (137-145) mmol/L Potassium 3.8 (3.4-5.0) mmol/L Chloride 104 (98-107) mmol/L Carbon Dioxide 15 L (22-30) mmol/L Anion Gap 14 H (4-12) mmol/L BUN 10 (7-17) mg/dL Creatinine 0.65 L (0.7-1.0) mg/dL Estim Creat Clear Calc 106 ml/min Estimated GFR > 60 (59 - ) Glucose 182 H (65-110) mg/dL POC Capillary Glucose 191 H (65-105) mg/dl Hemoglobin A1c (<5.7) % Calcium 8.6 (8.4-10.2) mg/dL Phosphorus (2.5-4.5) mg/dL Magnesium (1.6-2.3) mg/dL Beta-Hydroxybutyrate/Acetoacetate 3.76 H (0.02-0.27) mmol/L Urine Color (Yellow) Urine Appearance (Clear) Urine pH (5.0-9.0) Ur Specific [place] (1.001-1.035) Urine Protein (Negative) mg/dL Urine Glucose (UA) (Negative) mg/dL Urine Ketones (Negative) mg/dL Ur Blood (Man) (Negative) Urine Nitrate (Negative) Urine Bilirubin (Negative) Urine Urobilinogen (<2.0) mg/dL Add Ur Microanalysis Leukocyte Esterase Rfl (Negative) BRYANNA/UL Urine RBC (0-2) /hpf Urine WBC (0-3) /hpf Ur Squamous Epith Cells (Few) /hpf Urine Bacteria /hpf Urine Casts Urine Test <Myron Yeager MD - Last Filed: 08/31/25 22:27> ABG Data ABG results: 08/31/25 18:28 Puncture Site Right radial ABG pH 7.408 ABG pCO2 28.8 L ABG pO2 98.0 ABG PO2/FiO2 Ratio 4.67 ABG HCO3 17.8 L ABG O2 Saturation 97.6 ABG O2 Content 18.6 ABG Base Excess -5.5 A-a Gradient 17.2 Oxyhemoglobin 96.6 Carboxyhemoglobin 1.1 Reduced Hemoglobin 2.3 Total Hemoglobin 13.6 O2 Delivery Device Room air O2 Liters/Min Not Reportable FiO2 21 <Darin Cerna MD - Last Filed: 08/31/25 17:39> 08/31/25 18:28 Puncture Site Right radial ABG pH 7.408 ABG pCO2 28.8 L ABG pO2 98.0 ABG PO2/FiO2 Ratio 4.67 ABG HCO3 17.8 L ABG O2 Saturation 97.6 ABG O2 Content 18.6 ABG Base Excess -5.5 A-a Gradient 17.2 Oxyhemoglobin 96.6 Carboxyhemoglobin 1.1 Reduced Hemoglobin 2.3 Total Hemoglobin 13.6 O2 Delivery Device Room air O2 Liters/Min Not Reportable FiO2 21 <Myron Yeager MD - Last Filed: 08/31/25 22:27> Imaging Data Radiologist's impression: ITS Impressions Abdomen/Pelvis CT 08/31/25 15:15 IMPRESSION: 1. No acute findings are noted in the upper abdomen and pelvis on the CT examination. Consider upper endoscopy to evaluate hematemesis. <Darin Cerna MD - Last Filed: 08/31/25 17:39> ITS Impressions Abdomen/Pelvis CT 08/31/25 15:15 IMPRESSION: 1. No acute findings are noted in the upper abdomen and pelvis on the CT examination. Consider upper endoscopy to evaluate hematemesis. <Myron Yeager MD - Last Filed: 08/31/25 22:27> Critical Care Time Critical Care Time Critical Care Time: Yes <Myron Yeager MD - Last Filed: 08/31/25 22:27> Indication: dka <Myron Yeager MD - Last Filed: 08/31/25 22:27> Time Type: Intermittent <Myron Yeager MD - Last Filed: 08/31/25 22:27> Initial evaluation, discuss w/ involved parties, attempting to gather old records: 10 minutes <Myron Yeager MD - Last Filed: 08/31/25 22:27> Documenting medical record: 5 minutes <Myron Yeager MD - Last Filed: 08/31/25 22:27> Review of results (EKG's, labs, imaging): 5 minutes <Myron Yeager MD - Last Filed: 08/31/25 22:27> Serial repeat bedside evaluation: 10 minutes <Myron Yeager MD - Last Filed: 08/31/25 22:27> Discussing case with multiple memebers of the care team and consultants: 5 minutes <Myron Yeager MD - Last Filed: 08/31/25 22:27> Total Critical Care Time: 35 <Myron Yeager MD - Last Filed: 08/31/25 22:27> Discharge Plan Discharge Clinical Impression: DKA, type 1 <Darin Cerna MD - Last Filed: 08/31/25 17:39> Patient Disposition: Still a Patient <Darin Cerna MD - Last Filed: 08/31/25 17:39> Condition: Stable <Darin Cerna MD - Last Filed: 08/31/25 17:39> Patient Language: Occitan <Darin Cerna MD - Last Filed: 08/31/25 17:39> Prescriptions: No Action ondansetron 4 mg tablet,disintegrating 4 mg PO Q6H PRN (Reason: nausea and vomiting) Qty: 20 0RF metoclopramide HCl [Reglan] 10 mg tablet 10 mg PO DAILY Qty: 30 1RF insulin glargine [Basaglar KwikPen U-100 Insulin] 100 unit/mL (3 mL) Insulin Pen See Rx Instructions .ROUTE .COMPLEX Patient Comments: Lantus 25 units every AM Rx Instructions: 22 units subq NEEDED if insulin pump is no longer working fluoxetine 40 mg capsule 40 mg PO DAILY levofloxacin 750 mg tablet 750 mg PO DAILY Qty: 3 0RF ondansetron 4 mg tablet,disintegrating 4 mg PO Q8H PRN (Reason: nausea and vomiting) Qty: 7 0RF <Darin Cerna MD - Last Filed: 08/31/25 17:39> Follow-up/Referrals: Sophie,Cyn Bain MD [Primary Care Provider, Unknown] <Darin Cerna MD - Last Filed: 08/31/25 17:39> Time of Disposition: 22:27 <Darin Crena MD - Last Filed: 08/31/25 17:39> 22:27 <Myron Yeager MD - Last Filed: 08/31/25 22:27> Sign Out Sign Out Data: Patient Sign Out occurred on 08/31/25 at 19:13. Patient's care was discussed, and care was transferred from Darin Cerna MD to Myron Yeager MD. <Darin Cerna MD - Last Filed: 08/31/25 17:39>
[2025-08-31 18:33] LABS: Alveolar/Arterial O2 Gradient 17.2 mmHg; Carboxyhemoglobin 1.1 % THb (0-2.0); Fractional Inspired Oxygen 21 %; HCO3 ABG 17.8 mEq/l (22.0-26.0); Methemoglobin ABG 0.0 %THb (0-1.5); Oxygen Content ABG 18.6 %vol (16.0-22.0); Oxygen Saturation ABG 97.6 % (95.0-100.0); PCO2 ABG 28.8 mmHg (35.0-45.0); PO2 ABG 98.0 mmHg (80.0-100.0); PO2 FiO2 Ratio Arterial Blood 4.67 %; Reduced Hemoglobin 2.3 %THb (0-5.0)
[2025-08-31 18:36] LABS: Modified Allen's Test Pass; Site Drawn RIGHT RADIAL
[2025-08-31] MEDS: DEXTROSE 5%/0.45% SOD CHL 1,000 ML 150 ML IV CONT (19:56)
[2025-08-31] MEDS: ONDANSETRON INJ 4 MG/2 ML VIAL IV PUSH (20:01)
[2025-08-31] MEDS: KCL 20 MEQ/D5/0.45% SOD CHL 1,000 ML 150 ML IV CONT (20:42)
--- NOTE | 2025-08-31 21:01 | PC.NURSE ---
Per verbal order from MD patient insulin drip continued current rate. see MAR
[2025-08-31] MEDS: POTASSIUM PHOS,M-BASIC-D-BASIC 40 MMOL in SODIUM CHLORIDE 0.9% IV 250 ML 43.89 MMOL IVPB (22:05)
[2025-08-31 22:10] LABS: Anion Gap 14 mmol/L (4-12); Blood Urea Nitrogen 10 mg/dL (7-17); Calcium 8.6 mg/dL (8.4-10.2); Carbon Dioxide 15 mmol/L (22-30); Chloride 104 mmol/L (98-107); Estimated CRCL calculation 106 ml/min; Estimated Glomerular Filt Rate > 60; Glucose 182 mg/dL (65-110); Potassium 3.8 mmol/L (3.4-5.0); Sodium 133 mmol/L (137-145)
[2025-08-31 22:12] LABS: Beta-Hydroxybutyrate/Acetoace. 3.76 mmol/L (0.02-0.27)
--- NOTE | 2025-08-31 23:53 | WPCEDHO ---
ED Hand Off Checklist All vitals saved: YES IV Site documented: YES All med administrations documented: YES Triage Note Triage Note Patient to the ED with complaints 08/31/25 08:17 of possible DKA. patient states she has not checked her BS in over a week and has been feeling ill and needs insulin. Patient is vomiting in triage. Patient states she gave herself 10U of insulin about an hour ago, but her BS is still high. Patient BS in triage was 384. Allergies Penicillins Allergy (Verified 03/06/25 02:03) Itching Family History (Last Reviewed 08/31/25 @ 17:34 by Darin Cerna MD) Father Family history of diabetes mellitus in first degree relative Pulmonary embolism Mother Family history of diabetes mellitus in first degree relative Grandparent Crohn disease Celiac disease Active Medications including assessments/comments Dextrose/Sodium Chloride (Dextrose 5% Sodium Chloride 0.45%) 1,000 mls @ 150 mls/hr IV CONT .Q6H40M SANDRITA Last Infusion: 08/31/25 20:43 Dose: 0 mls/hr Documented By: AilynAilyn Infusion/Titration Document 08/31/25 20:43 FREDDIE (Rec: 08/31/25 20:43 AilynJ [id number]) Intake Intake 117.5 Cumulative Intake ( 117.5 bag) Cumulative Intake ( 117.5 Rx) Container Volume 882.5 Waste Amount 0 Dosing Infusion Rate 0 Cumulative Dose Not Applicable Increase/Decrease Paused Elapsed Time Elapsed Time ( 47m minutes) Admin: 08/31/25 19:56 Dose: 150 mls/hr Documented By: FREDDIE Infusion/Titration Document 08/31/25 19:56 FREDDIE (Rec: 08/31/25 19:59 Ailyn [id number]) Intake IV Site Peripheral Access Right Wrist Container Volume 1,000 Waste Amount 0 Dosing Infusion Rate 150 Cumulative Dose Not Applicable Increase/Decrease Started Elapsed Time Elapsed Time ( 0m minutes) Admin: 08/31/25 14:34 Dose: Not Given Documented By: IRA Non-Admin Reason: No Dose Required Admin: 08/31/25 11:09 Dose: Not Given Documented By: IRA Non-Admin Reason: No Dose Required Insulin Human Regular 100 (units/ Sodium Chloride) 100 mls @ 1 mls/hr IV CONT .Q24H SANDRITA; Protocol Last Titration: 08/31/25 22:58 Dose: 1 units/hr, 1 mls/hr Documented By: FREDDIE Infusion/Titration Document 08/31/25 22:58 FREDDIE (Rec: 08/31/25 23:03 Ailyn [id number]) Intake Intake 2.1 Cumulative Intake ( 22.8 bag) Cumulative Intake ( 22.8 Rx) Container Volume 77.2 Waste Amount 0 Dosing Dose Rate 1 Infusion Rate 1 Cumulative Dose 22.8 Increase/Decrease Running Elapsed Time Elapsed Time ( 5h 58m minutes) MAR IV Insulin Document 08/31/25 22:58 FREDDIE (Rec: 08/31/25 23:03 Ailyn [id number]) Reason for Administration IV Insulin Infusion DKA Protocol - Reason for Administration Blood Glucose Random Glucose Yes Ordered IV Insulin Action/Checks IV Insulin Action Blood Glucose Acknowledged - No Rate Change Required DKA Trends Insulin Infusion - Blood Glucose Trend Upward/Unchanged DKA Trends Titration: 08/31/25 20:52 Dose: 1 units/hr, 1 mls/hr Documented By: FREDDIE Infusion/Titration Document 08/31/25 20:52 FREDDIE (Rec: 08/31/25 20:59 Ailyn [id number]) Intake IV Site Peripheral Access Left Hand Intake 1 Cumulative Intake ( 20.7 bag) Cumulative Intake ( 20.7 Rx) Container Volume 79.3 Waste Amount 0 Dosing Dose Rate 1 Infusion Rate 1 Cumulative Dose 20.7 Increase/Decrease Running Elapsed Time Elapsed Time ( 3h 52m minutes) MAR IV Insulin Document 08/31/25 20:52 FREDDIE (Rec: 08/31/25 20:59 AilynAilyn [id number]) Reason for Administration IV Insulin Infusion DKA Protocol - Reason for Administration IV Insulin Action/Checks IV Insulin Action Blood Glucose Acknowledged - No Rate Change Required DKA Trends Insulin Infusion - Blood Glucose Trend Upward/Unchanged DKA Trends Titration: 08/31/25 19:54 Dose: 1 units/hr, 1 mls/hr Documented By: FREDDIE Co-signed By: STACIA Infusion/Titration Document 08/31/25 19:54 FREDDIE (Rec: 08/31/25 19:55 FREDDIE [id number]) Co-signed By Karlene Wilson RN Intake IV Site Peripheral Access Left Hand Intake 10.9 Cumulative Intake ( 19.7 bag) Cumulative Intake ( 19.7 Rx) Container Volume 80.3 Waste Amount 0 Dosing Dose Rate 1 Infusion Rate 1 Cumulative Dose 19.7 Increase/Decrease Decreased Elapsed Time Elapsed Time ( 2h 54m minutes) MAR IV Insulin Document 08/31/25 19:54 JJJ (Rec: 08/31/25 19:55 JJJ [id number]) Co-signed By Karlene Wilson RN Reason for Administration IV Insulin Infusion DKA Protocol - Reason for Administration Blood Glucose Random Glucose Yes Ordered IV Insulin Action/Checks IV Insulin Action Titrated - Blood Glucose Verified and Dose Adjusted per Guidelines DKA Trends Insulin Infusion - Blood Glucose Trend Downward DKA Trends Blood Glucose No Decreased by 150 mg/ dl or Greater in One Hour Titration: 08/31/25 18:21 Dose: 7 units/hr, 7 mls/hr Documented By: IRA Co-signed By: STACIA Infusion/Titration Document 08/31/25 18:21 ELB (Rec: 08/31/25 18:21 ELB [id number]) Co-signed By Karlene Wilson RN Intake IV Site Peripheral Access Left Hand Intake 8.8 Cumulative Intake ( 8.8 bag) Cumulative Intake ( 8.8 Rx) Container Volume 91.2 Waste Amount 0 Dosing Dose Rate 7 Infusion Rate 7 Cumulative Dose 8.8 Increase/Decrease Increased Elapsed Time Elapsed Time ( 1h 21m minutes) MAR IV Insulin Document 08/31/25 18:21 ELB (Rec: 08/31/25 18:21 ELB [id number]) Co-signed By Karlene Wilson RN Reason for Administration IV Insulin Infusion DKA Protocol - Reason for Administration IV Insulin Action/Checks IV Insulin Action Titrated - Blood Glucose Verified and Dose Adjusted per Guidelines DKA Trends Insulin Infusion - Blood Glucose Trend Upward/Unchanged DKA Trends Admin: 08/31/25 17:00 Dose: 6.5 units/hr, 6.5 mls/hr Documented By: IRA Co-signed By: GORDON Infusion/Titration Document 08/31/25 17:00 ELB (Rec: 08/31/25 17:01 ELB [id number]) Co-signed By Johanne Zamudio RN Intake IV Site Peripheral Access Left Hand Container Volume 100 Waste Amount 0 Dosing Dose Rate 6.5 Infusion Rate 6.5 Increase/Decrease Started Elapsed Time Elapsed Time ( 0m minutes) MAR IV Insulin Document 08/31/25 17:00 ELB (Rec: 08/31/25 17:01 ELB [id number]) Co-signed By Johanne Zamudio RN Reason for Administration IV Insulin Infusion DKA Protocol - Reason for Administration IV Insulin Action/Checks IV Insulin Action Initiated Admin: 08/31/25 11:09 Dose: Not Given Documented By: IRA Non-Admin Reason: No Dose Required Sodium Chloride (Normal Saline Iv) 1,000 mls @ 150 mls/hr IV CONT .Q6H40M [facility] Last Admin: 08/31/25 14:34 Dose: Not Given Documented By: IRA Non-Admin Reason: No Dose Required Admin: 08/31/25 11:09 Dose: Not Given Documented By: IRA Non-Admin Reason: No Dose Required Potassium Chloride/Dextrose/Sod Cl (Kcl 20 Meq/D5/0.45% Sod Chl) 1,000 mls @ 150 mls/hr IV CONT .Q6H40M [facility] Last Admin: 08/31/25 20:42 Dose: 150 mls/hr Documented By: FREDIDE Infusion/Titration Document 08/31/25 20:42 FREDDIE (Rec: 08/31/25 20:43 FREDDIE [id number]) Intake IV Site Peripheral Access Right Wrist Container Volume 1,000 Waste Amount 0 Dosing Infusion Rate 150 Cumulative Dose Not Applicable Increase/Decrease Started Elapsed Time Elapsed Time ( 0m minutes) Potassium Phosphate 40 mmol/ (Sodium Chloride) 263.3333 mls @ 43.889 mls/hr IVPB ONCE ONE Stop: 09/01/25 02:34 Last Admin: 08/31/25 22:05 Dose: 43.89 mls/hr Documented By: FREDDIE Co-signed By: LAVINIA Comments: order confirmed with MD prior to administration Infusion/Titration Document 08/31/25 22:05 FREDDIE (Rec: 08/31/25 22:06 FREDDIE [id number]) Co-signed By Esme López RN Intake IV Site Peripheral Access Left Hand Container Volume 263.3333 Waste Amount 0 Dosing Infusion Rate 43.89 Increase/Decrease Started Elapsed Time Elapsed Time ( 0m minutes) Potassium Phosphate Infusion Document 08/31/25 22:05 FREDDIE (Rec: 08/31/25 22:06 FREDDIE [id number]) Co-signed By Esme López, fire hose curer Action Potassium Phosphate Initiated Infusion Action Insulin Glargine (Insulin Glargine (*Bkc) 100 Units/Ml) 15 units SUB-Q Q24H [facility] Last Admin: 08/31/25 11:09 Dose: Not Given Documented By: IRA Non-Admin Reason: No Dose Required Administered/Completed Medications Discontinued Medications Sodium Chloride (Normal Saline Iv) 1,338 mls @ 1,338 mls/hr 20 ml/kg infuse over 1 hr (1338 ml) IV CONT .Q1H STA Stop: 08/31/25 08:47 Last Infusion: 08/31/25 09:23 Dose: Infused Documented By: Admin: 08/31/25 08:21 Dose: 1,338 mls/hr Documented By: IRA Sodium Chloride (Normal Saline Iv) 1,000 mls @ 999 mls/hr IV CONT .Q1H1M STA Stop: 08/31/25 10:53 Last Infusion: 08/31/25 11:19 Dose: Infused Documented By: Admin: 08/31/25 10:10 Dose: 999 mls/hr Documented By: IRA Sodium Chloride (Normal Saline Iv) 1,000 mls @ 999 mls/hr IV CONT .Q1H1M STA Stop: 08/31/25 14:39 Last Infusion: 08/31/25 14:45 Dose: Infused Documented By: Admin: 08/31/25 13:47 Dose: 999 mls/hr Documented By: IRA Insulin Human Regular (Insulin Human Regular (*Bkc) 100 Units/Ml) 10 units 0.15 units/kg (10 units) IV PUSH ONCE ONE Stop: 08/31/25 07:49 Last Admin: 08/31/25 08:20 Dose: 10 units Documented By: IRA Co-signed By: LEV Insulin Human Regular (Insulin Human Regular (*Bkc) 100 Units/Ml) 3.3 units 0.05 units/kg (3.3 units) IV PUSH ONCE ONE Stop: 08/31/25 07:49 Last Admin: 08/31/25 08:20 Dose: 3.3 units Documented By: IRA Co-signed By: LEV Metoclopramide HCl (Metoclopramide Hcl Inj 10 Mg/2 Ml Vial) 5 mg IV PUSH ONCE STA Stop: 08/31/25 13:40 Last Admin: 08/31/25 13:47 Dose: 5 mg Documented By: IRA Ondansetron HCl (Ondansetron Inj 4 Mg/2 Ml Vial) 4 mg IV PUSH ONCE STA Stop: 08/31/25 19:36 Last Admin: 08/31/25 20:01 Dose: 4 mg Documented By: FREDDIE Notes 08/31/25 21:01 Nurse Note by Zainab Gannon Per verbal order from MD patient insulin drip continued current rate. see MAR Initialized on 08/31/25 21:01 - END OF NOTE 08/31/25 16:31 Nurse Note by Maddy Serna 1000 insulin gtt held and wasted per verbal order of EDP Dr. Cerna Initialized on 08/31/25 16:31 - END OF NOTE 08/31/25 09:20 Nurse Note by Megan Cintron Lab rejected patient's green top. Patient is a difficult stick. Multiple staff members have attempted. Phleb called for assistance. Initialized on 08/31/25 09:20 - END OF NOTE Interventions/Assessments General Assessment Start: 08/31/25 07:07 Freq: Status: Active Protocol: Document 08/31/25 09:55 IRA (Rec: 08/31/25 09:56 IRA [id number]) GA Respiratory Assessment Symptoms Shortness of Breath at Rest Effort Short of Breath Pattern Kussmaul Depth Deep Chest Expansion Symmetrical Adult Capillary Normal/Less than 2 Seconds Refill Throughout Phase Inspiratory & Expiratory Lung Sounds Clear Cough Description None Oxygen Delivery Room Air Method GA Gastrointestinal Assessment Gastrointestinal Nausea,Vomiting Symptoms All Quadrants Bowel Sounds Active Pattern Normal IV / Saline Lock, Insert Start: 08/31/25 07:07 Freq: Status: Active Protocol: Document 08/31/25 23:38 FREDDIE (Rec: 08/31/25 23:38 FREDDIE [id number]) IV Assessment Peripheral Access Right Wrist IV Catheter Access Continued Peripheral Access Left Hand IV Catheter Access Continued Last Vital Signs Temperature 98.8 F 08/31/25 23:46 Pulse Rate 75 08/31/25 23:46 Respiratory Rate 13 08/31/25 23:46 Pulse Oximetry 98 08/31/25 20:05 Blood Pressure 95/50 L 08/31/25 23:46 Blood Pressure Mean 64 08/31/25 23:46 Blood Pressure Position Supine 08/31/25 20:05 Oxygen Delivery Room Air 08/31/25 07:13 Weight 66.9 kg 08/31/25 08:17 Last Result - Abnormals Only WBC 12.2 K/mm3 (4.5-10.0) H 08/31/25 09:33 MPV 10.6 fl (7.4-10.4) H 08/31/25 09:33 Neut % (Auto) 82.2 % (45.5-73.1) H 08/31/25 09:33 Lymph % (Auto) 10.8 % (18.3-44.2) L 08/31/25 09:33 [place] # (Auto) 0.7 K/mm3 (0.1-0.6) H 08/31/25 09:33 Abs Immat Gran (auto) 0.06 K/mm3 (0.00-0.031) H 08/31/25 09:33 Absolute Neuts (auto) 10.0 K/mm3 (1.3-6.7) H 08/31/25 09:33 ABG pCO2 28.8 mmHg (35.0-45.0) L 08/31/25 18:28 ABG HCO3 17.8 mEq/l (22.0-26.0) L 08/31/25 18:28 Sodium 133 mmol/L (137-145) L 08/31/25 21:49 Carbon Dioxide 15 mmol/L (22-30) L 08/31/25 21:49 Anion Gap 14 mmol/L (4-12) H 08/31/25 21:49 Creatinine 0.65 mg/dL (0.7-1.0) L 08/31/25 21:49 Glucose 182 mg/dL (65-110) H 08/31/25 21:49 POC Capillary Glucose 220 mg/dl (65-105) H 08/31/25 22:56 Hemoglobin A1c 9.9 % (<5.7) H 08/31/25 08:20 Calcium 8.2 mg/dL (8.4-10.2) L 08/31/25 16:11 Phosphorus < 1.0 mg/dL (2.5-4.5) L 08/31/25 09:33 Beta-Hydroxybutyrate/Acetoacetate 3.76 mmol/L (0.02-0.27) H 08/31/25 21:49 Urine Appearance Cloudy (Clear) H 08/31/25 09:58 Urine Glucose (UA) 3+ mg/dL (Negative) H 08/31/25 09:58 Urine Ketones 3+ mg/dL (Negative) H 08/31/25 09:58 Urine WBC 6-10 /hpf (0-3) H 08/31/25 09:58 Ur Squamous Epith Cells Many /hpf (Few) H 08/31/25 09:58 Urine Bacteria 2+ /hpf H 08/31/25 09:58 Most Recent Suicide Severity Rating Suicide Severity Rating NO RISK INDICATED 08/31/25 08:17
[2025-09-01] VITALS (12 sets, daily range): BP systolic 101–163; BP diastolic 50–107; PULSE 75–110; RESP 12–22; TEMP 36.9–37.5; O2SAT 94–100; BMI 23.8; BMI 24.0
[2025-09-01 00:12] LABS: MRSA (PCR) NOT DETECTED (NOT DETECTE)
--- NOTE | 2025-09-01 00:38 | PC.NURSE ---
This patient, Ekta Rivero, was admitted to Intensive Care Unit-1. Patient/family oriented to hospital policies and general routines including ID bracelet, bed and alarms, visiting hours, pain management, procedures, bathroom and other care routines, personal items, smoking policy, room service/diet, and visiting hours. Information on how to activate the Rapid Response Team has been discussed. Patient/Family are encouraged to report perceived risks to care and to ask questions if they do not understand what they are told or what they should do.
[2025-09-01] MEDS: PROMETHAZINE HCL 25 MG/ML AMPUL IM ×4 (01:05→21:14)
[2025-09-01 03:08] LABS: Anion Gap 16 mmol/L (4-12); Blood Urea Nitrogen 8 mg/dL (7-17); Calcium 9.0 mg/dL (8.4-10.2); Carbon Dioxide 13 mmol/L (22-30); Chloride 105 mmol/L (98-107); Estimated CRCL calculation 103 ml/min; Estimated Glomerular Filt Rate > 60; Glucose 258 mg/dL (65-110); Potassium 4.5 mmol/L (3.4-5.0); Sodium 134 mmol/L (137-145)
[2025-09-01] MEDS: SODIUM CHLORIDE 0.9% IV 1,000 ML 150 ML IV CONT (03:10)
--- NOTE | 2025-09-01 04:53 | P.HP_ITS ---
H&P: HPI History of Present Illness Date/Time: 09/01/25 04:53 Chief Complaint: Abdominal pain, nausea vomiting Narrative: 24-year-old female with a past medical history of poorly controlled insulin- dependent diabetes, diabetic gastroparesis and cannabis hyperemesis syndrome who presented to the ER via private vehicle due to nausea vomiting and abdominal discomfort. The patient was actively vomiting and retching when she arrived to ER triage. Patient told ER nursing staff that she had not checked her blood sugars in over week. When I tried to clarify exactly how long it is been or how frequently she does it when she does check her sugars she got angry at me and did not want to talk. She stated that she did not want to answer any more questions because she wanted to sleep. She finally did consent to tell me that she had been vomiting some material that looked like coffee grounds. She would not tell me if material was from the start of her emesis. She would not clarify whether not she had marie hematemesis or if she had any melena. 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 She claims to have been taking her long-acting insulin. She told nursing staff when she arrived to the ER that she felt like she needed insulin. Her glucoses on arrival to the ER wore 175. Labs on arrival to ER demonstrated anion gap acidosis. She she received 2 doses of IV insulin and 2 L of IV fluids. Repeat BMP x2 in the ER still demonstrated elevated anion gap and low serum bicarb. ABG demonstrated normal pH with low pCO2 suggesting compensatory respiratory alkalosis. Beta hydroxybutyrate was elevated to 3.76. Review of Systems 2 Review of Systems: Review of systems limited due to lack of patient cooperation. [facility] Past Medical History Medical History (Updated 09/01/25 @ 04:58 by Treasure Teague DO) Diabetic gastroparesis Type 1 diabetes mellitus Cyclic vomiting syndrome Depression Surgical History Surgical History No pertinent past surgical history Family History Family History Father Family history of diabetes mellitus in first degree relative Pulmonary embolism Mother Family history of diabetes mellitus in first degree relative Grandparent Crohn disease Celiac disease Social History Social History Social History: Surrogate medical decision maker: Iliana Villeda, mother. Code status: Full code. Years smoked: 4 Smoking status: Current every day smoker Tobacco type: e-cigarettes/vaping Second hand tobacco smoke exposure: No Additional smoking assessment comments: vapes Alcohol intake: never Drinks per week: 1 Substance use: current Substance use type: marijuana Other substance usage details: smokes marijuana Lack of Transportation: No Lack of Food: Sometimes True Current Housing: I Have Housing Concerned About Future Housing: No Difficulty Paying Gas/Electric Bills: No Difficulty Paying for Meds: YES Currently Unemployed: No Education: Decline to Answer Difficulty w/ Childcare or Family Care: No Living arrangements: with family Occupation/Education: occupation Additional occupation/education comments: [employer]. Spiritual care concerns: No Meds Home Medications and Allergies Home Medications ?Medication ?Instructions ?Recorded ?Confirmed ?Type insulin glargine 100 unit/mL (3 25 unit subcut QAM 09/01/25 History mL) subcutaneous pen (Basaglar KwikPen U-100 Insulin) insulin lispro 100 unit/mL 1 sliding scale dose subcut 09/01/25 09/01/25 History subcutaneous solution (Humalog USEASDIRECTD U-100 Insulin) Allergies Allergy/AdvReac Type Severity Reaction Status Date / Time Penicillins Allergy Itching Verified 09/01/25 00:48 Vital Signs Vital Signs - 24 hr 08/31/25 07:13 08/31/25 08:19 08/31/25 08:30 Temperature 97.6 F Pulse Rate 84 74 83 Respiratory Rate 18 23 H 19 Blood Pressure 137/74 122/71 Pulse Oximetry 100 100 99 Oxygen Delivery Room Air 08/31/25 09:45 08/31/25 10:11 08/31/25 10:16 Temperature Pulse Rate 60 71 72 Respiratory Rate 12 22 H 17 Blood Pressure 118/61 134/79 Pulse Oximetry 100 100 98 Oxygen Delivery 08/31/25 11:16 08/31/25 12:16 08/31/25 12:31 Temperature Pulse Rate 97 70 90 Respiratory Rate 22 H 13 19 Blood Pressure 143/80 H 133/75 148/110 H Pulse Oximetry 100 100 100 Oxygen Delivery 08/31/25 14:46 08/31/25 14:47 08/31/25 15:11 Temperature Pulse Rate 88 90 Respiratory Rate 24 H 25 H Blood Pressure 125/74 Pulse Oximetry 100 100 Oxygen Delivery 08/31/25 15:15 08/31/25 15:30 08/31/25 15:45 Temperature Pulse Rate 79 Respiratory Rate 17 Blood Pressure Pulse Oximetry 100 100 98 Oxygen Delivery 08/31/25 16:13 08/31/25 16:15 08/31/25 16:16 Temperature Pulse Rate 76 76 75 Respiratory Rate 11 L 13 15 Blood Pressure 115/62 116/68 Pulse Oximetry 100 99 Oxygen Delivery 08/31/25 16:17 08/31/25 16:30 08/31/25 16:31 Temperature Pulse Rate 76 78 75 Respiratory Rate 17 18 22 H Blood Pressure 116/56 L Pulse Oximetry 100 Oxygen Delivery 08/31/25 16:45 08/31/25 16:46 08/31/25 17:00 Temperature Pulse Rate 77 75 73 Respiratory Rate 13 18 17 Blood Pressure 114/65 Pulse Oximetry 100 Oxygen Delivery 08/31/25 17:01 08/31/25 17:15 08/31/25 17:30 Temperature Pulse Rate 73 78 80 Respiratory Rate 15 20 16 Blood Pressure 119/61 Pulse Oximetry 100 Oxygen Delivery 08/31/25 17:31 08/31/25 17:32 08/31/25 17:46 Temperature Pulse Rate 74 72 Respiratory Rate 18 17 Blood Pressure 129/76 121/67 Pulse Oximetry 100 100 Oxygen Delivery 08/31/25 18:00 08/31/25 18:01 08/31/25 18:15 Temperature Pulse Rate 90 83 83 Respiratory Rate 17 Blood Pressure 114/70 Pulse Oximetry 100 Oxygen Delivery 08/31/25 18:16 08/31/25 18:31 08/31/25 18:50 Temperature 97.6 F Pulse Rate 79 100 96 Respiratory Rate 12 13 21 H Blood Pressure 118/68 152/83 H 132/88 Pulse Oximetry 100 100 100 Oxygen Delivery 08/31/25 18:51 08/31/25 19:00 08/31/25 19:01 Temperature Pulse Rate 100 89 93 Respiratory Rate 17 16 27 H Blood Pressure 132/88 146/89 H Pulse Oximetry 100 100 100 Oxygen Delivery 08/31/25 19:15 08/31/25 19:16 08/31/25 19:30 Temperature Pulse Rate 96 85 98 Respiratory Rate 29 H 24 H 19 Blood Pressure 142/86 H Pulse Oximetry 100 100 100 Oxygen Delivery 08/31/25 19:31 08/31/25 19:53 08/31/25 20:00 Temperature Pulse Rate 115 H 74 94 Respiratory Rate 25 H 12 29 H Blood Pressure 127/70 Pulse Oximetry 100 100 Oxygen Delivery 08/31/25 20:05 08/31/25 20:18 08/31/25 20:33 Temperature Pulse Rate 80 81 88 Respiratory Rate 14 7 L 14 Blood Pressure 141/79 H Pulse Oximetry 98 Oxygen Delivery 08/31/25 20:45 08/31/25 20:46 08/31/25 21:27 Temperature Pulse Rate 89 87 86 Respiratory Rate 19 12 20 Blood Pressure 127/72 Pulse Oximetry Oxygen Delivery 08/31/25 21:31 08/31/25 21:33 08/31/25 21:45 Temperature Pulse Rate 92 83 80 Respiratory Rate 22 H 17 17 Blood Pressure 103/58 L Pulse Oximetry Oxygen Delivery 08/31/25 21:52 08/31/25 22:00 08/31/25 22:01 Temperature Pulse Rate 82 77 79 Respiratory Rate 10 L 20 17 Blood Pressure 105/57 L 105/55 L Pulse Oximetry Oxygen Delivery 08/31/25 22:15 08/31/25 22:33 08/31/25 22:47 Temperature Pulse Rate 77 76 78 Respiratory Rate 16 14 22 H Blood Pressure Pulse Oximetry Oxygen Delivery 08/31/25 23:03 08/31/25 23:42 08/31/25 23:45 Temperature Pulse Rate 76 77 74 Respiratory Rate 16 18 21 H Blood Pressure Pulse Oximetry Oxygen Delivery 08/31/25 23:46 09/01/25 01:00 09/01/25 01:28 Temperature 98.8 F Pulse Rate 75 80 Respiratory Rate 13 16 Blood Pressure 95/50 L 152/107 H Pulse Oximetry 94 Oxygen Delivery Room Air 09/01/25 02:00 09/01/25 02:00 09/01/25 03:00 Temperature 98.5 F Pulse Rate 82 80 78 Respiratory Rate 14 12 Blood Pressure 142/76 H 104/50 L Pulse Oximetry 95 98 Oxygen Delivery 09/01/25 04:00 Temperature Pulse Rate Respiratory Rate Blood Pressure Pulse Oximetry Oxygen Delivery Room Air Exam 2 Narrative: Weight 67.4 kg BMI 24 Const: Other: Mildly ill-appearing, no acute distress, appears older than stated age HENMT: Other: Mucous membranes are dry, no oral pharyngeal erythema, fair dentition Eyes: Other: No conjunctival pallor, no scleral icterus Neck: Other: No lymphadenopathy, no JVD Resp: Other: Clear to auscultation anterior lung bethea, no increased work of breathing Cardio: Other: Occasional irregular beat, no murmur, 2+ bilateral radial and pedal pulses GI: Other: Soft, nontender, nondistended, positive bowel sounds Skin: Other: Multiple tattoos, mild generalized pallor Neuro: Other: Alert oriented, speech is clear, no obvious facial asymmetry, neuro exam limited due to lack of patient cooperation Extrem: Other: No clubbing, cyanosis or edema, no foot wounds Psych: Other: Irritable, uncooperative abdominal poor judgment intact insight Results Labs Labs: Laboratory Tests 08/31/25 09:33 09/01/25 02:50 08/31/25 08/31/25 08/31/25 07:10 08:16 08:20 WBC RBC Hgb Hct MCV MCH MCHC RDW Plt Count MPV Immature Gran % (Auto) Neut % (Auto) Lymph % (Auto) [place] % (Auto) Eos % (Auto) Baso % (Auto) Lymph # (Auto) [place] # (Auto) Eos # (Auto) Baso # (Auto) Abs Immat Gran (auto) Absolute Neuts (auto) Absolute Nucleated RBC Nucleated RBC % Puncture Site ABG pH ABG pCO2 ABG pO2 ABG PO2/FiO2 Ratio ABG HCO3 ABG O2 Saturation ABG O2 Content ABG Base Excess A-a Gradient Oxyhemoglobin Carboxyhemoglobin Methemoglobin Reduced Hemoglobin Total Hemoglobin O2 Delivery Device O2 Liters/Min FiO2 Sodium Potassium Chloride Carbon Dioxide Anion Gap BUN Creatinine Estim Creat Clear Calc Estimated GFR Glucose POC Capillary Glucose 386 H 388 H Hemoglobin A1c 9.9 H Calcium Phosphorus Magnesium Beta-Hydroxybutyrate/Acetoacetate Urine Color Urine Appearance Urine pH Ur Specific [place] Urine Protein Urine Glucose (UA) Urine Ketones Ur Blood (Man) Urine Nitrate Urine Bilirubin Urine Urobilinogen Add Ur Microanalysis Leukocyte Esterase Rfl Urine RBC Urine WBC Ur Squamous Epith Cells Urine Bacteria Urine Casts Urine Test Nasal MRSA (PCR) 08/31/25 08/31/25 08/31/25 09:33 09:52 09:58 WBC 12.2 H RBC 4.64 Hgb 13.6 Hct 41.8 MCV 90.1 MCH 29.3 MCHC 32.5 RDW 13.3 Plt Count 294 MPV 10.6 H Immature Gran % (Auto) 0.5 Neut % (Auto) 82.2 H Lymph % (Auto) 10.8 L [place] % (Auto) 5.7 Eos % (Auto) 0.1 Baso % (Auto) 0.7 Lymph # (Auto) 1.31 [place] # (Auto) 0.7 H Eos # (Auto) 0.0 Baso # (Auto) 0.1 Abs Immat Gran (auto) 0.06 H Absolute Neuts (auto) 10.0 H Absolute Nucleated RBC 0.000 Nucleated RBC % 0.0 Puncture Site ABG pH ABG pCO2 ABG pO2 ABG PO2/FiO2 Ratio ABG HCO3 ABG O2 Saturation ABG O2 Content ABG Base Excess A-a Gradient Oxyhemoglobin Carboxyhemoglobin Methemoglobin Reduced Hemoglobin Total Hemoglobin O2 Delivery Device O2 Liters/Min FiO2 Sodium 137 Potassium 3.9 Chloride 107 Carbon Dioxide 14 L Anion Gap 16 H BUN 13 D Creatinine 0.70 Estim Creat Clear Calc 99 Estimated GFR > 60 Glucose 175 H POC Capillary Glucose 168 H Hemoglobin A1c Calcium 9.5 Phosphorus < 1.0 L Magnesium 1.8 Beta-Hydroxybutyrate/Acetoacetate Urine Color Yellow Urine Appearance Cloudy H Urine pH 5.5 Ur Specific [place] 1.024 Urine Protein Negative Urine Glucose (UA) 3+ H Urine Ketones 3+ H Ur Blood (Man) Negative Urine Nitrate Negative Urine Bilirubin Negative Urine Urobilinogen 0.2 Add Ur Microanalysis Reviewed Leukocyte Esterase Rfl Negative Urine RBC 0-2 Urine WBC 6-10 H Ur Squamous Epith Cells Many H Urine Bacteria 2+ H Urine Casts 0-2 Urine Test Negative Nasal MRSA (PCR) 08/31/25 08/31/25 08/31/25 11:37 16:11 18:08 WBC RBC Hgb Hct MCV MCH MCHC RDW Plt Count MPV Immature Gran % (Auto) Neut % (Auto) Lymph % (Auto) [place] % (Auto) Eos % (Auto) Baso % (Auto) Lymph # (Auto) [place] # (Auto) Eos # (Auto) Baso # (Auto) Abs Immat Gran (auto) Absolute Neuts (auto) Absolute Nucleated RBC Nucleated RBC % Puncture Site ABG pH ABG pCO2 ABG pO2 ABG PO2/FiO2 Ratio ABG HCO3 ABG O2 Saturation ABG O2 Content ABG Base Excess A-a Gradient Oxyhemoglobin Carboxyhemoglobin Methemoglobin Reduced Hemoglobin Total Hemoglobin O2 Delivery Device O2 Liters/Min FiO2 Sodium 136 L 134 L Potassium 4.0 4.1 Chloride 107 105 Carbon Dioxide 14 L 12 L Anion Gap 15 H 17 H BUN 11 9 Creatinine 0.61 L 0.61 L Estim Creat Clear Calc 112 112 Estimated GFR > 60 > 60 Glucose 140 H 288 H POC Capillary Glucose 258 H Hemoglobin A1c Calcium 8.7 8.2 L Phosphorus Magnesium Beta-Hydroxybutyrate/Acetoacetate Urine Color Urine Appearance Urine pH Ur Specific [place] Urine Protein Urine Glucose (UA) Urine Ketones Ur Blood (Man) Urine Nitrate Urine Bilirubin Urine Urobilinogen Add Ur Microanalysis Leukocyte Esterase Rfl Urine RBC Urine WBC Ur Squamous Epith Cells Urine Bacteria Urine Casts Urine Test Nasal MRSA (PCR) 08/31/25 08/31/25 08/31/25 18:28 19:40 20:51 WBC RBC Hgb Hct MCV MCH MCHC RDW Plt Count MPV Immature Gran % (Auto) Neut % (Auto) Lymph % (Auto) [place] % (Auto) Eos % (Auto) Baso % (Auto) Lymph # (Auto) [place] # (Auto) Eos # (Auto) Baso # (Auto) Abs Immat Gran (auto) Absolute Neuts (auto) Absolute Nucleated RBC Nucleated RBC % Puncture Site Right radial ABG pH 7.408 ABG pCO2 28.8 L ABG pO2 98.0 ABG PO2/FiO2 Ratio 4.67 ABG HCO3 17.8 L ABG O2 Saturation 97.6 ABG O2 Content 18.6 ABG Base Excess -5.5 A-a Gradient 17.2 Oxyhemoglobin 96.6 Carboxyhemoglobin 1.1 Methemoglobin 0.0 Reduced Hemoglobin 2.3 Total Hemoglobin 13.6 O2 Delivery Device Room air O2 Liters/Min Not Reportable FiO2 21 Sodium Potassium Chloride Carbon Dioxide Anion Gap BUN Creatinine Estim Creat Clear Calc Estimated GFR Glucose POC Capillary Glucose 154 H 184 H Hemoglobin A1c Calcium Phosphorus Magnesium Beta-Hydroxybutyrate/Acetoacetate Urine Color Urine Appearance Urine pH Ur Specific [place] Urine Protein Urine Glucose (UA) Urine Ketones Ur Blood (Man) Urine Nitrate Urine Bilirubin Urine Urobilinogen Add Ur Microanalysis Leukocyte Esterase Rfl Urine RBC Urine WBC Ur Squamous Epith Cells Urine Bacteria Urine Casts Urine Test Nasal MRSA (PCR) 08/31/25 08/31/25 08/31/25 21:49 21:54 22:56 WBC RBC Hgb Hct MCV MCH MCHC RDW Plt Count MPV Immature Gran % (Auto) Neut % (Auto) Lymph % (Auto) [place] % (Auto) Eos % (Auto) Baso % (Auto) Lymph # (Auto) [place] # (Auto) Eos # (Auto) Baso # (Auto) Abs Immat Gran (auto) Absolute Neuts (auto) Absolute Nucleated RBC Nucleated RBC % Puncture Site ABG pH ABG pCO2 ABG pO2 ABG PO2/FiO2 Ratio ABG HCO3 ABG O2 Saturation ABG O2 Content ABG Base Excess A-a Gradient Oxyhemoglobin Carboxyhemoglobin Methemoglobin Reduced Hemoglobin Total Hemoglobin O2 Delivery Device O2 Liters/Min FiO2 Sodium 133 L Potassium 3.8 Chloride 104 Carbon Dioxide 15 L Anion Gap 14 H BUN 10 Creatinine 0.65 L Estim Creat Clear Calc 106 Estimated GFR > 60 Glucose 182 H POC Capillary Glucose 191 H 220 H Hemoglobin A1c Calcium 8.6 Phosphorus Magnesium Beta-Hydroxybutyrate/Acetoacetate 3.76 H Urine Color Urine Appearance Urine pH Ur Specific [place] Urine Protein Urine Glucose (UA) Urine Ketones Ur Blood (Man) Urine Nitrate Urine Bilirubin Urine Urobilinogen Add Ur Microanalysis Leukocyte Esterase Rfl Urine RBC Urine WBC Ur Squamous Epith Cells Urine Bacteria Urine Casts Urine Test Nasal MRSA (PCR) 08/31/25 08/31/25 09/01/25 22:58 23:54 00:50 WBC RBC Hgb Hct MCV MCH MCHC RDW Plt Count MPV Immature Gran % (Auto) Neut % (Auto) Lymph % (Auto) [place] % (Auto) Eos % (Auto) Baso % (Auto) Lymph # (Auto) [place] # (Auto) Eos # (Auto) Baso # (Auto) Abs Immat Gran (auto) Absolute Neuts (auto) Absolute Nucleated RBC Nucleated RBC % Puncture Site ABG pH ABG pCO2 ABG pO2 ABG PO2/FiO2 Ratio ABG HCO3 ABG O2 Saturation ABG O2 Content ABG Base Excess A-a Gradient Oxyhemoglobin Carboxyhemoglobin Methemoglobin Reduced Hemoglobin Total Hemoglobin O2 Delivery Device O2 Liters/Min FiO2 Sodium Potassium Chloride Carbon Dioxide Anion Gap BUN Creatinine Estim Creat Clear Calc Estimated GFR Glucose POC Capillary Glucose 210 H 195 H Hemoglobin A1c Calcium Phosphorus Magnesium Beta-Hydroxybutyrate/Acetoacetate Urine Color Urine Appearance Urine pH Ur Specific [place] Urine Protein Urine Glucose (UA) Urine Ketones Ur Blood (Man) Urine Nitrate Urine Bilirubin Urine Urobilinogen Add Ur Microanalysis Leukocyte Esterase Rfl Urine RBC Urine WBC Ur Squamous Epith Cells Urine Bacteria Urine Casts Urine Test Nasal MRSA (PCR) Not detected 09/01/25 09/01/25 09/01/25 02:02 02:50 03:06 WBC RBC Hgb Hct MCV MCH MCHC RDW Plt Count MPV Immature Gran % (Auto) Neut % (Auto) Lymph % (Auto) [place] % (Auto) Eos % (Auto) Baso % (Auto) Lymph # (Auto) [place] # (Auto) Eos # (Auto) Baso # (Auto) Abs Immat Gran (auto) Absolute Neuts (auto) Absolute Nucleated RBC Nucleated RBC % Puncture Site ABG pH ABG pCO2 ABG pO2 ABG PO2/FiO2 Ratio ABG HCO3 ABG O2 Saturation ABG O2 Content ABG Base Excess A-a Gradient Oxyhemoglobin Carboxyhemoglobin Methemoglobin Reduced Hemoglobin Total Hemoglobin O2 Delivery Device O2 Liters/Min FiO2 Sodium 134 L Potassium 4.5 Chloride 105 Carbon Dioxide 13 L Anion Gap 16 H BUN 8 Creatinine 0.67 L Estim Creat Clear Calc 103 Estimated GFR > 60 Glucose 258 H POC Capillary Glucose 265 H 260 H Hemoglobin A1c Calcium 9.0 Phosphorus Magnesium Beta-Hydroxybutyrate/Acetoacetate Urine Color Urine Appearance Urine pH Ur Specific [place] Urine Protein Urine Glucose (UA) Urine Ketones Ur Blood (Man) Urine Nitrate Urine Bilirubin Urine Urobilinogen Add Ur Microanalysis Leukocyte Esterase Rfl Urine RBC Urine WBC Ur Squamous Epith Cells Urine Bacteria Urine Casts Urine Test Nasal MRSA (PCR) 09/01/25 04:24 WBC RBC Hgb Hct MCV MCH MCHC RDW Plt Count MPV Immature Gran % (Auto) Neut % (Auto) Lymph % (Auto) [place] % (Auto) Eos % (Auto) Baso % (Auto) Lymph # (Auto) [place] # (Auto) Eos # (Auto) Baso # (Auto) Abs Immat Gran (auto) Absolute Neuts (auto) Absolute Nucleated RBC Nucleated RBC % Puncture Site ABG pH ABG pCO2 ABG pO2 ABG PO2/FiO2 Ratio ABG HCO3 ABG O2 Saturation ABG O2 Content ABG Base Excess A-a Gradient Oxyhemoglobin Carboxyhemoglobin Methemoglobin Reduced Hemoglobin Total Hemoglobin O2 Delivery Device O2 Liters/Min FiO2 Sodium Potassium Chloride Carbon Dioxide Anion Gap BUN Creatinine Estim Creat Clear Calc Estimated GFR Glucose POC Capillary Glucose 207 H Hemoglobin A1c Calcium Phosphorus Magnesium Beta-Hydroxybutyrate/Acetoacetate Urine Color Urine Appearance Urine pH Ur Specific [place] Urine Protein Urine Glucose (UA) Urine Ketones Ur Blood (Man) Urine Nitrate Urine Bilirubin Urine Urobilinogen Add Ur Microanalysis Leukocyte Esterase Rfl Urine RBC Urine WBC Ur Squamous Epith Cells Urine Bacteria Urine Casts Urine Test Nasal MRSA (PCR) Impressions Abdomen/Pelvis CT 08/31/25 15:15 IMPRESSION: 1. No acute findings are noted in the upper abdomen and pelvis on the CT examination. Consider upper endoscopy to evaluate hematemesis. Critical Care Time Critical Care Time Initial evaluation, discuss w/ involved parties, attempting to gather old records: 10 minutes Documenting medical record: 15 minutes Review of results (EKG's, labs, imaging): 10 minutes Discussing case with multiple memebers of the care team and consultants: 5 minutes Total Critical Care Time: 40 Critical Care Time Overview: This case had a high probability of a clinically significant, sudden, or life threatening deterioration of this patient's condition which required my full and direct attention, intervention and personal management. Quality VTE Prophylaxis VTE prophylaxis: pharmacologic ordered (Lovenox 40 mg subQ daily) Assessment and Plan Assessment and plan (1) DKA, type 1: Qualifiers: Diabetes mellitus complication detail: without coma Qualified Code(s): E10.10 - Type 1 diabetes mellitus with ketoacidosis without coma Code(s): E10.10 - Type 1 diabetes mellitus with ketoacidosis without coma Status: Acute (2) Intractable cyclical vomiting with nausea: Code(s): R11.15 - Cyclical vomiting syndrome unrelated to migraine Status: Acute (3) Cannabinoid hyperemesis syndrome: Code(s): R11.2 - Nausea with vomiting, unspecified; F12.90 - Cannabis use, unspecified, uncomplicated Status: Acute (4) Diabetic gastroparesis: Code(s): E11.43 - Type 2 diabetes mellitus with diabetic autonomic (poly)neuropathy; K31.84 - Gastroparesis Status: Acute (5) Hypophosphatemia: Code(s): E83.39 - Other disorders of phosphorus metabolism Status: Acute Plan Patient presents with intractable nausea vomiting likely due to a combination of diabetic gastroparesis and/or can avoid hyper emesis which is resulted in acute dehydration and is precipitated patient going into DKA a. The patient has longstanding type 1 diabetes mellitus that is poorly controlled historically. Patient's home insulin therapy is currently on hold. Patient has been admitted to the ICU on an insulin drip. Will monitor serial electrolyte panels per protocol. Will just IV fluids and had dextrose based on protocol. Will provide additional antiemetic therapy with Phenergan IM 25 mg Q 4 as the patient's nausea is still uncontrolled with Zofran. Patient does not have evidence of acute infectious process or other aggravating factors to result in DKA. She may have some component of starvation ketosis as well. Patient will remain NPO except for ice chips. Once anion gap is closed in serum bicarb is normalized will transition back to long-acting insulin with p.r.n. sliding scale. Hypoglycemia protocol has been ordered. Patient has been admitted to the ICU in the supervisor ski production has been consulted. Care will be transition to the supervisor ski production in a.m.. Patient has been admitted as observation status. Hospitalist [facility] Advance Care Plan I have confirmed that the patient's Advanced Care Plan is present, code status is documented, or surrogate decision maker is listed in patient medical record.: Yes Medication Reconciliation I have utilized all available resources to obtain, update and review the patients current medications (includes all prescriptions, OTC, herbals, cannabis, and nutritional supplements).: Yes
[2025-09-01] MEDS: KCL 20 MEQ/D5/0.45% SOD CHL 1,000 ML 150 ML IV CONT (04:54)
[2025-09-01 06:51] LABS: Hematocrit 37.4 % (37.0-47.0); Hemoglobin 12.3 g/dL (12.0-15.0); Immature Granulocyte Percent A 0.4 % (0-0.5); Lymphocytes Absolute Auto 1.37 K/mm3 (0.9-3.2); Mean Corpuscular HGB Conc 32.9 g/dl (32-36); Mean Corpuscular Hemoglobin 29.6 pg (26-34); Mean Corpuscular Volume 90.1 fl (80-100); Nucleated Red Blood Cells Absolute Auto 0.000 K/mm3 (0.0-0.012); Nucleated Red Blood Cells Perc 0.0 % (0.0-0.2); Platelet Count Result 275 k/mm3 (150-375); Red Blood Count 4.15 M/mm3 (4.2-5.4); White Blood Count 15.7 K/mm3 (4.5-10.0)
[2025-09-01 07:19] LABS: Anion Gap 12 mmol/L (4-12); Blood Urea Nitrogen 7 mg/dL (7-17); Calcium 8.7 mg/dL (8.4-10.2); Carbon Dioxide 17 mmol/L (22-30); Chloride 106 mmol/L (98-107); Estimated CRCL calculation 112 ml/min; Estimated Glomerular Filt Rate > 60; Glucose 228 mg/dL (65-110); Potassium 4.3 mmol/L (3.4-5.0); Sodium 135 mmol/L (137-145)
[2025-09-01] MEDS: FAMOTIDINE 20 MG/2 ML VIAL IV PUSH (09:00)
[2025-09-01] MEDS: INSULIN GLARGINE (*BKC) 100 UNITS/ML 15 UNITS SUB-Q (09:01)
[2025-09-01] MEDS: ENOXAPARIN 40 MG/0.4 ML SYRINGE SUB-Q (09:02)
--- NOTE | 2025-09-01 09:18 | WPDCNINT2 ---
Assessment and Plan Assessment and plan (1) Marijuana smoker: Code(s): F12.90 - Cannabis use, unspecified, uncomplicated Status: Acute Assessment and Plan: Patient was counseled and encouraged to cut marijuana smoking (2) Cannabinoid hyperemesis syndrome: Code(s): R11.2 - Nausea with vomiting, unspecified; F12.90 - Cannabis use, unspecified, uncomplicated Status: Acute Assessment and Plan: She feels better and at this time denies any nausea vomiting (3) DKA, type 1: Qualifiers: Diabetes mellitus complication detail: without coma Qualified Code(s): E10.10 - Type 1 diabetes mellitus with ketoacidosis without coma Code(s): E10.10 - Type 1 diabetes mellitus with ketoacidosis without coma Status: Acute Assessment and Plan: Pt was given IVF bolus and started on infusion Insulin infusion was started and Q1H glucose monitoring is being done Serial labs were ordered Her anion gap is closed. She feels better. I will transition her to subcutaneous insulin. Consult development educator and dietitian Start diabetic diet (4) Gastroparesis: Code(s): K31.84 - Gastroparesis Status: Acute Assessment and Plan: Patient does not take any Reglan at home. Currently denies any nausea vomiting. Will see how she does with the diet Start p.o. Reglan once patient is off of promethazine (5) Hematemesis: Code(s): K92.0 - Hematemesis Status: Acute Assessment and Plan: Patient reports episodes off vomitus sedative with Dr. siddhartha krueger which started later in the course. Possible Melody-Karimi tear. Abdomen pelvis CT was negative. Consult GI IV PPI q.12 hours Monitor him Plan DVT prophylaxis -SCD Stress ulcer prophylaxis -PPI Nutrition -consistent carbohydrate diet Code Status - Full Code Transfer out of ICU today Patient is adamant that she would like to be discharged. I explained to the patient that she is not ready for discharge at this time. She is currently on insulin infusion. I will transition her to subcutaneous insulin. Start p.o. diet and see if she tolerates. I will also request GI to evaluate her for reported are blood in her vomitus. Inspector Fibrous Wallboard Consult Note Consult date: 09/01/25 Reason for consult: DKA HPI: Ekta Rivero is a 24 year old female with a past medical history of poorly controlled insulin-dependent diabetes, diabetic gastroparesis and cannabis hyperemesis syndrome who has history of frequent admissions to [facility] presented again to ER yesterday with chief complaint of nausea vomiting and abdominal discomfort. Reports that on Monday she started feeling sick and started having nausea vomiting. She was unable to keep anything down. She had crampy abdominal pain which she rates at 7/10. Patient denies fever, chest pain, shortness of breath, cough, diarrhea, headache or constipation. She states that initially vomitus was clear with fluid but later she saw some dark blood in it. All other systems were reviewed and were negative Workup in the ER showed patient to be hypoglycemic along with positive beta hydroxybutyrate and anion gap. Patient was initially given fluids and IV insulin. But her symptoms and lab work did not improve. Patient was started on IV insulin infusion and IV fluids and admitted to ICU. This morning she states she feels better but still tired. She states that nausea consent goes. She is requesting to be discharged as she would like to go home. She is on insulin infusion along with IV fluids. She denies any abdominal pain at this time. All other systems were reviewed and were negative. Review of Systems Review of Systems: All systems reviewed & are unremarkable except as noted in HPI and below (HPI) PMFSH Past Medical History Medical History Diabetic gastroparesis Type 1 diabetes mellitus Cyclic vomiting syndrome Depression Surgical History Surgical History No pertinent past surgical history Family History Family History Father Family history of diabetes mellitus in first degree relative Pulmonary embolism Mother Family history of diabetes mellitus in first degree relative Grandparent Crohn disease Celiac disease Social History Social History Social History: Surrogate medical decision maker: Iliana Villeda, mother. Code status: Full code. Years smoked: 4 Smoking status: Current every day smoker Tobacco type: e-cigarettes/vaping Second hand tobacco smoke exposure: No Additional smoking assessment comments: vapes Alcohol intake: never Drinks per week: 1 Substance use: current Substance use type: marijuana Other substance usage details: smokes marijuana Lack of Transportation: No Lack of Food: Sometimes True Current Housing: I Have Housing Concerned About Future Housing: No Difficulty Paying Gas/Electric Bills: No Difficulty Paying for Meds: YES Currently Unemployed: No Education: Decline to Answer Difficulty w/ Childcare or Family Care: No Living arrangements: with family Occupation/Education: occupation 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 Spiritual care concerns: No Meds Home Medications and Allergies Home Medications ?Medication ?Instructions ?Recorded ?Confirmed ?Type insulin glargine 100 unit/mL (3 25 unit subcut QAM 01/27/23 09/01/25 History mL) subcutaneous pen (Basaglar KwikPen U-100 Insulin) insulin lispro 100 unit/mL 1 sliding scale dose subcut 09/01/25 09/01/25 History subcutaneous solution (Humalog USEASDIRECTD U-100 Insulin) Allergies Allergy/AdvReac Type Severity Reaction Status Date / Time Penicillins Allergy Itching Verified 09/01/25 00:48 Vital Signs Vital Signs - 24 hr 08/31/25 09:45 08/31/25 10:11 08/31/25 10:16 Temperature Pulse Rate 60 71 72 Respiratory Rate 12 22 H 17 Blood Pressure 118/61 134/79 Pulse Oximetry 100 100 98 Oxygen Delivery 08/31/25 11:16 08/31/25 12:16 08/31/25 12:31 Temperature Pulse Rate 97 70 90 Respiratory Rate 22 H 13 19 Blood Pressure 143/80 H 133/75 148/110 H Pulse Oximetry 100 100 100 Oxygen Delivery 08/31/25 14:46 08/31/25 14:47 08/31/25 15:11 Temperature Pulse Rate 88 90 Respiratory Rate 24 H 25 H Blood Pressure 125/74 Pulse Oximetry 100 100 Oxygen Delivery 08/31/25 15:15 08/31/25 15:30 08/31/25 15:45 Temperature Pulse Rate 79 Respiratory Rate 17 Blood Pressure Pulse Oximetry 100 100 98 Oxygen Delivery 08/31/25 16:13 08/31/25 16:15 08/31/25 16:16 Temperature Pulse Rate 76 76 75 Respiratory Rate 11 L 13 15 Blood Pressure 115/62 116/68 Pulse Oximetry 100 99 Oxygen Delivery 08/31/25 16:17 08/31/25 16:30 08/31/25 16:31 Temperature Pulse Rate 76 78 75 Respiratory Rate 17 18 22 H Blood Pressure 116/56 L Pulse Oximetry 100 Oxygen Delivery 08/31/25 16:45 08/31/25 16:46 08/31/25 17:00 Temperature Pulse Rate 77 75 73 Respiratory Rate 13 18 17 Blood Pressure 114/65 Pulse Oximetry 100 Oxygen Delivery 08/31/25 17:01 08/31/25 17:15 08/31/25 17:30 Temperature Pulse Rate 73 78 80 Respiratory Rate 15 20 16 Blood Pressure 119/61 Pulse Oximetry 100 Oxygen Delivery 08/31/25 17:31 08/31/25 17:32 08/31/25 17:46 Temperature Pulse Rate 74 72 Respiratory Rate 18 17 Blood Pressure 129/76 121/67 Pulse Oximetry 100 100 Oxygen Delivery 08/31/25 18:00 08/31/25 18:01 08/31/25 18:15 Temperature Pulse Rate 90 83 83 Respiratory Rate 17 Blood Pressure 114/70 Pulse Oximetry 100 Oxygen Delivery 08/31/25 18:16 08/31/25 18:31 08/31/25 18:50 Temperature 36.4 C Pulse Rate 79 100 96 Respiratory Rate 12 13 21 H Blood Pressure 118/68 152/83 H 132/88 Pulse Oximetry 100 100 100 Oxygen Delivery 08/31/25 18:51 08/31/25 19:00 08/31/25 19:01 Temperature Pulse Rate 100 89 93 Respiratory Rate 17 16 27 H Blood Pressure 132/88 146/89 H Pulse Oximetry 100 100 100 Oxygen Delivery 08/31/25 19:15 08/31/25 19:16 08/31/25 19:30 Temperature Pulse Rate 96 85 98 Respiratory Rate 29 H 24 H 19 Blood Pressure 142/86 H Pulse Oximetry 100 100 100 Oxygen Delivery 08/31/25 19:31 08/31/25 19:53 08/31/25 20:00 Temperature Pulse Rate 115 H 74 94 Respiratory Rate 25 H 12 29 H Blood Pressure 127/70 Pulse Oximetry 100 100 Oxygen Delivery 08/31/25 20:05 08/31/25 20:18 08/31/25 20:33 Temperature Pulse Rate 80 81 88 Respiratory Rate 14 7 L 14 Blood Pressure 141/79 H Pulse Oximetry 98 Oxygen Delivery 08/31/25 20:45 08/31/25 20:46 08/31/25 21:27 Temperature Pulse Rate 89 87 86 Respiratory Rate 19 12 20 Blood Pressure 127/72 Pulse Oximetry Oxygen Delivery 08/31/25 21:31 08/31/25 21:33 08/31/25 21:45 Temperature Pulse Rate 92 83 80 Respiratory Rate 22 H 17 17 Blood Pressure 103/58 L Pulse Oximetry Oxygen Delivery 08/31/25 21:52 08/31/25 22:00 08/31/25 22:01 Temperature Pulse Rate 82 77 79 Respiratory Rate 10 L 20 17 Blood Pressure 105/57 L 105/55 L Pulse Oximetry Oxygen Delivery 08/31/25 22:15 08/31/25 22:33 08/31/25 22:47 Temperature Pulse Rate 77 76 78 Respiratory Rate 16 14 22 H Blood Pressure Pulse Oximetry Oxygen Delivery 08/31/25 23:03 08/31/25 23:42 08/31/25 23:45 Temperature Pulse Rate 76 77 74 Respiratory Rate 16 18 21 H Blood Pressure Pulse Oximetry Oxygen Delivery 08/31/25 23:46 09/01/25 01:00 09/01/25 01:28 Temperature 37.1 C Pulse Rate 75 80 Respiratory Rate 13 16 Blood Pressure 95/50 L 152/107 H Pulse Oximetry 94 Oxygen Delivery Room Air 09/01/25 02:00 09/01/25 02:00 09/01/25 03:00 Temperature 36.9 C Pulse Rate 82 80 78 Respiratory Rate 14 12 Blood Pressure 142/76 H 104/50 L Pulse Oximetry 95 98 Oxygen Delivery 09/01/25 04:00 09/01/25 04:00 09/01/25 04:00 Temperature 36.9 C Pulse Rate 77 77 Respiratory Rate 16 Blood Pressure 101/52 L Pulse Oximetry 98 Oxygen Delivery Room Air 09/01/25 05:00 09/01/25 06:00 09/01/25 06:00 Temperature Pulse Rate 110 H 87 90 Respiratory Rate 16 12 Blood Pressure 153/95 H 127/77 Pulse Oximetry 100 100 Oxygen Delivery 09/01/25 07:00 09/01/25 08:00 09/01/25 09:00 Temperature 37.5 C Pulse Rate 82 82 78 Respiratory Rate 17 22 H 20 Blood Pressure 163/94 H 144/95 H 119/78 Pulse Oximetry 98 100 99 Oxygen Delivery Exam Narrative: General: Pt is alert awake and in NAD Lungs/Chest: Trachea central Clear BS B/L, No crackles or wheezing. Cardiac: RRR. Normal S1 S2. No murmurs Circulation: Pedal pulses are intact and symmetrical. Abdomen: Normal bowel sounds.. Soft. NT. ND. Extremities: No clubbing, cyanosis or edema. Warm : Quintero in place Neurologic: Follows commands. Moves all 4 extremities PERRL AO x 3 Skin: No Rash Results Labs 09/01/25 06:47 09/01/25 06:47 Labs: Impressions Abdomen/Pelvis CT 08/31/25 15:15 IMPRESSION: 1. No acute findings are noted in the upper abdomen and pelvis on the CT examination. Consider upper endoscopy to evaluate hematemesis. Short CBC 08/31/25 09/01/25 Range/Units 09:33 06:47 WBC 12.2 H 15.7 H (4.5-10.0) K/mm3 Hgb 13.6 12.3 (12.0-15.0) g/dL Hct 41.8 37.4 (37.0-47.0) % Plt Count 294 275 (150-375) k/mm3 BMP 08/31/25 08/31/25 08/31/25 09:33 11:37 16:11 Sodium 137 136 L 134 L Potassium 3.9 4.0 4.1 Chloride 107 107 105 Carbon Dioxide 14 L 14 L 12 L BUN 13 D 11 9 Creatinine 0.70 0.61 L 0.61 L Glucose 175 H 140 H 288 H Calcium 9.5 8.7 8.2 L 08/31/25 09/01/25 09/01/25 21:49 02:50 06:47 Sodium 133 L 134 L 135 L Potassium 3.8 4.5 4.3 Chloride 104 105 106 Carbon Dioxide 15 L 13 L 17 L BUN 10 8 7 Creatinine 0.65 L 0.67 L 0.61 L Glucose 182 H 258 H 228 H Calcium 8.6 9.0 8.7 Urine 08/31/25 Range/Units 09:58 Urine Color Yellow (Yellow) Urine Appearance Cloudy H (Clear) Urine pH 5.5 (5.0-9.0) Ur Specific Sandy 1.024 (1.001-1.035) Urine Protein Negative (Negative) mg/dL Urine Glucose (UA) 3+ H (Negative) mg/dL
--- NOTE | 2025-09-01 09:27 | WPDGICN ---
Assessment and Plan Assessment and plan (1) Coffee ground emesis: Code(s): K92.0 - Hematemesis <Celena Parada GORDO Jhaveri - Last Filed: 09/01/25 16:21> Status: Acute <Celena Parada GORDO Jhaveri - Last Filed: 09/01/25 16:21> Assessment and Plan: admitted with DKA, initially had dark emesis but resolved, still some nausea she prefers not to have another EGD for now, h/h stable continue medical management with ppi, also reglan/antiemetics, diet as tolerated DM management <Richard Cortes MD - Last Filed: 09/01/25 17:32> (2) Intractable nausea and vomiting: Code(s): R11.2 - Nausea with vomiting, unspecified <Celena BargerGertrude Jhaveri APRN - Last Filed: 09/01/25 16:21> Status: Acute <Celena BargerGertrude Jhaveri APRN - Last Filed: 09/01/25 16:21> Assessment and Plan: better she is not compliant with meds also will need to stop using marijuana <Richard Cortes MD - Last Filed: 09/01/25 17:32> (3) Cannabinoid hyperemesis syndrome: Code(s): R11.2 - Nausea with vomiting, unspecified; F12.90 - Cannabis use, unspecified, uncomplicated <Celena BargerGertrude Jhaveri APRN - Last Filed: 09/01/25 16:21> Status: Acute <Celena BargerGertrude Jhaveri APRN - Last Filed: 09/01/25 16:21> (4) DKA, type 1: Qualifiers: Diabetes mellitus complication detail: without coma Qualified Code(s): E10.10 - Type 1 diabetes mellitus with ketoacidosis without coma <Celena Karma Jhaveri APRN - Last Filed: 09/01/25 16:21> Code(s): E10.10 - Type 1 diabetes mellitus with ketoacidosis without coma <Celenamadhav Jhaveri APRN - Last Filed: 09/01/25 16:21> Status: Acute <Celena BargerGertrude Jhaveri APRN - Last Filed: 09/01/25 16:21> (5) Diabetic gastroparesis: Code(s): E11.43 - Type 2 diabetes mellitus with diabetic autonomic (poly)neuropathy; K31.84 - Gastroparesis <Celena Jhaveri APRN - Last Filed: 09/01/25 16:21> Status: Acute <Celena Jhaveri APRN - Last Filed: 09/01/25 16:21> GI Consult Note Consult date/time: 09/01/25 09:27 <Celena Jhaveri APRN - Last Filed: 09/01/25 16:21> Reason for consult: Suspected Melody-Karimi tear <Celena Jhaveri APRN - Last Filed: 09/01/25 16:21> HPI: Ekta Rivero is a 24 year old female with PMSH of type 1 diabetes, depression, gastroparesis, cyclical vomiting syndrome vs cannabinoid induced hyperemesis. She presented to the emergency room yesterday with complaints of nausea vomiting and abdominal pain after not taking her insulin that day. Patient admitted for Dr. Sarkar. GI has been consulted for suspected Melody-Karimi tear. ENDOSCOPY HISTORY: EGD: 03/13/[address] Cho for nausea vomiting and diabetes Findings: The esophagus was examined mucosa was normal with a normal Z-line no ulcers or masses. No esophagitis, no Blas's, no hernia The Z-line was located 39 cm from the incisors Stomach at the body, cardia and fundus was examined was normal no ulcers or masses. No obvious gastritis. Multiple biopsies taken A moderate amount of retained food seen in the fundus and the body of the stomach The bulb and 2nd portion of duodenum was normal with no ulcers or masses. Multiple biopsies taken Bx results: Small intestine, small bowel, biopsy (A): - No histologic abnormality - Intact villous and crypt architecture without intraepithelial lymphocytosis Stomach, biopsy (B): - Mild chronic gastritis - No H. pylori COLONOSCOPY: [ ] Findings: [ ] Bx results: [ ] LABS AND STOOL STUDIES: Labs 09/01/2025: WBC 16, Hgb 12, Hct 37, MCV 90, platelets 275 Sodium 135, potassium 4.3, BUN 7, creatinine 0.61, GFR >60, calcium 8.7 Labs 08/31/2025: WBC 12, Hgb 14, Hct 42, MCV 90, platelets 394 Sodium 136, potassium 4.0, BUN 11, creatinine 0.61, GFR >60, calcium 8.7, A1c 9.9, magnesium 1.8 IMAGING: CT abd/pelvis w/contrast 08/31/2025: FINDINGS: Lung bases do not show acute findings. No focal lesions of liver and spleen. Gallbladder is no acute findings. Stomach, pancreas and kidneys do not show acute findings. No evidence of small bowel obstruction or ileus. No inflammatory changes in the pelvis. No pelvic mass or fluid collections. Normal size appendix. No acute findings of lumbar spine and pelvic bones. IMPRESSION: 1. No acute findings are noted in the upper abdomen and pelvis on the CT examination. Consider upper endoscopy to evaluate hematemesis. CT abd/pelvis w/contrast 03/07/2025: Visualized lower thorax: The bilateral lung bases are clear. The heart is of normal size, without pericardial effusion. Small hiatal hernia is present. Liver: The liver demonstrates homogeneous enhancement and is enlarged measuring 21 cm in longitudinal dimension. Gallbladder and biliary system: The gallbladder is only minimally distended, and otherwise unremarkable. Pancreas: The pancreas is atrophic, but otherwise enhances homogeneously without ductal dilatation. Spleen: The spleen enhances homogeneously and is not enlarged measuring 8 cm in longitudinal dimension. Kidneys: The bilateral kidneys enhance symmetrically without hydronephrosis or renal calculi. Adrenal glands: Unremarkable. Gastrointestinal tract: Significant distention of the stomach, with fluid and a small amount of air. No mural thickening or significant surrounding inflammatory change. Trace mural thickening within the rectum. Appendix: The air-filled appendix is of normal caliber (axial series, images 123 through 137) Vasculature: Unremarkable. Lymph nodes: No pathologically enlarged or morphologically suspicious lymph nodes within the retroperitoneum or at the root of the mesentery. Pelvic structures: The bladder is distended, with mural thickening and surrounding inflammatory change for which cystitis is suspected. The uterus is anteverted and anteflexed. Free fluid is identified within the lower abdomen, extending into the pelvis. Free fluid is also identified within the rectouterine pouch. Body wall and musculoskeletal: No significant degenerative disease within the lower thoracic or lumbosacral spine. IMPRESSION: Gastric distention without mural thickening or surrounding inflammatory change, consistent with patient's history. Mural thickening within the bladder with surrounding inflammatory change for which cystitis affected. Free fluid within the lower abdomen extending into the pelvis more than normally expected for physiologic free fluid, possibly reactive to the bladder infection. Gastric emptying study 03/29/2023: FINDINGS: Gastric retention of the radiotracer-labeled meal was 67%, 58%, and 27% at the 1-hour, 2-hour, and 4-hour time points, respectively. With this technique, apparent rapid gastric emptying is suggested by <30% gastric retention at 1 hour. Delayed gastric emptying is defined by gastric retention of >90% at 1 hour, >60% retention at 2 hours, or >10% retention at 4 hours. IMPRESSION: 1. Delayed gastric emptying. <Celena Jhaveri, [employer] - Last Filed: 09/01/25 16:21> Ekta Rivero is a 24 year old female with PMSH of type 1 diabetes, depression, gastroparesis, cyclical vomiting syndrome vs cannabinoid induced hyperemesis. She presented to the emergency room yesterday with complaints of nausea vomiting and abdominal pain after not taking her insulin that day. Patient admitted for Dr. Sarkar. GI has been consulted for coffee ground emesis. She also was treated with DKA in icu successfully and moved to floor. h/h stable, no more coffee ground emesis. Had EGD 2022 normal other than retained food c/w gastroparesis. She is non compliant and has not been using insulin all the time, also h/o cyclic vomiting due to marijuana use. LABS AND STOOL STUDIES: Labs 09/01/2025: WBC 16, Hgb 12, Hct 37, MCV 90, platelets 275 Sodium 135, potassium 4.3, BUN 7, creatinine 0.61, GFR >60, calcium 8.7 Labs 08/31/2025: WBC 12, Hgb 14, Hct 42, MCV 90, platelets 394 Sodium 136, potassium 4.0, BUN 11, creatinine 0.61, GFR >60, calcium 8.7, A1c 9.9, magnesium 1.8 IMAGING: CT abd/pelvis w/contrast 08/31/2025: FINDINGS: Lung bases do not show acute findings. No focal lesions of liver and spleen. Gallbladder is no acute findings. Stomach, pancreas and kidneys do not show acute findings. No evidence of small bowel obstruction or ileus. No inflammatory changes in the pelvis. No pelvic mass or fluid collections. Normal size appendix. No acute findings of lumbar spine and pelvic bones. IMPRESSION: 1. No acute findings are noted in the upper abdomen and pelvis on the CT examination. Consider upper endoscopy to evaluate hematemesis. CT abd/pelvis w/contrast 03/07/2025: Visualized lower thorax: The bilateral lung bases are clear. The heart is of normal size, without pericardial effusion. Small hiatal hernia is present. Liver: The liver demonstrates homogeneous enhancement and is enlarged measuring 21 cm in longitudinal dimension. Gallbladder and biliary system: The gallbladder is only minimally distended, and otherwise unremarkable. Pancreas: The pancreas is atrophic, but otherwise enhances homogeneously without ductal dilatation. Spleen: The spleen enhances homogeneously and is not enlarged measuring 8 cm in longitudinal dimension. Kidneys: The bilateral kidneys enhance symmetrically without hydronephrosis or renal calculi. Adrenal glands: Unremarkable. Gastrointestinal tract: Significant distention of the stomach, with fluid and a small amount of air. No mural thickening or significant surrounding inflammatory change. Trace mural thickening within the rectum. Appendix: The air-filled appendix is of normal caliber (axial series, images 123 through 137) Vasculature: Unremarkable. Lymph nodes: No pathologically enlarged or morphologically suspicious lymph nodes within the retroperitoneum or at the root of the mesentery. Pelvic structures: The bladder is distended, with mural thickening and surrounding inflammatory change for which cystitis is suspected. The uterus is anteverted and anteflexed. Free fluid is identified within the lower abdomen, extending into the pelvis. Free fluid is also identified within the rectouterine pouch. Body wall and musculoskeletal: No significant degenerative disease within the lower thoracic or lumbosacral spine. IMPRESSION: Gastric distention without mural thickening or surrounding inflammatory change, consistent with patient's history. Mural thickening within the bladder with surrounding inflammatory change for which cystitis affected. Free fluid within the lower abdomen extending into the pelvis more than normally expected for physiologic free fluid, possibly reactive to the bladder infection. Gastric emptying study 03/29/2023: FINDINGS: Gastric retention of the radiotracer-labeled meal was 67%, 58%, and 27% at the 1-hour, 2-hour, and 4-hour time points, respectively. With this technique, apparent rapid gastric emptying is suggested by <30% gastric retention at 1 hour. Delayed gastric emptying is defined by gastric retention of >90% at 1 hour, >60% retention at 2 hours, or >10% retention at 4 hours. IMPRESSION: 1. Delayed gastric emptying. <Richard Cortes MD - Last Filed: 09/01/25 17:32> Review of Systems Constitutional: Constitutional: Denies chills <Richard Cortes MD - Last Filed: 09/01/25 17:32> Eyes: Eyes: Denies blurry vision <Richard Cortes MD - Last Filed: 09/01/25 17:32> ENT: Reports Normal hearing present <Richard Cortes MD - Last Filed: 09/01/25 17:32> Cardiovascular: Cardiovascular: Denies chest pain <Richard Cortes MD - Last Filed: 09/01/25 17:32> Respiratory: Respiratory: Denies cough <Richard Cortes MD - Last Filed: 09/01/25 17:32> Gastrointestinal: Gastrointestinal: Reports nausea and Reports vomiting <Richard Cortes MD - Last Filed: 09/01/25 17:32> Genitourinary: Genitourinary: Denies dysuria <Richard Cortes MD - Last Filed: 09/01/25 17:32> Musculoskeletal: Musculoskeletal: Denies neck pain <Rihcard Cortes MD - Last Filed: 09/01/25 17:32> Integumentary/Breasts: Skin/Breast: Denies rash <Richard Cortes MD - Last Filed: 09/01/25 17:32> Neurologic: Denies Abnormal speech present <Richard Cortes MD - Last Filed: 09/01/25 17:32> Psychiatric: Psychiatric: Reports anxiety <Richard Cortes MD - Last Filed: 09/01/25 17:32> [facility] Past Medical History Medical History: Medical History (Updated 09/01/25 @ 17:31 by Richard Cortes MD) Coffee ground emesis Diabetic gastroparesis Type 1 diabetes mellitus Cyclic vomiting syndrome Depression <Celena Jhaveri APRN - Last Filed: 09/01/25 16:21> Surgical History Surgical History: Surgical History No pertinent past surgical history <Celena Jhaveri APRN - Last Filed: 09/01/25 16:21> Family History Family History: Family History Father Family history of diabetes mellitus in first degree relative Pulmonary embolism Mother Family history of diabetes mellitus in first degree relative Grandparent Crohn disease Celiac disease <Celena Jhaveri APRN - Last Filed: 09/01/25 16:21> Social History Social History: Social History Social History: Surrogate medical decision maker: Iliana Villeda, mother. Code status: Full code. Years smoked: 4 Smoking status: Current every day smoker Tobacco type: e-cigarettes/vaping Second hand tobacco smoke exposure: No Additional smoking assessment comments: vapes Alcohol intake: never Drinks per week: 1 Substance use: current Substance use type: marijuana Other substance usage details: smokes marijuana Lack of Transportation: No Lack of Food: Sometimes True Current Housing: I Have Housing Concerned About Future Housing: No Difficulty Paying Gas/Electric Bills: No Difficulty Paying for Meds: YES Currently Unemployed: No Education: Decline to Answer Difficulty w/ Childcare or Family Care: No Living arrangements: with family Occupation/Education: occupation 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 Spiritual care concerns: No <Celena Jhaveri APRN - Last Filed: 09/01/25 16:21> Meds Home Medications and Allergies Home medications: Home Medications ?Medication ?Instructions ?Recorded ?Confirmed ?Type insulin glargine 100 unit/mL (3 25 unit subcut QAM 01/27/23 09/01/25 History mL) subcutaneous pen (Basaglar KwikPen U-100 Insulin) insulin lispro 100 unit/mL 1 sliding scale dose subcut 09/01/25 09/01/25 History subcutaneous solution (Humalog USEASDIRECTD U-100 Insulin) <Celena Jhaveri APRN - Last Filed: 09/01/25 16:21> Allergies/Adverse reactions: Allergies Allergy/AdvReac Type Severity Reaction Status Date / Time Penicillins Allergy Itching Verified 09/01/25 00:48 <Celena Jhaveri APRN - Last Filed: 09/01/25 16:21> Vital Signs Vital Signs - 24 hr 08/31/25 09:45 08/31/25 10:11 08/31/25 10:16 Temperature Pulse Rate 60 71 72 Respiratory Rate 12 22 H 17 Blood Pressure 118/61 134/79 Pulse Oximetry 100 100 98 Oxygen Delivery 08/31/25 11:16 08/31/25 12:16 08/31/25 12:31 Temperature Pulse Rate 97 70 90 Respiratory Rate 22 H 13 19 Blood Pressure 143/80 H 133/75 148/110 H Pulse Oximetry 100 100 100 Oxygen Delivery 08/31/25 14:46 08/31/25 14:47 08/31/25 15:11 Temperature Pulse Rate 88 90 Respiratory Rate 24 H 25 H Blood Pressure 125/74 Pulse Oximetry 100 100 Oxygen Delivery 08/31/25 15:15 08/31/25 15:30 08/31/25 15:45 Temperature Pulse Rate 79 Respiratory Rate 17 Blood Pressure Pulse Oximetry 100 100 98 Oxygen Delivery 08/31/25 16:13 08/31/25 16:15 08/31/25 16:16 Temperature Pulse Rate 76 76 75 Respiratory Rate 11 L 13 15 Blood Pressure 115/62 116/68 Pulse Oximetry 100 99 Oxygen Delivery 08/31/25 16:17 08/31/25 16:30 08/31/25 16:31 Temperature Pulse Rate 76 78 75 Respiratory Rate 17 18 22 H Blood Pressure 116/56 L Pulse Oximetry 100 Oxygen Delivery 08/31/25 16:45 08/31/25 16:46 08/31/25 17:00 Temperature Pulse Rate 77 75 73 Respiratory Rate 13 18 17 Blood Pressure 114/65 Pulse Oximetry 100 Oxygen Delivery 08/31/25 17:01 08/31/25 17:15 08/31/25 17:30 Temperature Pulse Rate 73 78 80 Respiratory Rate 15 20 16 Blood Pressure 119/61 Pulse Oximetry 100 Oxygen Delivery 08/31/25 17:31 08/31/25 17:32 08/31/25 17:46 Temperature Pulse Rate 74 72 Respiratory Rate 18 17 Blood Pressure 129/76 121/67 Pulse Oximetry 100 100 Oxygen Delivery 08/31/25 18:00 08/31/25 18:01 08/31/25 18:15 Temperature Pulse Rate 90 83 83 Respiratory Rate 17 Blood Pressure 114/70 Pulse Oximetry 100 Oxygen Delivery 08/31/25 18:16 08/31/25 18:31 08/31/25 18:50 Temperature 97.6 F Pulse Rate 79 100 96 Respiratory Rate 12 13 21 H Blood Pressure 118/68 152/83 H 132/88 Pulse Oximetry 100 100 100 Oxygen Delivery 08/31/25 18:51 08/31/25 19:00 08/31/25 19:01 Temperature Pulse Rate 100 89 93 Respiratory Rate 17 16 27 H Blood Pressure 132/88 146/89 H Pulse Oximetry 100 100 100 Oxygen Delivery 08/31/25 19:15 08/31/25 19:16 08/31/25 19:30 Temperature Pulse Rate 96 85 98 Respiratory Rate 29 H 24 H 19 Blood Pressure 142/86 H Pulse Oximetry 100 100 100 Oxygen Delivery 08/31/25 19:31 08/31/25 19:53 08/31/25 20:00 Temperature Pulse Rate 115 H 74 94 Respiratory Rate 25 H 12 29 H Blood Pressure 127/70 Pulse Oximetry 100 100 Oxygen Delivery 08/31/25 20:05 08/31/25 20:18 08/31/25 20:33 Temperature Pulse Rate 80 81 88 Respiratory Rate 14 7 L 14 Blood Pressure 141/79 H Pulse Oximetry 98 Oxygen Delivery 08/31/25 20:45 08/31/25 20:46 08/31/25 21:27 Temperature Pulse Rate 89 87 86 Respiratory Rate 19 12 20 Blood Pressure 127/72 Pulse Oximetry Oxygen Delivery 08/31/25 21:31 08/31/25 21:33 08/31/25 21:45 Temperature Pulse Rate 92 83 80 Respiratory Rate 22 H 17 17 Blood Pressure 103/58 L Pulse Oximetry Oxygen Delivery 08/31/25 21:52 08/31/25 22:00 08/31/25 22:01 Temperature Pulse Rate 82 77 79 Respiratory Rate 10 L 20 17 Blood Pressure 105/57 L 105/55 L Pulse Oximetry Oxygen Delivery 08/31/25 22:15 08/31/25 22:33 08/31/25 22:47 Temperature Pulse Rate 77 76 78 Respiratory Rate 16 14 22 H Blood Pressure Pulse Oximetry Oxygen Delivery 08/31/25 23:03 08/31/25 23:42 08/31/25 23:45 Temperature Pulse Rate 76 77 74 Respiratory Rate 16 18 21 H Blood Pressure Pulse Oximetry Oxygen Delivery 08/31/25 23:46 09/01/25 01:00 09/01/25 01:28 Temperature 98.8 F Pulse Rate 75 80 Respiratory Rate 13 16 Blood Pressure 95/50 L 152/107 H Pulse Oximetry 94 Oxygen Delivery Room Air 09/01/25 02:00 09/01/25 02:00 09/01/25 03:00 Temperature 98.5 F Pulse Rate 82 80 78 Respiratory Rate 14 12 Blood Pressure 142/76 H 104/50 L Pulse Oximetry 95 98 Oxygen Delivery 09/01/25 04:00 09/01/25 04:00 09/01/25 04:00 Temperature 98.4 F Pulse Rate 77 77 Respiratory Rate 16 Blood Pressure 101/52 L Pulse Oximetry 98 Oxygen Delivery Room Air 09/01/25 05:00 09/01/25 06:00 09/01/25 06:00 Temperature Pulse Rate 110 H 87 90 Respiratory Rate 16 12 Blood Pressure 153/95 H 127/77 Pulse Oximetry 100 100 Oxygen Delivery 09/01/25 07:00 09/01/25 08:00 09/01/25 09:00 Temperature 99.5 F Pulse Rate 82 82 78 Respiratory Rate 17 22 H 20 Blood Pressure 163/94 H 144/95 H 119/78 Pulse Oximetry 98 100 99 Oxygen Delivery <Celena Jhaveri APRN - Last Filed: 09/01/25 16:21> Exam Const: General: comfortable and no acute distress <Richard Cortes MD - Last Filed: 09/01/25 17:32> HENMT: Face/Nose/Sinus: Normal nares present <Richard Cortes MD - Last Filed: 09/01/25 17:32> Eyes: General: appearance normal, both eyes and all related structures <Richard Cortes MD - Last Filed: 09/01/25 17:32> Neck: Neck: supple <Richard Cortes MD - Last Filed: 09/01/25 17:32> Resp: Auscultation: clear to auscultation bilaterally <Richard Cortes MD - Last Filed: 09/01/25 17:32> Cardio: Rate: regular rate <Richard Cortes MD - Last Filed: 09/01/25 17:32> Rhythm: regular rhythm <Richard Cortes MD - Last Filed: 09/01/25 17:32> GI: Inspection: non-distended <Richard Cortes MD - Last Filed: 09/01/25 17:32> GI Palp: Yes Soft to palpation and No Tenderness to palpation present (GI) <Richard Cortes MD - Last Filed: 09/01/25 17:32> Auscultation: normal bowel sounds <Richard Cortes MD - Last Filed: 09/01/25 17:32> Skin: General skin exam: normal color <Richard oCrtes MD - Last Filed: 09/01/25 17:32> Neuro: Speech: normal speech <Richard Cortes MD - Last Filed: 09/01/25 17:32> Motor exam (neuro): 5/5 motor strength present throughout <Richard Cortes MD - Last Filed: 09/01/25 17:32> Extrem: General: normal to inspection <Richard Cortes MD - Last Filed: 09/01/25 17:32> Psych: Affect: Anxious affect present <Richard Cortes MD - Last Filed: 09/01/25 17:32> Results Labs CBC & Chem 7: 09/01/25 14:57 09/01/25 06:47 <Celena Jhaveri APRN - Last Filed: 09/01/25 16:21> Labs: Short CBC 08/31/25 09/01/25 Range/Units 09:33 06:47 WBC 12.2 H 15.7 H (4.5-10.0) K/mm3 Hgb 13.6 12.3 (12.0-15.0) g/dL Hct 41.8 37.4 (37.0-47.0) % Plt Count 294 275 (150-375) k/mm3 BMP 08/31/25 08/31/25 08/31/25 09:33 11:37 16:11 Sodium 137 136 L 134 L Potassium 3.9 4.0 4.1 Chloride 107 107 105 Carbon Dioxide 14 L 14 L 12 L BUN 13 D 11 9 Creatinine 0.70 0.61 L 0.61 L Glucose 175 H 140 H 288 H Calcium 9.5 8.7 8.2 L 08/31/25 09/01/25 09/01/25 21:49 02:50 06:47 Sodium 133 L 134 L 135 L Potassium 3.8 4.5 4.3 Chloride 104 105 106 Carbon Dioxide 15 L 13 L 17 L BUN 10 8 7 Creatinine 0.65 L 0.67 L 0.61 L Glucose 182 H 258 H 228 H Calcium 8.6 9.0 8.7 Urine 08/31/25 Range/Units 09:58 Urine Color Yellow (Yellow) Urine Appearance Cloudy H (Clear) Urine pH 5.5 (5.0-9.0) Ur Specific [place] 1.024 (1.001-1.035) Urine Protein Negative (Negative) mg/dL Urine Glucose (UA) 3+ H (Negative) mg/dL <Celena Jhaveri, [employer] - Last Filed: 09/01/25 16:21>
[2025-09-01] MEDS: INSULIN ASPART (*BKC) 100 UNITS/ML SUB-Q ×2 (11:55→21:16)
[2025-09-01] MEDS: ONDANSETRON INJ 4 MG/2 ML VIAL IV PUSH ×2 (14:12→18:29)
--- NOTE | 2025-09-01 14:56 | PC.NURSE ---
This patient, Ekta Rivero, was transferred to [[facility] ] on 09/01/25 at 6430. Personal belongings sent with patient. Report given to [PEPITO Coleman @ 1672 ]. Appropriate documentation sent with patient.
[2025-09-01 15:01] LABS: Hematocrit 38.4 % (37.0-47.0); Hemoglobin 13.1 g/dL (12.0-15.0); Mean Corpuscular HGB Conc 34.1 g/dl (32-36); Mean Corpuscular Hemoglobin 30.3 pg (26-34); Mean Corpuscular Volume 88.7 fl (80-100); Platelet Count Result 311 k/mm3 (150-375); Red Blood Count 4.33 M/mm3 (4.2-5.4); White Blood Count 14.6 K/mm3 (4.5-10.0)
[2025-09-01] MEDS: PANTOPRAZOLE SODIUM IV 40 MG VIAL IV PUSH (21:15)
[2025-09-02 05:09] LABS: Hematocrit 42.1 % (37.0-47.0); Hemoglobin 13.8 g/dL (12.0-15.0); Mean Corpuscular HGB Conc 32.8 g/dl (32-36); Mean Corpuscular Hemoglobin 29.8 pg (26-34); Mean Corpuscular Volume 90.9 fl (80-100); Platelet Count Result 234 k/mm3 (150-375); Red Blood Count 4.63 M/mm3 (4.2-5.4); White Blood Count 19.1 K/mm3 (4.5-10.0)
[2025-09-02 05:35] LABS: Alanine Aminotransferase 25 U/L (6-35); Albumin Level 4.4 g/dL (3.5-5.1); Alkaline Phosphatase 82 U/L (38-126); Anion Gap 21 mmol/L (4-12); Aspartate Amino Transferase 73 U/L (14-36); Bilirubin,Total 1.4 mg/dL (0.2-1.3); Blood Urea Nitrogen 9 mg/dL (7-17); Calcium 9.1 mg/dL (8.4-10.2); Carbon Dioxide 9 mmol/L (22-30); Chloride 102 mmol/L (98-107); Estimated CRCL calculation 92 ml/min; Estimated Glomerular Filt Rate > 60; Glucose 361 mg/dL (65-110); Magnesium 2.2 mg/dL (1.6-2.3); Potassium 4.8 mmol/L (3.4-5.0); Sodium 132 mmol/L (137-145); Total Protein 7.5 g/dL (6.3-8.2)
[2025-09-02] MEDS: INSULIN GLARGINE (*BKC) 100 UNITS/ML 15 UNITS SUB-Q (07:50)
[2025-09-02 08:22] VITALS: BP 98/47; PULSE 82; RESP 18; TEMP 36.2; O2SAT 98
[2025-09-02] MEDS: PANTOPRAZOLE SODIUM IV 40 MG VIAL IV PUSH ×2 (09:07→21:25)
[2025-09-02] MEDS: INSULIN ASPART (*BKC) 100 UNITS/ML SUB-Q ×3 (09:09→17:49)
--- NOTE | 2025-09-02 10:26 | PM.IMPN2 ---
Assessment and Plan Assessment and Plan (1) Marijuana smoker: Code(s): F12.90 - Cannabis use, unspecified, uncomplicated Status: Acute Assessment and Plan: Patient was counseled and encouraged to cut marijuana smoking (2) Cannabinoid hyperemesis syndrome: Code(s): R11.2 - Nausea with vomiting, unspecified; F12.90 - Cannabis use, unspecified, uncomplicated Status: Acute Assessment and Plan: She feels better and at this time denies any nausea vomiting (3) DKA, type 1: Qualifiers: Diabetes mellitus complication detail: without coma Qualified Code(s): E10.10 - Type 1 diabetes mellitus with ketoacidosis without coma Code(s): E10.10 - Type 1 diabetes mellitus with ketoacidosis without coma Status: Acute Assessment and Plan: Pt was given IVF bolus and started on infusion Insulin infusion was started and Q1H glucose monitoring is being done Serial labs were ordered Her anion gap is closed. She feels better. I will transition her to subcutaneous insulin. Consult chemical educator and dietitian Start diabetic diet (4) Gastroparesis: Code(s): K31.84 - Gastroparesis Status: Acute Assessment and Plan: Patient does not take any Reglan at home. Currently denies any nausea vomiting. Will see how she does with the diet Start p.o. Reglan once patient is off of promethazine (5) Hematemesis: Code(s): K92.0 - Hematemesis Status: Acute Assessment and Plan: Patient reports episodes off vomitus sedative with Dr. siddhartha krueger which started later in the course. Possible Melody-Karimi tear. Abdomen pelvis CT was negative. Consult GI IV PPI q.12 hours Monitor him Plan DVT prophylaxis -SCD Stress ulcer prophylaxis -PPI Nutrition -consistent carbohydrate diet Code Status - Full Code Possible dc in am Subjective Date/time seen: 09/02/25 10:26 Interval history: Patient was seen during the morning rounds today. Feeling slightly better. No sob or chest pain Nausea is better. Review of Systems Review of Systems: Review of systems limited due to lack of patient cooperation. All systems reviewed & are unremarkable except as noted in HPI and below (HPI) Exam Narrative: General: Pt is alert awake and in NAD Lungs/Chest: Trachea central Clear BS B/L, No crackles or wheezing. Cardiac: RRR. Normal S1 S2. No murmurs Circulation: Pedal pulses are intact and symmetrical. Abdomen: Normal bowel sounds.. Soft. NT. ND. Extremities: No clubbing, cyanosis or edema. Warm : Quintero in place Neurologic: Follows commands. Moves all 4 extremities PERRL AO x 3 Skin: No Rash Const: Other: Mildly ill-appearing, no acute distress, appears older than stated age HENMT: Other: Mucous membranes are dry, no oral pharyngeal erythema, fair dentition Eyes: Other: No conjunctival pallor, no scleral icterus Neck: Other: No lymphadenopathy, no JVD Resp: Other: Clear to auscultation anterior lung bethea, no increased work of breathing Cardio: Other: Occasional irregular beat, no murmur, 2+ bilateral radial and pedal pulses GI: Other: Soft, nontender, nondistended, positive bowel sounds Skin: Other: Multiple tattoos, mild generalized pallor Neuro: Other: Alert oriented, speech is clear, no obvious facial asymmetry, neuro exam limited due to lack of patient cooperation Extrem: Other: No clubbing, cyanosis or edema, no foot wounds Psych: Other: Irritable, uncooperative abdominal poor judgment intact insight Objective Data Vital Signs Vital Signs: Vital Signs - 24 hr 09/01/25 17:13 09/01/25 18:33 09/01/25 21:00 Temperature 37.0 C Pulse Rate 90 Respiratory Rate 18 Blood Pressure 133/87 Pulse Oximetry 100 Oxygen Delivery Room Air Room Air 09/01/25 22:16 09/02/25 08:00 09/02/25 08:22 Temperature 37.0 C 36.2 C L Pulse Rate 88 82 Respiratory Rate 18 18 Blood Pressure 124/84 98/47 L Pulse Oximetry 99 98 Oxygen Delivery Room Air Intake/Output Intake/Output: Intake & Output 08/30/25 08/31/25 09/01/25 09/02/25 23:59 23:59 23:59 23:59 Intake Total 3478.3 2235.1 Output Total 400 600 Balance 3478.3 1835.1 -600 Meds/Results Medications: Active Medications Generic Name Dose Route Start Last Admin Trade Name Freq PRN Reason Stop Dose Admin Dextrose 12.5 gm 08/31/25 22:23 Dextrose 50% 25 Gm/50 Ml Syringe IV PUSH PRN PRN Hypoglycemia Protocol Enoxaparin Sodium 40 mg 09/02/25 11:30 Enoxaparin 40 Mg/0.4 Ml Syringe SUB-Q DAILY SANDRITA Glucagon 1 mg 08/31/25 22:23 Glucagon For Inj 1 Mg Vial IM PRN PRN Hypoglycemia Protocol Glucose 15 gm 09/01/25 08:47 Glucose Oral Gel 15 Gm Of Glucse In 37.5 Gm Tube PO PRN PRN Hypoglycemia Protocol Dextrose 1,000 mls @ 100 mls/hr 08/31/25 22:23 Dextrose 5% 1,000 Ml IVPB PRN PRN Hypoglycemia Protocol Sodium Chloride 1,000 mls @ 83 mls/hr 09/02/25 10:25 Normal Saline Iv IV CONT .Q12H3M SANDRITA Levofloxacin/Dextrose 500 mg in 100 mls @ 100 mls/hr 09/02/25 10:25 Levaquin 500 Mg/D5w 100 Ml IVPB Q24H SANDRITA Insulin Aspart 3 - 6 units 09/01/25 12:00 09/02/25 09:09 Insulin Aspart (*Bkc) 100 Units/Ml SUB-Q 6 units TIDWM SANDRITA Administration Protocol Insulin Aspart 1 - 3 units 09/01/25 21:00 09/01/25 21:16 Insulin Aspart (*Bkc) 100 Units/Ml SUB-Q 1 units HS SANDRITA Administration Protocol Insulin Glargine 15 units 08/31/25 07:50 09/02/25 07:50 Insulin Glargine (*Bkc) 100 Units/Ml SUB-Q 15 units Q24H SANDRITA Administration Pantoprazole Sodium 40 mg 09/01/25 21:00 09/02/25 09:07 Pantoprazole Sodium Iv 40 Mg Vial IV PUSH 40 mg Q12HR SANDRITA Administration Promethazine HCl 25 mg 08/31/25 23:19 09/01/25 21:14 Promethazine Hcl 25 Mg/Ml Ampul IM 25 mg Q4H PRN Administration Intractable nausea vomiting Radiology Results: ITS Impressions Abdomen/Pelvis CT 08/31/25 15:15 IMPRESSION: 1. No acute findings are noted in the upper abdomen and pelvis on the CT examination. Consider upper endoscopy to evaluate hematemesis. Labs Labs: Laboratory Results - last 24 hr 09/01/25 09/01/25 09/01/25 11:03 14:57 16:56 WBC 14.6 H RBC 4.33 Hgb 13.1 Hct 38.4 MCV 88.7 MCH 30.3 MCHC 34.1 RDW 13.9 Plt Count 311 MPV 10.1 Sodium Potassium Chloride Carbon Dioxide Anion Gap BUN Creatinine Estim Creat Clear Calc Estimated GFR Glucose POC Capillary Glucose 216 H 153 H Calcium Magnesium Total Bilirubin AST ALT Alkaline Phosphatase Total Protein Albumin 09/01/25 09/02/25 09/02/25 20:37 04:55 08:08 WBC 19.1 H RBC 4.63 Hgb 13.8 Hct 42.1 MCV 90.9 MCH 29.8 MCHC 32.8 RDW 13.5 Plt Count 234 MPV 11.5 H Sodium 132 L Potassium 4.8 Chloride 102 Carbon Dioxide 9 L Anion Gap 21 H BUN 9 Creatinine 0.76 Estim Creat Clear Calc 92 Estimated GFR > 60 Glucose 361 H POC Capillary Glucose 223 H 384 H Calcium 9.1 Magnesium 2.2 Total Bilirubin 1.4 H AST 73 H ALT 25 Alkaline Phosphatase 82 Total Protein 7.5 Albumin 4.4 Quality VTE Prophylaxis VTE prophylaxis: pharmacologic ordered (Lovenox 40 mg subQ daily)
[2025-09-02] MEDS: levoFLOXacin 500 MG/D5W 100 ML 500 MG/100 ML BAG 100 MG IVPB (11:06)
[2025-09-02] MEDS: SODIUM CHLORIDE 0.9% IV 1,000 ML 83 ML IV CONT ×2 (11:07→23:13)
[2025-09-02] MEDS: ONDANSETRON HCL ODT 4 MG TABLET PO ×2 (13:01→21:25)
[2025-09-02 14:00] VITALS: BP 132/56; PULSE 105; RESP 18; TEMP 36.7; O2SAT 100
--- NOTE | 2025-09-02 16:25 | WPDGIPROGNO ---
Progress Note: A&P Assessment and Plan (1) Coffee ground emesis: Code(s): K92.0 - Hematemesis Status: Acute Assessment and Plan: resolved, h/h stable and no need to repeat egd will monitor ppi daily (2) Intractable cyclical vomiting: Code(s): R11.15 - Cyclical vomiting syndrome unrelated to migraine Status: Acute Assessment and Plan: multifactorial from gastroparesis, recent admission with dka, use of marijuana continue medical treatment still with nausea (3) Gastroparesis: Code(s): K31.84 - Gastroparesis Status: Acute (4) Marijuana smoker: Code(s): F12.90 - Cannabis use, unspecified, uncomplicated Status: Acute (5) DKA, type 1: Qualifiers: Diabetes mellitus complication detail: without coma Qualified Code(s): E10.10 - Type 1 diabetes mellitus with ketoacidosis without coma Code(s): E10.10 - Type 1 diabetes mellitus with ketoacidosis without coma Status: Acute (6) Diabetic gastroparesis: Code(s): E11.43 - Type 2 diabetes mellitus with diabetic autonomic (poly)neuropathy; K31.84 - Gastroparesis Status: Acute Subjective Date/time seen: 09/02/25 16:25 Interval history: similar nausea and spitting up but clear, no more signs of gib Review of Systems Review of Systems: All systems reviewed & are unremarkable except as noted in HPI and below Exam Const: General: no acute distress Other: anxious, lying in bed HENMT: Face/Nose/Sinus: Normal nares present Eyes: General: appearance normal, both eyes and all related structures Neck: Neck: supple Resp: Auscultation: clear to auscultation bilaterally Cardio: Rate: regular rate Rhythm: regular rhythm GI: Inspection: non-distended GI Palp: Yes Soft to palpation and No Tenderness to palpation present (GI) Auscultation: normal bowel sounds Skin: General skin exam: normal color Neuro: Speech: normal speech Motor exam (neuro): 5/5 motor strength present throughout Extrem: General: normal to inspection Psych: Affect: Anxious affect present Objective Data Vital Signs Vital Signs: Vital Signs - 24 hr 09/01/25 17:13 09/01/25 18:33 09/01/25 21:00 Temperature 98.6 F Pulse Rate 90 Respiratory Rate 18 Blood Pressure 133/87 Pulse Oximetry 100 Oxygen Delivery Room Air Room Air 09/01/25 22:16 09/02/25 08:00 09/02/25 08:22 Temperature 98.6 F 97.1 F L Pulse Rate 88 82 Respiratory Rate 18 18 Blood Pressure 124/84 98/47 L Pulse Oximetry 99 98 Oxygen Delivery Room Air 09/02/25 14:00 Temperature 98.1 F Pulse Rate 105 H Respiratory Rate 18 Blood Pressure 132/56 L Pulse Oximetry 100 Oxygen Delivery Intake/Output Intake/Output: Intake & Output 08/30/25 08/31/25 09/01/25 09/02/25 23:59 23:59 23:59 23:59 Intake Total 3478.3 2235.1 Output Total 400 600 Balance 3478.3 1835.1 -600 Meds/Results Medications: Active Medications Generic Name Dose Route Start Last Admin Trade Name Freq PRN Reason Stop Dose Admin Dextrose 12.5 gm 08/31/25 22:23 Dextrose 50% 25 Gm/50 Ml Syringe IV PUSH PRN PRN Hypoglycemia Protocol Glucagon 1 mg 08/31/25 22:23 Glucagon For Inj 1 Mg Vial IM PRN PRN Hypoglycemia Protocol Glucose 15 gm 09/01/25 08:47 Glucose Oral Gel 15 Gm Of Glucse In 37.5 Gm Tube PO PRN PRN Hypoglycemia Protocol Dextrose 1,000 mls @ 100 mls/hr 08/31/25 22:23 Dextrose 5% 1,000 Ml IVPB PRN PRN Hypoglycemia Protocol Sodium Chloride 1,000 mls @ 83 mls/hr 09/02/25 10:25 09/02/25 11:07 Normal Saline Iv IV CONT 83 mls/hr .Q12H3M SANDRITA Administration Levofloxacin/Dextrose 500 mg in 100 mls @ 100 mls/hr 09/02/25 11:00 09/02/25 11:06 Levaquin 500 Mg/D5w 100 Ml IVPB 100 mls/hr Q24H SANDRITA Administration Insulin Aspart 3 - 6 units 09/01/25 12:00 09/02/25 13:01 Insulin Aspart (*Bkc) 100 Units/Ml SUB-Q 4 units TIDWM SANDRITA Administration Protocol Insulin Aspart 1 - 3 units 09/01/25 21:00 09/01/25 21:16 Insulin Aspart (*Bkc) 100 Units/Ml SUB-Q 1 units HS SANDRITA Administration Protocol Insulin Glargine 15 units 08/31/25 07:50 09/02/25 07:50 Insulin Glargine (*Bkc) 100 Units/Ml SUB-Q 15 units Q24H SANDRITA Administration Ondansetron HCl 4 mg 09/02/25 12:26 09/02/25 13:01 Ondansetron Hcl Odt 4 Mg Tablet PO 4 mg Q6H PRN Administration Nausea And Vomiting Pantoprazole Sodium 40 mg 09/01/25 21:00 09/02/25 09:07 Pantoprazole Sodium Iv 40 Mg Vial IV PUSH 40 mg Q12HR SANDRITA Administration Promethazine HCl 25 mg 08/31/25 23:19 09/01/25 21:14 Promethazine Hcl 25 Mg/Ml Ampul IM 25 mg Q4H PRN Administration Intractable nausea vomiting Radiology Results: ITS Impressions Abdomen/Pelvis CT 08/31/25 15:15 IMPRESSION: 1. No acute findings are noted in the upper abdomen and pelvis on the CT examination. Consider upper endoscopy to evaluate hematemesis. Labs Labs: Laboratory Results - last 24 hr 09/01/25 09/01/25 09/02/25 16:56 20:37 04:55 WBC 19.1 H RBC 4.63 Hgb 13.8 Hct 42.1 MCV 90.9 MCH 29.8 MCHC 32.8 RDW 13.5 Plt Count 234 MPV 11.5 H Sodium 132 L Potassium 4.8 Chloride 102 Carbon Dioxide 9 L Anion Gap 21 H BUN 9 Creatinine 0.76 Estim Creat Clear Calc 92 Estimated GFR > 60 Glucose 361 H POC Capillary Glucose 153 H 223 H Calcium 9.1 Magnesium 2.2 Total Bilirubin 1.4 H AST 73 H ALT 25 Alkaline Phosphatase 82 Total Protein 7.5 Albumin 4.4 09/02/25 09/02/25 08:08 12:07 WBC RBC Hgb Hct MCV MCH MCHC RDW Plt Count MPV Sodium Potassium Chloride Carbon Dioxide Anion Gap BUN Creatinine Estim Creat Clear Calc Estimated GFR Glucose POC Capillary Glucose 384 H 290 H Calcium Magnesium Total Bilirubin AST ALT Alkaline Phosphatase Total Protein Albumin
[2025-09-02 21:28] VITALS: BP 141/76; PULSE 95; RESP 20; TEMP 36.8; O2SAT 100
[2025-09-02] MEDS: PROMETHAZINE HCL 25 MG/ML AMPUL IM (21:32)
[2025-09-03 05:41] VITALS: BP 109/60; PULSE 76; RESP 14; TEMP 36.6; O2SAT 100
[2025-09-03 06:14] LABS: Hematocrit 35.5 % (37.0-47.0); Hemoglobin 11.9 g/dL (12.0-15.0); Mean Corpuscular HGB Conc 33.5 g/dl (32-36); Mean Corpuscular Hemoglobin 29.7 pg (26-34); Mean Corpuscular Volume 88.5 fl (80-100); Platelet Count Result 266 k/mm3 (150-375); Red Blood Count 4.01 M/mm3 (4.2-5.4); White Blood Count 10.7 K/mm3 (4.5-10.0)
[2025-09-03 06:47] LABS: Alanine Aminotransferase 20 U/L (6-35); Albumin Level 3.5 g/dL (3.5-5.1); Alkaline Phosphatase 63 U/L (38-126); Anion Gap 9 mmol/L (4-12); Aspartate Amino Transferase 45 U/L (14-36); Bilirubin,Total 0.8 mg/dL (0.2-1.3); Blood Urea Nitrogen 8 mg/dL (7-17); Calcium 8.2 mg/dL (8.4-10.2); Carbon Dioxide 25 mmol/L (22-30); Chloride 101 mmol/L (98-107); Estimated CRCL calculation 97 ml/min; Estimated Glomerular Filt Rate > 60; Glucose 159 mg/dL (65-110); Magnesium 1.9 mg/dL (1.6-2.3); Potassium 3.8 mmol/L (3.4-5.0); Sodium 135 mmol/L (137-145); Total Protein 5.9 g/dL (6.3-8.2)
[2025-09-03] MEDS: ONDANSETRON HCL ODT 4 MG TABLET PO (08:41)
[2025-09-03] MEDS: PANTOPRAZOLE SODIUM IV 40 MG VIAL IV PUSH (08:43)
[2025-09-03] MEDS: INSULIN ASPART (*BKC) 100 UNITS/ML SUB-Q ×2 (08:50→12:12)
[2025-09-03] MEDS: INSULIN GLARGINE (*BKC) 100 UNITS/ML 15 UNITS SUB-Q (08:51)
[2025-09-03] MEDS: levoFLOXacin 500 MG/D5W 100 ML 500 MG/100 ML BAG 100 MG IVPB (12:09)
--- NOTE | 2025-09-03 13:14 | PM.IMPN2 ---
Assessment and Plan Assessment and Plan (1) Marijuana smoker: Code(s): F12.90 - Cannabis use, unspecified, uncomplicated Status: Acute Assessment and Plan: Patient was counseled and encouraged to cut marijuana smoking (2) Cannabinoid hyperemesis syndrome: Code(s): R11.2 - Nausea with vomiting, unspecified; F12.90 - Cannabis use, unspecified, uncomplicated Status: Acute Assessment and Plan: She feels better and at this time denies any nausea vomiting (3) DKA, type 1: Qualifiers: Diabetes mellitus complication detail: without coma Qualified Code(s): E10.10 - Type 1 diabetes mellitus with ketoacidosis without coma Code(s): E10.10 - Type 1 diabetes mellitus with ketoacidosis without coma Status: Acute Assessment and Plan: Pt was given IVF bolus and started on infusion Insulin infusion was started and Q1H glucose monitoring is being done Serial labs were ordered Her anion gap is closed. She feels better. I will transition her to subcutaneous insulin. Consult childbirth educator and dietitian Start diabetic diet (4) Gastroparesis: Code(s): K31.84 - Gastroparesis Status: Acute Assessment and Plan: Patient does not take any Reglan at home. Currently denies any nausea vomiting. Will see how she does with the diet Start p.o. Reglan once patient is off of promethazine (5) Hematemesis: Code(s): K92.0 - Hematemesis Status: Acute Assessment and Plan: Patient reports episodes off vomitus sedative with Dr. siddhartha krueger which started later in the course. Possible Melody-Karimi tear. Abdomen pelvis CT was negative. Consult GI IV PPI q.12 hours Monitor him Plan DVT prophylaxis -SCD Stress ulcer prophylaxis -PPI Nutrition -consistent carbohydrate diet Code Status - Full Code Possible dc in am Subjective Date/time seen: 09/03/25 13:14 Interval history: Patient is feeling slightly better. Decrease nausea and vomiting. Shortness of breath or chest pain Review of Systems Review of Systems: Review of systems limited due to lack of patient cooperation. All systems reviewed & are unremarkable except as noted in HPI and below (HPI) Exam Narrative: General: Pt is alert awake and in NAD Lungs/Chest: Trachea central Clear BS B/L, No crackles or wheezing. Cardiac: RRR. Normal S1 S2. No murmurs Circulation: Pedal pulses are intact and symmetrical. Abdomen: Normal bowel sounds.. Soft. NT. ND. Extremities: No clubbing, cyanosis or edema. Warm : Quintero in place Neurologic: Follows commands. Moves all 4 extremities PERRL AO x 3 Skin: No Rash Const: Other: Mildly ill-appearing, no acute distress, appears older than stated age HENMT: Other: Mucous membranes are dry, no oral pharyngeal erythema, fair dentition Eyes: Other: No conjunctival pallor, no scleral icterus Neck: Other: No lymphadenopathy, no JVD Resp: Other: Clear to auscultation anterior lung bethea, no increased work of breathing Cardio: Other: Occasional irregular beat, no murmur, 2+ bilateral radial and pedal pulses GI: Other: Soft, nontender, nondistended, positive bowel sounds Skin: Other: Multiple tattoos, mild generalized pallor Neuro: Other: Alert oriented, speech is clear, no obvious facial asymmetry, neuro exam limited due to lack of patient cooperation Extrem: Other: No clubbing, cyanosis or edema, no foot wounds Psych: Other: Irritable, uncooperative abdominal poor judgment intact insight Objective Data Vital Signs Vital Signs: Vital Signs - 24 hr 09/02/25 14:00 09/02/25 20:00 09/02/25 21:28 Temperature 36.7 C 36.8 C Pulse Rate 105 H 95 Respiratory Rate 18 20 Blood Pressure 132/56 L 141/76 H Pulse Oximetry 100 100 Oxygen Delivery Room Air 09/03/25 05:41 Temperature 36.6 C Pulse Rate 76 Respiratory Rate 14 Blood Pressure 109/60 Pulse Oximetry 100 Oxygen Delivery Intake/Output Intake/Output: Intake & Output 08/31/25 09/01/25 09/02/25 09/03/25 23:59 23:59 23:59 23:59 Intake Total 3478.3 2235.1 1340 740 Output Total 400 1700 900 Balance 3478.3 2775.1 360 160 Meds/Results Medications: Active Medications Generic Name Dose Route Start Last Admin Trade Name Freq PRN Reason Stop Dose Admin Dextrose 12.5 gm 08/31/25 22:23 Dextrose 50% 25 Gm/50 Ml Syringe IV PUSH PRN PRN Hypoglycemia Protocol Enoxaparin Sodium 40 mg 09/03/25 14:00 Enoxaparin 40 Mg/0.4 Ml Syringe SUB-Q DAILY SANDRITA Glucagon 1 mg 08/31/25 22:23 Glucagon For Inj 1 Mg Vial IM PRN PRN Hypoglycemia Protocol Glucose 15 gm 09/01/25 08:47 Glucose Oral Gel 15 Gm Of Glucse In 37.5 Gm Tube PO PRN PRN Hypoglycemia Protocol Dextrose 1,000 mls @ 100 mls/hr 08/31/25 22:23 Dextrose 5% 1,000 Ml IVPB PRN PRN Hypoglycemia Protocol Sodium Chloride 1,000 mls @ 83 mls/hr 09/02/25 10:25 09/02/25 23:13 Normal Saline Iv IV CONT 83 mls/hr .Q12H3M SANDRITA Administration Levofloxacin/Dextrose 500 mg in 100 mls @ 100 mls/hr 09/02/25 11:00 09/03/25 12:09 Levaquin 500 Mg/D5w 100 Ml IVPB 100 mls/hr Q24H SANDRITA Administration Insulin Aspart 3 - 6 units 09/01/25 12:00 09/03/25 12:12 Insulin Aspart (*Bkc) 100 Units/Ml SUB-Q 5 units TIDWM SANDRITA Administration Protocol Insulin Aspart 1 - 3 units 09/01/25 21:00 09/02/25 21:39 Insulin Aspart (*Bkc) 100 Units/Ml SUB-Q Not Given HS SANDRITA Protocol Insulin Glargine 15 units 08/31/25 07:50 09/03/25 08:51 Insulin Glargine (*Bkc) 100 Units/Ml SUB-Q 15 units Q24H SANDRITA Administration Ondansetron HCl 4 mg 09/02/25 12:26 09/03/25 08:41 Ondansetron Hcl Odt 4 Mg Tablet PO 4 mg Q6H PRN Administration Nausea And Vomiting Pantoprazole Sodium 40 mg 09/01/25 21:00 09/03/25 08:43 Pantoprazole Sodium Iv 40 Mg Vial IV PUSH 40 mg Q12HR SANDRITA Administration Promethazine HCl 25 mg 08/31/25 23:19 09/02/25 21:32 Promethazine Hcl 25 Mg/Ml Ampul IM 25 mg Q4H PRN Administration Intractable nausea vomiting Radiology Results: ITS Impressions Abdomen/Pelvis CT 08/31/25 15:15 IMPRESSION: 1. No acute findings are noted in the upper abdomen and pelvis on the CT examination. Consider upper endoscopy to evaluate hematemesis. Labs Labs: Laboratory Results - last 24 hr 09/02/25 09/02/25 09/03/25 16:49 21:36 05:51 WBC 10.7 H RBC 4.01 L Hgb 11.9 L Hct 35.5 L MCV 88.5 MCH 29.7 MCHC 33.5 RDW 13.5 Plt Count 266 MPV 10.6 H Sodium 135 L Potassium 3.8 Chloride 101 Carbon Dioxide 25 Anion Gap 9 BUN 8 Creatinine 0.72 Estim Creat Clear Calc 97 Estimated GFR > 60 Glucose 159 H POC Capillary Glucose 309 H 180 H Calcium 8.2 L Magnesium 1.9 Total Bilirubin 0.8 AST 45 H ALT 20 Alkaline Phosphatase 63 Total Protein 5.9 L Albumin 3.5 09/03/25 09/03/25 07:26 11:34 WBC RBC Hgb Hct MCV MCH MCHC RDW Plt Count MPV Sodium Potassium Chloride Carbon Dioxide Anion Gap BUN Creatinine Estim Creat Clear Calc Estimated GFR Glucose POC Capillary Glucose 203 H 319 H Calcium Magnesium Total Bilirubin AST ALT Alkaline Phosphatase Total Protein Albumin Quality VTE Prophylaxis VTE prophylaxis: pharmacologic ordered (Lovenox 40 mg subQ daily)
--- NOTE | 2025-09-03 13:36 | WPDGIPROGNO ---
Progress Note: A&P Assessment and Plan (1) Coffee ground emesis: Code(s): K92.0 - Hematemesis Status: Acute Assessment and Plan: resolved without any more episodes and tolerating diet she can go home wiht ppi daily and also antiemetics (2) Intractable cyclical vomiting: Code(s): R11.15 - Cyclical vomiting syndrome unrelated to migraine Status: Acute Assessment and Plan: multifactorial from gastroparesis, recent admission with dka, use of marijuana continue medical treatment no objections to discharge today (3) Gastroparesis: Code(s): K31.84 - Gastroparesis Status: Acute (4) Marijuana smoker: Code(s): F12.90 - Cannabis use, unspecified, uncomplicated Status: Acute (5) DKA, type 1: Qualifiers: Diabetes mellitus complication detail: without coma Qualified Code(s): E10.10 - Type 1 diabetes mellitus with ketoacidosis without coma Code(s): E10.10 - Type 1 diabetes mellitus with ketoacidosis without coma Status: Acute Assessment and Plan: treated continue insulin (6) Diabetic gastroparesis: Code(s): E11.43 - Type 2 diabetes mellitus with diabetic autonomic (poly)neuropathy; K31.84 - Gastroparesis Status: Acute Subjective Date/time seen: 09/03/25 13:36 Interval history: still nauseous but overall better and would like to go home for Xmas Review of Systems Review of Systems: All systems reviewed & are unremarkable except as noted in HPI and below Exam Const: General: no acute distress Other: anxious, lying in bed HENMT: Face/Nose/Sinus: Normal nares present Eyes: General: appearance normal, both eyes and all related structures Neck: Neck: supple Resp: Auscultation: clear to auscultation bilaterally Cardio: Rate: regular rate Rhythm: regular rhythm GI: Inspection: non-distended GI Palp: Yes Soft to palpation and No Tenderness to palpation present (GI) Auscultation: normal bowel sounds Skin: General skin exam: normal color Neuro: Speech: normal speech Motor exam (neuro): 5/5 motor strength present throughout Extrem: General: normal to inspection Psych: Affect: Anxious affect present Objective Data Vital Signs Vital Signs: Vital Signs - 24 hr 09/02/25 14:00 09/02/25 20:00 09/02/25 21:28 Temperature 98.1 F 98.2 F Pulse Rate 105 H 95 Respiratory Rate 18 20 Blood Pressure 132/56 L 141/76 H Pulse Oximetry 100 100 Oxygen Delivery Room Air 09/03/25 05:41 Temperature 97.9 F Pulse Rate 76 Respiratory Rate 14 Blood Pressure 109/60 Pulse Oximetry 100 Oxygen Delivery Intake/Output Intake/Output: Intake & Output 08/31/25 09/01/25 09/02/25 09/03/25 23:59 23:59 23:59 23:59 Intake Total 3478.3 2235.1 1340 740 Output Total 400 1700 900 Balance 3478.3 1835.1 360 -160 Meds/Results Medications: Active Medications Generic Name Dose Route Start Last Admin Trade Name Freq PRN Reason Stop Dose Admin Dextrose 12.5 gm 08/31/25 22:23 Dextrose 50% 25 Gm/50 Ml Syringe IV PUSH PRN PRN Hypoglycemia Protocol Enoxaparin Sodium 40 mg 09/03/25 14:00 Enoxaparin 40 Mg/0.4 Ml Syringe SUB-Q DAILY SANDRITA Glucagon 1 mg 08/31/25 22:23 Glucagon For Inj 1 Mg Vial IM PRN PRN Hypoglycemia Protocol Glucose 15 gm 09/01/25 08:47 Glucose Oral Gel 15 Gm Of Glucse In 37.5 Gm Tube PO PRN PRN Hypoglycemia Protocol Dextrose 1,000 mls @ 100 mls/hr 08/31/25 22:23 Dextrose 5% 1,000 Ml IVPB PRN PRN Hypoglycemia Protocol Sodium Chloride 1,000 mls @ 83 mls/hr 09/02/25 10:25 09/02/25 23:13 Normal Saline Iv IV CONT 83 mls/hr .Q12H3M SANDRITA Administration Levofloxacin/Dextrose 500 mg in 100 mls @ 100 mls/hr 09/02/25 11:00 09/03/25 12:09 Levaquin 500 Mg/D5w 100 Ml IVPB 100 mls/hr Q24H SANDRITA Administration Insulin Aspart 3 - 6 units 09/01/25 12:00 09/03/25 12:12 Insulin Aspart (*Bkc) 100 Units/Ml SUB-Q 5 units TIDWM SANDRITA Administration Protocol Insulin Aspart 1 - 3 units 09/01/25 21:00 09/02/25 21:39 Insulin Aspart (*Bkc) 100 Units/Ml SUB-Q Not Given HS SANDRITA Protocol Insulin Glargine 15 units 08/31/25 07:50 09/03/25 08:51 Insulin Glargine (*Bkc) 100 Units/Ml SUB-Q 15 units Q24H SANDRITA Administration Ondansetron HCl 4 mg 09/02/25 12:26 09/03/25 08:41 Ondansetron Hcl Odt 4 Mg Tablet PO 4 mg Q6H PRN Administration Nausea And Vomiting Pantoprazole Sodium 40 mg 09/01/25 21:00 09/03/25 08:43 Pantoprazole Sodium Iv 40 Mg Vial IV PUSH 40 mg Q12HR SNADRITA Administration Promethazine HCl 25 mg 08/31/25 23:19 09/02/25 21:32 Promethazine Hcl 25 Mg/Ml Ampul IM 25 mg Q4H PRN Administration Intractable nausea vomiting Radiology Results: ITS Impressions Abdomen/Pelvis CT 08/31/25 15:15 IMPRESSION: 1. No acute findings are noted in the upper abdomen and pelvis on the CT examination. Consider upper endoscopy to evaluate hematemesis. Labs Labs: Laboratory Results - last 24 hr 09/02/25 09/02/25 09/03/25 16:49 21:36 05:51 WBC 10.7 H RBC 4.01 L Hgb 11.9 L Hct 35.5 L MCV 88.5 MCH 29.7 MCHC 33.5 RDW 13.5 Plt Count 266 MPV 10.6 H Sodium 135 L Potassium 3.8 Chloride 101 Carbon Dioxide 25 Anion Gap 9 BUN 8 Creatinine 0.72 Estim Creat Clear Calc 97 Estimated GFR > 60 Glucose 159 H POC Capillary Glucose 309 H 180 H Calcium 8.2 L Magnesium 1.9 Total Bilirubin 0.8 AST 45 H ALT 20 Alkaline Phosphatase 63 Total Protein 5.9 L Albumin 3.5 09/03/25 09/03/25 07:26 11:34 WBC RBC Hgb Hct MCV MCH MCHC RDW Plt Count MPV Sodium Potassium Chloride Carbon Dioxide Anion Gap BUN Creatinine Estim Creat Clear Calc Estimated GFR Glucose POC Capillary Glucose 203 H 319 H Calcium Magnesium Total Bilirubin AST ALT Alkaline Phosphatase Total Protein Albumin
[2025-09-03 14:00] VITALS: BP 92/63; PULSE 103; RESP 16; TEMP 37; O2SAT 98
[2025-09-03 14:43] VITALS: BP 106/62; PULSE 82
--- NOTE | 2025-09-03 16:17 | PM.DS ---
DS: Admitting Diagnosis Discharge Date 09/03/2025 Admitting Diagnosis Cannabis hyperemesis syndrome DS: Discharge Diagnosis Discharge Diagnosis (1) Marijuana smoker: Code(s): F12.90 - Cannabis use, unspecified, uncomplicated Status: Acute Assessment and Plan: Patient was counseled and encouraged to cut marijuana smoking (2) Cannabinoid hyperemesis syndrome: Code(s): R11.2 - Nausea with vomiting, unspecified; F12.90 - Cannabis use, unspecified, uncomplicated Status: Acute Assessment and Plan: She feels better and at this time denies any nausea vomiting (3) DKA, type 1: Qualifiers: Diabetes mellitus complication detail: without coma Qualified Code(s): E10.10 - Type 1 diabetes mellitus with ketoacidosis without coma Code(s): E10.10 - Type 1 diabetes mellitus with ketoacidosis without coma Status: Acute Assessment and Plan: Pt was given IVF bolus and started on infusion Insulin infusion was started and Q1H glucose monitoring is being done Serial labs were ordered Her anion gap is closed. She feels better. I will transition her to subcutaneous insulin. Consult board certified arts therapist and dietitian Start diabetic diet (4) Gastroparesis: Code(s): K31.84 - Gastroparesis Status: Acute Assessment and Plan: Patient does not take any Reglan at home. Currently denies any nausea vomiting. Will see how she does with the diet Start p.o. Reglan once patient is off of promethazine (5) Hematemesis: Code(s): K92.0 - Hematemesis Status: Acute Assessment and Plan: Patient reports episodes off vomitus sedative with Dr. siddhartha krueger which started later in the course. Possible Melody-Karimi tear. Abdomen pelvis CT was negative. Consult GI IV PPI q.12 hours Monitor him Plan DVT prophylaxis -SCD Stress ulcer prophylaxis -PPI Nutrition -consistent carbohydrate diet Code Status - Full Code Possible dc in am DS: Summary Hospital Course Reason for hospitalization: Nausea vomiting Hospital Course: 24 years old female admitted complained having nausea vomiting. Patient was given IV fluid of the medication. Patient was also given insulin possible DKA. Electrolytes were monitored and maintained. Today patient is feeling better was discharged home stable condition. Follow-up scheduled. Time Spent with Patient Time attestation: Total time spent providing and/or coordinating discharge services: Exam Narrative: General: Pt is alert awake and in NAD Lungs/Chest: Trachea central Clear BS B/L, No crackles or wheezing. Cardiac: RRR. Normal S1 S2. No murmurs Circulation: Pedal pulses are intact and symmetrical. Abdomen: Normal bowel sounds.. Soft. NT. ND. Extremities: No clubbing, cyanosis or edema. Warm : Quintero in place Neurologic: Follows commands. Moves all 4 extremities PERRL AO x 3 Skin: No Rash Const: Other: Mildly ill-appearing, no acute distress, appears older than stated age HENMT: Other: Mucous membranes are dry, no oral pharyngeal erythema, fair dentition Eyes: Other: No conjunctival pallor, no scleral icterus Neck: Other: No lymphadenopathy, no JVD Resp: Other: Clear to auscultation anterior lung bethea, no increased work of breathing Cardio: Other: Occasional irregular beat, no murmur, 2+ bilateral radial and pedal pulses GI: Other: Soft, nontender, nondistended, positive bowel sounds Skin: Other: Multiple tattoos, mild generalized pallor Neuro: Other: Alert oriented, speech is clear, no obvious facial asymmetry, neuro exam limited due to lack of patient cooperation Extrem: Other: No clubbing, cyanosis or edema, no foot wounds Psych: Other: Irritable, uncooperative abdominal poor judgment intact insight DS: Data Data Completed and Pending Labs on day of discharge: Labs from last 24 hours 09/03/25 09/03/25 09/03/25 11:34 07:26 05:51 WBC 10.7 H RBC 4.01 L Hgb 11.9 L Hct 35.5 L MCV 88.5 MCH 29.7 MCHC 33.5 RDW 13.5 Plt Count 266 MPV 10.6 H Sodium 135 L Potassium 3.8 Chloride 101 Carbon Dioxide 25 Anion Gap 9 BUN 8 Creatinine 0.72 Estim Creat Clear Calc 97 Estimated GFR > 60 Glucose 159 H POC Capillary Glucose 319 H 203 H Calcium 8.2 L Magnesium 1.9 Total Bilirubin 0.8 AST 45 H ALT 20 Alkaline Phosphatase 63 Total Protein 5.9 L Albumin 3.5 09/02/25 09/02/25 21:36 16:49 WBC RBC Hgb Hct MCV MCH MCHC RDW Plt Count MPV Sodium Potassium Chloride Carbon Dioxide Anion Gap BUN Creatinine Estim Creat Clear Calc Estimated GFR Glucose POC Capillary Glucose 180 H 309 H Calcium Magnesium Total Bilirubin AST ALT Alkaline Phosphatase Total Protein Albumin Discharge Plan Discharge Attending physician on discharge: Tyson Bland Consulting providers: Simon An; Richard Cortes Discharging Clinician: Tyson Bland Patient Disposition: Home Activity: as tolerated Diet: as tolerated Patient Instructions: Antibiotic Form, How to Stop Smoking (GEN), Diabetic Ketoacidosis (DC), Basic Carbohydrate Counting (DC), How to Quit Using Smokeless Tobacco (GEN), Suicide Prevention (DC) Patient Language: [place] Stand Alone Forms: General Discharge Information Follow-up/Referrals: Sophie,Cyn Bain MD [Primary Care Provider, Unknown] Discharge Medications: New ondansetron 4 mg Tablet,Disintegrating 4 mg PO Q6H PRN (Reason: Nausea And Vomiting) Qty: 30 0RF levofloxacin 500 mg tablet 500 mg PO DAILY Qty: 7 0RF Continued insulin lispro [Humalog U-100 Insulin] 100 unit/mL solution 1 sliding scale dose subcut USEASDIRECTD Qty: 100 0RF Rx Instructions: sliding scale insulin glargine [Basaglar KwikPen U-100 Insulin] 100 unit/mL (3 mL) Insulin Pen 25 unit subcut QAM Qty: 100 0RF Date of admission: 09/02/25 09:56 Primary Care Provider: Sophie,Cyn aBin Admitting Provider: Treasure Teague Attending physician on admission: Treasure Teague Condition: Stable Quality VTE Prophylaxis VTE prophylaxis: pharmacologic ordered (Lovenox 40 mg subQ daily)
--- NOTE | 2025-09-05 14:09 | PCCDE ---
09/05/25: DM educator courtesy call placed. Pt denies any DM related concerns. Has tried to reach someone re: note for work - has hospital number - message left w/hospitalist asst. (advised re: Potential vacation time - pt to retry for back up person)
== END 2025-09-03 16:45 | disposition home or self-care (01) | DRG 391 ==
LOC: ANHED 22:27 → ANHICU 23:09 → ANH3MED 09-01 15:00
PROVIDERS: Family Medicine; Internal Medicine; Admitting Provider Internal Medicine; Emergency Provider Emergency Medicine; PCP Emergency Medicine; Visit Provider Internal Medicine
DX: R11.16 Cannabis hyperemesis syndrome (principal); E10.10 Type 1 diabetes mellitus with ketoacidosis without coma; E10.43 Type 1 diabetes mellitus with diabetic autonomic (poly)neuropathy; K31.84 Gastroparesis; F12.99 Cannabis use, unspecified with unspecified cannabis-induced disorder; E86.0 Dehydration; F17.290 Nicotine dependence, other tobacco product, uncomplicated; E83.39 Other disorders of phosphorus metabolism; Z91.148 Patient's other noncompliance with medication regimen for other reason
CPT/HCPCS: 36415; 36600; 74177; 80048; 80053; 81001; 81025; 82010; 82375; 82805; 82948; 83036; 83050; 83735; 84100; 85018; 85025; 85027; 87040; 87086; 87641; 96361; 96365; 96366; 96372; 96375; 99285; A9270; G0378; J1650; J1815; J1956; J2405; J2470; J2550; J2765; J3480; J7030; J7050; Q9967